=== PATIENT | female | born 1950 | race Caucasian/White ===

== ENCOUNTER 2021-04-02 13:30 | Inpatient (IN) | payer MEDICARE, BC, SELFPAY ==
[2021-04-02 14:14] VITALS: BP 132/85; PULSE 74; RESP 18; TEMP 36.4; O2SAT 91; BMI 35.2
[2021-04-02 15:10] VITALS: O2SAT 91
[2021-04-02 19:00] VITALS: BP 109/65; PULSE 94; RESP 18; TEMP 36.8; O2SAT 92
[2021-04-02 19:30] VITALS: BP 138/80; PULSE 80; RESP 18; TEMP 36.7; O2SAT 94
[2021-04-02] MEDS: Senna/Docusate Sodium 1 Tablet 2 TABLET PO (20:57)
[2021-04-02] MEDS: Atorvastatin Calcium 40 MG Tablet PO (20:58)
[2021-04-02] MEDS: Heparin Injection (Vial) 5,000 UNIT/ML VIAL 5000 UNIT SC (21:04)
[2021-04-03 05:54] LABS: Hematocrit 42.6 % (37-47); Hemoglobin 13.4 g/dL (12.0-15.0); Mean Corp Hgb Conc 31.5 g/dL (32-36); Mean Corpuscular Hgb 28.5 pg (27.0-32.0); Mean Corpuscular Volume 90.4 fL (81-99); Mean Platelet Vol. 12.8 fl (6.2-12.0); Platelet Count 156 K/mm3 (150-450); RBC Distribution Width CV 13.7 % (11.6-14.6); RBC Distribution Width SD 45.1 fl (35.1-43.9); Red Blood Count 4.71 M/mm3 (4.2-5.4); White Blood Count 8.3 K/mm3 (4.4-11.0)
[2021-04-03 06:50] VITALS: O2SAT 93
[2021-04-03 06:53] LABS: ALB/GLOB Ratio 0.7 RATIO (0.9-2.4); AST(SGOT) 19 U/L (15-37); Alanine Aminotransfer ALT/SGPT 31 U/L (13-56); Alkaline Phosphatase 106 U/L (45-117); Anion Gap 5 (5-15); BUN 14 mg/dL (7-18); BUN/Creat Ratio 15.7 RATIO (10-20); Calcium,Total 9.3 mg/dL (8.5-10.1); Chloride 106 mmol/L (98-107); Creatinine, Serum 0.89 mg/dL (0.55-1.02); EST Glomerular Filtration Rate 66 mL/min (>60); Est Glom Filt Rate - Afr Amer 80 mL/min (>60); Estimated Creatinine Clearance 58.01 ml/min; Globulin 4.2 g/dL (2.2-4.2); Glucose 114 mg/dL (74-106); Magnesium 2.5 mg/dL (1.6-2.6); Phosphorus 3.7 mg/dL (2.5-4.9); Potassium 4.4 mmol/L (3.5-5.1); Protein, Total 7.2 g/dL (6.4-8.2); Sodium Level 140 mmol/L (136-145)
[2021-04-03] MEDS: Calcium Carb/Vitamin D 1 TABLET Tablet PO (07:46)
[2021-04-03] MEDS: Ascorbic Acid 500 MG Tablet PO (07:46)
[2021-04-03] MEDS: Acetaminophen 325 MG Tablet 650 MG PO (07:46)
[2021-04-03] MEDS: Multivitamins,Ther W-Minerals Tablet 1 TABLET PO (07:46)
[2021-04-03] MEDS: Cyanocobalamin 500 MCG Tablet PO (07:46)
[2021-04-03] MEDS: Pantoprazole Sodium 40 MG Tablet PO (07:46)
[2021-04-03] MEDS: Clopidogrel Bisulfate 75 MG Tablet PO (07:46)
[2021-04-03] MEDS: Heparin Injection (Vial) 5,000 UNIT/ML VIAL 5000 UNIT SC ×2 (07:47→21:08)
[2021-04-03] MEDS: Aspirin 81 MG TAB.CHEW PO (07:47)
[2021-04-03] MEDS: Lisinopril 5 MG Tablet PO (07:47)
[2021-04-03 08:20] VITALS: BP 123/76; PULSE 74; RESP 16; TEMP 36.6; O2SAT 92
--- NOTE | 2021-04-03 10:41 | HP.PCM_ITS ---
HPI - General General Date of Admission: 04/02/21 Date of Service: 04/03/21 Chief Complaint: Debility due to Ischemic CVA. HPI Narrative JOSE VELAZQUEZ, is a 70 F who presented to the ED on 03/29/21 with c/o facial droop, difficulty swallowing and R side weakness/that began a few hours prior to arrival. She declined TPA. MRI of the brain showed subcentimeter focus of restricted diffusion in the posterior limb of the left internal capsule consistent with an acute left lacunar CVA. The MRI also showed signs of micro bleeds in the deep Cortex concerning for chronic uncontrolled microvascular hypertension. CTA of the head neck revealed mild calcified stenosis of the internal carotid arteries, right greater than left and mild irregular stenosis of the distal M1 segment of the right middle cerebral artery. Echocardiogram had a 63% ejection fraction with no PFO. There was mild left ventricular hypertrophy. Prior to the stroke she was taking 1 baby ASA a day for many years and did not see a PCP regularly. she was admitted to the inpt acute rehab unit at [facility] on 04/02/21 for > 3 hours of therapy daily to restore function/indepe ndence at or as near as possible to her level prior to the CVA. All records from [facility] were reviewed. HGBA1C is 6.1, [id number], HDL 74 at [facility]. She has not had a COVID vaccination. [facility] Medical History (Updated 04/03/21 @ 12:[address] Nicolette Self, ) Dyslipidemia Glucose intolerance (impaired glucose tolerance) History of colon polyps HTN (hypertension) LVH (left ventricular hypertrophy) MVP (mitral valve prolapse) Obesity (BMI 30-39.9) Home Medications ascorbic acid (vitamin C) [Vitamin C] 500 mg PO DAILY 04/02/21 [History Last Taken Unknown] aspirin [Baby Aspirin] 81 mg PO DAILY 04/02/21 [History Last Taken Unknown] atorvastatin 40 mg PO QHS 04/02/21 [History Last Taken Unknown] calcium carbonate-vitamin D2 [Calcium + Vitamin D] 1 tab PO DAILY 04/02/21 [History Last Taken Unknown] clopidogrel 75 mg PO DAILY 04/02/21 [History Last Taken Unknown] cyanocobalamin (vitamin B-12) [Vitamin B-12] 500 mcg PO DAILY 04/02/21 [History Last Taken Unknown] lisinopril 5 mg PO DAILY 04/02/21 [History Last Taken Unknown] [id number] [Multivitamin 50 Plus] 1 tab PO DAILY 04/02/21 [History Last Taken Unknown] pantoprazole [Protonix] 40 mg PO DAILY 04/02/21 [History Last Taken Unknown] zinc 15 mg PO DAILY 04/02/21 [History Last Taken Unknown] Allergy/AdvReac Type Severity Reaction Status Date / Time No Known Allergies Allergy Verified 04/02/21 14:38 Family History (Updated 04/03/21 @ 01:57 by Tiffany Hughes) Mother Hyperlipidemia Hypertension Father Diabetes Father Hypertension Father Cancer Mother Dementia Brother Muscular dystrophy Surgical History (Updated 04/03/21 @ 11:[address] Nicolette Self DO) H/O colonoscopy with polypectomy Status post left breast lumpectomy (~1991) Social History (Updated 04/03/21 @ 12:[address] 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 pets and animals: Yes (3 tropical birds) leisure activities: art do you think of yourself as: straight/heterosexual current gender identity: female Smoking Status: Never smoker alcohol intake: current details: rare ETOH substance use type: does not use ROS Review of Systems ROS Unobtainable: Denies due to encephalopathy, due to endotracheal tube, due to mental condition or due to mental status Constitutional Constitutional: Reports weakness; Denies anorexia, change in weight, chills, fatigue, fever(s) or night sweats Eyes Eyes: Denies blurry vision, change in vision, eye pain or loss of vision ENT HEENT: Reports nasal congestion and post nasal drip; Denies abnormal hearing, dysphagia, headache(s), hearing loss or sore throat Cardiovascular Cardiovascular: Denies chest pain, dyspnea on exertion, edema, lightheadedness, orthopnea, palpitations, paroxysmal nocturnal dyspnea or syncope Respiratory/Chest Respiratory/Chest: Reports cough; Denies dyspnea, shortness of breath at rest, shortness of breath with exertion or wheezing Gastrointestinal Gastrointestinal: Denies abdominal pain, constipation, diarrhea, dyspepsia, hematemesis, hematochezia, nausea or vomiting Genitourinary Genitourinary: Reports urinary incontinence; Denies dysuria, hematuria, nocturia, urinary frequency, urinary hesitancy or urinary urgency Musculoskeletal Musculoskeletal: Reports joint pain and muscle weakness; Denies back pain, joint swelling or neck pain Integumentary Integumentary: Denies jaundice, lesions, rash or wounds Neurologic Neurologic: Reports focal weakness and weakness; Denies confusion, disequilibrium, dizziness, headache(s), paresthesias, seizures or tremor(s) Psychiatric Psychiatric: Denies anxiety, depression, homicidal ideation or suicidal ideation Endocrine Endocrinology: Denies change in body appearance, polydipsia or polyuria Hematologic/Lymphatic Hematologic/Lymphatic: Denies easy bleeding, easy bruising or lymphadenopathy Allergic/Immunologic Allergic/Immunologic: Denies rhinitis, eczemia or asthma Vital Signs Vital Signs Vital Signs: 04/02/21 14:14 04/02/21 15:10 04/02/21 19:00 Temperature 97.5 F L 98.2 F Temperature Source Oral Oral Pulse Rate 74 94 Pulse Strength Respiratory Rate 18 18 Respiratory Effort Respiratory Depth Respiratory Pattern Blood Pressure 132/85 H 109/65 Blood Pressure Mean 100 79 Blood Pressure Source Monitor Monitor Blood Pressure Position Semi-Fowlers Semi-Fowlers Blood Pressure Location Right Arm Left Arm Pulse Ox 91 91 92 Oxygen Delivery Method Room Air Room Air Room Air 04/02/21 19:30 04/02/21 20:50 04/03/21 06:50 Temperature 98.1 F Temperature Source Temporal Pulse Rate 80 Pulse Strength Normal (2+) Respiratory Rate 18 Respiratory Effort Respiratory Depth Respiratory Pattern Blood Pressure 138/80 H Blood Pressure Mean 99 Blood Pressure Source Monitor Blood Pressure Position Semi-Fowlers Blood Pressure Location Left Arm Pulse Ox 94 93 Oxygen Delivery Method Room Air Room Air 04/03/21 08:20 04/03/21 10:00 Temperature 97.8 F Temperature Source Temporal Pulse Rate 74 Pulse Strength Respiratory Rate 16 Respiratory Effort Normal Non-Labored Respiratory Depth Normal Respiratory Pattern Normal Blood Pressure 123/76 H Blood Pressure Mean 91 Blood Pressure Source Monitor Blood Pressure Position Semi-Fowlers Blood Pressure Location Left Arm Pulse Ox 92 Oxygen Delivery Method Room Air Room Air Weight Weight: 230 lb 6.129 oz Body Mass Index (BMI) 35.2 Indicators for Scoring Admitted with or Primary Diagnosis of CVA/Stroke: Yes Hx of CVA/Stroke: Yes Modified [place] Score MRS Score at time of Evaluation: 4-Moderate/severe disability NIHSS NIHSS 1a. Level of Consciousness: Alert; keenly responsive 1b. LOC Questions: Answers BOTH questions correctly. 1c. LOC Commands: Performs both tasks correctly. 2. Best Gaze: Normal 3. Visual: No visual loss 4. Facial Palsy: Minor paralysis (flattened nasolabial fold, asymmetry on smiling) 5a. Left Arm: No drift; arm holds 90 (or 45) degrees for full 10 seconds 5b. Right Arm: Drift; arm drifts downward but doesn?t hit the bed 6a. Left Leg: No drift; leg holds 30-degree position for full 5 seconds 6b. Right Leg: No drift; leg holds 30-degree position for full 5 seconds 7. Limb Ataxia: Absent 8. Sensory: Normal; no sensory loss 10. Dysarthria: [id number] dysarthria; 11. Extinction and Inattention: No abnormality Total: 3 Physical Exam Const alert, oriented x3, no apparent distress and well nourished Constitutional Narrative: Sitting in a chair at the bedside. General Appearance: cooperative and well developed HEENT normocephalic, head/scalp atraumatic, moist oral mucous membranes and oropharynx normal HEENT Narrative: tonsils are large for age but, no exudate and no redness or pain. Eyes PERRL and EOMs intact bilaterally Neck supple, no JVD and no carotid bruits General: trachea midline Resp normal respiratory effort, normal air movement and clear to auscultation bilaterally Cardio regular rate, regular rhythm, S1 normal heart sound, S2 normal heart sound, no murmurs, no rub and no gallops Cardio Narrative: No ectopy GI normal to inspection, nondistended, normoactive bowel sounds GI Narrative: Obese Extremity no clubbing, cyanosis or edema and no calf tenderness Skin no wounds Rashes: no rashes Neuro Neuro Narrative: Right facial droop, drift with the right upper extremity. NIH is 3 Coordination / Balance: [id number] test normal and nhyo-[id number]-bwzk test normal Psych thought process normal, cooperative, affect normal, denies homicidal ideation and denies suicidal ideation Appearance: appropriate Thought Content: No hallucination(s) Results Lab / Micro Data Result Diagrams: 04/03/21 05:06 04/03/21 05:06 Labs: Laboratory Results - last 24 hr 04/03/21 04/03/21 05:06 05:06 WBC 8.3 RBC 4.71 Hgb 13.4 Hct 42.6 MCV 90.4 MCH 28.5 MCHC 31.5 L RDW Std Deviation 45.1 H RDW Coeff of Adan 13.7 Plt Count 156 MPV 12.8 H Sodium 140 Potassium 4.4 Chloride 106 Carbon Dioxide 29.0 Anion Gap 5 BUN 14 Creatinine 0.89 Estim Creat Clear Calc 58.01 Est GFR (MDRD) Af Amer 80 Est GFR (MDRD) Non-Af 66 BUN/Creatinine Ratio 15.7 Glucose 114 H Calcium 9.3 Phosphorus 3.7 Magnesium 2.5 Total Bilirubin 0.60 AST 19 ALT 31 Alkaline Phosphatase 106 Total Protein 7.2 Albumin 3.0 L Globulin 4.2 Albumin/Globulin Ratio 0.7 L Assessment & Plan Assessment/Plan (1) Physical debility: (2) Ischemic cerebrovascular accident (CVA): (3) HTN (hypertension): (4) Dyslipidemia: (5) Glucose intolerance (impaired glucose tolerance): (6) LVH (left ventricular hypertrophy): (7) Obesity (BMI 30-39.9): PLAN: PLAN PT for gait stability OT for ADL's ST for evaluation Analgesics as needed Bowel protocol Fall precautions Assess for Anxiety/Depression GI prophylaxis is not necessary - she has no hx of PUD and she denies N/V/epigastric pain DVT prophylaxis with heparin 5000 units subcu every 12 hours Follow up with PCP, neurology following DC from IP Rehab AM lab including CMP, CBC, Mag and Phos - unremarkable Her husbands name is Hung and he will be here for TEAM meeting on . We discussed getting the COVID vaccine while she is in rehab and she is going to discuss this with her . Charges/Coding Visit Charges Inpatient E&M: 36472 Init Hosp L3
--- NOTE | 2021-04-03 11:11 | PCM.RU.PYE ---
Admission Information Primary Diagnosis:: Physical debility due to ischemic CVA with dysphagia, dysarthria and R side weakness. Status Changes from Prescreening?: No changes Identified Actual Problem List:: Bladder Incontinence, Mobility Impaired, Self Care Deficit, Know.Dfct/Disease Process, Know.Dfct of Medicaitons, BP, Hypertension and Alteration-Leisure Activ. Potential Problem List:: DVT, Bleeding, Infection, UTI, Aspiration, Falls, Skin Integrity and Depression Risk of Complications DVT: LMWH and SUE Hose Bleeding: Monitor Lab Values, Nursing to Teach Precautions for anti-coagulation therapy., Wound, if applicable, to be assessed every shift. and Stroke patients assessed for lethargy or change in status. Infection: Clinical Staff to Monitor for S/S of infection: and S/S of infection include fever, redness, warmth, etc. Urinary Tract Infection: Monitor for frequency, burning, discomfort, or incontinence. and Nursing will obtain urine sample for urinalysis and C&S when ordered. Aspiration: Clinical staff will monitor for coughing, drooling, congestion., Speech will evaluate swallowing and dsyphasia. and Nursing will monitor patient swallowing during meals. Falls: Patient will be evaluated for Fall Precautions and Patient will be placed on Fall Precautions as indicated per protocol. Skin Breakdown: Nursing will assess skin daily using assessment tool. and Nursing will place on Skin Breakdown Precautions as indicated. Pain: Clinical staff will assess patient's pain level per protocol., Medications will be given, if needed, and the pain level reassessed. and Other methods: Massage, distraction, decrease stimulus, etc. used PRN. Plan of Care Patient requires physician specializing in physical medicine and rehab oversight to provide close medical supervision of rehab issues including: Pain Management, Sleep Problems, Bowel and Bladder, Medical and co-morbidity Management, DVT prophylaxis, Rehabilitation Leadership and Coordination of treatment team Patient needs Physical Therapy: For a minimum of 1 hour and At least 5 out of 7 days Patient needs Physical Therapy to improve:: Mobility, Strengthening, Transfers, Stretching, ROM, Endurance, Stairs, Gait and Balance Patient needs Occupational Therapy: For a minimum of 1 hour and At least 5 out of 7 days Patient needs Occupational Therapy to improve ADL's incl.: Eating, Grooming, Bathing, Dressing, Toileting, Toilet transfers, Community Reintegration, Higher functioning activities, Household tasks, Adaptive Equipment, Splinting and Other activities as determined Patient requires speech therapy: For a minimum of 1 hour and At least 5 out of 7 days Patient requires speech therapy for: Swallowing, Cognition, Language Skills and Compensatory Strategies Patient requires 24/ Rehabilitation Nursing for: Pain Issues, Identifying and preventing risk factors, Monitoring and reporting current medical conditions, Assisting with ambulation, transfer, and all ADL's, Teaching patients about disease process and medications, Family teaching, Providing safe environment, Bowel and Bladder Issues, Skin integrity and Medication Management Patient needs Equipment [employer]/ Case Management for: Discharge Planning, Arranging Home Equipment or Services and Family Interventions Patient needs Dietary and Nutrition Services for: Adequate Nutrition, Nutritional Supplements and Nutritional Education Goals Patient will remain: free from falls and or injury at time of discharge. Patient will perform bed mobility at: MOD I level of assist. Patient will complete transfers from bed to chair at: MOD I level of assist. Patient will ambulate: 100 feet and with LRD Patient will complete upper body dressing at: MOD I level of assist. Patient will complete lower body dressing at: MOD I level of assist. Patient will complete toileting at: MOD I level of assist. Patient will perform bathing at: MOD I level of assist. Patient will complete grooming at: MOD I level of assist. Patient will complete home management skills at: MOD I level of assist. Patient will achieve: - (1 curb step) Patient will have pain level of: of 3 or less Patient's skin will: remain intact Patient will receive: adequate nutrition.
[2021-04-03] MEDS: Ipratropium Bromide 0.06% NASAL SPRAY 2 SPRAY NASAL ×2 (15:08→21:09)
[2021-04-03 15:18] LABS: Bacteria 0 SEEN /hpf (None Seen); Mucous, Urine 0 SEEN /hpf (<or=2+); Red Blood Cells-Urine 0 SEEN /hpf (0-5); White Blood Cells 0 SEEN /hpf (0-5)
[2021-04-03 15:23] LABS: Glucose, Dipstick Normal (Normal); Ketone-Dipstick Negative (Negative); Leukocyte Esterase-Dipstick Negative /ul (Negative); Nitrite-Dipstick Negative (Negative); Occult Blood-Urine Negative /ul (Negative); Protein-Dipstick Negative (Negative); Urine Bilirubin Dipstick Negative (Negative); Urine Urobilinogen Normal (Normal)
[2021-04-03 16:07] LABS: Color, Urine Yellow (Yellow); Urine Clarity Sl Cldy (Clear)
[2021-04-03 16:20] LABS: Squamous Epithelial Cells - UA 0-5 SEEN /hpf (5-10)
[2021-04-03 19:37] VITALS: BP 143/80; PULSE 77; RESP 16; TEMP 36.7; O2SAT 95
[2021-04-03 20:57] VITALS: PULSE 77; RESP 18
[2021-04-03] MEDS: Atorvastatin Calcium 40 MG Tablet PO (21:10)
[2021-04-04] MEDS: Acetaminophen 325 MG Tablet 650 MG PO ×2 (06:22→18:54)
[2021-04-04 07:08] VITALS: BP 156/62; PULSE 63; RESP 18; TEMP 35.7; O2SAT 94
[2021-04-04 08:00] VITALS: O2SAT 94
[2021-04-04] MEDS: Aspirin 81 MG TAB.CHEW PO (08:02)
[2021-04-04] MEDS: Multivitamins,Ther W-Minerals Tablet 1 TABLET PO (08:02)
[2021-04-04] MEDS: Calcium Carb/Vitamin D 1 TABLET Tablet PO (08:02)
[2021-04-04] MEDS: Cyanocobalamin 500 MCG Tablet PO (08:03)
[2021-04-04] MEDS: Heparin Injection (Vial) 5,000 UNIT/ML VIAL 5000 UNIT SC ×2 (08:03→21:39)
[2021-04-04] MEDS: Clopidogrel Bisulfate 75 MG Tablet PO (08:03)
[2021-04-04] MEDS: Ipratropium Bromide 0.06% NASAL SPRAY 2 SPRAY NASAL ×2 (08:03→21:38)
[2021-04-04] MEDS: Ascorbic Acid 500 MG Tablet PO (08:03)
[2021-04-04] MEDS: Lisinopril 5 MG Tablet PO (08:04)
--- NOTE | 2021-04-04 11:38 | PN_ITS ---
Subjective Subjective Afebrile VSS Maintaining appropriate oxygen saturation on RA Oral intake is fair Discussed with nursing - She got very little sleep last night due to cough. The cough is dry. She tells me that it is worse than the cough she has chronically due to PND. The Atrovent nasal spray helps but, the effect is short lived. Reviewed the PT/OT/ST notes Medication list reviewed. Objective Data Objective Data Vital Signs: Vital Signs Temp Pulse Resp BP Pulse Ox 96.3 F L 63 18 156/62 H 94 04/04/21 07:08 04/04/21 07:08 04/04/21 07:08 04/04/21 07:08 04/04/21 07:08 Oxygen Delivery Method Room Air Weight: 230 lb 6.129 oz Body Mass Index (BMI) 35.2 Intake & Output: Intake and Output for Last 24 Hours 04/02/21 04/03/21 04/04/21 23:59 23:59 23:59 Intake Total 600 / 600 1020 / 1020 400 / 400 Output Total 300 / 300 200 / 200 Balance 300 / 300 820 / 820 400 / 400 Lab / Micro Data Result Diagrams: 04/03/21 05:06 04/03/21 05:06 Labs: Laboratory Results - last 24 hr 04/03/21 15:10 Urine Color Yellow Urine Clarity Sl Cldy Urine pH 6.0 Ur Specific [place] 1.010 Urine Protein Negative Urine Glucose (UA) Normal Urine Ketones Negative Urine Occult Blood Negative Urine Nitrite Negative Urine Bilirubin Negative Urine Urobilinogen Normal Ur Leukocyte Esterase Negative Urine RBC 0 SEEN Urine WBC 0 SEEN Ur Squamous Epith Cells 0-5 SEEN Urine Bacteria 0 SEEN Urine Mucus 0 SEEN Physical Exam Const alert and oriented x3 Constitutional Narrative: coughing very frequently even when she is sitting up General Appearance: cooperative Resp normal respiratory effort, normal air movement and clear to auscultation bilaterally Cardio regular rate and regular rhythm Extremity General Extremity: Negative for edema Assessment & Plan Assessment/Plan (1) Ischemic cerebrovascular accident (CVA): PLAN: Continue therapy (2) Physical debility: (3) HTN (hypertension): QUALIFIERS: Hypertension type: essential hypertension Qualified Code(s): I10 - Essential (primary) hypertension PLAN: Continue to monitor. Currently on lisinopril 5 mg daily and most blood pressures are at goal. (4) Cough: PLAN: I suspect that the lisinopril is contributing to her current cough as it is worse than it was at home and her lungs are clear to auscultation. I am going to discontinue lisinopril and start (5) Post-nasal drip: PLAN: Continue the Atrovent nasal spray for chronic PND.....I really think it is the Lisinopril that is causing the cough to be worse now. Charges/Coding Visit Charges Inpatient E&M: 85575 Subs Hosp L2
[2021-04-04 19:39] VITALS: BP 128/86; PULSE 78; RESP 16; TEMP 36.1; O2SAT 93
[2021-04-04] MEDS: Atorvastatin Calcium 40 MG Tablet PO (21:39)
[2021-04-04 22:00] VITALS: PULSE 76; RESP 16
[2021-04-05 07:15] VITALS: BP 145/72; PULSE 72; RESP 16; TEMP 36.3; O2SAT 95
[2021-04-05] MEDS: Cyanocobalamin 500 MCG Tablet PO (07:46)
[2021-04-05] MEDS: Multivitamins,Ther W-Minerals Tablet 1 TABLET PO (07:46)
[2021-04-05] MEDS: Aspirin 81 MG TAB.CHEW PO (07:46)
[2021-04-05] MEDS: Calcium Carb/Vitamin D 1 TABLET Tablet PO (07:46)
[2021-04-05] MEDS: Ipratropium Bromide 0.06% NASAL SPRAY 2 SPRAY NASAL ×2 (07:46→21:13)
[2021-04-05] MEDS: Ascorbic Acid 500 MG Tablet PO (07:46)
[2021-04-05] MEDS: dilTIAZem CD 120 MG Capsule PO (07:47)
[2021-04-05] MEDS: Clopidogrel Bisulfate 75 MG Tablet PO (07:47)
[2021-04-05] MEDS: Heparin Injection (Vial) 5,000 UNIT/ML VIAL 5000 UNIT SC ×2 (07:47→21:11)
[2021-04-05] MEDS: Acetaminophen 325 MG Tablet 650 MG PO (17:52)
[2021-04-05 19:21] VITALS: BP 135/86; PULSE 66; RESP 16; TEMP 36.3; O2SAT 94
[2021-04-05 21:00] VITALS: BMI 35.2
[2021-04-05 21:02] VITALS: PULSE 73; RESP 16
[2021-04-05] MEDS: Atorvastatin Calcium 40 MG Tablet PO (21:10)
[2021-04-06 07:36] VITALS: BP 152/78; PULSE 69; RESP 16; TEMP 36.6; O2SAT 94
[2021-04-06] MEDS: Ascorbic Acid 500 MG Tablet PO (08:08)
[2021-04-06] MEDS: Cyanocobalamin 500 MCG Tablet PO (08:08)
[2021-04-06] MEDS: Clopidogrel Bisulfate 75 MG Tablet PO (08:08)
[2021-04-06] MEDS: Aspirin 81 MG TAB.CHEW PO (08:09)
[2021-04-06] MEDS: Ipratropium Bromide 0.06% NASAL SPRAY 2 SPRAY NASAL ×2 (08:09→22:38)
[2021-04-06] MEDS: Calcium Carb/Vitamin D 1 TABLET Tablet PO (08:09)
[2021-04-06] MEDS: dilTIAZem CD 120 MG Capsule PO (08:09)
[2021-04-06] MEDS: Multivitamins,Ther W-Minerals Tablet 1 TABLET PO (08:09)
[2021-04-06] MEDS: Heparin Injection (Vial) 5,000 UNIT/ML VIAL 5000 UNIT SC ×2 (08:09→22:37)
--- NOTE | 2021-04-06 09:25 | CASEMGMT ---
Social Work Team meeting held. Patient present as well as patient spouse. Patient to continue with further care and treatment on the Rehab Unit. Patient approved 23 days with anticipated discharge date on or before 04/25/2021. Patient plans to discharge to home with spouse. Will continue to follow. Jackeline ZHANG, JOCELYNE
--- NOTE | 2021-04-06 10:49 | PCM.PROGNOTE ---
Subjective Subjective afebrile Systolic BP is often greater than goal. The diastolic is mostly at goal. He is made tainting appropriate oxygen saturation on room air. He had no bowel movements overnight and the diarrhea seems to be coming under control. He is scheduled for a MBS today and is very hopeful that he can be started on a diet. He denies chest pain, shortness of breath, cough, nausea/vomiting, abdominal pain. He also denies dysuria. Objective Data Objective Data Vital Signs: Vital Signs Temp Pulse Resp BP Pulse Ox 97.8 F 69 16 152/78 H 94 04/06/21 07:36 04/06/21 07:36 04/06/21 07:36 04/06/21 07:36 04/06/21 07:36 Oxygen Delivery Method Room Air Weight: 231 lb 4.238 oz Body Mass Index (BMI) 35.2 Intake & Output: Intake and Output for Last 24 Hours 04/04/21 04/05/21 04/06/21 23:59 23:59 23:59 Intake Total 1140 / 1140 1320 / 1320 360 / 360 Balance 1140 / 1140 1320 / 1320 360 / 360 Lab / Micro Data Result Diagrams: 04/03/21 05:06 04/03/21 05:06
--- NOTE | 2021-04-06 13:24 | PCM.PROGNOTE ---
Subjective Subjective Galina was seen on team rounds today. Her Hung was in the room for rounds. Afebrile VSS-the systolic blood pressure is frequently above 135 although the diastolic pressure has been good. Maintaining appropriate oxygen saturation on RA Oral intake is good Discussed with nursing - no problems that need addressed Reviewed the PT/OT/ST notes and discussed with the therapists before rounds. Medication list reviewed. The cough is less with the discontinuation of Lisinopril. She denies chest pain, shortness of breath, nausea/vomiting, abdominal pain, dysuria. Her complaint today is right knee pain and the knee yuliya at times. It hurts constantly and she is known to have osteoarthritis. Objective Data Objective Data Vital Signs: Vital Signs Temp Pulse Resp BP Pulse Ox 97.8 F 69 16 152/78 H 94 04/06/21 07:36 04/06/21 07:36 04/06/21 07:36 04/06/21 07:36 04/06/21 07:36 Oxygen Delivery Method Room Air Weight: 231 lb 4.238 oz Body Mass Index (BMI) 35.2 Intake & Output: Intake and Output for Last 24 Hours 04/04/21 04/05/21 04/06/21 23:59 23:59 23:59 Intake Total 1140 / 1140 1320 / 1320 660 / 660 Balance 1140 / 1140 1320 / 1320 660 / 660 Lab / Micro Data Result Diagrams: 04/03/21 05:06 04/03/21 05:06 Physical Exam Const alert, oriented x3 and no apparent distress Constitutional Narrative: Sitting in the recliner at the bedside. Persistent R facial droop. Mild dysarthria. General Appearance: cooperative Eyes PERRL and EOMs intact bilaterally Neck supple Resp normal respiratory effort, normal air movement and clear to auscultation bilaterally Cardio regular rate, regular rhythm, S1 normal heart sound, S2 normal heart sound and no gallops Cardio Narrative: MM is unchanged since admission. No diastolic MM. Heart Sounds: murmur systolic GI soft to palpation, non-tender and non-distended Palpation: Negative for guarding Extremity no clubbing, cyanosis or edema Skin General Skin Exam: no breakdown Rashes: no rashes Neuro Neuro Narrative: R side weakness. dysarthria and dysphagia.....will have a meal with ST at lunch. No trouble with word finding. ST will check her higher level cognitive function. Psych thought process normal and affect normal Appearance: appropriate Assessment & Plan Assessment/Plan (1) Ischemic cerebrovascular accident (CVA): PLAN: Discussed the treatment goals with LDL, HGBA1C and BP to decrease the risk of strokes going forward. (2) Physical debility: PLAN: Continue therapy (3) HTN (hypertension): QUALIFIERS: Hypertension type: essential hypertension Qualified Code(s): I10 - Essential (primary) hypertension PLAN: She was just started on Cardizem for HTN and the BP is only mildly elevated. Will continue to monitor for the next 24-48 hours and if the systolic is still above goal will increase the dose. (4) Cough: PLAN: Continue the Atrovent nasal spray for PND......it is helping but, discontinuing the Lisinopril has made a big difference (5) Right knee pain: QUALIFIERS: Chronicity: chronic Qualified Code(s): M25.561 - Pain in right knee; G89.29 - Other chronic pain PLAN: Inject the R knee today and RX arthritis compounded cream Charges/Coding Visit Charges Inpatient E&M: 68985 Subs Hosp L2
[2021-04-06 17:00] VITALS: BMI 35.2
[2021-04-06] MEDS: Triamcinolone Acetonide 40 MG/ML Vial INTRAARTIC (18:42)
[2021-04-06] MEDS: Bupivacaine Mpf 0.5% 30 ML VIAL INFILT (18:42)
[2021-04-06 19:50] VITALS: BP 135/57; PULSE 69; RESP 16; TEMP 36.8; O2SAT 98
[2021-04-06] MEDS: Senna/Docusate Sodium 1 Tablet 2 TABLET PO (22:37)
[2021-04-06] MEDS: Atorvastatin Calcium 40 MG Tablet PO (22:38)
[2021-04-06 22:56] VITALS: RESP 16
[2021-04-07 05:00] VITALS: BMI 35.2
[2021-04-07 07:35] VITALS: BP 147/80; PULSE 70; RESP 16; TEMP 36.9; O2SAT 91
[2021-04-07] MEDS: Aspirin 81 MG TAB.CHEW PO (08:56)
[2021-04-07] MEDS: Senna/Docusate Sodium 1 Tablet 2 TABLET PO (08:56)
[2021-04-07] MEDS: Ascorbic Acid 500 MG Tablet PO (08:56)
[2021-04-07] MEDS: Calcium Carb/Vitamin D 1 TABLET Tablet PO (08:56)
[2021-04-07] MEDS: Cyanocobalamin 500 MCG Tablet PO (08:56)
[2021-04-07] MEDS: Clopidogrel Bisulfate 75 MG Tablet PO (08:56)
[2021-04-07] MEDS: Multivitamins,Ther W-Minerals Tablet 1 TABLET PO (08:56)
[2021-04-07] MEDS: Ipratropium Bromide 0.06% NASAL SPRAY 2 SPRAY NASAL ×2 (08:56→22:53)
[2021-04-07] MEDS: dilTIAZem CD 120 MG Capsule PO (08:57)
[2021-04-07] MEDS: Heparin Injection (Vial) 5,000 UNIT/ML VIAL 5000 UNIT SC ×2 (08:57→22:53)
--- NOTE | 2021-04-07 09:55 | PCM.OP.PRO ---
Procedure Report Date of Procedure: 04/06/21 Therapeutic injection of steroid into the right knee for severe osteoarthritis with pain. The right knee was cleaned in the usual manner. We used a anterior approach. The knee was entered with a 22-gauge needle after topical anesthesia was applied. The knee was aspirated and there was no return. An injection was then performed using 40 mg mg of Kenalog with 2 cc of Marcaine. There were no complications. Normal postop instructions were given. I rechecked her 20 minutes after the injection and she denied pain in the R knee. She tolerated the procedure well. Procedures Musculoskeletal [id number]: [id number] Drain/inj joint/bursa w/o us
--- NOTE | 2021-04-07 10:00 | PCM.PROGNOTE ---
Subjective Subjective Afebrile The systolic blood pressure remains mildly elevated but the diastolic blood pressure is at goal. Heart rate is within normal limits. Oxygen saturation is on the low end of normal this morning at 91% on room air. Fair oral intake. Objective Data Objective Data Vital Signs: Vital Signs Temp Pulse Resp BP Pulse Ox 98.5 F 70 16 147/80 H 91 04/07/21 07:35 04/07/21 07:35 04/07/21 07:35 04/07/21 07:35 04/07/21 07:35 Oxygen Delivery Method Room Air Weight: 231 lb 4.238 oz Body Mass Index (BMI) 35.2 Intake & Output: Intake and Output for Last 24 Hours 04/05/21 04/06/21 04/07/21 23:59 23:59 23:59 Intake Total 1320 / 1320 1020 / 1020 240 / 240 Balance 1320 / 1320 1020 / 1020 240 / 240 Lab / Micro Data Result Diagrams: 04/03/21 05:06 04/03/21 05:06 Physical Exam Const alert, oriented x3, no apparent distress and well nourished Constitutional Narrative: sitting in the recliner at the bedside. Talkative and making good eye contact. General Appearance: cooperative, comfortable, well kempt and well developed Resp normal respiratory effort, normal air movement and clear to auscultation bilaterally Cardio regular rate, regular rhythm, S1 normal heart sound, S2 normal heart sound, no rub and no gallops Heart Sounds: murmur systolic GI normal to inspection, nondistended, normoactive bowel sounds, soft to palpation, non-tender and non-distended Palpation: Negative for guarding Extremity no clubbing, cyanosis or edema and no calf tenderness General Extremity: Negative for edema Skin no wounds General Skin Exam: no breakdown Rashes: no rashes Neuro oriented x3 Neuro Narrative: facial droop is less than at admission. Minimal dysarthria. Weaker on the right side. No sensory loss. Psych thought process normal, cooperative, denies homicidal ideation and denies suicidal ideation Psych Narrative: She is a little down at tearful at times but, then she rallies. Appearance: appropriate Assessment & Plan Assessment/Plan (1) Ischemic cerebrovascular accident (CVA): PLAN: Continue therapy (2) Physical debility: (3) HTN (hypertension): QUALIFIERS: Hypertension type: essential hypertension Qualified Code(s): I10 - Essential (primary) hypertension PLAN: increase the Cardizem dose. (4) Cough: PLAN: Resolved with discontinuation of the Lisinopril and institution of Atrovent nasal spray (5) Right knee pain: QUALIFIERS: Chronicity: chronic Qualified Code(s): M25.561 - Pain in right knee; G89.29 - Other chronic pain PLAN: Inject the R knee with Kenalog 40 mg and a few cc's of Marcaine today and recheck in the AM Charges/Coding Visit Charges Inpatient E&M: 67713 Subs Hosp L2
[2021-04-07 14:57] VITALS: BMI 35.2
[2021-04-07 19:30] VITALS: BP 146/69; PULSE 85; RESP 18; TEMP 36.8; O2SAT 93
[2021-04-07 20:20] VITALS: BMI 35.2
[2021-04-07] MEDS: Arthritis Pain Compound 60 CLICK TUBE TOPICAL (22:52)
[2021-04-07] MEDS: Atorvastatin Calcium 40 MG Tablet PO (22:53)
[2021-04-08 07:21] VITALS: BP 155/82; PULSE 79; RESP 17; TEMP 35.8; O2SAT 97
[2021-04-08] MEDS: Aspirin 81 MG TAB.CHEW PO (08:02)
[2021-04-08] MEDS: Ascorbic Acid 500 MG Tablet PO (08:02)
[2021-04-08] MEDS: Clopidogrel Bisulfate 75 MG Tablet PO (08:02)
[2021-04-08] MEDS: Multivitamins,Ther W-Minerals Tablet 1 TABLET PO (08:02)
[2021-04-08] MEDS: Calcium Carb/Vitamin D 1 TABLET Tablet PO (08:02)
[2021-04-08] MEDS: Cyanocobalamin 500 MCG Tablet PO (08:03)
[2021-04-08] MEDS: dilTIAZem CD 120 MG Capsule PO ×2 (08:03→12:24)
[2021-04-08] MEDS: Ipratropium Bromide 0.06% NASAL SPRAY 2 SPRAY NASAL ×2 (08:05→20:01)
[2021-04-08] MEDS: Arthritis Pain Compound 60 CLICK TUBE TOPICAL ×2 (08:08→20:01)
[2021-04-08] MEDS: Heparin Injection (Vial) 5,000 UNIT/ML VIAL 5000 UNIT SC ×2 (10:25→20:00)
--- NOTE | 2021-04-08 11:13 | PCM.PN.BLA ---
Progress Note Afebrile Blood pressure today is 155/82. Systolics are consistently elevated. Diastolic is within goal. She tells me that last night she woke up with R knee pain but, the pain seems to be better today. Physical Exam Extremity Extremity Narrative: The R knee is not erythematous nor is it warm to touch. There is a very small bruise at the injection site (1-2 mm). There is no pain with passive or active ROM when she is not weight bearing. Assessment & Plan Assessment/Plan (1) HTN (hypertension): QUALIFIERS: Hypertension type: essential hypertension Qualified Code(s): I10 - Essential (primary) hypertension PLAN: Increase the daily Cardizem to 180 mg in the AM and give an extra 120 mg now. (2) Right knee pain: QUALIFIERS: Chronicity: chronic Qualified Code(s): M25.561 - Pain in right knee; G89.29 - Other chronic pain PLAN: Continue with the arthritis pain cream. Suggested follow up with ortho post DC. Visit Charges Inpatient E&M: 69627 Subs Hosp L1
[2021-04-08 16:00] VITALS: BP 140/72
[2021-04-08 16:17] VITALS: BMI 35.2
[2021-04-08 19:05] VITALS: BP 138/73; PULSE 90; RESP 16; TEMP 36.3; O2SAT 97
[2021-04-08] MEDS: Atorvastatin Calcium 40 MG Tablet PO (20:00)
[2021-04-09] MEDS: Multivitamins,Ther W-Minerals Tablet 1 TABLET PO (07:46)
[2021-04-09] MEDS: Acetaminophen 325 MG Tablet 650 MG PO (07:46)
[2021-04-09] MEDS: Aspirin 81 MG TAB.CHEW PO (07:46)
[2021-04-09] MEDS: Calcium Carb/Vitamin D 1 TABLET Tablet PO (07:46)
[2021-04-09] MEDS: Ascorbic Acid 500 MG Tablet PO (07:46)
[2021-04-09] MEDS: dilTIAZem CD 180 MG Capsule PO (07:47)
[2021-04-09] MEDS: Cyanocobalamin 500 MCG Tablet PO (07:47)
[2021-04-09 08:00] VITALS: BP 161/84; PULSE 68; RESP 16; TEMP 36.6; O2SAT 99
[2021-04-09] MEDS: Heparin Injection (Vial) 5,000 UNIT/ML VIAL 5000 UNIT SC ×2 (09:09→23:20)
[2021-04-09] MEDS: Clopidogrel Bisulfate 75 MG Tablet PO (09:09)
[2021-04-09] MEDS: Ipratropium Bromide 0.06% NASAL SPRAY 2 SPRAY NASAL ×2 (09:10→23:20)
[2021-04-09] MEDS: Arthritis Pain Compound 60 CLICK TUBE TOPICAL ×2 (09:10→23:20)
[2021-04-09 14:38] VITALS: BMI 35.2
[2021-04-09 19:12] VITALS: BP 153/73; PULSE 74; RESP 18; TEMP 36.6; O2SAT 95
[2021-04-09] MEDS: Atorvastatin Calcium 40 MG Tablet PO (23:20)
[2021-04-10] MEDS: Clopidogrel Bisulfate 75 MG Tablet PO (08:16)
[2021-04-10] MEDS: Ipratropium Bromide 0.06% NASAL SPRAY 2 SPRAY NASAL ×2 (08:16→21:42)
[2021-04-10] MEDS: Aspirin 81 MG TAB.CHEW PO (08:16)
[2021-04-10] MEDS: Ascorbic Acid 500 MG Tablet PO (08:16)
[2021-04-10] MEDS: Cyanocobalamin 500 MCG Tablet PO (08:17)
[2021-04-10] MEDS: Multivitamins,Ther W-Minerals Tablet 1 TABLET PO (08:17)
[2021-04-10] MEDS: Calcium Carb/Vitamin D 1 TABLET Tablet PO (08:17)
[2021-04-10] MEDS: Heparin Injection (Vial) 5,000 UNIT/ML VIAL 5000 UNIT SC ×2 (08:17→21:43)
[2021-04-10] MEDS: Arthritis Pain Compound 60 CLICK TUBE TOPICAL ×2 (08:17→21:42)
[2021-04-10] MEDS: dilTIAZem CD 180 MG Capsule PO ×2 (08:17→21:43)
[2021-04-10 08:37] VITALS: BP 161/87; PULSE 73; RESP 12; TEMP 35.7; O2SAT 98
[2021-04-10 15:49] VITALS: BMI 35.2
--- NOTE | 2021-04-10 16:00 | PN_ITS ---
Progress Note Afebrile VSS Maintaining appropriate oxygen saturation on RA Oral intake is poor per the documentation. Less than 1000 cc daily for the past few days. Discussed with nursing - I got a note that the RN feels she is depressed. She asked several times over the weekend if they thought she was doing better. She tells me that yesterday when she went to get off the toilet My R leg did not want to work......I further clarified this and her R leg locked. Today she is doing much better. We discussed the sx of depression and the fact that depress ion often accompanies a stroke because you have lost function and often independence. We also discussed that this can affect motivation and performance in therapy. She prefers to hold off on an antidepressant for now but, will let me know if she changes her mind. Reviewed the PT/OT/ST notes -she was able to ambulate 330 feet today (up from 20 ft at admission) at a good speed with no loss of balance, good posture and using a hemiwalker. She did the TUG in 18.9 sec (down from 64.18 seconds at admission to the rehab unit). Medication list reviewed. The pain in the R knee is better....she rates her pain at a 3 today. Less buckling. We have no knee XRAYS on this pt but, the knee pain has been getting gradually worse and there is le enlargement on the joint consistent with OA. She denies CP, SOB, palpitations, N/V/abd pain, lightheadedness. Physical Exam Const alert, oriented x3, no apparent distress and well nourished Constitutional Narrative: sitting in the recliner at the bedside. Talkative and making good eye contact. General Appearance: cooperative, comfortable, well kempt and well developed HEENT oropharynx normal HEENT Narrative: dry MM Eyes PERRL and EOMs intact bilaterally Resp normal respiratory effort, normal air movement and clear to auscultation bilaterally Cardio regular rate, regular rhythm, S1 normal heart sound, S2 normal heart sound, no rub and no gallops Heart Sounds: murmur systolic GI normal to inspection, nondistended, normoactive bowel sounds, soft to palpation, non-tender and non-distended Palpation: Negative for guarding Extremity no clubbing, cyanosis or edema and no calf tenderness Skin no wounds General Skin Exam: no breakdown Rashes: no rashes Neuro oriented x3 Neuro Narrative: facial droop is less than at admission. Minimal dysarthria. Weaker on the right side but has gained strength since admission. No sensory loss. Coordination / Balance: [id number] test normal and [id number] test normal Psych thought process normal, cooperative, denies homicidal ideation and denies suicidal ideation Psych Narrative: She is a little down at tearful at times but, then she rallies. Appearance: appropriate Assessment & Plan Assessment/Plan (1) Ischemic cerebrovascular accident (CVA): PLAN: Continue therapy (2) Physical debility: (3) HTN (hypertension): QUALIFIERS: Hypertension type: essential hypertension Qualified Code(s): I10 - Essential (primary) hypertension PLAN: It is high in the AM but looking better the rest of the day. Will increase the Cardizem CD to BID (4) Cough: PLAN: Resolved with discontinuation of the Lisinopril and institution of Atrovent nasal spray (5) Right knee pain: QUALIFIERS: Chronicity: chronic Qualified Code(s): M25.561 - Pain in right knee; G89.29 - Other chronic pain PLAN: pain and buckling is better since the R knee was injected. I advised her to follow up with orthopedics following DC for w/u for possible joint replacement and/or Synvisc injection Visit Charges Inpatient E&M: 53872 Subs Hosp L2
[2021-04-10 19:09] VITALS: BP 108/55; PULSE 79; RESP 15; TEMP 36.2; O2SAT 95
[2021-04-10 21:40] VITALS: BMI 35.2
[2021-04-10] MEDS: Atorvastatin Calcium 40 MG Tablet PO (21:43)
[2021-04-10 22:00] VITALS: PULSE 74; RESP 16
[2021-04-11 07:06] VITALS: BP 148/74; PULSE 81; RESP 17; TEMP 36.3; O2SAT 94
[2021-04-11] MEDS: Cyanocobalamin 500 MCG Tablet PO (08:01)
[2021-04-11] MEDS: Clopidogrel Bisulfate 75 MG Tablet PO (08:01)
[2021-04-11] MEDS: Multivitamins,Ther W-Minerals Tablet 1 TABLET PO (08:01)
[2021-04-11] MEDS: Calcium Carb/Vitamin D 1 TABLET Tablet PO (08:01)
[2021-04-11] MEDS: Ascorbic Acid 500 MG Tablet PO (08:01)
[2021-04-11] MEDS: Aspirin 81 MG TAB.CHEW PO (08:01)
[2021-04-11] MEDS: Ipratropium Bromide 0.06% NASAL SPRAY 2 SPRAY NASAL ×2 (08:02→21:24)
[2021-04-11] MEDS: Heparin Injection (Vial) 5,000 UNIT/ML VIAL 5000 UNIT SC ×2 (08:02→21:24)
[2021-04-11] MEDS: dilTIAZem CD 180 MG Capsule PO ×2 (08:02→21:24)
[2021-04-11] MEDS: Arthritis Pain Compound 60 CLICK TUBE TOPICAL ×2 (08:09→22:02)
[2021-04-11 13:27] VITALS: BMI 35.2
[2021-04-11 15:54] LABS: Mucous, Urine 0 SEEN /hpf (<or=2+); Red Blood Cells-Urine 0 SEEN /hpf (0-5); Squamous Epithelial Cells - UA 0 SEEN /hpf (5-10)
[2021-04-11 16:07] LABS: Color, Urine Yellow (Yellow); Glucose, Dipstick Normal (Normal); Ketone-Dipstick Negative (Negative); Leukocyte Esterase-Dipstick 100 /ul (Negative); Nitrite-Dipstick Positive (Negative); Occult Blood-Urine Negative /ul (Negative); Protein-Dipstick Negative (Negative); Specific Gravity, Urine 1.025 (1.002-1.030); Urine Bilirubin Dipstick Negative (Negative); Urine Clarity Clear (Clear); Urine Urobilinogen Normal (Normal)
[2021-04-11 16:24] LABS: Bacteria 1+ /hpf (None Seen); White Blood Cells 0-5 SEEN /hpf (0-5)
[2021-04-11 19:22] VITALS: BP 160/84; PULSE 76; RESP 16; TEMP 37.2; O2SAT 98
[2021-04-11] MEDS: Atorvastatin Calcium 40 MG Tablet PO (21:24)
[2021-04-11] MEDS: Cefadroxil 500 MG CAPSULE 1000 MG PO (22:02)
[2021-04-12 00:14] VITALS: BMI 35.2
[2021-04-12] MEDS: Acetaminophen 325 MG Tablet 650 MG PO ×2 (05:48→20:46)
[2021-04-12 08:08] VITALS: BP 147/71; PULSE 77; RESP 18; TEMP 36.3; O2SAT 96
[2021-04-12] MEDS: Heparin Injection (Vial) 5,000 UNIT/ML VIAL 5000 UNIT SC ×2 (08:35→20:37)
[2021-04-12] MEDS: Senna/Docusate Sodium 1 Tablet 2 TABLET PO ×2 (08:35→20:37)
[2021-04-12] MEDS: Calcium Carb/Vitamin D 1 TABLET Tablet PO (08:35)
[2021-04-12] MEDS: Ipratropium Bromide 0.06% NASAL SPRAY 2 SPRAY NASAL ×2 (08:35→20:36)
[2021-04-12] MEDS: Clopidogrel Bisulfate 75 MG Tablet PO (08:36)
[2021-04-12] MEDS: Arthritis Pain Compound 60 CLICK TUBE TOPICAL ×2 (08:36→20:35)
[2021-04-12] MEDS: Multivitamins,Ther W-Minerals Tablet 1 TABLET PO (08:36)
[2021-04-12] MEDS: Cefadroxil 500 MG CAPSULE 1000 MG PO ×2 (08:36→20:37)
[2021-04-12] MEDS: Aspirin 81 MG TAB.CHEW PO (08:36)
[2021-04-12] MEDS: Ascorbic Acid 500 MG Tablet PO (08:36)
[2021-04-12] MEDS: Cyanocobalamin 500 MCG Tablet PO (08:36)
[2021-04-12] MEDS: dilTIAZem CD 180 MG Capsule PO (08:36)
--- NOTE | 2021-04-12 11:14 | PCM.PN.BLA ---
Progress Note Galina is complaining of burning pain on the medial side of the right knee last night......it was relieved with Tylenol. Once she gets walking it gets better. Physical Exam Extremity Extremity Narrative: There is no erythema or increased warmth to touch of the right knee. No pain with extension. She is very tender with palpation of the medial joint line. She has not been wearing he sleeve she uses on her R knee and therapy has not been kailash wrapping. I believe that she has some wobble in the R knee when ambulating due to the weakness of the RLE due to the CVA. The knee is no longer buckling since the joint was injected. Assessment & Plan Assessment/Plan (1) Right knee pain: QUALIFIERS: Chronicity: chronic Qualified Code(s): M25.561 - Pain in right knee; G89.29 - Other chronic pain PLAN: DW PT. They will use the sleeve anytime she is up and they will D/W her a different brace to order to give the knee more stability and prevent lateral motion with ambulation. XRAY the R knee today. Refer to Dr. Membreno at [facility]. she may benefit from a product like Synvisc. Visit Charges Inpatient E&M: 03785 Subs Hosp L1
--- NOTE | 2021-04-12 11:25 | RAD_ITS ---
STUDY: X-RAY - RIGHT KNEE REASON FOR EXAM: Female, 70 years old. pain TECHNIQUE: 3 view(s) of the knee. COMPARISON: None. FINDINGS: No acute fracture, dislocation or cortical destruction. Severe tricompartment osteoarthritis. Distal femoral bone infarction. Small joint effusion. Mild swelling. RAD/Knee 3 Views IMPRESSION: Right knee acutely intact Distal femoral bone infarction Severe tricompartmental osteoarthritis Small volume joint effusion with mild swelling Electronically Signed: Darius Lizarraga DO at 11:45 EDT Tel , Service support ,
[2021-04-12 15:47] VITALS: BMI 35.2
[2021-04-12 19:49] VITALS: BP 153/78; PULSE 79; RESP 16; TEMP 36.3; O2SAT 97
[2021-04-12] MEDS: dilTIAZem CD 240 MG Capsule PO (20:36)
[2021-04-12] MEDS: Atorvastatin Calcium 40 MG Tablet PO (20:37)
[2021-04-12 21:05] VITALS: BMI 35.2
[2021-04-13 06:54] LABS: Anion Gap 5 (5-15); BUN 15 mg/dL (7-18); BUN/Creat Ratio 18.2 RATIO (10-20); Calcium,Total 9.2 mg/dL (8.5-10.1); Chloride 106 mmol/L (98-107); Creatinine, Serum 0.82 mg/dL (0.55-1.02); EST Glomerular Filtration Rate 73 mL/min (>60); Est Glom Filt Rate - Afr Amer 88 mL/min (>60); Estimated Creatinine Clearance 62.97 ml/min; Glucose 138 mg/dL (74-106); Potassium 4.5 mmol/L (3.5-5.1); Sodium Level 138 mmol/L (136-145)
[2021-04-13 08:29] VITALS: BP 134/73; PULSE 71; RESP 16; TEMP 36.1; O2SAT 96
[2021-04-13] MEDS: Ipratropium Bromide 0.06% NASAL SPRAY 2 SPRAY NASAL (10:50)
[2021-04-13] MEDS: Cyanocobalamin 500 MCG Tablet PO (10:50)
[2021-04-13] MEDS: Arthritis Pain Compound 60 CLICK TUBE TOPICAL ×2 (10:50→20:44)
[2021-04-13] MEDS: Aspirin 81 MG TAB.CHEW PO (10:50)
[2021-04-13] MEDS: Heparin Injection (Vial) 5,000 UNIT/ML VIAL 5000 UNIT SC ×2 (10:50→20:41)
[2021-04-13] MEDS: Cefadroxil 500 MG CAPSULE 1000 MG PO ×2 (10:50→20:40)
[2021-04-13] MEDS: Multivitamins,Ther W-Minerals Tablet 1 TABLET PO (10:50)
[2021-04-13] MEDS: dilTIAZem CD 240 MG Capsule PO ×2 (10:50→20:40)
[2021-04-13] MEDS: Clopidogrel Bisulfate 75 MG Tablet PO (10:51)
[2021-04-13] MEDS: Senna/Docusate Sodium 1 Tablet 2 TABLET PO ×2 (10:51→20:42)
[2021-04-13] MEDS: Calcium Carb/Vitamin D 1 TABLET Tablet PO (10:51)
[2021-04-13] MEDS: Ascorbic Acid 500 MG Tablet PO (10:51)
--- NOTE | 2021-04-13 12:07 | CASEMGMT ---
Social Work Team meeting held with pt and Hung present. Pt is recieving PT/OT/ST and progressing well with therapies. Speech is seeing pt for swallowing and speech and pt is improving. Pt does live in a split level home with 6 steps up to bed and bath and 7 steps down. It was recommended that pt have dual hand rails installed on all stair areas. Therapy is also recommending a new brace for pt and pt was given this information and agreeable to obtain. Pt stating that her mood is much improved and continues to deny need for anti depressant. SW explained Medicare Coverage and that last covered day is 04/25/21. Pt expresses understanding of this and plans to remain in [facility] and will discharge on 04/25 home with her spouse. Will continue with treatment plan at this time and reteam next week. FITO Avery
--- NOTE | 2021-04-13 12:11 | CASEMGMT ---
Social Work Team meeting held this date with pt and mother present and pt on conference call. Pt is receiving PT/OT/ST and progressing very well with therapy. Pt is very motivated to improve and is participating well. Pt presenting with dysarthria and apraxia. Unable to speak, but does accurately use a white board or paper and pen to write his thoughts and communicate with family and staff. inquiring about short term disability, form to be given to physician to complete, and prison disability. SW encouraged pt to call Social Security department to discuss need for intermediate card tender disability. Pt and family live in a two story home and states she is looking into an apartment to move to that would be accessible for pt. Insurance updated today and approval for continued stay given with next review on 04/20/21. Pt and family notified that continued stay is not guaranteed and that alternate d/c plan should be considered for the time that insurance no longer covers stay in . Family is understanding of this. Pt will continue with treatment plan at this time. Will reteam next week. FITO Avery
[2021-04-13 13:18] VITALS: BMI 35.2
--- NOTE | 2021-04-13 16:39 | PCM.PN.BLA ---
Progress Note Galina was seen on team rounds today. Her Hung was present in the room for rounds. Day #3 cefadroxil for urinary tract infection Afebrile Blood pressure this morning was better at 134/73 and heart rate is within normal limits. She is maintaining appropriate oxygen saturation on room air. Good oral intake Medication list was reviewed. Cardizem CD was increased to 240 mg twice daily yesterday and the blood pressure is doing better. Urine culture grew 50,000-80,000 colonies of E. coli which is pansensitive. She has no complaints today. She tells me that the sadness/depression she had over the weekend due to her situation has resolved and she is feeling much more positive. She had a assisted fall to her knees today when doing steps....her knee buckled......her Hung is getting the brace recommended by PT. I also mentioned to him that she would benefit from having 2 hand rails at home to ascend and descend stairs at home. Physical Exam Const alert and no apparent distress Constitutional Narrative: sitting in the recliner at the bedside. Talkative and making good eye contact. General Appearance: cooperative Resp normal respiratory effort, normal air movement and clear to auscultation bilaterally Cardio regular rate, regular rhythm, S1 normal heart sound, S2 normal heart sound, no rub and no gallops Heart Sounds: murmur systolic GI soft to palpation, non-tender and non-distended Palpation: Negative for guarding Extremity no calf tenderness Extremity Narrative: No abrasions or wounds on the knees. She is having some increased soreness. General Extremity: Negative for edema Skin no wounds General Skin Exam: no breakdown Rashes: no rashes Neuro oriented x3 Neuro Narrative: facial droop is less than at admission. Minimal dysarthria. Weaker on the right side. No sensory loss. Psych thought process normal and cooperative Appearance: appropriate Assessment & Plan Assessment/Plan (1) Physical debility: PLAN: continue therapy (2) Ischemic cerebrovascular accident (CVA): (3) HTN (hypertension): QUALIFIERS: Hypertension type: essential hypertension Qualified Code(s): I10 - Essential (primary) hypertension PLAN: finally coming under control with the increase in the Cardizem CD to 240 mg BID. She is tolerating the medication well with no adverse side effects (4) Right knee pain: QUALIFIERS: Chronicity: chronic Qualified Code(s): M25.561 - Pain in right knee; G89.29 - Other chronic pain PLAN: XRAY yesterday shows severe tricompartmental OA of the joint. (5) Bone infarct of distal femur: QUALIFIERS: Laterality: right Qualified Code(s): M87.051 - Idiopathic aseptic necrosis of right femur PLAN: duration? Due to a fall in the past/trauma? (6) Effusion of right knee joint: PLAN: This may be due to the joint injection earlier in the week (7) GERD (gastroesophageal reflux disease): QUALIFIERS: Esophagitis presence: without esophagitis Qualified Code(s): K21.9 - Gastro-esophageal reflux disease without esophagitis PLAN: She denies heartburn but admits to frequent sour taste in her mouth after eating and then lying down at night. (8) Post-nasal drip: PLAN: It is better with the Atrovent nasal spray but she still has some PND. Rare cough now. (9) Hoarseness of voice: PLAN: I am not sure if this is due to GERD with posterior laryngeal inflammation or to PND? Will try adding a PPI and also changing to a steroid nasal spray. Visit Charges Inpatient E&M: 23034 Subs Hosp L2
[2021-04-13 19:30] VITALS: BP 156/78; PULSE 75; RESP 18; TEMP 36.6; O2SAT 96
[2021-04-13 20:35] VITALS: BMI 35.2
[2021-04-13] MEDS: Pantoprazole Sodium 20 MG Tablet PO (20:42)
[2021-04-13] MEDS: Acetaminophen 500 MG Tablet 1000 MG PO (20:42)
[2021-04-13] MEDS: Atorvastatin Calcium 40 MG Tablet PO (20:43)
[2021-04-13] MEDS: traMADol 50 MG Tablet PO (20:43)
[2021-04-13] MEDS: Fluticasone 0.05% 1 SPRAY NASAL.SRY NASAL (20:46)
[2021-04-14] MEDS: Acetaminophen 500 MG Tablet 1000 MG PO ×3 (07:00→20:20)
[2021-04-14] MEDS: Arthritis Pain Compound 60 CLICK TUBE TOPICAL ×3 (07:01→20:23)
[2021-04-14 08:04] VITALS: BP 148/82; PULSE 74; RESP 18; TEMP 36.4; O2SAT 96
[2021-04-14] MEDS: Cefadroxil 500 MG CAPSULE 1000 MG PO ×2 (08:21→20:21)
[2021-04-14] MEDS: Cyanocobalamin 500 MCG Tablet PO (08:21)
[2021-04-14] MEDS: Ascorbic Acid 500 MG Tablet PO (08:21)
[2021-04-14] MEDS: Fluticasone 0.05% 1 SPRAY NASAL.SRY NASAL ×2 (08:21→20:21)
[2021-04-14] MEDS: Clopidogrel Bisulfate 75 MG Tablet PO (08:21)
[2021-04-14] MEDS: Pantoprazole Sodium 20 MG Tablet PO ×2 (08:22→20:21)
[2021-04-14] MEDS: Aspirin 81 MG TAB.CHEW PO (08:22)
[2021-04-14] MEDS: Multivitamins,Ther W-Minerals Tablet 1 TABLET PO (08:22)
[2021-04-14] MEDS: dilTIAZem CD 240 MG Capsule PO ×2 (08:22→20:22)
[2021-04-14] MEDS: Calcium Carb/Vitamin D 1 TABLET Tablet PO (08:22)
[2021-04-14] MEDS: Heparin Injection (Vial) 5,000 UNIT/ML VIAL 5000 UNIT SC ×2 (08:50→20:21)
[2021-04-14 13:50] VITALS: BMI 35.2
[2021-04-14 18:57] VITALS: BP 133/85; PULSE 71; RESP 17; TEMP 36.4; O2SAT 96
[2021-04-14] MEDS: Atorvastatin Calcium 40 MG Tablet PO (20:21)
[2021-04-15] MEDS: traMADol 50 MG Tablet PO (06:50)
[2021-04-15] MEDS: Acetaminophen 500 MG Tablet 1000 MG PO ×3 (06:50→21:46)
[2021-04-15] MEDS: Arthritis Pain Compound 60 CLICK TUBE TOPICAL ×3 (06:51→21:43)
[2021-04-15 07:29] VITALS: BP 135/63; PULSE 63; RESP 16; TEMP 36.6; O2SAT 99
[2021-04-15] MEDS: Cefadroxil 500 MG CAPSULE 1000 MG PO ×2 (09:20→21:44)
[2021-04-15] MEDS: Aspirin 81 MG TAB.CHEW PO (09:20)
[2021-04-15] MEDS: Clopidogrel Bisulfate 75 MG Tablet PO (09:21)
[2021-04-15] MEDS: dilTIAZem CD 240 MG Capsule PO ×2 (09:21→21:44)
[2021-04-15] MEDS: Pantoprazole Sodium 20 MG Tablet PO ×2 (09:21→21:46)
[2021-04-15] MEDS: Ascorbic Acid 500 MG Tablet PO (09:21)
[2021-04-15] MEDS: Calcium Carb/Vitamin D 1 TABLET Tablet PO (09:21)
[2021-04-15] MEDS: Fluticasone 0.05% 1 SPRAY NASAL.SRY NASAL ×2 (09:22→21:45)
[2021-04-15] MEDS: Multivitamins,Ther W-Minerals Tablet 1 TABLET PO (09:23)
[2021-04-15] MEDS: Heparin Injection (Vial) 5,000 UNIT/ML VIAL 5000 UNIT SC ×2 (09:23→21:45)
[2021-04-15] MEDS: Cyanocobalamin 500 MCG Tablet PO (09:23)
[2021-04-15 16:09] VITALS: BMI 35.2
[2021-04-15 19:26] VITALS: BP 128/62; PULSE 75; RESP 14; TEMP 36.7; O2SAT 98
[2021-04-15 21:41] VITALS: BMI 35.2
[2021-04-15] MEDS: Atorvastatin Calcium 40 MG Tablet PO (21:45)
[2021-04-15 22:00] VITALS: PULSE 79; RESP 16; O2SAT 98
[2021-04-16] MEDS: Arthritis Pain Compound 60 CLICK TUBE TOPICAL ×3 (07:01→21:07)
[2021-04-16] MEDS: Acetaminophen 500 MG Tablet 1000 MG PO ×3 (07:04→21:08)
[2021-04-16] MEDS: Multivitamins,Ther W-Minerals Tablet 1 TABLET PO (08:45)
[2021-04-16] MEDS: Aspirin 81 MG TAB.CHEW PO (08:45)
[2021-04-16] MEDS: Calcium Carb/Vitamin D 1 TABLET Tablet PO (08:45)
[2021-04-16] MEDS: Cyanocobalamin 500 MCG Tablet PO (08:46)
[2021-04-16] MEDS: Ascorbic Acid 500 MG Tablet PO (08:46)
[2021-04-16] MEDS: Cefadroxil 500 MG CAPSULE 1000 MG PO ×2 (08:48→21:07)
[2021-04-16] MEDS: Clopidogrel Bisulfate 75 MG Tablet PO (08:49)
[2021-04-16] MEDS: Heparin Injection (Vial) 5,000 UNIT/ML VIAL 5000 UNIT SC ×2 (08:49→21:08)
[2021-04-16] MEDS: Pantoprazole Sodium 20 MG Tablet PO ×2 (08:49→21:08)
[2021-04-16] MEDS: Fluticasone 0.05% 1 SPRAY NASAL.SRY NASAL ×2 (08:51→21:08)
[2021-04-16] MEDS: dilTIAZem CD 240 MG Capsule PO ×2 (08:54→21:07)
[2021-04-16 09:01] VITALS: BP 130/70; PULSE 68; RESP 16; TEMP 36.6; O2SAT 94
[2021-04-16 13:25] VITALS: BMI 35.2
[2021-04-16 19:02] VITALS: BP 161/80; PULSE 70; RESP 18; TEMP 36.6; O2SAT 95
[2021-04-16] MEDS: Atorvastatin Calcium 40 MG Tablet PO (21:08)
[2021-04-16 21:37] VITALS: BMI 35.2
[2021-04-16 22:00] VITALS: PULSE 68; RESP 16; O2SAT 95
[2021-04-17] MEDS: Arthritis Pain Compound 60 CLICK TUBE TOPICAL ×3 (06:53→20:49)
[2021-04-17] MEDS: Acetaminophen 500 MG Tablet 1000 MG PO ×3 (06:53→20:34)
[2021-04-17 08:37] VITALS: BP 128/76; PULSE 65; RESP 16; TEMP 36.7; O2SAT 95
[2021-04-17] MEDS: Multivitamins,Ther W-Minerals Tablet 1 TABLET PO (08:47)
[2021-04-17] MEDS: Aspirin 81 MG TAB.CHEW PO (08:47)
[2021-04-17] MEDS: Calcium Carb/Vitamin D 1 TABLET Tablet PO (08:47)
[2021-04-17] MEDS: Cefadroxil 500 MG CAPSULE 1000 MG PO ×2 (08:48→20:36)
[2021-04-17] MEDS: Ascorbic Acid 500 MG Tablet PO (08:48)
[2021-04-17] MEDS: dilTIAZem CD 240 MG Capsule PO ×2 (08:48→20:36)
[2021-04-17] MEDS: Cyanocobalamin 500 MCG Tablet PO (08:48)
[2021-04-17] MEDS: traMADol 50 MG Tablet PO ×3 (08:49→20:35)
[2021-04-17] MEDS: Clopidogrel Bisulfate 75 MG Tablet PO (08:49)
[2021-04-17] MEDS: Pantoprazole Sodium 20 MG Tablet PO ×2 (08:49→20:36)
[2021-04-17] MEDS: Fluticasone 0.05% 1 SPRAY NASAL.SRY NASAL ×2 (08:49→20:37)
[2021-04-17] MEDS: Heparin Injection (Vial) 5,000 UNIT/ML VIAL 5000 UNIT SC ×2 (08:50→20:36)
[2021-04-17 09:59] VITALS: BMI 35.2
[2021-04-17 19:30] VITALS: BP 146/92; PULSE 68; RESP 16; TEMP 37; O2SAT 95
[2021-04-17] MEDS: Atorvastatin Calcium 40 MG Tablet PO (20:36)
[2021-04-17 23:09] VITALS: BP 133/69; PULSE 64; RESP 17; TEMP 36.6; O2SAT 97
--- NOTE | 2021-04-17 23:10 | NURSING ---
Pt called nurse d/t feeling flushed and concerned that she was OK. Pt stated that she had scrubbed her face and that could be the cause but spouse was concerned when he saw her on FACETIME. Vitals were taken. bp- 133/69, hr- 64, & temp was 97.8. Pt stated she felt ok but wanted to be sure.
[2021-04-18 00:13] VITALS: BMI 35.2
[2021-04-18] MEDS: Acetaminophen 500 MG Tablet 1000 MG PO ×3 (06:55→20:22)
[2021-04-18] MEDS: traMADol 50 MG Tablet PO ×3 (06:55→20:23)
[2021-04-18] MEDS: Arthritis Pain Compound 60 CLICK TUBE TOPICAL ×3 (06:57→20:20)
[2021-04-18] MEDS: Calcium Carb/Vitamin D 1 TABLET Tablet PO (08:20)
[2021-04-18] MEDS: Cefadroxil 500 MG CAPSULE 1000 MG PO (08:20)
[2021-04-18] MEDS: Ascorbic Acid 500 MG Tablet PO (08:20)
[2021-04-18] MEDS: Multivitamins,Ther W-Minerals Tablet 1 TABLET PO (08:20)
[2021-04-18] MEDS: Cyanocobalamin 500 MCG Tablet PO (08:20)
[2021-04-18] MEDS: Fluticasone 0.05% 1 SPRAY NASAL.SRY NASAL ×2 (08:20→20:21)
[2021-04-18] MEDS: dilTIAZem CD 240 MG Capsule PO ×2 (08:20→20:21)
[2021-04-18] MEDS: Pantoprazole Sodium 20 MG Tablet PO ×2 (08:21→20:22)
[2021-04-18] MEDS: Heparin Injection (Vial) 5,000 UNIT/ML VIAL 5000 UNIT SC ×2 (08:21→20:21)
[2021-04-18] MEDS: Clopidogrel Bisulfate 75 MG Tablet PO (08:21)
[2021-04-18 10:00] VITALS: BP 130/68; PULSE 77; RESP 16; TEMP 36.4; O2SAT 97
--- NOTE | 2021-04-18 11:28 | PCM.PN.BLA ---
Progress Note Afebrile VSS-blood pressure is well controlled. Maintaining appropriate oxygen saturation on RA Oral intake is usually good. Discussed with nursing - Was having BL knee pain worse than usual in both knees after the assisted fall forward while on the steps. Relieved with scheduled Tramadol started yesterday and PRN Tylenol Reviewed the PT/OT/ST notes Medication list reviewed. Physical Exam Const alert, oriented x3, no apparent distress and well nourished Constitutional Narrative: Sitting in the recliner at the bedside. Talkative and making good eye contact. General Appearance: cooperative and comfortable Resp normal respiratory effort, normal air movement and clear to auscultation bilaterally Cardio regular rate, regular rhythm, S1 normal heart sound, S2 normal heart sound, no rub and no gallops Cardio Narrative: soft systolic MM at the second RICS. No significant valvular heart disease on the ECHO done at the previous hospital. GI soft to palpation, non-tender and non-distended Palpation: Negative for guarding Extremity no calf tenderness Extremity Narrative: General Extremity: edema Skin no wounds General Skin Exam: no breakdown Rashes: no rashes Neuro oriented x3 Neuro Narrative: Facial droop is less than at admission. Minimal dysarthria. Weaker on the right side. No sensory loss. 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 she is thinking about having a R TKA before the holidays to improve her ability to ambulate Continue therapy Plan on home at [place]. Visit Charges Inpatient E&M: 92189 Subs Hosp L2
[2021-04-18 13:03] LABS: Hemoglobin A1c 5.9 % (3.8-5.6)
[2021-04-18 16:36] VITALS: BMI 35.2
[2021-04-18 19:08] VITALS: BP 144/87; PULSE 72; RESP 17; TEMP 36.6; O2SAT 96
[2021-04-18] MEDS: Atorvastatin Calcium 40 MG Tablet PO (20:22)
[2021-04-18] MEDS: Senna/Docusate Sodium 1 Tablet 2 TABLET PO (20:24)
[2021-04-18 20:35] VITALS: BMI 35.2
[2021-04-18 20:40] VITALS: BMI 35.2
[2021-04-19] MEDS: Arthritis Pain Compound 60 CLICK TUBE TOPICAL ×3 (05:19→20:27)
[2021-04-19] MEDS: Acetaminophen 500 MG Tablet 1000 MG PO ×3 (05:19→20:30)
[2021-04-19] MEDS: traMADol 50 MG Tablet PO ×3 (05:20→20:30)
[2021-04-19] MEDS: Calcium Carb/Vitamin D 1 TABLET Tablet PO (07:55)
[2021-04-19] MEDS: Cyanocobalamin 500 MCG Tablet PO (07:55)
[2021-04-19] MEDS: Multivitamins,Ther W-Minerals Tablet 1 TABLET PO (07:55)
[2021-04-19] MEDS: Ascorbic Acid 500 MG Tablet PO (07:56)
[2021-04-19] MEDS: Pantoprazole Sodium 20 MG Tablet PO ×2 (08:00→20:29)
[2021-04-19] MEDS: Clopidogrel Bisulfate 75 MG Tablet PO (08:00)
[2021-04-19] MEDS: Fluticasone 0.05% 1 SPRAY NASAL.SRY NASAL ×2 (08:00→20:28)
[2021-04-19] MEDS: dilTIAZem CD 240 MG Capsule PO ×2 (08:00→20:28)
[2021-04-19] MEDS: Heparin Injection (Vial) 5,000 UNIT/ML VIAL 5000 UNIT SC ×2 (08:01→20:29)
[2021-04-19 08:05] VITALS: BP 150/82; PULSE 77; RESP 18; TEMP 36.6; O2SAT 94
[2021-04-19 09:48] VITALS: BMI 35.2
[2021-04-19 19:09] VITALS: BP 174/77; PULSE 76; RESP 16; TEMP 36.6; O2SAT 96
[2021-04-19 19:38] VITALS: BP 138/70
[2021-04-19] MEDS: Doxazosin 1 MG Tablet PO (20:28)
[2021-04-19] MEDS: Atorvastatin Calcium 40 MG Tablet PO (20:29)
[2021-04-20] MEDS: Arthritis Pain Compound 60 CLICK TUBE TOPICAL ×3 (05:46→22:40)
[2021-04-20] MEDS: traMADol 50 MG Tablet PO ×3 (05:55→22:36)
[2021-04-20] MEDS: Acetaminophen 500 MG Tablet 1000 MG PO ×3 (05:55→22:37)
[2021-04-20 06:39] LABS: Anion Gap 7 (5-15); BUN 8 mg/dL (7-18); Calcium,Total 9.6 mg/dL (8.5-10.1); Chloride 103 mmol/L (98-107); Creatinine, Serum 0.72 mg/dL (0.55-1.02); EST Glomerular Filtration Rate 85 mL/min (>60); Est Glom Filt Rate - Afr Amer 102 mL/min (>60); Estimated Creatinine Clearance 51.63 ml/min; Glucose 158 mg/dL (74-106); Potassium 4.3 mmol/L (3.5-5.1); Sodium Level 136 mmol/L (136-145)
[2021-04-20 07:30] VITALS: BP 124/69; PULSE 76; RESP 16; TEMP 36.4; O2SAT 92
[2021-04-20] MEDS: Calcium Carb/Vitamin D 1 TABLET Tablet PO (08:57)
[2021-04-20] MEDS: Pantoprazole Sodium 20 MG Tablet PO ×2 (08:58→22:37)
[2021-04-20] MEDS: Ascorbic Acid 500 MG Tablet PO (08:58)
[2021-04-20] MEDS: Cyanocobalamin 500 MCG Tablet PO (08:58)
[2021-04-20] MEDS: dilTIAZem CD 240 MG Capsule PO ×2 (08:58→22:40)
[2021-04-20] MEDS: Clopidogrel Bisulfate 75 MG Tablet PO (08:58)
[2021-04-20] MEDS: Multivitamins,Ther W-Minerals Tablet 1 TABLET PO (08:58)
[2021-04-20] MEDS: Fluticasone 0.05% 1 SPRAY NASAL.SRY NASAL ×2 (08:59→22:38)
[2021-04-20] MEDS: Heparin Injection (Vial) 5,000 UNIT/ML VIAL 5000 UNIT SC ×2 (08:59→22:38)
--- NOTE | 2021-04-20 09:38 | CASEMGMT ---
Social Work Team meeting held. Patient present as well as patient spouse. Discharge date has been set for 04/25/2021. Patient to discharge to home with spouse. Patient reports to need a front wheeled walker. Patient is agreeable to DME being set up through [employer]. Physical and Occupational therapy are recommending for patient to have continued outpatient therapy services. Patient is agreeable to recommendation and request for outpatient therapy services to be set up through [facility] outpatient. Patient spouse to provide transportation to home for patient. Patient with no further questions or concerns. Patient spouse to complete family training today. Telephone call to [facility], walker to be delivered to patient room prior to discharge. Telephone call to [facility] outpatient therapy services. Order and face sheet faxed to [phone]. Therapy to contact patient to set up appointment. Patient updated that order has been faxed. Proposed discharge date: 04/25/2021 to home with spouse and outpatient therapy services. Jackeline ZHANG, JOCELYNE
--- NOTE | 2021-04-20 11:49 | PN_ITS ---
Progress Note Galina was seen on TEAM rounds today. Her Hung was present in the room for rounds. afebrile VSS, BP is well controlled Better oral intake of fluids wt is stable Nursing continues to report that Galina is depressed and talking about being a burden on Hung Doing well in therapy and she has ambulated up to [address] does not think she will need to continue with ST post DC. Galina would like to have PT/OT OP after discharge. All lab was personally reviewed. Lab is remarkable for an increased FBS at 158. The HGBA1C was 5.9. I suspect the FBS is higher than at admission because she is anxious and stressed. She is worried about going home and being a burden. Hung was here for family training today. Denies CP, SOB, calf pain. She had a little nausea this AM but, it has passed. She is sleeping OK Appetite is decreased. she was a bit tearful when I was talking with her today when I told her it is not a burden to care for someone you love.......it is a pratibha....she knows this because she cared for her mother for 5-6 weeks when she broke her hip. Physical Exam Const alert, oriented x3 and no apparent distress Constitutional Narrative: sitting in the recliner at the bedside. Talkative and making good eye contact. Resp normal respiratory effort, normal air movement and clear to auscultation bilaterally Cardio regular rate, regular rhythm, S1 normal heart sound, S2 normal heart sound, no rub and no gallops Heart Sounds: murmur systolic GI soft to palpation, non-tender and non-distended Palpation: Negative for guarding Extremity no calf tenderness General Extremity: Negative for edema Skin no wounds General Skin Exam: no breakdown Rashes: no rashes Neuro oriented x3 Neuro Narrative: facial droop is less than at admission. Minimal dysarthria. Weaker on the right side. No sensory loss. 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 she is now agreeable to starting a medication to control anxiety and depression. Zoloft 50 mg has been ordered and will start in the AM 2. continue therapy 3. OP PT/OT at discharge 4. Consult the name plate stamping machine operator to educate her on carb control. She is somewhat familiar with carb control since Hung is a diabetic. 5. Plan DC home next Saturday. Visit Charges Inpatient E&M: 22918 Subs Hosp L2
[2021-04-20 18:38] VITALS: BMI 35.2
[2021-04-20 19:46] VITALS: BP 134/73; PULSE 78; RESP 18; TEMP 36.4; O2SAT 95
[2021-04-20] MEDS: Atorvastatin Calcium 40 MG Tablet PO (22:39)
[2021-04-20] MEDS: Doxazosin 1 MG Tablet PO (22:40)
[2021-04-21] MEDS: Arthritis Pain Compound 60 CLICK TUBE TOPICAL ×3 (06:17→21:40)
[2021-04-21] MEDS: Acetaminophen 500 MG Tablet 1000 MG PO ×3 (06:20→21:39)
[2021-04-21] MEDS: traMADol 50 MG Tablet PO ×3 (06:20→21:39)
[2021-04-21] MEDS: Fluticasone 0.05% 1 SPRAY NASAL.SRY NASAL ×2 (07:43→21:39)
[2021-04-21] MEDS: Ascorbic Acid 500 MG Tablet PO (07:43)
[2021-04-21] MEDS: Multivitamins,Ther W-Minerals Tablet 1 TABLET PO (07:43)
[2021-04-21] MEDS: Pantoprazole Sodium 20 MG Tablet PO ×2 (07:43→21:39)
[2021-04-21] MEDS: dilTIAZem CD 240 MG Capsule PO ×2 (07:43→21:39)
[2021-04-21] MEDS: Clopidogrel Bisulfate 75 MG Tablet PO (07:44)
[2021-04-21] MEDS: Calcium Carb/Vitamin D 1 TABLET Tablet PO (07:44)
[2021-04-21] MEDS: Heparin Injection (Vial) 5,000 UNIT/ML VIAL 5000 UNIT SC ×2 (07:44→21:39)
[2021-04-21] MEDS: Cyanocobalamin 500 MCG Tablet PO (07:45)
[2021-04-21] MEDS: Sertraline 50 MG Tablet PO (07:46)
[2021-04-21 08:42] VITALS: BP 128/66; PULSE 73; RESP 16; TEMP 36.6; O2SAT 92
--- NOTE | 2021-04-21 12:48 | PN_ITS ---
Progress Note Afebrile Vital signs are stable and the blood pressure is well controlled Maintaining appropriate oxygen saturation on room air. I reviewed the I&O's. I do not think the intakes are accurate. They are consistently poor-fair yet the BUN/CREAT ration and the BUN have improved She was seen and counselled by the motor vehicle operator road supervisor and changed to a Carb control diet. Zoloft was started this AM. No complaints today. Denies chest pain, shortness of breath, nausea/vomiting/abdominal pain, calf pain. Physical Exam Const Constitutional Narrative: Alert, oriented x3, sitting in the recliner at the bedside, no apparent distress. She is pleasant, talkative and making good eye contact. Resp normal air movement and clear to auscultation bilaterally Cardio regular rate, regular rhythm and no gallops GI soft to palpation, non-tender and non-distended Extremity no calf tenderness and no pedal edema Assessment & Plan Assessment/Plan (1) Physical debility: (2) Ischemic cerebrovascular accident (CVA): (3) HTN (hypertension): QUALIFIERS: Hypertension type: essential hypertension Qualified Code(s): I10 - Essential (primary) hypertension (4) Depression as late effect of cerebrovascular accident (CVA): PLAN: 1. Continue therapy 2. Continue current drug regimen 3. Plan DC for 04/25/21 Visit Charges Inpatient E&M: 51328 Subs Hosp L2
[2021-04-21] MEDS: Ondansetron ODT 4 MG Tablet PO (15:01)
[2021-04-21 17:00] VITALS: BMI 35.2
[2021-04-21 19:17] VITALS: BP 140/68; PULSE 67; RESP 18; TEMP 36.8; O2SAT 98
[2021-04-21] MEDS: Doxazosin 1 MG Tablet PO (21:39)
[2021-04-21] MEDS: Atorvastatin Calcium 40 MG Tablet PO (21:39)
[2021-04-21 23:17] VITALS: BMI 35.2
[2021-04-22] MEDS: Arthritis Pain Compound 60 CLICK TUBE TOPICAL ×2 (06:12→21:26)
[2021-04-22] MEDS: Acetaminophen 500 MG Tablet 1000 MG PO ×3 (06:12→21:31)
[2021-04-22] MEDS: traMADol 50 MG Tablet PO ×3 (06:12→21:32)
[2021-04-22 07:45] VITALS: BP 108/65; PULSE 67; RESP 12; TEMP 36.5; O2SAT 93
[2021-04-22] MEDS: Cyanocobalamin 500 MCG Tablet PO (09:20)
[2021-04-22] MEDS: Pantoprazole Sodium 20 MG Tablet PO ×2 (09:21→21:31)
[2021-04-22] MEDS: Calcium Carb/Vitamin D 1 TABLET Tablet PO (09:21)
[2021-04-22] MEDS: Clopidogrel Bisulfate 75 MG Tablet PO (09:21)
[2021-04-22] MEDS: Ascorbic Acid 500 MG Tablet PO (09:21)
[2021-04-22] MEDS: Sertraline 50 MG Tablet PO (09:21)
[2021-04-22] MEDS: Multivitamins,Ther W-Minerals Tablet 1 TABLET PO (09:21)
[2021-04-22] MEDS: dilTIAZem CD 240 MG Capsule PO ×2 (09:21→21:31)
[2021-04-22] MEDS: Heparin Injection (Vial) 5,000 UNIT/ML VIAL 5000 UNIT SC ×2 (09:22→21:32)
[2021-04-22] MEDS: Fluticasone 0.05% 1 SPRAY NASAL.SRY NASAL ×2 (09:23→21:28)
[2021-04-22] MEDS: Mirabegron 25 MG TAB.ER.24H PO (09:24)
[2021-04-22 12:40] VITALS: BMI 35.2
[2021-04-22 19:32] VITALS: BP 121/75; PULSE 69; RESP 16; TEMP 36.6; O2SAT 96
[2021-04-22 21:14] VITALS: BP 134/67; PULSE 64
[2021-04-22] MEDS: Doxazosin 1 MG Tablet PO (21:32)
[2021-04-22] MEDS: Atorvastatin Calcium 40 MG Tablet PO (21:32)
[2021-04-23 02:31] VITALS: BMI 35.2
[2021-04-23] MEDS: traMADol 50 MG Tablet PO ×3 (06:11→20:46)
[2021-04-23] MEDS: Arthritis Pain Compound 60 CLICK TUBE TOPICAL ×3 (06:11→20:44)
[2021-04-23] MEDS: Acetaminophen 500 MG Tablet 1000 MG PO ×3 (06:11→20:46)
[2021-04-23 07:32] VITALS: BP 143/67; PULSE 61; RESP 16; TEMP 36.6; O2SAT 92
[2021-04-23] MEDS: Mirabegron 25 MG TAB.ER.24H PO (07:54)
[2021-04-23] MEDS: Ascorbic Acid 500 MG Tablet PO (07:54)
[2021-04-23] MEDS: Clopidogrel Bisulfate 75 MG Tablet PO (07:54)
[2021-04-23] MEDS: Multivitamins,Ther W-Minerals Tablet 1 TABLET PO (07:54)
[2021-04-23] MEDS: Pantoprazole Sodium 20 MG Tablet PO ×2 (07:54→20:45)
[2021-04-23] MEDS: Calcium Carb/Vitamin D 1 TABLET Tablet PO (07:54)
[2021-04-23] MEDS: Cyanocobalamin 500 MCG Tablet PO (07:54)
[2021-04-23] MEDS: dilTIAZem CD 240 MG Capsule PO ×2 (07:54→20:45)
[2021-04-23] MEDS: Sertraline 50 MG Tablet PO (07:54)
[2021-04-23] MEDS: Fluticasone 0.05% 1 SPRAY NASAL.SRY NASAL ×2 (07:56→20:47)
[2021-04-23] MEDS: Heparin Injection (Vial) 5,000 UNIT/ML VIAL 5000 UNIT SC ×2 (07:56→20:47)
[2021-04-23 12:46] VITALS: BMI 35.2
[2021-04-23 19:58] VITALS: BP 141/73; PULSE 66; RESP 18; TEMP 36.9; O2SAT 95
[2021-04-23 20:40] VITALS: BMI 35.2
[2021-04-23] MEDS: Atorvastatin Calcium 40 MG Tablet PO (20:45)
[2021-04-23] MEDS: Doxazosin 1 MG Tablet PO (20:48)
[2021-04-24] MEDS: traMADol 50 MG Tablet PO ×3 (05:32→20:42)
[2021-04-24] MEDS: Acetaminophen 500 MG Tablet 1000 MG PO ×3 (05:33→20:42)
[2021-04-24] MEDS: Arthritis Pain Compound 60 CLICK TUBE TOPICAL ×3 (05:33→20:39)
[2021-04-24 08:17] VITALS: BP 128/68; PULSE 69; RESP 18; TEMP 36.1; O2SAT 92
[2021-04-24] MEDS: Fluticasone 0.05% 1 SPRAY NASAL.SRY NASAL ×2 (08:53→20:41)
[2021-04-24] MEDS: Mirabegron 25 MG TAB.ER.24H PO (08:54)
[2021-04-24] MEDS: Pantoprazole Sodium 20 MG Tablet PO ×2 (08:54→20:42)
[2021-04-24] MEDS: Cyanocobalamin 500 MCG Tablet PO (08:54)
[2021-04-24] MEDS: Heparin Injection (Vial) 5,000 UNIT/ML VIAL 5000 UNIT SC ×2 (08:54→20:41)
[2021-04-24] MEDS: Multivitamins,Ther W-Minerals Tablet 1 TABLET PO (08:54)
[2021-04-24] MEDS: Calcium Carb/Vitamin D 1 TABLET Tablet PO (08:54)
[2021-04-24] MEDS: Ascorbic Acid 500 MG Tablet PO (08:54)
[2021-04-24] MEDS: Sertraline 50 MG Tablet PO (08:54)
[2021-04-24] MEDS: dilTIAZem CD 240 MG Capsule PO ×2 (08:54→20:40)
[2021-04-24] MEDS: Clopidogrel Bisulfate 75 MG Tablet PO (08:54)
[2021-04-24 10:44] VITALS: BMI 35.2
[2021-04-24 19:04] VITALS: BP 113/63; PULSE 69; RESP 18; TEMP 36.9; O2SAT 93
[2021-04-24] MEDS: Doxazosin 1 MG Tablet PO (20:41)
[2021-04-24] MEDS: Atorvastatin Calcium 40 MG Tablet PO (20:43)
[2021-04-25 01:20] VITALS: BMI 35.2
[2021-04-25] MEDS: Arthritis Pain Compound 60 CLICK TUBE TOPICAL (06:30)
[2021-04-25] MEDS: Acetaminophen 500 MG Tablet 1000 MG PO ×2 (06:35→13:37)
[2021-04-25] MEDS: traMADol 50 MG Tablet PO ×2 (06:35→13:37)
[2021-04-25 07:51] VITALS: BP 140/75; PULSE 65; RESP 18; TEMP 36.2; O2SAT 92
[2021-04-25] MEDS: Multivitamins,Ther W-Minerals Tablet 1 TABLET PO (08:33)
[2021-04-25] MEDS: Cyanocobalamin 500 MCG Tablet PO (08:34)
[2021-04-25] MEDS: Ascorbic Acid 500 MG Tablet PO (08:34)
[2021-04-25] MEDS: Fluticasone 0.05% 1 SPRAY NASAL.SRY NASAL (08:34)
[2021-04-25] MEDS: dilTIAZem CD 240 MG Capsule PO (08:34)
[2021-04-25] MEDS: Calcium Carb/Vitamin D 1 TABLET Tablet PO (08:34)
[2021-04-25] MEDS: Mirabegron 25 MG TAB.ER.24H PO (08:34)
[2021-04-25] MEDS: Clopidogrel Bisulfate 75 MG Tablet PO (08:34)
[2021-04-25] MEDS: Pantoprazole Sodium 20 MG Tablet PO (08:35)
[2021-04-25] MEDS: Sertraline 50 MG Tablet PO (08:35)
[2021-04-25] MEDS: Heparin Injection (Vial) 5,000 UNIT/ML VIAL 5000 UNIT SC (08:39)
[2021-04-25 10:39] VITALS: BP 140/75; PULSE 65; RESP 18; TEMP 36.2; O2SAT 92
--- NOTE | 2021-04-25 10:39 | PCM.DC ---
Discharge Instructions Diet Discharge Diet: Low fat / Low cholesterol, 4000 mg Sodium Diet and Carb Control Diet Activity Discharge Activity: May Not Drive and Use Walker May resume sexual activity in: No Restrictions Weight Bearing Status: Full weight bearing Dressing / Incision Call your doctor if you observe: Fever of 101 or Higher, Inability to urinate, Shortness of breath, Dizziness, Fainting spells, Chest pain, Increased palpitations (irregular heartbeat), Calf discomfort, Uncontrolled pain and - (Symptoms of stroke are new numbness, new weakness, facial droop, inability to get your words out, inability to swallow, sudden onset vertigo.) Follow Up Care Please Follow Up With: Yamila Johnson-PCP When: 5-7 days Test Results: Test results from this visit will be discussed in further detail at your follow-up appointment, if applicable. Pending Tests Upon Discharge: none Discharge Plan Admission Admit Date/Time: 04/02/21 13:30 Primary Reason for Your Visit: Debility due to stroke. Attending Provider: Nicolette Self Instructions Patient Instructions: Intimacy After Stroke, Symptoms of Stroke, Stroke Mood Swings Depression, Depression and the Brain's ..., Discharge Instructions for Stroke, Risk Factors for Stroke Discharge Orders/Prescriptions Prescriptions: New Arthritis Pain Compound 2 click topical TID Qty: 0 RF: 0 acetaminophen 500 mg Tablet 1,000 mg PO Q8H PRN PRN (Reason: pain) Qty: 0 RF: 0 diltiazem HCl 240 mg Capsule,Extended Release 24hr 240 mg PO BID Qty: 60 RF: 0 fluticasone propionate 50 mcg/actuation [place],Suspension 1 spray NASAL BID Qty: 1 RF: 0 tramadol 50 mg Tablet 100 mg PO TID PRN (Reason: pain) 7 Days Qty: 42 RF: 0 pantoprazole 20 mg Tablet,Delayed Release (Dr/Ec) 20 mg PO BID Qty: 60 RF: 0 sertraline 50 mg Tablet 50 mg PO DAILY Qty: 30 RF: 0 lisinopril 10 mg tablet 10 mg PO QHS Qty: 30 RF: 0 oxybutynin chloride [Ditropan XL] 5 mg tablet extended release 24hr 5 mg PO QHS Qty: 30 RF: 0 Continued aspirin 81 mg Tablet,Chewable 81 mg PO DAILY RF: 0 zinc 15 mg Tablet 15 mg PO DAILY RF: 0 ascorbic acid (vitamin C) [Vitamin C] 500 mg Tablet 500 mg PO DAILY RF: 0 cyanocobalamin (vitamin B-12) 500 mcg Tablet Extended Release 500 mcg PO DAILY RF: 0 calcium carbonate-vitamin D2 600 mg calcium- 200 unit Tablet 1 tab PO DAILY RF: 0 Multivitamin 50 Plus Tablet 1 tab PO DAILY RF: 0 Primal Mind Fuel 1 cap PO/SL DAILY RF: 0 atorvastatin 40 mg Tablet 40 mg PO QHS Qty: 30 RF: 0 clopidogrel 75 mg Tablet 75 mg PO DAILY Qty: 7 RF: 0 Discontinued lisinopril 5 mg Tablet 5 mg PO DAILY RF: 0 pantoprazole [Protonix] 40 mg Tablet,Delayed Release (Dr/Ec) 40 mg PO DAILY RF: 0 Disposition Disposition (needs filled in before D/C Order can be placed): Home, Self Care
--- NOTE | 2021-04-25 11:01 | PCM.DC.SUM ---
Providers Date of Admission: 04/02/21 Reason For Visit: STROKE Diagnosis Discharge Diagnosis (1) Physical debility: Status: Acute Code(s): R53.81 - Other malaise (2) Ischemic cerebrovascular accident (CVA): Status: Acute Code(s): I63.9 - Cerebral infarction, unspecified (3) Glucose intolerance (impaired glucose tolerance): Status: Acute Code(s): R73.02 - Impaired glucose tolerance (oral) (4) HTN (hypertension): Status: Chronic Code(s): I10 - Essential (primary) hypertension Qualifiers: Hypertension type: essential hypertension Qualified Code(s): I10 - Essential (primary) hypertension (5) Depression as late effect of cerebrovascular accident (CVA): Status: Acute Code(s): I69.398 - Other sequelae of cerebral infarction; 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 Medications at Discharge Home Medications Multivitamin 50 Plus 1 tab PO DAILY 04/02/21 ascorbic acid (vitamin C) [Vitamin C] 500 mg PO DAILY 04/02/21 aspirin 81 mg PO DAILY 04/02/21 calcium carbonate-vitamin D2 1 tab PO DAILY 04/02/21 cyanocobalamin (vitamin B-12) 500 mcg PO DAILY 04/02/21 zinc 15 mg PO DAILY 04/02/21 Primal Mind Fuel 1 cap PO/SL DAILY 04/06/21 Arthritis Pain Compound 2 click TOPICAL TID #0 04/25/21 acetaminophen 1,000 mg PO Q8H PRN PRN #0 tab 04/25/21 atorvastatin 40 mg PO QHS #30 tab 04/25/21 clopidogrel 75 mg PO DAILY #7 tab 04/25/21 diltiazem HCl 240 mg PO BID #60 cap 04/25/21 fluticasone propionate 1 spray NASAL BID #1 bottle 04/25/21 lisinopril 10 mg PO QHS #30 tab 04/25/21 oxybutynin chloride [Ditropan XL] 5 mg PO QHS #30 tab 04/25/21 pantoprazole 20 mg PO BID #60 tab 04/25/21 sertraline 50 mg PO DAILY #30 tab 04/25/21 tramadol 100 mg PO TID PRN 7 Days #42 tab 04/25/21 Weight / BMI Weight Weight: 230 lb 6.129 oz Body Mass Index (BMI) 35.2 ABG / Lab / Microbiology Data Result Diagrams: 04/03/21 05:06 04/20/21 05:52 Microbiology: Microbiology 04/11/21 15:35 Urine Catheter - Catheter Urine Culture - Final Escherichia coli D/C Instructions Discharge Diet: Low fat / Low cholesterol, 4000 mg Sodium Diet and Carb Control Diet May resume sexual activity in: No Restrictions Weight Bearing Status: Full weight bearing Call your doctor if you observe: Fever of 101 or Higher, Inability to urinate, Shortness of breath, Dizziness, Fainting spells, Chest pain, Increased palpitations (irregular heartbeat), Calf discomfort, Uncontrolled pain and - (Symptoms of stroke are new numbness, new weakness, facial droop, inability to get your words out, inability to swallow, sudden onset vertigo.) Pending Tests Upon Discharge: none Please Follow Up With: Yamila Johnson-PCP When: 5-7 days Meaningful Use Info Meaningful Use Diagnoses (Choose all that apply): Ischemic CVA CVA Therapy Assessed for PT,OT and/or ST?: Yes Ischemic Stroke Antithrombotic order at d/c?: Yes Dx of Atrial fib/flutter?: No Statins at discharge?: Yes Primary Dx Acute Ischemic CVA?: Yes IV tPA ordered during stay?: No Reason IV t-PA not ordered: Treatment not Indicated Discharge Plan Admission Admit Date/Time: 04/02/21 13:30 Primary Reason for Your Visit: Debility due to stroke. Attending Provider: Nicolette Self Instructions Patient Instructions: Intimacy After Stroke, Symptoms of Stroke, Stroke Mood Swings Depression, Depression and the Brain's ..., Discharge Instructions for Stroke, Risk Factors for Stroke Discharge Orders/Prescriptions Prescriptions: New Arthritis Pain Compound 2 click topical TID Qty: 0 RF: 0 acetaminophen 500 mg Tablet 1,000 mg PO Q8H PRN PRN (Reason: pain) Qty: 0 RF: 0 diltiazem HCl 240 mg Capsule,Extended Release 24hr 240 mg PO BID Qty: 60 RF: 0 fluticasone propionate 50 mcg/actuation [place],Suspension 1 spray NASAL BID Qty: 1 RF: 0 tramadol 50 mg Tablet 100 mg PO TID PRN (Reason: pain) 7 Days Qty: 42 RF: 0 pantoprazole 20 mg Tablet,Delayed Release (Dr/Ec) 20 mg PO BID Qty: 60 RF: 0 sertraline 50 mg Tablet 50 mg PO DAILY Qty: 30 RF: 0 lisinopril 10 mg tablet 10 mg PO QHS Qty: 30 RF: 0 oxybutynin chloride [Ditropan XL] 5 mg tablet extended release 24hr 5 mg PO QHS Qty: 30 RF: 0 Continued aspirin 81 mg Tablet,Chewable 81 mg PO DAILY RF: 0 zinc 15 mg Tablet 15 mg PO DAILY RF: 0 ascorbic acid (vitamin C) [Vitamin C] 500 mg Tablet 500 mg PO DAILY RF: 0 cyanocobalamin (vitamin B-12) 500 mcg Tablet Extended Release 500 mcg PO DAILY RF: 0 calcium carbonate-vitamin D2 600 mg calcium- 200 unit Tablet 1 tab PO DAILY RF: 0 Multivitamin 50 Plus Tablet 1 tab PO DAILY RF: 0 Primal Mind Fuel 1 cap PO/SL DAILY RF: 0 atorvastatin 40 mg Tablet 40 mg PO QHS Qty: 30 RF: 0 clopidogrel 75 mg Tablet 75 mg PO DAILY Qty: 7 RF: 0 Discontinued lisinopril 5 mg Tablet 5 mg PO DAILY RF: 0 pantoprazole [Protonix] 40 mg Tablet,Delayed Release (Dr/Ec) 40 mg PO DAILY RF: 0 Disposition Disposition (needs filled in before D/C Order can be placed): Home, Self Care
--- NOTE | 2021-04-25 11:07 | PCM.DC.SUM ---
Providers Date of Admission: 04/02/21 Reason For Visit: STROKE Diagnosis Discharge Diagnosis (1) Physical debility: Status: Acute Code(s): R53.81 - Other malaise (2) Ischemic cerebrovascular accident (CVA): Status: Acute Code(s): I63.9 - Cerebral infarction, unspecified (3) Glucose intolerance (impaired glucose tolerance): Status: Acute Code(s): R73.02 - Impaired glucose tolerance (oral) (4) HTN (hypertension): Status: Chronic Code(s): I10 - Essential (primary) hypertension Qualifiers: Hypertension type: essential hypertension Qualified Code(s): I10 - Essential (primary) hypertension (5) Depression as late effect of cerebrovascular accident (CVA): Status: Acute Code(s): I69.398 - Other sequelae of cerebral infarction; 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 (6) Excessive urination at night: Status: Acute Code(s): R35.1 - Nocturia (7) GERD (gastroesophageal reflux disease): Status: Acute Code(s): K21.9 - Gastro-esophageal reflux disease without esophagitis Qualifiers: Esophagitis presence: without esophagitis Qualified Code(s): K21.9 - Gastro-esophageal reflux disease without esophagitis (8) Effusion of right knee joint: Status: Acute Code(s): M25.461 - Effusion, right knee (9) Right knee pain: Status: Acute Code(s): M25.561 - Pain in right knee Qualifiers: Chronicity: chronic Qualified Code(s): M25.561 - Pain in right knee; G89.29 - Other chronic pain (10) Bone infarct of distal femur: Status: Acute Code(s): M87.059 - Idiopathic aseptic necrosis of unspecified femur Qualifiers: Laterality: right Qualified Code(s): M87.051 - Idiopathic aseptic necrosis of right femur (11) Post-nasal drip: Status: Acute Code(s): R09.82 - Postnasal drip (12) Dyslipidemia: Status: Acute Code(s): E78.5 - Hyperlipidemia, unspecified Plan: Discharge home with OP PT and OT. She will follow up with Dr. Hinton in 5-7 days and will also need to follow up with neurology. Medications at Discharge Home Medications Multivitamin 50 Plus 1 tab PO DAILY 04/02/21 ascorbic acid (vitamin C) [Vitamin C] 500 mg PO DAILY 04/02/21 aspirin 81 mg PO DAILY 04/02/21 calcium carbonate-vitamin D2 1 tab PO DAILY 04/02/21 cyanocobalamin (vitamin B-12) 500 mcg PO DAILY 04/02/21 zinc 15 mg PO DAILY 04/02/21 Primal Mind Fuel 1 cap PO/SL DAILY 04/06/21 Arthritis Pain Compound 2 click TOPICAL TID #0 04/25/21 acetaminophen 1,000 mg PO Q8H PRN PRN #0 tab 04/25/21 atorvastatin 40 mg PO QHS #30 tab 04/25/21 clopidogrel 75 mg PO DAILY #7 tab 04/25/21 diltiazem HCl 240 mg PO BID #60 cap 04/25/21 fluticasone propionate 1 spray NASAL BID #1 bottle 04/25/21 lisinopril 10 mg PO QHS #30 tab 04/25/21 oxybutynin chloride [Ditropan XL] 5 mg PO QHS #30 tab 04/25/21 pantoprazole 20 mg PO BID #60 tab 04/25/21 sertraline 50 mg PO DAILY #30 tab 04/25/21 tramadol 100 mg PO TID PRN 7 Days #42 tab 04/25/21 Hospital Course Operations None Procedures None Summary of Care Provided Minutes Spent on Discharge: 44 Hospital Course: the inpatient reha showed an unremarkable BMPb unitLab at admission to and a creatinine of 0.89 with a GFR of 66. JOSE VELAZQUEZ, is a 70 F who presented to the ED on 03/29/21 with c/o facial droop, difficulty swallowing and R side weakness that began a few hours prior to arrival. She declined TPA because the deficit was small initially. MRI of the brain showed subcentimeter focus of restricted diffusion in the posterior limb of the left internal capsule consistent with an acute left lacunar CVA. The MRI also showed signs of micro bleeds in the deep Cortex concerning for chronic uncontrolled microvascular hypertension. CTA of the head neck revealed mild calcified stenosis of the internal carotid arteries, right greater than left, and mild irregular stenosis of the distal M1 segment of the right middle cerebral artery. Echocardiogram had a 63% ejection fraction with no PFO. There was mild left ventricular hypertrophy. Prior to the stroke she was taking 1 baby ASA a day for many years and did not see a PCP regularly. Unfortunately the deficits increased and at the time of admission to the rehab unit she had dysarthria/facial droop and weakness in the right arm and leg. she is R hand dominant. Her NIHSS was 3 and her modified [place] score was a 5. She was admitted to the in acute rehab unit at [facility] on 04/02/21 for > 3 hours of therapy daily to restore function/independence at or as near as possible to her level prior to the CVA. Lab at admission to the rehab unit showed an unremarkable BMP with the exception of an elevated fasting glucose. The creatinine was 0.89 with a GFR of 66. Hemoglobin A1c was 5.9% which is consistent with glucose intolerance. CBC was unremarkable. While in rehab she started c/o severe R knee pain. An XRAY showed severe tricompartmental OA. I suspect the knee pain was worse than prior to admission due to the increased stress on the right leg related to the weakness in the left leg. We initially tried a compounded arthritic cream containing lidocaine, Voltaren and baclofen and this helped somewhat but she continued to complain of severe knee pain that kept her awake at night. On 04/07/2021 I injected the right knee with 40 mg of Kenalog and 3 cc of Marcaine. On recheck 30 minutes following the injection the pain was much improved. She still has some right knee pain but it is much more tolerable. As is common with strokes she became depressed and anxious. She began to think she would be a burden to her . She initially refused an antidepressant but, after talking with myself, the social worker health services and the therapist she agreed to starting sertraline 50 mg daily 04/21/21. If she continues to tolerate this medication with no adverse side effects I would increase the dose to a more therapeutic level of 100 mg daily. I recommended to Jose that she continue the antidepressant for 6 months and if at the time she is happy and doing well she can cut the dose in half for a month and if no exacerbation in depression or anxiety she can discontinue. Another problem was increased urination with urge incontinence. She was started on Myrbetriq and did better but, this medication is not on the formulary for her insurance company so she was placed on Ditropan XL 5 mg q HS prior to DC. Jose worked hard in therapy and made excellent improvement. Her modified [place] score improved from 5-3 prior to discharge. She ambulated up to 485 feet with a wheeled walker at standby assist and was able to do transfers from various surfaces at contact-guard assist only. She was independent with eating and grooming. She required minimal assistance with bathing and upper body dressing. She was moderate assistance with lower body dressing. Hung came in for family training prior to discharge to learn how to best assist min at home. The therapy team agreed that she was safe to discharge home. On the date of discharge the blood pressure was 140/75 with a pulse of 65. She was afebrile and her oxygen saturation on room air was 92 with no tachypnea, no complaints of shortness of breath and no conversational dyspnea. The majority of blood pressures are at goal or under. She was discharged on 04/25/2021 and will follow up with Dr. Yamila Hinton her primary care physician in 5 to 7 days. She should also follow-up with a neurologist. I urged her to have regular follow up with Dr. Hinton going forward to prevent any additional strokes or cardiac events. She will have OP PT and OT post discharge. Physical Exam Const alert, oriented x3, no apparent distress and well nourished Constitutional Narrative: Sitting in the recliner at the bedside. Talkative and making good eye contact. General Appearance: cooperative, comfortable, well kempt and well developed Eyes PERRL and EOMs intact bilaterally Neck supple, no JVD and no carotid bruits General: trachea midline Resp normal respiratory effort, normal air movement and clear to auscultation bilaterally Cardio regular rate, regular rhythm, S1 normal heart sound, S2 normal heart sound, no rub and no gallops Cardio Narrative: soft systolic MM at the second RICS. No significant valvular heart disease on the ECHO done at the previous hospital. Heart Sounds: murmur systolic GI normal to inspection, nondistended, normoactive bowel sounds, soft to palpation, non-tender and non-distended Palpation: Negative for guarding Extremity no clubbing, cyanosis or edema and no calf tenderness Extremity Narrative: General Extremity: edema Skin no wounds General Skin Exam: no breakdown Rashes: no rashes Neuro oriented x3 Neuro Narrative: Facial droop is less than at admission. Minimal dysarthria. Weaker on the right side. No sensory loss. Coordination / Balance: [id number] test normal and [id number] test normal Psych thought process normal, cooperative, denies homicidal ideation and denies suicidal ideation Psych Narrative: She is a little down at tearful at times but, then she rallies. She is looking forward to going home today. Appearance: appropriate Thought Content: No hallucination(s) Weight / BMI Weight Weight: 230 lb 6.129 oz Body Mass Index (BMI) 35.2 ABG / Lab / Microbiology Data Result Diagrams: 04/03/21 05:06 04/20/21 05:52 Microbiology: Microbiology 04/11/21 15:35 Urine Catheter - Catheter Urine Culture - Final Escherichia coli D/C Instructions Discharge Diet: Low fat / Low cholesterol, 4000 mg Sodium Diet and Carb Control Diet May resume sexual activity in: No Restrictions Weight Bearing Status: Full weight bearing Call your doctor if you observe: Fever of 101 or Higher, Inability to urinate, Shortness of breath, Dizziness, Fainting spells, Chest pain, Increased palpitations (irregular heartbeat), Calf discomfort, Uncontrolled pain and - (Symptoms of stroke are new numbness, new weakness, facial droop, inability to get your words out, inability to swallow, sudden onset vertigo.) Pending Tests Upon Discharge: none Please Follow Up With: Yamila Johnson-PCP When: 5-7 days Meaningful Use Info Meaningful Use Diagnoses (Choose all that apply): Ischemic CVA CVA Therapy Assessed for PT,OT and/or ST?: Yes Ischemic Stroke Antithrombotic order at d/c?: Yes Dx of Atrial fib/flutter?: No Anticoagulant at discharge?: No Reason anticoagulant not ordered: Treatment not Indicated Statins at discharge?: Yes Primary Dx Acute Ischemic CVA?: Yes IV tPA ordered during stay?: No Reason IV t-PA not ordered: Treatment not Indicated Discharge Plan Admission Admit Date/Time: 04/02/21 13:30 Primary Reason for Your Visit: Debility due to stroke. Attending Provider: Nicolette Self Instructions Patient Instructions: Intimacy After Stroke, Symptoms of Stroke, Stroke Mood Swings Depression, Depression and the Brain's ..., Discharge Instructions for Stroke, Risk Factors for Stroke Discharge Orders/Prescriptions Prescriptions: New Arthritis Pain Compound 2 click topical TID Qty: 0 RF: 0 acetaminophen 500 mg Tablet 1,000 mg PO Q8H PRN PRN (Reason: pain) Qty: 0 RF: 0 diltiazem HCl 240 mg Capsule,Extended Release 24hr 240 mg PO BID Qty: 60 RF: 0 fluticasone propionate 50 mcg/actuation [place],Suspension 1 spray NASAL BID Qty: 1 RF: 0 tramadol 50 mg Tablet 100 mg PO TID PRN (Reason: pain) 7 Days Qty: 42 RF: 0 pantoprazole 20 mg Tablet,Delayed Release (Dr/Ec) 20 mg PO BID Qty: 60 RF: 0 sertraline 50 mg Tablet 50 mg PO DAILY Qty: 30 RF: 0 lisinopril 10 mg tablet 10 mg PO QHS Qty: 30 RF: 0 oxybutynin chloride [Ditropan XL] 5 mg tablet extended release 24hr 5 mg PO QHS Qty: 30 RF: 0 Continued aspirin 81 mg Tablet,Chewable 81 mg PO DAILY RF: 0 zinc 15 mg Tablet 15 mg PO DAILY RF: 0 ascorbic acid (vitamin C) [Vitamin C] 500 mg Tablet 500 mg PO DAILY RF: 0 cyanocobalamin (vitamin B-12) 500 mcg Tablet Extended Release 500 mcg PO DAILY RF: 0 calcium carbonate-vitamin D2 600 mg calcium- 200 unit Tablet 1 tab PO DAILY RF: 0 Multivitamin 50 Plus Tablet 1 tab PO DAILY RF: 0 Primal Mind Fuel 1 cap PO/SL DAILY RF: 0 atorvastatin 40 mg Tablet 40 mg PO QHS Qty: 30 RF: 0 clopidogrel 75 mg Tablet 75 mg PO DAILY Qty: 7 RF: 0 Discontinued lisinopril 5 mg Tablet 5 mg PO DAILY RF: 0 pantoprazole [Protonix] 40 mg Tablet,Delayed Release (Dr/Ec) 40 mg PO DAILY RF: 0 Disposition Disposition (needs filled in before D/C Order can be placed): Home, Self Care Charges/Coding Visit Charges Inpatient E&M: 09030 Disch Hosp
[2021-04-25 11:18] VITALS: BMI 35.2
== END 2021-04-25 13:58 | disposition home or self-care (01) | DRG 57 ==
PROVIDERS: Admitting Provider Internal Medicine; Visit Provider Internal Medicine
DX: I69.351 Hemiplegia and hemiparesis following cerebral infarction affecting right dominant side (principal); N39.0 Urinary tract infection, site not specified; I69.391 Dysphagia following cerebral infarction; I69.392 Facial weakness following cerebral infarction; I69.322 Dysarthria following cerebral infarction; I69.398 Other sequelae of cerebral infarction; R13.10 Dysphagia, unspecified; I10 Essential (primary) hypertension; E78.5 Hyperlipidemia, unspecified; M17.11 Unilateral primary osteoarthritis, right knee; E66.9 Obesity, unspecified; F32.9 Major depressive disorder, single episode, unspecified; G89.29 Other chronic pain; K21.9 Gastro-esophageal reflux disease without esophagitis; Z79.02 Long term (current) use of antithrombotics/antiplatelets; Z79.899 Other long term (current) drug therapy; Z79.82 Long term (current) use of aspirin; Z68.35 Body mass index [BMI] 35.0-35.9, adult; F41.9 Anxiety disorder, unspecified; N39.41 Urge incontinence
CPT/HCPCS: 36415; 73562; 80048; 80053; 81001; 83036; 83735; 84100; 85027; 87077; 87086; 87088; 87186; 92507; 92523; 92526; 92610; 97110; 97112; 97116; 97140; 97162; 97166; 97530; 97533; 97535; 97802; 97803; 99251; G0463

== ENCOUNTER → 2021-07-10 13:58 | Outpatient (CLI) | payer MEDICARE, BC, SELFPAY ==
--- NOTE | 2021-07-10 14:03 | CT_ITS ---
STUDY: CT SCAN OF LOWER EXTREMITY RIGHT REASON FOR EXAM: Female, [address] templating for right TKA.[facility] protocol. RADIATION DOSAGE (If Supplied By Facility): CTDIvol = ( 18.76 ) mGy, DLP = ( 1306.20 ) mGycm. Individualized dose optimization techniques were used for this CT.? TECHNIQUE: Multiple axial tomographic images of the right lower extremity were obtained without intravenous contrast administration. Sagittal and coronal reconstruction was obtained as well. COMPARISON: None. FINDINGS: Imaging of the right hip joint was performed. There is a moderate degree of joint space narrowing involving the superior lateral aspect of the hip joint. There is a 4.9 mm sclerotic focus along the lateral aspect of the acetabulum most likely representing a bone island. Imaging of the knee joint was obtained. There is a marked degree of joint space narrowing and osteoarthritis involving the medial compartment of the knee joint. Marked degree of the osteoarthritis involving the patellofemoral joint with degenerative spur formation of the patella and distal femur. There is evidence of a partially calcified loose bodies in the posterior aspect of the knee joint. The largest measures 1.5 cm. There is also evidence of focal sclerosis of the distal femoral metaphysis suggestive of either calcification of the cartilaginous matrix versus old bone infarct. There is also evidence of mild degree of joint space narrowing involving the lateral compartment knee joint with evidence of bony spur formation. Imaging of the ankle joint was performed. No significant abnormality is seen. CT/Extremity Lower without Contra IMPRESSION: Marked degree of osteoarthritis involving the knee joint as described. Electronically Signed: Cem Dickinson MD at 15:31 EDT , Service support ,
== END ==
PROVIDERS: PCP Internal Medicine; Referring Provider Orthopaedic Surgery; Visit Provider Orthopaedic Surgery
DX: M17.11 Unilateral primary osteoarthritis, right knee (principal)
CPT/HCPCS: 73700

== ENCOUNTER 2021-08-01 06:55 | Observation (INO) | payer MEDICARE, BC, SELFPAY ==
--- NOTE | 2021-07-19 11:14 | EKG12_ITS ---
Test Reason : PRE OP Blood Pressure : / mmHG Vent. Rate : 098 BPM Atrial Rate : 250 BPM P-R Int : 000 ms QRS Dur : 074 ms QT Int : 336 ms P-R-T Axes : 000 042 067 degrees QTc Int : 428 ms Atrial fibrillation Low voltage QRS Abnormal ECG Confirmed by LIZBET FRANCO, CHUYITA ([id number]), editor department MELISSA BROWN ([id number]) on 07/20/2021 12:36:14 PM Referred By: Sixto Membreno Confirmed By:CHUYITA SOMERS MD
[2021-07-19 13:01] LABS: Basophil# 0.07 X10^3/uL; Basophil% 0.8 % (0-1); Eosinophil# 0.15 X10^3/uL; Eosinophils% 1.7 % (0-5); Hematocrit 41.9 % (37-47); Hemoglobin 13.6 g/dL (12.0-15.0); Lymphocyte % 32.7 % (19-41); Mean Corp Hgb Conc 32.5 g/dL (32-36); Mean Corpuscular Hgb 29.8 pg (27.0-32.0); Mean Corpuscular Volume 91.7 fL (81-99); Mean Platelet Vol. 13.3 fl (6.2-12.0); Monocyte% 7.9 % (0-10); NRBC Flagged by Analyzer 0 % (0-5); Neutrophil # 4.99 X10^3/uL (2.7-7.7); Neutrophil % 56.3 % (47-70); Platelet Count 205 K/mm3 (150-450); RBC Distribution Width SD 44.1 fl (35.1-43.9); Red Blood Count 4.57 M/mm3 (4.2-5.4); White Blood Count 8.9 K/mm3 (4.4-11.0)
[2021-07-19 13:07] LABS: International Normalized Ratio 1.5
[2021-07-19 13:08] LABS: Partial Thromboplast Time 34.3 Seconds (24.1-36.2)
[2021-07-19 13:26] LABS: Magnesium 1.9 mg/dL (1.6-2.6)
[2021-07-19 13:27] LABS: Hemoglobin A1c 6.6 % (3.8-5.6)
[2021-07-19 13:29] LABS: Anion Gap 10 (5-15); BUN 15 mg/dL (7-18); BUN/Creat Ratio 15.5 RATIO (10-20); Calcium,Total 9.6 mg/dL (8.5-10.1); Chloride 104 mmol/L (98-107); Creatinine, Serum 0.97 mg/dL (0.55-1.02); EST Glomerular Filtration Rate 61 mL/min (>60); Est Glom Filt Rate - Afr Amer 73 mL/min (>60); Glucose 145 mg/dL (74-106); Potassium 4.2 mmol/L (3.5-5.1); Sodium Level 138 mmol/L (136-145)
[2021-07-20 17:59] LABS: Fructosamine 258 umol/L (0-285)
[2021-08-01] VITALS (15 sets, daily range): BP systolic 89–116; BP diastolic 61–92; PULSE 91–127; RESP 16–18; TEMP 36.2–36.7; O2SAT 95–99; BMI 36.6
--- NOTE | 2021-08-01 07:22 | PCM.HP.BLA ---
History and Physical Date of Admission: 08/01/21 Date of Service: 06/29/21 MR#:[id number]: Beth VELAZQUEZ #:[id number]:1950 Provider:Dr. Sixto Membreno, Age/Sex: 71/F [place] [place] Intake Intake Visit Reasons: RIGHT KNEE Is patient in pain?: Yes Allergies No Known Allergies Allergy (Verified 06/29/21 11:32) Medications Multivitamin 50 Plus 1 tab PO DAILY 04/02/21 [History Confirmed 06/29/21] ascorbic acid (vitamin C) [Vitamin C] 500 mg PO DAILY 04/02/21 [History Confirmed 06/29/21] calcium carbonate-vitamin D2 1 tab PO DAILY 04/02/21 [History Confirmed 06/29/21] cyanocobalamin (vitamin B-12) 500 mcg PO DAILY 04/02/21 [History Confirmed 06/29/21] zinc 15 mg PO DAILY 04/02/21 [History Confirmed 06/29/21] acetaminophen 1,000 mg PO Q8H PRN PRN #0 tab 04/25/21 [Rx Confirmed 06/29/21] atorvastatin 40 mg PO QHS #30 tab 04/25/21 [Rx Confirmed 06/29/21] diltiazem HCl 240 mg PO BID #60 cap 04/25/21 [Rx Confirmed 06/29/21] lisinopril 10 mg PO QHS #30 tab 04/25/21 [Rx Confirmed 06/29/21] oxybutynin chloride [Ditropan XL] 5 mg PO QHS #30 tab 04/25/21 [Rx Confirmed 06/29/21] sertraline 50 mg PO DAILY #30 tab 04/25/21 [Rx Confirmed 06/29/21] apixaban 5 mg tablet 5 mg PO BID tab 06/21/21 [History Confirmed 06/21/21] ascorbate calcium (vitamin C) 500 mg tablet 500 mg PO DAILY 06/21/21 [History Confirmed 06/29/21] aspirin 81 mg capsule 81 mg PO DAILY 06/29/21 [History Confirmed 06/29/21] coenzyme Q10 30 mg capsule 30 mg PO DAILY 06/29/21 [History Confirmed 06/29/21] PFSH Medical History (Updated 06/21/21 @ 12:25 by Kasia Lopez) Abnormality of gait Acute stroke due to ischemia Bone infarct of distal femur Dyslipidemia Glucose intolerance (impaired glucose tolerance) History of colon polyps HTN (hypertension) Impaired functional mobility, balance, gait, and endurance LVH (left ventricular hypertrophy) MVP (mitral valve prolapse) Obesity (BMI 30-39.9) Osteoarthritis Weakness status post cerebrovascular accident Surgical History H/O colonoscopy with polypectomy Status post left breast lumpectomy (~1991) Family History Mother Hyperlipidemia Hypertension Father Diabetes Father Hypertension Father Cancer Mother Dementia Brother Muscular dystrophy Other Arthritis Social History (Updated 06/21/21 @ 12:27 by Kasia Lopez) adopted: No household members: spouse housing: house number of children: 0 current occupational status: previously employed and retired 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 Sixto Membreno, DO 06/29/21 5245. JOSE VELAZQUEZ is a 71 year old F here today for right knee continued pain. She has had many years of right knee pain. She hasnt been able to kneel on her knee for about 35 years. Patient has increased pain and weakness with any ambulation so she is brought to her appointment today in a wheelchair. Patient states that she has pain over her medial knee. She has popping and clicking. Patient notes that she has a knee brace which she wears when she leaves her home. She had an injection which was helpful for a few hours which was completed in April. She is taking tylenol for pain. She had a stroke 3 months ago with weakness on her right side. Patient has been doing formal physical therapy following her stroke. [place] [facility] [place] Ortho Exam General General: Yes no acute distress Neurologic: Yes alert Psychologic: Yes reasonable and appropriate Right Knee Skin/Wound: Yes CDI, No erythema, Yes ecchymosis (medial knee) and Yes swelling Homans Sign: No Knee ROM: Yes ROM-Extension -20 to 0 and Yes ROM-Flexion 0-140 (95) Examination: Yes Crepitus Stability: NML: Anterior Drawer, NML: Posterior Drawer, NML: Valgus 0, NML: Valgus 30, NML: Varus 0 and NML: Varus 30 Patella Translation: 1 Apprehension with Lateral Translation: No Patella Grind: Yes KNEE: good ankle range of motion and strength. 4/5 hip flexion, 5/5 knee extension and flexion. good pulses Left Knee Patella Translation: 1 Supplemental Info 04/12/2021 x-ray right knee: Advanced knee arthrosis Coding Level of Care Code Off vis,est,level 3 Diagnoses Primary localized osteoarthritis of right knee M17.11 Weakness status post cerebrovascular accident I69.398; R53.1 Impaired functional mobility, balance, gait, and endurance Z74.09 Assessment and Plan Assessment and Plan (1) Primary localized osteoarthritis of right knee: (2) Weakness status post cerebrovascular accident: Status: Acute (3) Impaired functional mobility, balance, gait, and endurance: Status: Acute Plan - Dr. Sixto Membreno, DO: Educated the patient about the anatomy of the knee and etiology of her pain. Spoke with the patient about the benefits of a total knee arthroplasty and the procedure. Explained the recovery process and time frame. Spoke with the patient about needing stop with her blood thinners prior to her surgery. Recommended the patient be inpatient following her surgery due to her medical comorbidities and age and stairs at home. She will be able to return to [facility] 12 hours post op. Spoke with the patient about the makoplasty robot for total knee arthroplasty and needing a CT scan prior to her surgery. Spoke with her about the risk of infection and blood clots. Explained she might have a mechanical feel post op. She may have iovera if insurance approves the procedure. She will need to take antibiotics prior to any dental appointment. Risks, benefits and alternatives of surgery reviewed including but not limited to bleeding, infection, nerve, artery and/or tissue damage, fracture, VTE, mechanical feel of the knee, continued pain, stiffness and expected post-operative course. I will send her to pre-hab We will need to get medical clearance from Dr Lee in [place], for cardiology, and Dr Rutherford in [place], her PCP. Follow up for 2 week post op or sooner if pain, swelling, numbness or associated symptoms, or concerns develop. All questions answered. Patient in agreement of plan. 06/29/21 1219<Electronically signed by Sixto Membreno DO>Date Sixto Campbellignaymini Signature:Date (if applicable) CC: ~I have re-examined the patient. There are no clinical changes since date of exam
[2021-08-01] MEDS: Lactated Ringers 1,000 ML 100 ML IV (07:50)
[2021-08-01] MEDS: Gabapentin 600 MG Tablet PO (07:51)
[2021-08-01] MEDS: Acetaminophen 500 MG Tablet 1000 MG PO ×2 (07:51→21:51)
[2021-08-01] MEDS: Celecoxib 200 MG Capsule 400 MG PO (07:51)
[2021-08-01] MEDS: Scopolamine 1mg/72hr Patch 1 PATCH TD (07:51)
[2021-08-01 08:41] LABS: Bedside Glucose 125 mg/dL (70-110)
[2021-08-01 09:10] LABS: INR Fingerstick 1.4; Prothrombin Time Fingerstick 16.6 SEC (11.9-14.4)
[2021-08-01 09:28] LABS: International Normalized Ratio 1.1; Prothrombin Time (Protime)PT. 13.5 SECONDS (11.7-14.9)
[2021-08-01] MEDS: Epinephrine (1 mg/ml) 1 MG/ML VIAL (10:49)
[2021-08-01] MEDS: Betamethasone/Betamethasone 30 MG/5 ML Vial (10:49)
[2021-08-01] MEDS: Bupivacaine Mpf 0.5% 30 ML VIAL (10:49)
[2021-08-01] MEDS: dexAMETHasone 10 MG/ML Vial IV (10:50)
[2021-08-01] MEDS: Lactated Ringers 1,000 ML 125 ML IV ×2 (11:45→15:44)
--- NOTE | 2021-08-01 12:59 | OP.PCM_ITS ---
Report of Operation Date of Procedure: 08/01/21 Description of Surgical Findings:: Preoperative diagnosis: Right knee DJD Postoperative diagnosis: Same Procedure: Right total knee arthroplasty CT guided Robotic Assisted Implant: Mely triathlon press fit, femoral component size5, tibial baseplate size 5, asymmetric patella size 38, polyethylene X3 size 9 CS Anesthesia: General with adductor canal block Tourniquet time: 12 minutes at 300 mmHg Complications: None Condition: Stable to PACU Estimated blood loss: 200 cc Indication for procedure: This is a 71-year-old female with long standing degenerative joint disease of the knee who has failed conservative treatment and wished to proceed with elective total knee arthroplasty. Risk benefits and alternatives were reviewed including; risk of bleeding, infection, nerve artery and tissue damage, continued pain, postoperative stiffness, venous thro mboembolism, need for postoperative rehabilitation, mechanical feel to the knee, and expected postoperative course. The operative CT and templating was performed with component sizing Procedure: The patient was met in the preoperative holding area. The operative extremity was identified by both patient and physician and was marked. Patient was met by anesthesia. An adductor canal block was placed by anesthesia postoperatively the patient was brought back to the operating room on a wheeled cart and transferred to the operating table in the supine position. Anesthesia was started. A well-padded tourniquet was placed on the operative extremity. The patient was prepped and draped in the usual sterile fashion. A timeout was called to ensure the proper patient procedure and extremity were being contemplated. An Esmarch was used to exsanguinate the extremity. The tourniquet was inflated. A 10 blade scalpel was used to make a midline incision down through the skin and subcutaneous tissue. Skin retractors placed. Bovie was used to perform meticulous hemostasis. full-thickness flaps were elevated medial and lateral along the joint capsule. A deep blade scalpel was used to perform a medial parapatellar arthrotomy. The knee was brought to full extension. A Bovie was used to release the soft tissues off the most proximal aspect of the medial tibial plateau, a three-quarter inch curved osteotome was also used for this process. The infrapatellar fat pad was excised. The superior fat pad was excised partially anteriorolateraly and portion the anterioromedial pad was elevated from the femur. At this point our intra- articular femoral array was placed of a 45 degree angle proximal and posterior to the medial epicondyle. Our tibial array was placed greater than 1 hands breath below the incision at a 20 degree angle stab incisions were used for this case were attached and checked with the robotic software. Tourniquet was let down. At this point registration agosto were taken throughout the knee as well as checkpoints placed in the femur and tibia once the knee was registered then tensioned the medial and lateral ligaments in extension and 90 degrees of flexion. We then used these numbers to adjust our components within parameters to balance the knee in both flexion and extension once this was done on our monitor we then proceeded with using the robotic arm to make our tibial plateau cut and anterior posterior and chamfer cuts and distal on the femur we then trialed and achieved the desired plan with a well-balanced knee. Lug holes were drilled in the femur the tibia preparation was completed with a fin punch and the patella was prepared by first using a caliper to ensure sufficient bone stock and a patellar reamer to remove the desired amount of bone locals were drilled for an asymmetric poly-. We then brought the knee through range of motion with excellent patellar tracking. We thoroughly irrigated the knee with a trial components were removed a posterior capsular injection with her standard cocktail was performed the aqua Mantis was also used to aid in hemostasis. Betadine rinse was allowed to sit and washed out components were press-fit into place. Aricept rinse was then used followed by several more rate liters of irrigation after it was allowed to sit. Joint capsule was closed with #1 Ethibond [id number] followed by Vicryl in the subcutaneous tissues staple in the skin arrays and checkpoints were removed prior to closure all counts were correct stab incisions were closed with a stable standard dressing in the form of Mepilex for the main incision Xeroform 4 x 4 and Tegaderm over pin site holes. Thigh-high SUE hose applied over top of dressing. Patient tolerated the procedure well and was directed to PACU in stable condition no intraoperative complications
--- NOTE | 2021-08-01 13:18 | RAD_ITS ---
STUDY: X-RAY - RIGHT KNEE REASON FOR EXAM: Postoperative evaluation of right total knee arthroplasty. TECHNIQUE: 2 view(s) of the knee. COMPARISON: Radiographs 04/12/2021. FINDINGS: There is a right total knee arthroplasty without evidence of complication. 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 There is postoperative gas in the soft tissues and overlying skin karen. There are posterior intra-articular bodies. RAD/Knee 1 or 2 Views IMPRESSION: Uncomplicated right total knee arthroplasty. Electronically Signed: Ellis Mcclain MD at 14:45 EDT Tel , Service support ,
--- NOTE | 2021-08-01 13:57 | KNEE_PTH ---
PATIENT: JOSE VELAZQUEZ LOC: [facility] U#:[id number] AGE/SX: 71/F ROOM: SD316 RE08/01/[address]: Dr. Jermaine Madrid DO : 1950 BED: 1 DIS: 08/03/2021 SPEC #: [id number] RECD: 08/01/21 13:57 STATUS: JEANINE REGeraldine #: [id number] NHAN: 08/01/21 13:[address]: Sixto Membreno DEPT: SURGICAL PATHOLOGY RECD BY: Singh Stone ENTERED: 08/02/21 08:08 SP TYPE: TOTAL KNEE OTHR DR: MD Dr. Darius Prieto DO Dr. Mark Tereletsky, DO Tissues: Knee, NOS Procedures: Decalcification bone/plaque Surgery Specimen Level IV HEADER OPERATION: ERAS, total knee replacement robotic arm assist PRE-OP DIAGNOSIS: Osteoarthritis right knee TISSUE SUBMITTED: Right knee bone and tissue MICROSCOPIC DIAGNOSIS Bone and tissue of right knee, total knee resection: Severe degenerative joint disease. AM:mara 08/07/2021 MICROSCOPIC DESCRIPTION Slides are reviewed. GROSS DESCRIPTION Received is one container designated bone and soft tissue right knee. The specimen consists of multiple fragments of garcia-yellow bone measuring in aggregate 10 x 8 x 3 cm. No soft tissue is identified. A number of bony fragments contain articular surfaces consistent with tibial plateau and femoral condyle and displaying prominent osteophyte formation, eburnation, and bone erosion. Parole Board Member sections are submitted in one cassette after decalcification. / SJ:mara 08/02/21 TC:5 CPT: 29678, 33032
[2021-08-01] MEDS: dilTIAZem CD 240 MG Capsule PO (14:20)
[2021-08-01] MEDS: Cefazolin 1 GM/50 ML BAG IV ×2 (14:34→21:51)
--- NOTE | 2021-08-01 15:30 | NURSING ---
PT STATES 15LB WEIGHT GAIN OVER LAST 3 MONTHS DUE 5TO
--- NOTE | 2021-08-01 15:31 | NURSING ---
PT STATES 15LB WEIGHT GAIN OVER LAST 3 MONTHS DUE TO MEDICATION
--- NOTE | 2021-08-01 15:36 | NURSING ---
PT DID NOT GET INFLUENZA OR COVID VACCINE
[2021-08-01] MEDS: Ketorolac 15 MG/ML Vial IV (16:09)
[2021-08-01] MEDS: 0.9% NaCl Peripheral Flush Adult/Peds IV (16:10)
--- NOTE | 2021-08-01 16:36 | PN.HOSP_ITS ---
Subjective Subjective Groggy postop after right knee replacement. Patient is complaining of some pain in her right thigh at present. Objective Data Objective Data Vital Signs: Vital Signs Temp Pulse Resp BP Pulse Ox 36.4 C L 95 18 95/69 99 08/01/21 15:19 08/01/21 15:19 08/01/21 15:19 08/01/21 15:19 08/01/21 15:19 Oxygen Flow Rate (L/min) 6 Oxygen Delivery Method Simple Mask Weight: 106.2 kg Body Mass Index (BMI) 36.6 Intake & Output: Intake and Output for Last 24 Hours 07/30/21 07/31/21 08/01/21 23:59 23:59 23:59 Intake Total 1491.5 / 1491.5 Balance 1491.5 / 1491.5 Lab / Micro Data Result Diagrams: 07/19/21 11:25 07/19/21 11:25 Labs: Laboratory Results - last 24 hr 08/01/21 07:56: Blood Type A POSITIVE, Antibody Screen NEGATIVE 08/01/21 08:04: POC Glucose 125 H 08/01/21 09:07: POC PT 16.6 H, INR 1.4 08/01/21 09:10: PT 13.5, INR 1.1 Micro: Microbiology 07/31/21 10:15 Interface Orders SARS-CoV-2 Antigen (Rapid) - Final 07/19/21 11:25 Swab (Method) Nasal Screen MRSA/MSSA - Final Radiography Diagnostic Testing: Radiology Impression Knee X-Ray 08/01/21 13:18 IMPRESSION: Uncomplicated right total knee arthroplasty. Electronically Signed: Ellis Mcclain MD at 14:45 EDT Tel , Service support , Physical Exam Const alert Constitutional Narrative: Groggy but follows commands. HEENT Head and Scalp: normocephalic Resp normal respiratory effort, no retractions, no use of accessory muscles and clear to auscultation bilaterally Cardio regular rate, regular rhythm, S1 normal heart sound and S2 normal heart sound GI soft to palpation, non-tender and non-distended Extremity Extremity Narrative: Right knee wrapped as well as with an ice pack overlying, did not remove. No calf tenderness Assessment & Plan Assessment/Plan (1) Osteoarthritis of right knee: QUALIFIERS: Osteoarthritis type: unspecified Qualified Code(s): M17.11 - Unilateral primary osteoarthritis, right knee PLAN: 1. Diabetes mellitus type 2 * Patient and note that patient was not a medicine until after her stroke. They are concerned that the medications may have caused this. I told him that it is likely that the medications did not cause her diabetes but she may have been borderline and then having had a stroke may have tipped her over the edge. * Continue with Metformin * add moderate dose sliding scale insulin. 2. History of stroke * Anticoagulated with apixaban 3. Atrial fibrillation, permanent * Currently rate controlled * On diltiazem * Anticoagulated with apixaban * Follow-up with Dr. Lee, her environmental services attendant, as outpatient 4. Hypertension * Blood pressures running on the low end of normal at present. Suspect related with the anesthesia. * Continue with her home medications but will place hold parameters 5. Status post right knee replacement * Management per orthopedic 6. VTE prophylaxis: Patient is currently anticoagulated Thank you for the consult. The hospital service will follow along during this patient's hospitalization. Please contact with questions. Charges/Coding Visit Charges Inpatient E&M: 41875 Subs Hosp L2
[2021-08-01 17:35] LABS: Bedside Glucose 175 mg/dL (70-110)
[2021-08-01] MEDS: Insulin Lispro 100 UNIT/ML INSULN.PEN SC ×2 (17:49→17:50)
[2021-08-01] MEDS: oxyCODONE 5 MG Tablet PO (18:47)
[2021-08-01] MEDS: Lisinopril 10 MG Tablet PO (21:51)
[2021-08-01] MEDS: Atorvastatin Calcium 40 MG Tablet PO (21:51)
[2021-08-01] MEDS: metFORMIN (XR) 500 MG Tablet PO (21:51)
[2021-08-01] MEDS: Tolterodine Tartrate 2 MG CAP.SA PO (21:51)
[2021-08-01] MEDS: Senna/Docusate Sodium 1 Tablet 2 TABLET PO (21:52)
[2021-08-01 22:00] LABS: Bedside Glucose 152 mg/dL (70-110)
[2021-08-02] VITALS (10 sets, daily range): BP systolic 77–118; BP diastolic 37–82; PULSE 87–116; RESP 16–18; TEMP 36.3–36.8; O2SAT 93–97
[2021-08-02] MEDS: Lactated Ringers 1,000 ML 15 ML IV (00:54)
[2021-08-02 05:11] LABS: Hematocrit 39.3 % (37-47); Hemoglobin 11.5 g/dL (12.0-15.0); Mean Corp Hgb Conc 29.3 g/dL (32-36); Mean Corpuscular Hgb 29.5 pg (27.0-32.0); Mean Corpuscular Volume 100.8 fL (81-99); Mean Platelet Vol. 12.6 fl (6.2-12.0); Platelet Count 190 K/mm3 (150-450); RBC Distribution Width CV 12.9 % (11.6-14.6); RBC Distribution Width SD 47.8 fl (35.1-43.9); White Blood Count 18.3 K/mm3 (4.4-11.0)
[2021-08-02 05:40] LABS: Anion Gap 7 (5-15); BUN 17 mg/dL (7-18); BUN/Creat Ratio 15.5 RATIO (10-20); Chloride 104 mmol/L (98-107); EST Glomerular Filtration Rate 52 mL/min (>60); Est Glom Filt Rate - Afr Amer 63 mL/min (>60); Estimated Creatinine Clearance 46.28 ml/min; Glucose 146 mg/dL (74-106); Potassium 5.3 mmol/L (3.5-5.1); Sodium Level 133 mmol/L (136-145)
[2021-08-02] MEDS: Cefazolin 1 GM/50 ML BAG IV (06:21)
[2021-08-02] MEDS: APIXABAN 5 MG TABLET PO ×3 (06:21→21:22)
[2021-08-02] MEDS: Acetaminophen 500 MG Tablet 1000 MG PO ×3 (06:21→21:23)
[2021-08-02] MEDS: Insulin Lispro 100 UNIT/ML INSULN.PEN SC ×2 (06:27→16:55)
[2021-08-02 06:30] LABS: Bedside Glucose 151 mg/dL (70-110)
[2021-08-02] MEDS: metFORMIN (XR) 500 MG Tablet PO ×2 (10:48→21:22)
[2021-08-02] MEDS: Senna/Docusate Sodium 1 Tablet 2 TABLET PO ×2 (10:48→21:23)
[2021-08-02] MEDS: Cyanocobalamin 500 MCG Tablet PO (10:48)
[2021-08-02] MEDS: Ascorbic Acid 500 MG Tablet PO (10:48)
[2021-08-02] MEDS: Sertraline 50 MG Tablet PO (10:48)
[2021-08-02 11:05] LABS: Bedside Glucose 141 mg/dL (70-110)
--- NOTE | 2021-08-02 12:10 | PCM.PN.ORT ---
Subjective Subjective Patient seen and examined. She has no pain. She has some confusion postoperatively is improving. Had significant difficulty with physical therapy following cues. Patient wishes to be discharged home soon as possible. She denies chest pain shortness of breath palpitations, Nausea vomiting Objective Data Objective Data Vital Signs: Vital Signs Temp Pulse Resp BP Pulse Ox 97.4 F L 116 H 18 84/64 L 97 08/02/21 08:02 08/02/21 10:50 08/02/21 08:02 08/02/21 10:50 08/02/21 11:30 Oxygen Flow Rate (L/min) 2 Oxygen Delivery Method Nasal Cannula Weight: 234 lb 2.095 oz Body Mass Index (BMI) 36.6 Intake & Output: Intake and Output for Last 24 Hours 07/31/21 08/01/21 08/02/21 23:59 23:59 23:59 Intake Total 3399.83 / 3399.83 50 / 50 Balance 3399.83 / 3399.83 50 / 50 Lab / Micro Data Result Diagrams: 08/02/21 04:48 08/02/21 04:48 Labs: Laboratory Results - last 24 hr 08/01/21 17:13: POC Glucose 175 H 08/01/21 21:48: POC Glucose 152 H 08/02/21 04:48: WBC 18.3 H, RBC 3.90 L, Hgb 11.5 L, Hct 39.3, MCV 100.8 H, MCH 29.5, MCHC 29.3 L, RDW Std Deviation 47.8 H, RDW Coeff of Adan 12.9, Plt Count 190, MPV 12.6 H 08/02/21 04:48: Sodium 133 L, Potassium 5.3 H, Chloride 104, Carbon Dioxide 22.0, Anion Gap 7, BUN 17, Creatinine 1.10 H, Estim Creat Clear Calc 46.28, Est GFR (MDRD) Af Amer 63, Est GFR (MDRD) Non-Af 52 L, BUN/Creatinine Ratio 15.5, Glucose 146 H, Calcium 9.0 08/02/21 06:25: POC Glucose 151 H 08/02/21 10:54: POC Glucose 141 H Micro: Microbiology 07/31/21 10:15 Interface Orders SARS-CoV-2 Antigen (Rapid) - Final 07/19/21 11:25 Swab (Method) Nasal Screen MRSA/MSSA - Final Radiography Diagnostic Testing: Radiology Impression Knee X-Ray 08/01/21 13:18 IMPRESSION: Uncomplicated right total knee arthroplasty. Electronically Signed: Ellis Mcclain MD at 14:45 EDT Tel , Service support , Physical Exam Const no apparent distress General Appearance: cooperative Extremity Extremity Narrative: Right lower extremity compartments soft neurovascular intact, Dressing clean dry and intact Assessment & Plan Assessment/Plan (1) S/P total knee arthroplasty: QUALIFIERS: Laterality: right Qualified Code(s): Z96.651 - Presence of right artificial knee joint (2) Tachycardia: (3) Creatinine elevation: (4) Postoperative delirium: PLAN: Patient has significant difficulty following cues with physical therapy concerns by physical therapy about discharge home. Will have her have additional session with physical therapy this afternoon and tomorrow morning. We will continue IV fluids and check her BMP in the a.m. And continue to monitor her mental status which seems to be improving. If concern by therapy for safe discharge home tomorrow we will consider discharge to rehab or nursing facility. Initial admission verbal order was put in incorrectly by nursing staff as a observation new order placed for proper inpatient admission.
[2021-08-02] MEDS: 0.9% Normal Saline 1,000 ML 125 ML IV ×2 (13:04→22:50)
--- NOTE | 2021-08-02 13:50 | CASEMGMT ---
Addendum entered by Daksha Decker 08/02/21 17:31: 1350: SIMON form explained re: Observation status for treatment of post op total right knee replacement. Explained hospitalization will be paid per her insurance policy for Outpatient billing and condition will continue to be evaluated for Inpt necessity. Also let pt/ know that [facility] sends paper in the billing packet with their phone number if questions arise. Discussed Pharmacy section of SIMON form and self administered medication guideline. Pt/ verbalize understanding and do not have further questions. Form signed by , copy made and placed in chart, and original given to pt/. Original Note: RN CM FLIGHT OPERATIONS MANAGER CM to room to meet with patient for initial transition planning/care coordination assessment. RN KAZ introduced self and role at [facility]. Pt voices understanding and consents to assessment at this time. Pt sitting up in chair in no distress at this time. , Hung, @ bedside. Care providers, pharmacy, and demographics verified/updated at this time. The following information obtained from both pt and . PCP: Dr Rutherford Specialists: Dr Membreno--ortho Preferred Pharmacy: [facility] Retail Insurance: [employer] Prescription Benefit: Yes Living Will/HPOA: Pt does not currently have LW/HCPOA Living Arrangements: Lives w/her in split-level home w/6 steps b/w each level. 2 steps to enter. Pt indep w/most ADL's @ baseline but does need some assistance since pt had CVA in March,. does assist w/showering (washing her back). does all home mgmt tasks, med mgmt, and appts. Transportation: DME: has the following DME: shower chair, RTS, cane, walker, glucometer, BP machine, pulse ox, polar care /pt deny need for further DME at this time. HHC/SNF: Hx [facility] RU. No hx of HHC. Pt/ decline need for HHC at this time. Pt/ wish for pt to return home w/OP therapy if able. Pt has an appt scheduled for OP therapy @ [facility]. 1st appt is this 08/04. Pt had some confusion this AM and was not following commands well or sequencing for therapy. SNF was recommended via verbal conversation w/BLENDER. Pt's states pt is oriented and thinks clearly @ her baseline. Per , pt has been gradually improving throughout the day and feels she is getting back to herself but states she still seems a little foggy. Dr Membreno aware of confusion this AM and therapy recommendations. He states will not discharge pt today. Therapy to evaluate pt again tomorrow to assess for safety to return home. PLAN: TBD. Pt/ both prefer for pt to return home w/OP therapy @ [facility], if able. PT/OT to see pt tomorrow. Hi BSN RN CM
--- NOTE | 2021-08-02 16:40 | NURSING ---
PT BP PER MONITOR 77/37, 78/[address] 78/[address]. [address] HOWARD MADE AWARE & NEW ORDERS RECEIVED.
[2021-08-02 17:05] LABS: Bedside Glucose 154 mg/dL (70-110)
[2021-08-02 17:30] LABS: Troponin-I HS 6 pg/mL (3.0-54.0)
--- NOTE | 2021-08-02 18:35 | PN.HOSP_ITS ---
Subjective Subjective Patient was seen and examined today, I briefly talked with orthopedic surgery about her care, her blood pressure has been low with systolic readings in the 80s. I have elected to administer fluids today, patient's heart rate is tachycardic, she is in chronic atrial fib. Patient's Cardizem was held this morning due to low blood pressure. Objective Data Objective Data Vital Signs: Vital Signs Temp Pulse Resp BP Pulse Ox 98.2 F 116 H 18 85/62 L 93 08/02/21 16:32 08/02/21 16:32 08/02/21 16:32 08/02/21 18:33 08/02/21 16:32 Oxygen Flow Rate (L/min) 2 Oxygen Delivery Method Room Air Weight: 106.2 kg Body Mass Index (BMI) 36.6 Intake & Output: Intake and Output for Last 24 Hours 07/31/21 08/01/21 08/02/21 23:59 23:59 23:59 Intake Total 3399.83 / 3399.83 50 / 50 Balance 3399.83 / 3399.83 50 / 50 Lab / Micro Data Result Diagrams: 08/02/21 04:48 08/02/21 04:48 Labs: Laboratory Results - last 24 hr 08/01/21 21:48: POC Glucose 152 H 08/02/21 04:48: WBC 18.3 H, RBC 3.90 L, Hgb 11.5 L, Hct 39.3, MCV 100.8 H, MCH 29.5, MCHC 29.3 L, RDW Std Deviation 47.8 H, RDW Coeff of Adan 12.9, Plt Count 190, MPV 12.6 H 08/02/21 04:48: Sodium 133 L, Potassium 5.3 H, Chloride 104, Carbon Dioxide 22.0, Anion Gap 7, BUN 17, Creatinine 1.10 H, Estim Creat Clear Calc 46.28, Est GFR (MDRD) Af Amer 63, Est GFR (MDRD) Non-Af 52 L, BUN/Creatinine Ratio 15.5, Glucose 146 H, Calcium 9.0 08/02/21 06:25: POC Glucose 151 H 08/02/21 10:54: POC Glucose 141 H 08/02/21 16:52: POC Glucose 154 H 08/02/21 16:59: Troponin I High Sens 6 Micro: Microbiology 07/31/21 10:15 Interface Orders SARS-CoV-2 Antigen (Rapid) - Final 07/19/21 11:25 Swab (Method) Nasal Screen MRSA/MSSA - Final Physical Exam Const alert, oriented x3, no apparent distress and healthy appearing General Appearance: cooperative, well kempt and well developed Orientation / Consciousness: awake, oriented to person, oriented to place and oriented to time HEENT normocephalic and moist oral mucous membranes Eyes PERRL, EOMs intact bilaterally and conjunctivae normal Neck nuchal rigidity, supple, no JVD, thyroid normal and no carotid bruits General: trachea midline Resp normal respiratory effort, no retractions, no use of accessory muscles and clear to auscultation bilaterally Auscultation: Negative for rales, rhonchi or wheezes Cardio S1 normal heart sound, S2 normal heart sound, no murmurs and no rub Cardio Narrative: Heart rate and rhythm was irregular GI normal to inspection, nondistended, normoactive bowel sounds, soft to palpation, non-tender and non-distended Skin no rashes or lesions noted General Skin Exam: no breakdown Neuro oriented x3, CN's II-XII intact bilaterally, no focal motor deficits and no sensory deficits noted Sensorium / Orientation: awake and alert Speech: speech normal Psych thought process normal and affect normal Assessment & Plan Assessment/Plan (1) Tachycardia: PLAN: 1. Permanent atrial fibrillation-with tachycardia, I have elected to observe the patient for now, she may need institution of a beta-sheridan to slow her rate down. Treatment is going to be limited due to the patient's hypotension today. #2 hypotension-etiology unclear, patient's creatinine is slightly elevated today, I have requested administration of fluids and I have administered a fluid bolus today. #3 cerebrovascular disease with recent ischemic CVA #4 acute blood loss anemia has an expected consequence of right knee replaceme nt-no need for blood transfusion at this time, recheck H&H tomorrow #5 status right total knee arthroplasty-postop day #1 Charges/Coding Visit Charges Inpatient E&M: 61588 Subs Hosp L2
--- NOTE | 2021-08-02 18:50 | NURSING ---
DR HOWARD CALLED IN FOR UPDATE ON PT BP - NOW 85/62. PT ASYMPTOMATIC. NEW ORDERS RECEIVED.
[2021-08-02] MEDS: Carvedilol 6.25 MG Tablet PO (19:27)
[2021-08-02] MEDS: dilTIAZem CD 240 MG Capsule PO (21:21)
[2021-08-02] MEDS: Tolterodine Tartrate 2 MG CAP.SA PO (21:22)
[2021-08-02] MEDS: Atorvastatin Calcium 40 MG Tablet PO (21:23)
[2021-08-02 21:40] LABS: Bedside Glucose 139 mg/dL (70-110)
[2021-08-03 02:34] VITALS: BP 102/62; PULSE 102; RESP 16; TEMP 36.8; O2SAT 95
[2021-08-03] MEDS: 0.9% Normal Saline 1,000 ML 125 ML IV (06:27)
[2021-08-03] MEDS: Acetaminophen 500 MG Tablet 1000 MG PO ×2 (06:28→13:56)
[2021-08-03 06:40] LABS: Hematocrit 30.4 % (37-47); Hemoglobin 9.6 g/dL (12.0-15.0); Mean Corp Hgb Conc 31.6 g/dL (32-36); Mean Corpuscular Hgb 29.2 pg (27.0-32.0); Mean Corpuscular Volume 92.4 fL (81-99); Mean Platelet Vol. 12.8 fl (6.2-12.0); POSITIVE MORPHOLOGY YES; Platelet Count 159 K/mm3 (150-450); RBC Distribution Width CV 13.1 % (11.6-14.6); RBC Distribution Width SD 44.1 fl (35.1-43.9); Red Blood Count 3.29 M/mm3 (4.2-5.4); White Blood Count 11.1 K/mm3 (4.4-11.0)
[2021-08-03 06:41] LABS: Bedside Glucose 133 mg/dL (70-110)
[2021-08-03 06:43] LABS: Scan Indicated on CBC? Y/N YES- FLAGS NOTED
[2021-08-03 07:00] LABS: Differential Comment SCANNED
[2021-08-03 07:05] LABS: Anion Gap 6 (5-15); BUN 20 mg/dL (7-18); BUN/Creat Ratio 23.1 RATIO (10-20); Calcium,Total 8.7 mg/dL (8.5-10.1); Chloride 109 mmol/L (98-107); Creatinine, Serum 0.86 mg/dL (0.55-1.02); EST Glomerular Filtration Rate 69 mL/min (>60); Est Glom Filt Rate - Afr Amer 83 mL/min (>60); Estimated Creatinine Clearance 59.19 ml/min; Glucose 128 mg/dL (74-106); Potassium 4.6 mmol/L (3.5-5.1); Sodium Level 139 mmol/L (136-145)
[2021-08-03 07:21] VITALS: BP 112/81; PULSE 110; RESP 18; TEMP 37.1; O2SAT 94
[2021-08-03] MEDS: APIXABAN 5 MG TABLET PO (10:40)
[2021-08-03] MEDS: metFORMIN (XR) 500 MG Tablet PO (10:40)
[2021-08-03] MEDS: Senna/Docusate Sodium 1 Tablet 2 TABLET PO (10:41)
[2021-08-03] MEDS: Sertraline 50 MG Tablet PO (10:41)
[2021-08-03] MEDS: Ascorbic Acid 500 MG Tablet PO (10:41)
[2021-08-03] MEDS: Cyanocobalamin 500 MCG Tablet PO (10:41)
[2021-08-03] MEDS: Carvedilol 6.25 MG Tablet PO (10:45)
[2021-08-03] MEDS: oxyCODONE 5 MG Tablet PO ×2 (10:56→13:57)
--- NOTE | 2021-08-03 11:55 | PN.ORTHO_ITS ---
Objective Data Objective Data Vital Signs: Vital Signs Temp Pulse Resp BP Pulse Ox 98.7 F 110 H 18 112/81 H 94 08/03/21 07:21 08/03/21 07:21 08/03/21 07:21 08/03/21 07:21 08/03/21 07:21 Oxygen Flow Rate (L/min) 2 Oxygen Delivery Method Nasal Cannula Weight: 234 lb 2.095 oz Body Mass Index (BMI) 36.6 Intake & Output: Intake and Output for Last 24 Hours 08/01/21 08/02/21 08/03/21 23:59 23:59 23:59 Intake Total 3399.83 / 3399.83 3541.50 / 3541.50 1352.08 / 1352.08 Output Total 800 / 800 Balance 3399.83 / 3399.83 3541.50 / 3541.50 552.08 / 552.08 Lab / Micro Data Result Diagrams: 08/03/21 06:15 08/03/21 06:15 Labs: Laboratory Results - last 24 hr 08/02/21 16:52: POC Glucose 154 H 08/02/21 16:59: Troponin I High Sens 6 08/02/21 21:19: POC Glucose 139 H 08/03/21 06:15: WBC 11.1 H, RBC 3.29 L, Hgb 9.6 L, Hct 30.4 L, MCV 92.4 D, MCH 29.2, MCHC 31.6 L D, RDW Std Deviation 44.1 H, RDW Coeff of Adan 13.1, Plt Count 159, MPV 12.8 H, Differential Comment SCANNED 08/03/21 06:15: Sodium 139, Potassium 4.6, Chloride 109 H, Carbon Dioxide 24.0, Anion Gap 6, BUN 20 H, Creatinine 0.86, Estim Creat Clear Calc 59.19, Est GFR (MDRD) Af Amer 83, Est GFR (MDRD) Non-Af 69, BUN/Creatinine Ratio 23.1 H, Glucose 128 H, Calcium 8.7 08/03/21 06:27: POC Glucose 133 H Micro: Microbiology 07/31/21 10:15 Interface Orders SARS-CoV-2 Antigen (Rapid) - Final 07/19/21 11:25 Swab (Method) Nasal Screen MRSA/MSSA - Final Physical Exam Const alert, oriented x3 and no apparent distress General Appearance: cooperative and comfortable Orientation / Consciousness: awake Exam Limitations: no limitations Nutritional Appearance: overweight Extremity Right Lower Extremity: knee joint inspection (occlussive dressing still in place with a few small spots of saturation on the larger dressing (no saturation of smaller dressing). There is no surrounding erythema or localized swelling. ), palpation (mild generalized tenderness of the anterior knee), ROM (decreased flexion and extension due to pain and swelling) and special tests, lower leg palpation (soft compartments throughout. No calf tenderness), neurovascular exam (normal sensation to light touch throughout) and special tests Lower Leg Special Test - Right: Veronique's sign: Negative, ankle joint ROM (normal ROM) and foot and digits Positive for ROM (normal ROM) Left Lower Extremity: lower leg special tests Lower Leg Special Test - Left: Veronique's sign: Negative Assessment & Plan Assessment/Plan (1) S/P total knee arthroplasty: QUALIFIERS: Laterality: right Qualified Code(s): Z96.651 - Presence of right artificial knee joint PLAN: Patient seen today 2-day post-op right knee arthoplasty. Patient s tates that she still has quite a bit of pains at the same time shows no signs of distress or discomfort during exam. Her occlussive dressing is still in place along with compression stockings. There is minimal saturation of the dressing. She has some mild generalized swelling with some discomfort to be expected at this time. She has soft compartments, no calf tenderness, and a negative homans. Labs today show continued improvement in her kidney function and today she has no signs of delirium as she is able to carry on a conversation easily without any disorientation, flight of thoughts, confusion, or other difficulties. At this time with improvement in her mental status and improvement in her kidneys patient would be able to go home. The problem at this time is that her is her primary healthcare translator and may not be home to care for her. She can not go home without him being there to assist her. so we are waiting word on whether she can go home or if she needs to be transferred to TCU. Will check back this afternoon.
[2021-08-03 12:05] LABS: Bedside Glucose 126 mg/dL (70-110)
--- NOTE | 2021-08-03 12:47 | PCM.DC ---
Discharge Instructions Diet Discharge Diet: No restrictions Activity Discharge Activity: Return to Normal Activity Weight Bearing Status: Weight bearing as tolerated (with walker) Dressing / Incision Call your doctor if you observe: Fever of 101 or Higher, Shortness of breath and Chest pain Follow Up Care Test Results: Test results from this visit will be discussed in further detail at your follow-up appointment, if applicable. Discharge Plan Admission Admit Date/Time: 08/01/21 06:55 Primary Reason for Your Visit: right knee replacement Attending Provider: Jermaine Madrid Primary Care Provider: Yamila Rutherford Consulting Providers: Darius Jay Instructions Additional Instructions / Restrictions: No shower until this Saturday, remove dressing prior to shower and replace with clean dressing after showering Discharge Orders/Prescriptions Prescriptions: New carvedilol 6.25 mg Tablet 6.25 mg PO BID Qty: 60 RF: 0 oxycodone 5 mg Tablet 5 - 10 mg PO Q4H PRN PRN (Reason: Pain Score 4-10) 5 Days Qty: 40 RF: 0 Continued apixaban 5 mg tablet 5 mg PO BID RF: 0 ascorbate calcium (vitamin C) 500 mg tablet 500 mg PO DAILY RF: 0 aspirin 81 mg capsule 81 mg PO DAILY RF: 0 coenzyme Q10 [CoQ-10] 30 mg capsule 30 mg PO DAILY RF: 0 zinc 15 mg Tablet 15 mg PO DAILY RF: 0 cyanocobalamin (vitamin B-12) 500 mcg Tablet Extended Release 500 mcg PO DAILY RF: 0 calcium carbonate-vitamin D2 600 mg calcium- 200 unit Tablet 1 tab PO DAILY RF: 0 Multivitamin 50 Plus Tablet 1 tab PO DAILY RF: 0 acetaminophen 500 mg Tablet 1,000 mg PO Q8H PRN PRN (Reason: pain) Qty: 0 RF: 0 atorvastatin 40 mg Tablet 40 mg PO QHS Qty: 30 RF: 0 metformin 500 mg Tablet Extended Release 24 Hr 500 mg PO BID RF: 0 lisinopril 10 mg tablet 10 mg PO QHS RF: 0 oxybutynin chloride [Ditropan XL] 5 mg tablet extended release 24hr 5 mg PO QHS RF: 0 sertraline 50 mg tablet 50 mg PO DAILY RF: 0 Discontinued diltiazem HCl 240 mg capsule,extended release 24hr 240 mg PO BID RF: 0 Referrals / Follow Up: Yamila Rutherford MD [Primary Care Provider] - Within 2 Weeks Sixto Membreno DO [STAFF PHYSICIAN] - See Referral Note (in two weeks) Disposition Disposition (needs filled in before D/C Order can be placed): Home, Self Care
--- NOTE | 2021-08-03 13:26 | PCM.TXEXTCAR ---
Diet 08/01/21 17:15 ADA [Diet: Cardiac: Calorie-Controlled] Food consistency:: Regular Liquid Consistency:: Regular/Thin Is pt able to select menu?: Yes How many daily calories?: 1800 calorie Wound(s) Rt Knee: Wound Type: Surgical Incision R MCGREGOR: Wound Type: Surgical Incision Therapies Weight Bearing: Weight bearing as tolerated Problem/Diagnosis (1) S/P total knee arthroplasty: Status: Acute Allergies/Procedures Done in Hospital Allergies No Known Allergies Allergy (Verified 07/18/21 14:01) Dietary and Speech Recommendations Dietitian Recommendations/Changes: continue 1800 calorie controlled, cardiac diet Discharge Plan Admission Admit Date/Time: 08/01/21 06:55 Attending Provider: Jermaine Madrid Primary Care Provider: Yamila Rutherford Consulting Providers: Darius Jay Discharge Orders/Prescriptions Prescriptions: No Action Eliquis 5 mg tablet 5 mg PO BID RF: 0 ascorbate calcium (vitamin C) 500 mg tablet 500 mg PO DAILY RF: 0 aspirin 81 mg capsule 81 mg PO DAILY RF: 0 coenzyme Q10 [CoQ-10] 30 mg capsule 30 mg PO DAILY RF: 0 zinc 15 mg Tablet 15 mg PO DAILY RF: 0 cyanocobalamin (vitamin B-12) 500 mcg Tablet Extended Release 500 mcg PO DAILY RF: 0 calcium carbonate-vitamin D2 600 mg calcium- 200 unit Tablet 1 tab PO DAILY RF: 0 Multivitamin 50 Plus Tablet 1 tab PO DAILY RF: 0 acetaminophen 500 mg Tablet 1,000 mg PO Q8H PRN PRN (Reason: pain) Qty: 0 RF: 0 atorvastatin 40 mg Tablet 40 mg PO QHS Qty: 30 RF: 0 metformin 500 mg Tablet Extended Release 24 Hr 500 mg PO BID RF: 0 diltiazem HCl 240 mg capsule,extended release 24hr 240 mg PO BID RF: 0 lisinopril 10 mg tablet 10 mg PO QHS RF: 0 oxybutynin chloride [Ditropan XL] 5 mg tablet extended release 24hr 5 mg PO QHS RF: 0 sertraline 50 mg tablet 50 mg PO DAILY RF: 0 Referrals / Follow Up: Yamila Rutherford MD [Primary Care Provider] -
[2021-08-03 13:42] VITALS: BP 121/68; PULSE 102; RESP 16; TEMP 36.6; O2SAT 96
--- NOTE | 2021-08-03 15:56 | DS.PCM_ITS ---
Providers Date of Admission: 08/01/21 Primary Care Physician: Dr. Yamila Rutherford MD Consultations 08/01/21 12:56 Consult: Hospitalist Routine Consulting Provider: Darius Jay Reason for Consult: diabetic management post op strict glycemic control sliding scale EMERGENT Consult: No MD Notified: Yes Date Notified: 08/01/21 Time Notified: 16:03 Method of Notification: Text Reason For Visit: RT TOTAL KNEE W NATALIE Diagnosis Discharge Diagnosis (1) S/P total knee arthroplasty: Status: Acute Code(s): Z96.659 - Presence of unspecified artificial knee joint Qualifiers: Laterality: right Qualified Code(s): Z96.651 - Presence of right artificial knee joint Medications at Discharge Home Medications Multivitamin 50 Plus 1 tab PO DAILY 04/02/21 calcium carbonate-vitamin D2 1 tab PO DAILY 04/02/21 cyanocobalamin (vitamin B-12) 500 mcg PO DAILY 04/02/21 zinc 15 mg PO DAILY 04/02/21 acetaminophen 1,000 mg PO Q8H PRN PRN #0 tab 04/25/21 atorvastatin 40 mg PO QHS #30 tab 04/25/21 apixaban 5 mg tablet 5 mg PO BID tab 06/21/21 ascorbate calcium (vitamin C) 500 mg tablet 500 mg PO DAILY 06/21/21 aspirin 81 mg capsule 81 mg PO DAILY 06/29/21 coenzyme Q10 30 mg capsule 30 mg PO DAILY 06/29/21 lisinopril 10 mg PO QHS 07/18/21 metformin 500 mg PO BID 07/18/21 oxybutynin chloride [Ditropan XL] 5 mg PO QHS 07/18/21 sertraline 50 mg PO DAILY 07/18/21 carvedilol 6.25 mg PO BID #60 tab 08/03/21 oxycodone 5 - 10 mg PO Q4H PRN PRN 5 Days #40 tab 08/03/21 Hospital Course Operations total knee replacement (right) Summary of Care Provided Hospital Course: Mrs. Garcia is a 71-year-old female who has a long history of right knee osteoarthritis and who also failed conservative treatment. After conservative treatment failed patient wished to proceed with total knee arthroplasty of the right knee. Patient underwent the right total knee arthroplasty on August 01 which was completed without intraoperative complications. Patient did receive pre and postoperative antibiotics which were discontinued within 24 hours after the procedure. General anesthesia was used along with an adductor canal block preoperatively. Pain was controlled with IV antibiotics and transition to p.o. pain medications postoperatively. Patient was started on both mechanical and chemical DVT prophylaxis postoperatively in the form of SCDs, SUE hose, and Eliquis. Thigh-high SUE hose were placed over the Mepilex dressing postoperatively. Patient will be discharged to home with oxycodone and will continue her Tylenol as well as her Eliquis which she was on previously. Patient had minimal intraoperative blood loss. There was no need for postoperative blood transfusions. Postoperatively patient did show a slight increase in her kidney functions as well as had some postanesthesia confusion. She did participate in physical therapy during her 2 days in the hospital here. Kidney functions and mental status were much improved on day 2 postoperatively as noted in her labs as well as on physical exam. At this time with pain well-controlled on oral medications no signs of other postoperative/intra- hospital complications patient would like to and is able to be discharged at this time at home. Physical Exam Narrative Physical exam prior to discharge shows evident intact occlusive Mepilex dressing with a few small round areas of dried blood on the larger incision. No saturation of the smaller occlusive dressing. Patient has some mild generalized swelling of the knee to be expected at this point postop. There is no signs of surrounding erythema of either the dressings. She has some tenderness on palpation around the knee/incision sites. She has soft compartments throughout the lower extremity, no calf tenderness, and a negative Homans. She does have normal sensation to light touch in the lower extremity. She does have intact motor function of the ankle/foot/toes. Weight / BMI Weight Weight: 234 lb 2.095 oz Body Mass Index (BMI) 36.6 ABG / Lab / Microbiology Data Result Diagrams: 08/03/21 06:15 08/03/21 06:15 Laboratory: Laboratory Results - last 24 hr 08/02/21 16:52: POC Glucose 154 H 08/02/21 16:59: Troponin I High Sens 6 08/02/21 21:19: POC Glucose 139 H 08/03/21 06:15: WBC 11.1 H, RBC 3.29 L, Hgb 9.6 L, Hct 30.4 L, MCV 92.4 D, MCH 29.2, MCHC 31.6 L D, RDW Std Deviation 44.1 H, RDW Coeff of Adan 13.1, Plt Count 159, MPV 12.8 H, Differential Comment SCANNED 08/03/21 06:15: Sodium 139, Potassium 4.6, Chloride 109 H, Carbon Dioxide 24.0, Anion Gap 6, BUN 20 H, Creatinine 0.86, Estim Creat Clear Calc 59.19, Est GFR (MDRD) Af Amer 83, Est GFR (MDRD) Non-Af 69, BUN/Creatinine Ratio 23.1 H, Glucose 128 H, Calcium 8.7 08/03/21 06:27: POC Glucose 133 H 08/03/21 10:50: POC Glucose 126 H Microbiology: Microbiology 07/31/21 10:15 Interface Orders SARS-CoV-2 Antigen (Rapid) - Final 07/19/21 11:25 Swab (Method) Nasal Screen MRSA/MSSA - Final D/C Instructions Discharge Diet: No restrictions Discharge Activity: May Not Drive, May Shower (72 hours postop) and Use Walker Weight Bearing Status: Weight bearing as tolerated (with walker) Keep extremity elevated above heart level: Operative Extremity Call your doctor if your incision/area has: Increased Pain/ Swelling and Increased Redness Call your doctor if you observe: Fever of 101 or Higher, Shortness of breath and Chest pain Remove Dressing in: 3 days Cleanse incision/area with: Soap & Water Additional Dressing/Incision Instructions: Patient is to ice and elevate consistently at least for the first week while not ambulating. May continue icing and elevating if continued swelling/discomfort. Ambulation is encouraged daily. Weightbearing as tolerated with assistive device for stability. Encourage full knee extension and flexion 1 time every time she gets up and multiple times during the day. Patient can remove occlusive dressing 72 hours postoperatively and begin showering daily with warm water and antibacterial soap. She is not to submerge this for at least 3 weeks. Can change dressing daily and apply ABD/gauze held in place with the overlying thigh-high SUE hose. Keep animals away from incision site. Additional Instructions: Continue anticoagulation medication (patient was already taking Eliquis preoperatively.) Do not take NSAIDs while on blood thinners. Do not take additional narcotic pain medications than what was prescribed on your surgery day. We did discuss addiction properties of narcotics and patient is not to drink alcohol while taking narcotics and she is also not to be driving while taking narcotics. Patient is to continue physical therapy as scheduled and if she is not scheduled or unsure of appointment please call the office as soon as possible. Please Follow Up With: Evan Mendosa PA When: 2 weeks post-op Meaningful Use Info Meaningful Use Diagnoses (Choose all that apply): None applicable Discharge Plan Admission Admit Date/Time: 08/01/21 06:55 Primary Reason for Your Visit: right knee replacement Attending Provider: Jermaine Madrid Primary Care Provider: Yamila Rutherford Consulting Providers: Darius Jay Instructions Additional Instructions / Restrictions: No shower until this Saturday, remove dressing prior to shower and replace with clean dressing after showering Discharge Orders/Prescriptions Prescriptions: New carvedilol 6.25 mg Tablet 6.25 mg PO BID Qty: 60 RF: 0 oxycodone 5 mg Tablet 5 - 10 mg PO Q4H PRN PRN (Reason: Pain Score 4-10) 5 Days Qty: 40 RF: 0 Continued apixaban 5 mg tablet 5 mg PO BID RF: 0 ascorbate calcium (vitamin C) 500 mg tablet 500 mg PO DAILY RF: 0 aspirin 81 mg capsule 81 mg PO DAILY RF: 0 coenzyme Q10 [CoQ-10] 30 mg capsule 30 mg PO DAILY RF: 0 zinc 15 mg Tablet 15 mg PO DAILY RF: 0 cyanocobalamin (vitamin B-12) 500 mcg Tablet Extended Release 500 mcg PO DAILY RF: 0 calcium carbonate-vitamin D2 600 mg calcium- 200 unit Tablet 1 tab PO DAILY RF: 0 Multivitamin 50 Plus Tablet 1 tab PO DAILY RF: 0 acetaminophen 500 mg Tablet 1,000 mg PO Q8H PRN PRN (Reason: pain) Qty: 0 RF: 0 atorvastatin 40 mg Tablet 40 mg PO QHS Qty: 30 RF: 0 metformin 500 mg Tablet Extended Release 24 Hr 500 mg PO BID RF: 0 lisinopril 10 mg tablet 10 mg PO QHS RF: 0 oxybutynin chloride [Ditropan XL] 5 mg tablet extended release 24hr 5 mg PO QHS RF: 0 sertraline 50 mg tablet 50 mg PO DAILY RF: 0 Discontinued diltiazem HCl 240 mg capsule,extended release 24hr 240 mg PO BID RF: 0 Referrals / Follow Up: Yamila Rutherford MD [Primary Care Provider] - Within 2 Weeks Sixto Membreno DO [STAFF PHYSICIAN] - See Referral Note (in two weeks) Disposition Disposition (needs filled in before D/C Order can be placed): Home, Self Care
--- NOTE | 2021-08-03 17:11 | CASEMGMT ---
Social Work Note Pt discharged home today with outpatient therapy. Shelli Key OPEN SOURCE DEVELOPER, LIFE SKILLS COORDINATOR
--- NOTE | 2021-08-03 17:21 | PN.HOSP_ITS ---
Subjective Subjective Patient was seen and examined today, her heart rate is better controlled than yesterday, her blood pressure is improved today. I have elected to continue the patient on carvedilol as an outpatient and have her follow-up with her PCP regarding her blood pressure. Objective Data Objective Data Vital Signs: Vital Signs Temp Pulse Resp BP Pulse Ox 97.8 F 102 H 16 121/68 H 96 08/03/21 13:42 08/03/21 13:42 08/03/21 13:42 08/03/21 13:42 08/03/21 13:42 Oxygen Flow Rate (L/min) 2 Oxygen Delivery Method Room Air Weight: 106.2 kg Body Mass Index (BMI) 36.6 Intake & Output: Intake and Output for Last 24 Hours 08/01/21 08/02/21 08/03/21 23:59 23:59 23:59 Intake Total 3399.83 / 3399.83 3541.50 / 3541.50 2287.50 / 2287.50 Output Total 800 / 800 Balance 3399.83 / 3399.83 3541.50 / 3541.50 1487.50 / 1487.50 Lab / Micro Data Result Diagrams: 08/03/21 06:15 08/03/21 06:15 Labs: Laboratory Results - last 24 hr 08/02/21 16:59: Troponin I High Sens 6 08/02/21 21:19: POC Glucose 139 H 08/03/21 06:15: WBC 11.1 H, RBC 3.29 L, Hgb 9.6 L, Hct 30.4 L, MCV 92.4 D, MCH 29.2, MCHC 31.6 L D, RDW Std Deviation 44.1 H, RDW Coeff of Adan 13.1, Plt Count 159, MPV 12.8 H, Differential Comment SCANNED 08/03/21 06:15: Sodium 139, Potassium 4.6, Chloride 109 H, Carbon Dioxide 24.0, Anion Gap 6, BUN 20 H, Creatinine 0.86, Estim Creat Clear Calc 59.19, Est GFR (MDRD) Af Amer 83, Est GFR (MDRD) Non-Af 69, BUN/Creatinine Ratio 23.1 H, Glucose 128 H, Calcium 8.7 08/03/21 06:27: POC Glucose 133 H 10/14/21 10:50: POC Glucose 126 H Micro: Microbiology 07/31/21 10:15 Interface Orders SARS-CoV-2 Antigen (Rapid) - Final 07/19/21 11:25 Swab (Method) Nasal Screen MRSA/MSSA - Final Physical Exam Narrative alert, oriented x3, no apparent distress and healthy appearing General Appearance: cooperative, well kempt and well developed Orientation / Consciousness: awake, oriented to person, oriented to place and oriented to time HEENT normocephalic and moist oral mucous membranes Eyes PERRL, EOMs intact bilaterally and conjunctivae normal Neck nuchal rigidity, supple, no JVD, thyroid normal and no carotid bruits General: trachea midline Resp normal respiratory effort, no retractions, no use of accessory muscles and clear to auscultation bilaterally Auscultation: Negative for rales, rhonchi or wheezes Cardio S1 normal heart sound, S2 normal heart sound, no murmurs and no rub Cardio Narrative: Heart rate and rhythm was irregular GI normal to inspection, nondistended, normoactive bowel sounds, soft to palpation, non-tender and non-distended Skin no rashes or lesions noted General Skin Exam: no breakdown Neuro oriented x3, CN's II-XII intact bilaterally, no focal motor deficits and no sensory deficits noted Sensorium / Orientation: awake and alert Speech: speech normal Psych thought process normal and affect normal Assessment & Plan Assessment/Plan (1) Tachycardia: PLAN: 1. Permanent atrial fibrillation-again I will continue the patient on carvedilol as an outpatient, she will need follow-up with her medical genetics director as well as her PCP. #2 hypotension-resolved at this time #3 cerebrovascular disease with recent ischemic CVA #4 acute blood loss anemia has an expected consequence of right knee replacement-no need for blood transfusion at this time, #5 status right total knee arthroplasty-postop day #[address] Membreno today by phone, I have filled out the patient's discharge instructions and she will be discharged today Charges/Coding Visit Charges Inpatient E&M: 03019 Subs Hosp L2
== END 2021-08-03 16:30 | disposition home or self-care (01) ==
LOC: ACINP 15:28 → MS3 15:30
PROVIDERS: Anesthesiology; Admitting Provider Orthopaedic Surgery; PCP Internal Medicine; Referring Provider Orthopaedic Surgery; Visit Provider Internal Medicine
PROC: 0SRC0JZ Replacement of Right Knee Joint with Synthetic Substitute, Open Approach (ICD-10-PCS; CPT 27447; principal; 2021-08-01 09:30)
DX: M17.11 Unilateral primary osteoarthritis, right knee (principal); I10 Essential (primary) hypertension; E66.9 Obesity, unspecified; I48.21 Permanent atrial fibrillation; E11.9 Type 2 diabetes mellitus without complications; I69.351 Hemiplegia and hemiparesis following cerebral infarction affecting right dominant side; Z68.36 Body mass index [BMI] 36.0-36.9, adult; Z79.899 Other long term (current) drug therapy; Z79.82 Long term (current) use of aspirin; Z79.01 Long term (current) use of anticoagulants; Z79.84 Long term (current) use of oral hypoglycemic drugs; I95.9 Hypotension, unspecified
CPT/HCPCS: 01402; 27447; 64447; S2900; 36415; 36416; 73560; 80048; 82962; 82985; 83036; 83735; 84484; 85025; 85027; 85610; 85730; 86850; 86900; 86901; 87081; 87426; 88305; 88311; 93005; 96361; 96365; 96366; 96375; 97110; 97116; 97162; 97166; 97530; 97535; 97802; 99218; 99251; C1776; C9803; J7030; J7040; J7120; A4216; G0378; G0463; J0702; J2405

== ENCOUNTER → 2023-12-20 | Outpatient (CLI) | payer MEDICARE, BC, SELFPAY ==
--- NOTE | 2023-12-20 14:09 | CT_ITS ---
STUDY: CT LEFTLOWER EXTREMITY WITHOUT CONTRAST REASON FOR EXAM: Female, 73 years old. templating for left TKA RADIATION DOSAGE (If Supplied By Facility): CTDIvol = ( 19.34 ) mGy, DLP = ( 1412.58 ) mGycm TECHNIQUE: Thin section transaxial imaging of the ankle was obtained, with sagittal and coronal reconstructed images. Individualized dose optimization techniques were used for this CT. COMPARISON: Left knee x-ray dated November 27, 2023 Hip findings: Normal femoral head, neck, intertrochanteric region and visualized proximal femur. Normal acetabulum. There is mild articular joint space narrowing. No fracture or loose bodies visualized. Normal visualized superior and inferior pubic rami and ischial tuberosities. Normal visualized soft tissue structures of the pelvis. Rectosigmoid diverticulosis partially visualized. Atherosclerotic calcifications are present. Knee findings: Moderate lateral and severe medial compartment joint space narrowing with cortical osteophyte formation. Mild lateral subluxation of the tibial plateau relation to the femoral condyles also noted. A small loose body is present anterior aspect knee joint. The patellofemoral articulation is also severely narrowed with secondary degenerative changes. A tiny joint effusion is present. Normal proximal tibiofibular articulation. No visualized fractures. The quadriceps tendon is grossly normal. The patellar tendon is grossly normal. Normal Hoffa''s fat pad. The soft tissues are unremarkable. Ankle findings: Normal visualized distal tibia and fibula. Normal tibiotalar articulation and talar dome. Normal talus, calcaneus, navicular and cuboid tarsal bones. Normal subtalar, talonavicular and calcaneocuboid articulations. The soft tissue structures are grossly normal. CT/Extremity Lower without Contra IMPRESSION: 1. Moderate to severe DJD of the left knee joint. Electronically Signed: Gary Sharpe MD at 15:46 EST ,
--- OUTSIDE RECORDS SUMMARY | 2023-12-20 16:52 | XMS RPT_ITS | CCD ---
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 Molding Equipment Operator Name Role Phone Morena MARES.Ethel CAMPOS Primary Care Provider ETHEL BERG Primary Care Unavailable PROVIDER, UNKNOWN Referring Unavailable MORENA ETHEL C Primary Care Unavailable PROVIDER, UNKNOWN Referring Unavailable MORENA ETHEL C Primary Care Unavailable DANIELLE MOOREK A Attending Unavailable MORENA ETHEL C Primary Care Unavailable TRIFABI, ETHEL C Referring Unavailable TRILL, ETHEL C Referring Unavailable TRILL, ETHEL C Primary Care Unavailable TRIFABI, ETHEL C Referring Unavailable TRILL, ETHEL C Primary Care Unavailable MORENA, ETHEL C Attending Unavailable MORENA, ETHEL C Primary Care Unavailable OSCAR, YAIR A Referring Unavailable TRIFABI, ETHEL C Primary Care Unavailable OSCAR, YAIR A Attending Unavailable MORENA, ETHEL C Primary Care Unavailable MORENA, ETHEL C Attending Unavailable MORENA ETHEL C Primary Care Unavailable Medications Current Medications Medication Drug Class(es) Dates Sig (Normalized) Sig (Original) 24 hr metFORMIN hydrochloride 500 mg extended release oral tablet (20 sources) Biguanide Start: 10-30-2022 End: 12-17-2023 metFORMIN ER (GLUCOPHAGE XR) 500 mg 24 hr tablet Indications: Diet-controlled type 2 diabetes mellitus (HCC) , Class 3 obesity (HCC) take 1 tablet by mouth daily with dinner 30 tablet 0 09/18/2023 12/17/2023 Active Completed/Discontinued Medications Medication Drug Class(es) Dates Sig (Normalized) Sig (Original) acetaminophen 325 mg oral capsule (20 sources) take 2 capsules by mouth every six hours as needed acetaminophen 325 mg cap Take 650 mg by mouth every 6 hours as needed for pain. 0 Active Problems Active Problems Problem Classification Problem Date Documented Date Episodic/Chronic Acute cerebrovascular disease (20 sources) Ischemic stroke; Translations: [Cerebral infarction, unspecified] Onset: 03-29-2021 03-30-2021 Chronic Administrative/social admission (2 sources) Other reduced mobility; Translations: [Other specified conditions influencing health status] Episodic Cardiac dysrhythmias (20 sources) Atrial fibrillation with rapid ventricular response; Translations: [Unspecified atrial fibrillation] Onset: 05-11-2021 09-10-2021 Chronic Delirium, dementia, and amnestic and other cognitive disorders (20 sources) Postoperative delirium; Translations: [Delirium due to known physiological condition] Onset: 01-29-2022 01-29-2022 Chronic Diabetes mellitus without complication (20 sources) Type 2 diabetes mellitus without complication; Translations: [Type 2 diabetes mellitus without complications] Onset: 01-29-2022 01-29-2022 Chronic Esophageal disorders (20 sources) Gastroesophageal reflux disease; Translations: [Gastro-esophageal reflux disease without esophagitis] Onset: 01-29-2022 01-29-2022 Chronic Essential hypertension (20 sources) Hypertensive disorder; Translations: [Essential (primary) hypertension] Onset: 09-10-2021 09-10-2021 Chronic Mood disorders (20 sources) Recurrent major depressive episodes, mild ; Translations: [Major depressive disorder, recurrent, mild] Onset: 09-25-2022 Chronic Osteoarthritis (20 sources) Osteoarthritis of right knee joint; Translations: [Unilateral primary osteoarthritis, right knee] Onset: 07-14-2021 Chronic Other and ill-defined heart disease (20 sources) Left ventricular hypertrophy; Translations: [Cardiomegaly] Onset: 01-29-2022 01-29-2022 Chronic Other and ill-defined heart disease (2 sources) Other ill-defined heart diseases; Translations: [Other ill-defined heart diseases] Onset: 11-14-2023 Chronic Other bone disease and musculoskeletal deformities (20 sources) Bone necrosis; 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] Onset: 01-29-2022 01-29-2022 Chronic Other connective tissue disease (20 sources) History of total knee arthroplasty; Translations: [Presence of right artificial knee joint] Onset: 09-29-2021 Chronic Other nervous system disorders (20 sources) Difficulty walking; Translations: [Difficulty in walking, not elsewhere classified] Onset: 07-14-2021 Chronic Other nutritional; endocrine; and metabolic disorders (20 sources) Obese class I; Translations: [Obesity, unspecified] Onset: 08-17-2019 08-17-2019 Chronic Other nutritional; endocrine; and metabolic disorders (20 sources) Obese class II; Translations: [Obesity, unspecified] Onset: 01-23-2021 09-10-2021 Chronic Other nutritional; endocrine; and metabolic disorders (10 sources) Obese class III; Translations: [Morbid (severe) obesity due to excess calories] Chronic Other nutritional; endocrine; and metabolic disorders (20 sources) Body mass index 40+ - severely obese; Translations: [Morbid (severe) obesity due to excess calories] Onset: 12-25-2022 Chronic Other nutritional; endocrine; and metabolic disorders (1 source) Obesity, unspecified; Translations: [Obesity, Class II, BMI 35-39.9] Onset: 09-06-2023 Chronic Other nutritional; endocrine; and metabolic disorders (1 source) Morbid (severe) obesity due to excess calories; Translations: [Obesity, Class III, BMI 40-49.9 (morbid obesity) (HCC)] Onset: 12-25-2022 Chronic Other skin disorders (1 source) Lesion of face; Translations: [Disorder of the skin and subcutaneous tissue, unspecified] Episodic Unclassified (2 sources) Other persistent atrial fibrillation; Translations: [Persistent atrial fibrillation (HCC)] Onset: 11-14-2023 Unclassified (1 source) fall last night Onset: 06-16-2023 Viral infection (1 source) Verruca vulgaris; Translations: [Viral wart, unspecified] Episodic Past or Other Problems Problem Classification Problem Date Documented Date Episodic/Chronic Allergic reactions (20 sources) Environmental allergy; Translations: [Other allergy status, other than to drugs and biological substances] Onset: 01-29-2022 01-29-2022 Episodic Other connective tissue disease (20 sources) Weakness of right leg; Translations: [Other symptoms and signs involving the musculoskeletal system] Onset: 09-29-2021 Episodic Other connective tissue disease (20 sources) Other symptoms and signs involving the musculoskeletal system; Translations: [Other musculoskeletal symptoms referable to limbs] Onset: 09-29-2021 09-29-2021 Episodic Other nervous system disorders (20 sources) Abnormal gait; Translations: [Unspecified abnormalities of gait and mobility] Onset: 05-03-2021 Episodic Other nervous system disorders (20 sources) Dysarthria; Translations: [Dysarthria and anarthria] Onset: 05-08-2021 05-08-2021 Episodic Other nervous system disorders (1 source) Dysarthria and anarthria; Translations: [Dysarthria] Onset: 03-07-2023 Episodic Other non-traumatic joint disorders (20 sources) Pain in right knee; Translations: [Pain in joint, lower leg] Onset: 01-29-2022 01-29-2022 Episodic Other screening for suspected conditions (not mental disorders or infectious disease) (7 sources) Patient encounter status; Translations: [Encounter for screening mammogram for malignant neoplasm of breast] Onset: 02-12-2023 Episodic Other upper respiratory infections (20 sources) Posterior rhinorrhea; Translations: [Postnasal drip] Onset: 01-29-2022 01-29-2022 Episodic Results Test Name Value Interpretation Reference Range Facil ity Vital Signs Date Time Vital Sign Value Performing Clinician Nate perry 09-06-2023 12:59-0500 Body height 167.6 cm Ethel Berg APRN.CNP Work Phone: [facility] 09-06-2023 12:59-0500 Body temperature 98.4 [degF] Ethel Berg APRN.CNP Work Phone: [facility] 09-06-2023 12:59-0500 Body weight 108.86 kg Ethel Berg APRN.CNP Work Phone: [facility] 09-06-2023 12:59-0500 Diastolic blood pressure 68 mm[Hg] Ethel Berg APRN.CNP Work Phone: [facility] 09-06-2023 12:59-0500 Heart rate 69 /min Ethel Berg APRN.CNP Work Phone: [facility] 09-06-2023 12:59-0500 SaO2% (BldA) [Mass fraction] 98 % Ethel Breg APRN.CNP Work Phone: [facility] 09-06-2023 12:59-0500 Systolic blood pressure 126 mm[Hg] Ethel Trill DIGITAL MARKETING ASSISTANT.FOOD ASSEMBLER COMMISS[employer] K[employer]EN Work Phone: [facility] 12-25-2022 13:00-0500 Body height 167.6 cm Ethel Trill DIGITAL MARKETING ASSISTANT.FOOD ASSEMBLER COMMISSARY KITCHEN Work Phone: [facility] 12-25-2022 13:00-0500 Body temperature 97.5 [degF] Ethel Trill DIGITAL MARKETING ASSISTANT.FOOD ASSEMBLER COMM[employer] K[employer]EN Work Phone: [facility] 12-25-2022 13:00-0500 Body weight 113.85 kg Ethel Trill DIGITAL MARKETING ASSISTANT.FOOD ASSEMBLER COMM[employer]EN Work Phone: [facility] 12-25-2022 13:00-0500 Diastolic blood pressure 72 mm[Hg] Ethel Trill DIGITAL MARKETING ASSISTANT.FOOD ASSEMBLER [employer] Work Phone: [facility] 12-25-2022 13:00-0500 Heart rate 82 /min Ethel Trill DIGITAL MARKETING ASSISTANT.FOOD ASSEMBLER [employer] Work Phone: [facility] 12-25-2022 13:00-0500 SaO2% (BldA) [Mass fraction] 97 % Ethel Trill DIGITAL MARKETING ASSISTANT.FOOD ASSEMBLER [employer]EN Work Phone: [facility] 12-25-2022 13:00-0500 Systolic blood pressure 118 mm[Hg] Ethel Trill DIGITAL MARKETING ASSISTANT.FOOD ASSEMBLER [employer] Work Phone: [facility] 11-08-2022 13:37-0500 Body height 167.[address] [facility] 11-08-2022 13:37-0500 Body weight 114.[address] [facility] 10-30-2022 13:52-0500 Body height 167.6 cm Francie Pham MD Work Phone: [facility] 10-30-2022 13:52-0500 Body weight 115.21 kg Francie Pham MD Work Phone: [facility] 10-30-2022 13:52-0500 Diastolic blood pressure 75 mm[Hg] Francie Pham MD Work Phone: [facility] 10-30-2022 13:52-0500 Heart rate 107 /min Francie Pham MD Work Phone: [facility] 10-30-2022 13:52-0500 Respiratory rate 16 /min Francie Pham MD Work Phone: [facility] 10-30-2022 13:52-0500 SaO2% (BldA) [Mass fraction] 97 % Francie Pham MD Work Phone: [facility] 10-30-2022 13:52-0500 Systolic blood pressure 133 mm[Hg] Francie Pham MD Work Phone: [facility] 09-25-2022 12:54-0500 Body height 172.7 cm Ethel Berg DIGITAL MARKETING ASSISTANT.FOOD ASSEMBLER COMM[employer]EN Work Phone: [facility] 09-25-2022 12:54-0500 Body temperature 98.1 [degF] Ethel Berg DIGITAL MARKETING ASSISTANT.FOOD ASSEMBLER [employer]EN Work Phone: [facility] 09-25-2022 12:54-0500 Body weight 113.85 kg Ethel Trifabi DIGITAL MARKETING ASSISTANT.FOOD ASSEMBLER [employer]EN Work Phone: [facility] 09-25-2022 12:54-0500 Diastolic blood pressure 78 mm[Hg] Ethel Berg DIGITAL MARKETING ASSISTANT.FOOD ASSEMBLER [employer]EN Work Phone: [facility] 09-25-2022 12:54-0500 Heart rate 65 /min Ethel Berg DIGITAL MARKETING ASSISTANT.FOOD ASSEMBLER [employer] Work Phone: [facility] 09-25-2022 12:54-0500 SaO2% (BldA) [Mass fraction] 99 % Ethel Trifabi DIGITAL MARKETING ASSISTANT.FOOD ASSEMBLER [employer]EN Work Phone: [facility] 09-25-2022 12:54-0500 Systolic blood pressure 116 mm[Hg] Ethel Trifabi DIGITAL MARKETING ASSISTANT.FOOD ASSEMBLER [employer]EN Work Phone: [facility] 08-30-2022 11:25-0500 Diastolic blood pressure 86 mm[Hg] Yair Moore MD Work Phone: [facility] 08-30-2022 11:25-0500 Systolic blood pressure 125 mm[Hg] Yair Moore MD Work Phone: [facility] 08-30-2022 11:06-0500 Body height 172.7 cm Yair Moore MD Work Phone: [facility] 08-30-2022 11:06-0500 Body weight 114.31 kg Yair Moore MD Work Phone: [facility] 08-30-2022 11:06-0500 Heart rate 101 /min Yair Moore MD Work Phone: [facility] 08-30-2022 11:06-0500 Respiratory rate 18 /min Yair Moore MD Work Phone: [facility] 08-30-2022 11:06-0500 SaO2% (BldA) [Mass fraction] 94 % Yair Moore MD Work Phone: [facility] 08-28-2022 13:01-0500 Body height 170.2 cm Ethel Berg DIGITAL MARKETING ASSISTANT.FOOD ASSEMBLER [employer]EN Work Phone: [facility] 08-28-2022 13:01-0500 Body temperature 98.1 [degF] Ethel Trifabi DIGITAL MARKETING ASSISTANT.FOOD ASSEMBLER [employer]EN Work Phone: [facility] 08-28-2022 13:01-0500 Body weight 114.31 kg Ethel Trifabi DIGITAL MARKETING ASSISTANT.FOOD ASSEMBLER [employer]EN Work Phone: [facility] 08-28-2022 13:01-0500 Diastolic blood pressure 76 mm[Hg] Ethel Trifabi DIGITAL MARKETING ASSISTANT.FOOD ASSEMBLER [employer]EN Work Phone: [facility] 08-28-2022 13:01-0500 Heart rate 93 /min Ethel Trifabi DIGITAL MARKETING ASSISTANT.FOOD ASSEMBLER [employer]EN Work Phone: [facility] 08-28-2022 13:01-0500 SaO2% (BldA) [Mass fraction] 100 % Ethel Trill DIGITAL MARKETING ASSISTANT.FOOD ASSEMBLER [employer]EN Work Phone: [facility] 08-28-2022 13:01-0500 Systolic blood pressure 121 mm[Hg] Ethel Berg APRN.FOOD ASSEMBLER [employer]EN Work Phone: [facility] 05-31-2022 12:00-0400 Diastolic blood pressure 64 mm[Hg] Nancy Brownpta PT Work Phone: [facility] 05-31-2022 12:00-0400 Systolic blood pressure 113 mm[Hg] Nancy Brownpta PT Work Phone: [facility] 04-06-2022 12:06-0400 Body temperature 96.6 [degF] Jay Sanchez Jr., MD Work Phone: [facility] 04-06-2022 12:06-0400 Body weight 109.32 kg Jay Sanchez Jr., MD Work Phone: [facility] 04-06-2022 12:06-0400 Diastolic blood pressure 68 mm[Hg] Jay Sanchez Jr., MD Work Phone: [facility] 04-06-2022 12:06-0400 Heart rate 79 /min Jay Sanchez Jr., MD Work Phone: [facility] 04-06-2022 12:06-0400 Respiratory rate 18 /min Jay Sanchez Jr., MD Work Phone: [facility] 04-06-2022 12:06-0400 SaO2% (BldA) [Mass fraction] 97 % Jay Sanchez Jr., MD Work Phone: [facility] 04-06-2022 12:06-0400 Systolic blood pressure 124 mm[Hg] Jay Sanchez Jr., MD Work Phone: [facility] Encounters Encounter Date Encounter Type Care Provider Facility Start: 11-20-2023 ambulatory ETHEL BERG [facility] [place] Start: 11-19-2023 End: 11-20-2023 ambulatory ETHEL BERG Facility:[facility] Start: 11-14-2023 End: 11-14-2023 ambulatory ETHEL BERG Facility:[facility] Start: 09-23-2023 Refill Ethel Lay l DIGITAL MARKETING ASSISTANT.FOOD ASSEMBLER [employer]EN Work Phone: [facility] Procedures Date Procedure Procedure Detail Performing Clinician Start: 09-06-2023 Hemoglobin A1c/Hemoglobin.total in Blood Ethel Berg DIGITAL MARKETING ASSISTANT.FOOD ASSEMBLER [employer]EN Work Phone: Start: 02-12-2023 Mammography Mammograph y Coordinator Start: 10-30-2022 Hemoglobin A1c/Hemoglobin.total in Blood Francie Pham MD Work Phone: Start: 09-11-2022 Echo tthrc r-t 2d w/wom-mode compl spec&colr d Yair Moore MD Work Phone: Start: 02-06-2022 End: 02-06-2022 Screening mammography bi [facility] Yamila Rutherford MD Work Phone: Start: 01-29-2022 Adult depression screening assessment Flaco Louis WATER ENGINEER Work Phone: Start: 02-01-2021 Mammography Antonietta Ugarte PT Start: 01-23-2021 Adult depression screening assessment Antonietta Ugarte PT Start: 11-03-2020 Colonoscopy Antonietta Ugarte PT Plan of Treatment Date Care Activity Detail Author Start: 09-06-2024 Annual PCP Team Director [employer] Disease Visit Annual PCP Team Chronic Disease Visit [facility] Start: 09-06-2024 BP Controlled (<130/80) BP Controlle d (<130/80) [facility] Start: 09-06-2024 Covid-19 Vaccine (#1) Covid-19 Vacci ne (#1) [facility] Immunizations Immunization Date Immunization Notes Care Provider Fa cililakshmi 07-29-2022 zoster vaccine recombinant Ethel Berg APRN.FOOD ASSEMBLER [employer] Work Phone: [facility] 10-13-2019 influenza, high dose seasonal, preservative-free Antonietta Paoletta PT [facility] 10-13-2019 influenza virus vacc ine, unspecified formulation Francie Pham MD Work Phone: [facility] Payers Date Payer Category Payer Unknown [employer]OS [id number] 2016-Present [phone] [address] [place] [address] Indemnity [id number] 2016 Unknown [employer]OS [id number] 2016-Present [phone] [address] [place] [address] Indemnity [id number] 2016 Unknown [id number] 2016 Medicare MEDICARE MEDICAR E A AND B [id number] 2016-Present [phone] [place] [address] Medicare [id number] 2016 Medicare MEDICARE MEDICAR E A AND B [id number] 2016-Present [phone] [place] [address] Medicare [id number] 2016 Medicare [id number] Social History Date Type Detail Facility Start: 08-17-2019 End: 10-30-2022 Tobacco smoking status NHIS Never smoked tobacco [facility] Start: 08-17-2019 End: 10-30-2022 Tobacco use and exposure Smokeless tobacco non-user [facility] Start: 11-30-2021 End: 09-06-2023 Alcohol intake Lifetime non-drinker (finding) [facility] Start: 09-15-2019 History SDOH Alcohol Frequency 1 [facility] Start: 1950 Sex Assigned At Not on file [facility] Start: 01-07-2022 End: 09-11-2022 Exposure to SARS-CoV-2 (event) Not sure [facility] Start: 1950 Sex Assigned At Female [facility] Start: 01-29-2022 End: 03-07-2023 History of Social function [facility] Start: 01-29-2022 End: 03-07-2023 Tobacco use panel [facility] National Score (1-10 0), lower number is lower risk 50 [facility] Start: 02-05-2023 Gender identity Identifies as female gender (finding) [facility] Start: 02-05-2023 Sexual orientation Heterosexual (fin ding) [facility] How often to you hav e a drink containing alcohol? Never [facility] Clinical Notes 05-03-2021 to 11-20-2023 Telephone Encounter - Nicolette Cardenas MA - 09/23/2023 11:42 AM ESTTelephone Encounter - Kira Briceno Ma - 09/18/2023 10:43 AM Ethel Macedo APRN.CNP - 09/06/2023 1:06 PM EST Note Date & Type Note Facility 11-20-2023 Note HNO ID: [id number] Author: GRETA HOPSON RN Service: ? Author Type: Registered Nurse Type: Progress Notes Filed: 11/20/2023 21:03 Note Text: POPULATION HEALTH NAVIGATION OUTREACH Action/FYI Patient Identified by Name and : YES, Outreach Outcome/Action Chart reviewed, patient has up coming appointment, pre visit planning for Medicare Wellness Exam and DM Eye added to appointment note. ACO Attributed Member - Needs 2023 Medicare Wellness Appointment Scheduled Last completed on 01-23-21 Reason for Outreach Care Gap or Scheduling/Wellness visits Payer: Payor: MEDICARE / Plan: MEDICARE A AND B / Product Type: Medicare / Care Gap Reviewed:: Annual Wellness visit Diabetic Eye Exam Navigation Signature: Greta Hopson RN November 20, 2023 9:01 PM [facility] 11-20-2023 Note HNO ID: [id number] Author: SKYLAR BANERJEE RT(R) Service: Nuclear Medicine Author Type: Technologist Type: Progress Notes Filed: 11/20/2023 14:09 Note Text: RADIOLOGY SERVICE PROGRESS NOTE SERVICE DATE: 11/20/2023 SERVICE TIME: 1:56 PM PATIENT IDENTITY VERIFICATION COMPLETED USING TWO (2) STANDARD IDENTIFIERS: Name and Date of confirmed by patient verbally and Name and Date of confirmed by identification band FALL SCREENING: Has the patient had 2 falls in the last year or 1 fall with injury or currently using an Ambulatory Assistive Device (Walker, Cane, Wheelchair, Crutches, etc.)? No PATIENT GENDER DATA: .female : No ALLERGIES: Reviewed and unchanged MEDICATIONS REVIEWED: Not applicable PATIENT RELEVANT IMPLANT DATA REVIEWED: Not Applicable PATIENT PRESENTS WITH AN IMPLANTABLE OR ATTACHED PROJECT MANAGER INTERIOR DESIGN: No CREATININE: Creatinine Date Value Ref Range Status 12/27/2022 0.90 0.58 - 0.96 mg/dL Final 07/25/2022 0.94 0.58 - 0.96 mg/dL Final 09/11/2021 0.65 0.58 - 0.96 mg/dL Final Estimated Glomerular Filtration Rate Date Value Ref Range Status 12/27/2022 68 >=60 mL/min/1.73m? Final Comment: Estimated Glomerular Filtration Rate (eGFR) is calculated using the 2020 CKD-EPI creatinine equation. This equation utilizes serum creatinine, sex, and age as parameters. The creatinine assay has traceable calibration to isotope dilution-mass spectrometry. Refer to KDIGO guidelines for clinical interpretation. In patients with unstable renal function, e.g. those with acute kidney injury, the eGFR may not accurately reflect actual GFR. eGFR- Date Value Ref Range Status 09/11/2021 >60 Final Comment: Note: On 12/16/2021, the eGFR calculation will be updated to the NKF-ASN Task Force recommended 2020 CKD-EPI creatinine equation which does not include a race variable. For more information or to access a 2020 CKD-EPI calculator, visit the National Kidney Foundation website at kidney.org/professionals/kdoqi/g fr_calculator. P.O.C.T. RESULTS: N/A November 20, [address] PERFORMED: No IV SITE: Ambulatory: A peripheral IV was started in the Left antecubital site with a Angio cath: 24 gauge. POST EXAM PIV STATUS: Discontinued PROCEDURE TYPE: NM Stress: 16.0 mCi [id number] was administered IV for Rest Imaging at 13:[address] [facility]. 53.3 mCi [id number] was administered IV for Stress Imaging at 14:08 by [facility]. PATIENT DISCHARGED TO: Ambulatory patient, left AR department area. A Diagnostic radioactive procedure has taken place, with no further precautions necessary other than routine body substance precautions. More information regarding radiation safety can be found using this link: [email or web address] SIGNATURE: RT Clementine(R) PATIENT NAME: Jose Velazquez DATE: November 20, 2023 TIME: 1:56 PM PAGER/CONTACT #: [facility] 11-20-2023 Note Patient Outreach (AG FAMPLE) JOSE VELAZQUEZ ([id number]) 1950 F Date Time Provider Department 11/20/23 GRETA HOPSON During your visit today, we recorded the following information about you: Greta Hopson RN 11/20/2023 9:03 PM Signed POPULATION HEALTH NAVIGATION OUTREACH Action/FYI Patient Identified by Name and : YES, Outreach Outcome/Action Chart reviewed, patient has up coming appointment, pre visit planning for Medicare Wellness Exam and DM Eye added to appointment note. ACO Attributed Member - Needs 2023 Medicare Wellness Appointment Scheduled Last completed on 01-23-21 Reason for Outreach Care Gap or Scheduling/Wellness visits Payer: Payor: MEDICARE / Plan: MEDICARE A AND B / Product Type: Medicare / Care Gap Reviewed:: Annual Wellness visit Diabetic Eye Exam Navigation Signature: Greta Hopson RN November 20, 2023 9:01 PM Allergies As of Date: 11/20/2023 (No Known Allergies) Date Reviewed: 11/14/2023 Reviewed by: Nicolette Cardenas MA - Fully Assessed Reason for Visit: Population Health Navigation Outreach [3910] Cmt: ACO Attributed Member - Needs 2023 Medicare Wellness Appointment Scheduled Prescriptions as of 11/20/2023 - dilTIAZem CD (CARDIZEM CD, CARTIA XT) 240 mg 24 hr capsule Take 1 capsule by mouth once daily. - lisinopril (ZESTRIL) 10 mg tablet take 1 tablet by mouth once daily. - metFORMIN ER (GLUCOPHAGE XR) 500 mg 24 hr tablet TAKE 1 TABLET BY MOUTH ONCE DAILY WITH dinner - atorvastatin (LIPITOR) 40 mg tablet TAKE 1 TABLET BY MOUTH / feeding tube DAILY AT BEDTIME - latanoprost (XALATAN) 0.005 % ophthalmic solution Use 1 Drop in both eyes daily at bedtime. - XARELTO 20 mg tablet TAKE 1 TABLET BY MOUTH DAILY WITH dinner - buPROPion SR (ZYBAN SR; WELLBUTRIN SR) 150 mg 12 hr tablet Take 1 tablet by mouth twice daily. - aspirin, enteric coated (ASPIRIN EC) 81 mg EC tablet Take 1 tablet by mouth once daily. - acetaminophen 325 mg cap Take 650 mg by mouth every 6 hours as needed for pain. - zinc sulfate (ZINC-15 ORAL) Take 1 tablet by mouth once daily. - cyanocobalamin (VITAMIN B-12) 500 mcg tablet Take 1 tablet by mouth once daily. - ascorbic acid, vitamin C, (VITAMIN C) 500 mg tablet Take 500 mg by mouth once daily. - calcium carbonate-vitamin D3 600 mg(1,500mg) -800 unit tab Take 1 tablet by mouth once daily. - Pgwpipfxsalph-Nychtrkv-Tktiuz (CENTRUM SILVER) tab Take 1 tablet by mouth once daily. Takes alive now Facility-Administered Medications as of 11/20/2023 - perflutren lipid microspheres 1.3 mL in NaCl (PF) 0.9% 10 mL injection (DEFINITY) - sodium chloride 0.9 % (flush) 10 mL (BD POSIFLUSH) Problem List As Of Date 11/20/2023 Noted Resolved Abnormality of gait [R26.9] 05/03/2021 12/25/2022 Acute stroke due to ischemia (HCC) [I63.9] 05/03/2021 07/07/2021 Weakness status post cerebrovascular accident [*05/03/2021 07/07/2021 Impaired functional mobility, balance, gait, an*05/03/2021 07/07/2021 Dysarthria [R47.1] 05/08/2021 Atrial fibrillation with RVR (HCC) [I48.91] 05/11/2021 Primary osteoarthritis of right knee [M17.11] 07/14/2021 Difficulty walking [R26.2] 07/14/2021 Hypertension [I10] 09/10/2021 S/P total knee arthroplasty, right [Z96.651] 09/29/2021 Weakness of right leg [R29.898] 09/29/2021 Left ventricular hypertrophy [I51.7] 01/29/2022 Osteoarthritis [M19.90] 01/29/2022 Postoperative delirium [F05] 01/29/2022 12/25/2022 Right knee pain [M25.561] 01/29/2022 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] 01/29/2022 09/08/2023 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] 01/29/2022 09/08/2023 Ischemic cerebrovascular accident (CVA) (HCC) [*01/29/2022 Type 2 diabetes mellitus without complication, *01/29/2022 PND (post-nasal drip) [R09.82] 01/29/2022 Environmental allergies [Z91.09] 01/29/2022 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 Author Type: Physician Type: Progress Notes Filed: 11/14/2023 11:26 Note Text: PRIMARY CARE PHYSICIAN: [place] [address] REFERRING PHYSICIAN: SELF CHIEF COMPLAINT: Patient presents with: Cardiology Follow Up - Generic: Follow up on A-FIB . Wants to know if it would be safe for her to get left knee surgery done? HPI: Mrs Velazquez has a history of hypertension. She suffered an ischemic stroke in 04/10. She developed left sided weakness, with dysarthria. She was admitted to [facility] with these symptoms, and underwent an MRI of her brain, which revealed an acute lacunar infarction involving the left internal capsule. She was evaluated by Intra-Op, and was discharged on aspirin, Lipitor, lisinopril. She subsequently saw Dr. Rutherford, and was found to have an irregular heartbeat on physical examination. She underwent a 48-hour Holter monitor in 05/10, the results revealed that she was in atrial fibrillation with heart rates between 79 to 184 bpm. Her average heart rate was 109 bpm. She did have some ventricular ectopics as well. Her symptoms correlated with atrial fibrillation. She was subsequently started on Cardizem CD, along with Eliquis. Today, she denied feeling any chest discomfort, palpitations. She has some occasional shortness of breath, along with some occasional dizziness when she stands up abruptly from a sitting position. 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 On her echocardiogram from March 2021, she was not found to have any mitral valve prolapse. Her LV ejection fraction was normal at 63%. Her right ventricle was normal in size, systolic function. There was no evidence of intracardiac shunting. She had no valvular vegetations/fibroelastomas. A repeat echo in 09/10 revealed normal biventricular I had initially started her on Eliquis for oral anticoagulation. Her insurance required her Eliquis to be switched to Xarelto. She underwent right knee replacement in 08/[address] Membreno. This was uneventful. I reviewed her echocardiogram from 09/10 with her in detail, and explained that her left ventricle was normal in size based on that echocardiogram. On her prior echocardiogram from 04/10, her left ventricle was also normal in size, although mild left ventricular hypertrophy was commented upon on this echocardiogram. There was no mention of left ventricular hypertrophy on her echocardiogram from 09/10. On her echo from 09/11, she had a normal LVEF of 56%. Normal LV size, but she did have some left ventricular hypertrophy. Her nuclear stress test was negative for inducible ischemia on 2020. She returns for a follow up visit today. Since she last saw me, she saw Dr Herr, and he suggested that her left knee arthritis had progressed to the point that she would need knee replacement surgery. In the past, she mentioned that she was not able to do quite a few things she enjoyed, since she had a stroke (singing, walking briskly). Today she denies any palpitations, and she has not had any chest pains, shortness of breath, lightheadedness, dizziness, or loss of consciousness. Her LDL was at goal based on her lipid panel from 08/11 i.e. 70 mg%. Her LDL was at goal based on her/ lipid panel from 01/10 i.e. 53 mg%. Her heart rates were mildly elevated in my office. PAST MEDICAL HISTORY Diagnosis Date Acute stroke due to ischemia (HCC) 05/03/2021 Atrial fibrillation (HCC) Atrial fibrillation with RVR (HCC) Essential hypertension Irregular heart beats Mitral valve prolapse Postoperative delirium 01/29/2022 Weakness status post cerebrovascular accident 05/03/2021 PAST SURGICAL HISTORY Procedure Laterality Date BREAST LUMPECTOMY HX Left 1991 spiculated COLONOSCOPY GEN ANES JOINT REPLACEMENT HX right knee replacement TOTAL KNEE REPLACEMENT Right 2020 SOCIAL HISTORY Social History Tobacco Use Smoking status: Never Smokeless tobacco: Never Vaping Use Vaping Use: Never used Substance Use Topics Alcohol use: Never Drug use: Never FAMILY HISTORY Problem Relation Age of Onset Hypertension Mother Hyperlipidemia Mother Dementia Mother Diabetes Father Hypertension Father Cancer Father possible/suspected Heart Attack Father 79 Muscular dystrophy Brother ALLERGIES: ALLERGIES No Known Allergies MEDICATIONS: lisinopril (ZESTRIL) 10 mg tablettake 1 tablet by mouth once daily.Disp: 30 tabletRfl: 5 metFORMIN ER (GLUCOPHAGE XR) 500 mg 24 hr tabletTAKE 1 TABLET BY MOUTH ONCE DAILY WITH dinnerDisp: 30 tabletRfl: 0 atorvastatin (LIPITOR) 40 mg tabletTAKE 1 TABLET BY MOUTH / feeding tube DAILY AT BEDTIMEDisp: 30 tabletRfl: 11 latanoprost (XALATAN) 0.005 % ophthalmic solutionUse 1 Feliciano (more content not included)... [facility] 09-23-2023 Miscellaneous Notes pharm requesting refills: Last office visit 09/06/2023. Last refill 09/26/2022 nov 03/06/2024 Requested Prescriptions Pending Prescriptions Disp Refills atorvastatin (LIPITOR) 40 mg tablet [Pharmacy Med Name: atorvastatin 40 mg tablet] 30 tablet 11 Sig: TAKE 1 TABLET BY MOUTH / feeding tube DAILY AT BEDTIME Please review and advise. Nicolette Cardenas MA documented in this encounter [facility] 09-18-2023 Miscellaneous Notes Requester: Pharmacy Patients last Endocrinology visit occurred 10/30/22. Follow-up evaluation has been established Upcoming Endocrinology Appointments - Next 365 Days No appointments to display . Requested Prescriptions Pending Prescriptions Disp Refills metFORMIN ER (GLUCOPHAGE XR) 500 mg 24 hr tablet [Pharmacy Med Name: metformin ER 500 mg tablet,extended release 24 hr] 30 tablet 0 Sig: take 1 tablet by mouth daily with dinner If patient is due for an appointment please route to provider for refill consideration and also to the endo scheduling pool. PSS NOTE: Patient needs scheduled appointment Yes documented in this encounter [facility] 09-06-2023 Note HNO ID: [id number] Author: Ethel Berg APRN.[employer] Service: ? Author Type: Nurse Practitioner Type: Progress Notes Filed: 09/08/2023 11:29 PM Note Text: This note was created using Photop [employer]riter. Subjective Jose Velazquez is a 73 year old female here today for diabetes follow-up visit. I reviewed past medical, surgical, social, and family histories today and updated chart. Allergies, chronic medications, and supplements were also reviewed. Patient has type 2 diabetes. She continues care with her orthopedic for knee pain, she is considering getting her left knee done. Denies dizziness, chest pain, shortness of breath, changes in vision, foot pain. Denies numbness and tingling in extremities. Home Blood Sugars: occasionally checks, has been in normal range Medication Compliance: She is taking metformin 500 mg once a day. She is tolerating this well. She prefers to not be on medication Low Blood Sugars: none Diet: Not following particular diet, just not eating much Exercise: none, not able to walk a lot She is able to walk around a store Eye Exam: up to date Podiatry: no issues Tobacco use - none Alcohol use - none PAST MEDICAL HISTORY Diagnosis Date Acute stroke due to ischemia (HCC) 05/03/2021 Atrial fibrillation (HCC) Atrial fibrillation with RVR (HCC) Essential hypertension Irregular heart beats Mitral valve prolapse Postoperative delirium 01/29/2022 Weakness status post cerebrovascular accident 05/03/2021 PAST SURGICAL HISTORY Procedure Laterality Date BREAST LUMPECTOMY HX Left 1991 spiculated COLONOSCOPY GEN ANES JOINT REPLACEMENT HX right knee replacement TOTAL KNEE REPLACEMENT Right 2020 ALLERGIES Patient has no known allergies. MEDICATIONS metFORMIN ER (GLUCOPHAGE XR) 500 mg 24 hr tablettake 1 tablet by mouth daily with dinnerDisp: 30 tabletRfl: 0 lisinopril (ZESTRIL) 10 mg tabletTake 1 tablet by mouth once daily.Disp: 30 tabletRfl: 5 XARELTO 20 mg tabletTAKE 1 TABLET BY MOUTH DAILY WITH dinnerDisp: 30 tabletRfl: 11 dilTIAZem CD (CARDIZEM CD, CARTIA XT) 240 mg 24 hr capsuleTake 1 capsule by mouth once daily.Disp: 90 capsuleRfl: 3 buPROPion SR (ZYBAN SR; WELLBUTRIN SR) 150 mg 12 hr tabletTake 1 tablet by mouth twice daily.Disp: 60 tabletRfl: 2 atorvastatin (LIPITOR) 40 mg tabletTAKE 1 TABLET BY MOUTH / feeding tube DAILY AT BEDTIMEDisp: 30 tabletRfl: 11 aspirin, enteric coated (ASPIRIN EC) 81 mg EC tabletTake 1 tablet by mouth once daily.Disp: Rfl: acetaminophen 325 mg capTake 650 mg by mouth every 6 hours as needed for pain.Disp: Rfl: zinc sulfate (ZINC-15 ORAL)Take 1 tablet by mouth once daily.Disp: Rfl: cyanocobalamin (VITAMIN B-12) 500 mcg tabletTake 1 tablet by mouth once daily.Disp: Rfl: ascorbic acid, vitamin C, (VITAMIN C) 500 mg tabletTake 500 mg by mouth once daily.Disp: Rfl: calcium carbonate-vitamin D3 600 mg(1,500mg) -800 unit tabTake 1 tablet by mouth once daily.Disp: Rfl: Jmymscldbknld-Sysdkqdo-Ofjjnv (CENTRUM SILVER) tabTake 1 tablet by mouth once daily. Takes alive now Disp: Rfl: latanoprost (XALATAN) 0.005 % ophthalmic solutionUse 1 Drop in both eyes daily at bedtime.Disp: Rfl: FAMILY HISTORY Problem Relation Age of Onset Hypertension Mother Hyperlipidemia Mother Dementia Mother Diabetes Father Hypertension Father Cancer Father possible/suspected Heart Attack Father 79 Muscular dystrophy Brother Social History Tobacco Use Smoking status: Never Smokeless tobacco: Never Vaping Use Vaping Use: Never used Substance Use Topics Alcohol use: Never Drug use: Never Review of Systems Constitutional: Positive for fatigue. Negative for appetite change, chills, fever and unexpected weight change. HENT: Negative for congestion, ear pain, rhinorrhea and sore throat. Eyes: Negative for pain, discharge, itching and visual disturbance. Respiratory: Negative for cough, shortness of breath and wheezing. Cardiovascular: Negative for chest pain, palpitations and leg swelling. Gastrointestinal: Negative for abdominal pain, constipation, diarrhea, nausea and vomiting. Genitourinary: Negative for difficulty urinating. Musculoskeletal: Positive for arthralgias. Skin: Negative for rash. Neurological: Negative for dizziness, tremors, weakness and headaches. Psychiatric/Behavioral: Negative for dysphoric mood and sleep disturbance. The patient is not nervous/anxious. Objective BP 126/68 Pulse 69 Temp 36.9 ?C (98.4 ?F) Ht 167.6 cm (5' 6 ) Wt 108.9 kg (240 lb) SpO2 98% BMI 38.74 kg/m? Physical Exam Constitutional: Appearance: Normal appearance. She is well-developed. She is not diaphoretic. HENT: Head: Normocephalic and atraumatic. Right Ear: Hearing, tympanic membrane, ear canal and external ear normal. Left Ear: Hearing, tympanic membrane, ear canal and external ear normal. Nose: Nose normal. Mouth/Throat: Lips: [place]. Mouth: Mucous membranes are rohit (more content not included)... [facility] 09-06-2023 History of Presen t illness Narrative This note was created using NoteWriter. Subjective Jose Velazquez is a 73 year old female here today for diabetes follow-up visit. I reviewed past medical, surgical, social, and family histories today and updated chart. Allergies, chronic medications, and supplements were also reviewed. Patient has type 2 diabetes. She continues care with her orthopedic for knee pain, she is considering getting her left knee done. Denies dizziness, chest pain, shortness of breath, changes in vision, foot pain. Denies numbness and tingling in extremities. Home Blood Sugars: occasionally checks, has been in normal range Medication Compliance: She is taking metformin 500 mg once a day. She is tolerating this well. She prefers to not be on medication Low Blood Sugars: none Diet: Not following particular diet, just not eating much Exercise: none, not able to walk a lot She is able to walk around a store Eye Exam: up to date Podiatry: no issues Tobacco use - none Alcohol use - none PAST MEDICAL HISTORY Diagnosis Date Acute stroke due to ischemia (HCC) 05/03/2021 Atrial fibrillation (HCC) Atrial fibrillation with RVR (HCC) Essential hypertension Irregular heart beats Mitral valve prolapse Postoperative delirium 01/29/2022 Weakness status post cerebrovascular accident 05/03/2021 PAST SURGICAL HISTORY Procedure Laterality Date BREAST LUMPECTOMY HX Left 1991 spiculated COLONOSCOPY GEN ANES JOINT REPLACEMENT HX right knee replacement TOTAL KNEE REPLACEMENT Right 2020 ALLERGIES Patient has no known allergies. MEDICATIONS metFORMIN ER (GLUCOPHAGE XR) 500 mg 24 hr tablet^take 1 tablet by mouth daily with dinner^Disp: 30 tablet^Rfl: 0 lisinopril (ZESTRIL) 10 mg tablet^Take 1 tablet by mouth once daily.^Disp: 30 tablet^Rfl: 5 XARELTO 20 mg tablet^TAKE 1 TABLET BY MOUTH DAILY WITH dinner^Disp: 30 tablet^Rfl: 11 dilTIAZem CD (CARDIZEM CD, CARTIA XT) 240 mg 24 hr capsule^Take 1 capsule by mouth once daily.^Disp: 90 capsule^Rfl: 3 buPROPion SR (ZYBAN SR; WELLBUTRIN SR) 150 mg 12 hr tablet^Take 1 tablet by mouth twice daily.^Disp: 60 tablet^Rfl: 2 atorvastatin (LIPITOR) 40 mg tablet^TAKE 1 TABLET BY MOUTH / feeding tube DAILY AT BEDTIME^Disp: 30 tablet^Rfl: 11 aspirin, enteric coated (ASPIRIN EC) 81 mg EC tablet^Take 1 tablet by mouth once daily.^Disp: ^Rfl: acetaminophen 325 mg cap^Take 650 mg by mouth every 6 hours as needed for pain.^Disp: ^Rfl: zinc sulfate (ZINC-15 ORAL)^Take 1 tablet by mouth once daily.^Disp: ^Rfl: cyanocobalamin (VITAMIN B-12) 500 mcg tablet^Take 1 tablet by mouth once daily.^Disp: ^Rfl: ascorbic acid, vitamin C, (VITAMIN C) 500 mg tablet^Take 500 mg by mouth once daily.^Disp: ^Rfl: calcium carbonate-vitamin D3 600 mg(1,500mg) -800 unit tab^Take 1 tablet by mouth once daily.^Disp: ^Rfl: Tfsupoobyvyjt-Teuxudwe-Yexngk (CENTRUM SILVER) tab^Take 1 tablet by mouth once daily. Takes alive now ^Disp: ^Rfl: latanoprost (XALATAN) 0.005 % ophthalmic solution^Use 1 Drop in both eyes daily at bedtime.^Disp: ^Rfl: FAMILY HISTORY Problem Relation Age of Onset Hypertension Mother Hyperlipidemia Mother Dementia Mother Diabetes Father Hypertension Father Cancer Father possible/suspected Heart Attack Father 79 Muscular dystrophy Brother Social History Tobacco Use Smoking status: Never Smokeless tobacco: Never Vaping Use Vaping Use: Never used Substance Use Topics Alcohol use: Never Drug use: Never Review of Systems Constitutional: Positive for fatigue. Negative for appetite change, chills, fever and unexpected weight change. HENT: Negative for congestion, ear pain, rhinorrhea and sore throat. Eyes: Negative for pain, discharge, itching and visual disturbance. Respiratory: Negative for cough, shortness of breath and wheezing. Cardiovascular: Negative for chest pain, palpitations and leg swelling. Gastrointestinal: Negative for abdominal pain, constipation, diarrhea, nausea and vomiting. Genitourinary: Negative for difficulty urinating. Musculoskeletal: Positive for arthralgias. Skin: Negative for rash. Neurological: Negative for dizziness, tremors, weakness and headaches. Psychiatric/Behavioral: Negative for dysphoric mood and sleep disturbance. The patient is not nervous/anxious. Objective BP 126/68 Pulse 69 Temp 36.9 C (98.4 F) Ht 167.6 cm (5' 6 ) Wt 108.9 kg (240 lb) SpO2 98% BMI 38.74 kg/m Physical Exam Constitutional: Appearance: Normal appearance. She is well-developed. She is not diaphoretic. HENT: Head: Normocephalic and atraumatic. Right Ear: Hearing, tympanic membrane, ear canal and external ear normal. Left Ear: Hearing, tympanic membrane, ear canal and external ear normal. Nose: Nose normal. Mouth/Throat: Lips: [place]. Mouth: Mucous membranes are moist. Pharynx: Oropharynx is clear. Eyes: General: Lids are normal. Extraocular Movements: Extraocular movements intact. Conjunctiva/sclera: Conjunctivae normal. Pupils: Pupils are equal, round, and reactive to light. Neck: Thyroid: No thyroid mass or thyromegaly. Vascular: Normal carotid pulses. No carotid bruit. Cardiovascular: Rate and Rhythm: Normal rate. Rhythm irregular. Pulses: Radial pulses are 2+ on the right side and 2+ on the left side. Dorsalis pedis pulses are 2+ on the right side and 2+ on the left side. Posterior tibial pulses are 2+ on the right side and 2+ on the left side. Heart sounds: Normal heart sounds. No murmur heard. Pulmonary: Effort: Pulmonary effort is normal. Breath sounds: Normal breath sounds. No wheezing, rhonchi or rales. Abdominal: General: Bowel sounds are normal. Palpations: Abdomen is soft. Tenderness: There is no abdominal tenderness. Lymphadenopathy: Cervical: No cervical adenopathy. Upper Body: Right upper body: No supraclavicular adenopathy. Left upper body: No supraclavicular adenopathy. Skin: General: Skin is warm and dry. Findings: No lesion or rash. Neurological: General: No focal deficit present. Mental Status: She is alert and oriented to person, place, and time. Cranial Nerves: No cranial nerve deficit. Sensory: Sensation is intact. Motor: Motor function is intact. Coordination: Coordination is intact. Gait: Gait normal. Psychiatric: Attention and Perception: Attention and perception normal. Mood and Affect: Mood and affect normal. Speech: Speech normal. Behavior: Behavior normal. Behavior is cooperative. Cognition and Memory: Cognition and memory normal. Judgment: Judgment normal. Component Latest Ref Rng & Units 12/27/2022 Protein, Total 6.3 - 8.0 g/dL 7.5 Albumin 3.9 - 4.9 g/dL 4.0 Calcium 8.5 - 10.2 mg/dL 9.7 Bilirubin, Total 0.2 - 1.3 mg/dL 0.4 Alkaline Phosphatase 34 - 123 U/L 130 (H) AST 13 - 35 U/L 18 ALT 7 - 38 U/L 21 Glucose 74 - 99 mg/dL 136 (H) BUN 7 - 21 mg/dL 17 Creatinine 0.58 - 0.96 mg/dL 0.90 Sodium 136 - 144 mmol/L 136 Potassium 3.7 - 5.1 mmol/L 4.6 Chloride 97 - 105 mmol/L 101 CO2 22 - 30 mmol/L 26 Anion Gap 9 - 18 mmol/L 9 eGFR >=60 mL/min/1.73m 68 Cholesterol, Total <200 mg/dL 145 Triglyceride <150 mg/dL 109 HDL Cholesterol >39 mg/dL 70 Non HDL Cholesterol <130 mg/dL 75 Fasting Time hrs 12 VLDL Cholesterol <30 mg/dL 22 TC:HDL Ratio <5.10 2.07 LDL Cholesterol <100 mg/dL 53 LDL:HDL Ratio <2.54 0.76 Vitals 12/25/2022 03/07/2023 06/16/2023 09/06/2023 SITTING SYSTOLIC 118 130 123 126 SITTING DIASTOLIC 72 65 87 68 PULSE 82 73 97 69 TEMPERATURE 97.5 96.9 98.4 RESPIRATIONS 16 16 WEIGHT in POUNDS 251 lb 242 lb 240 lb 240 lb WEIGHT in KILOGRAMS 113.853 kg 109.77 kg 108.863 kg 108.863 kg HEIGHT in INCHES 66 in. 66 in. 66 in. 66 in. HEIGHT in CM 167.6 cm 167.6 cm 167.6 cm 167.6 cm BP Position BP Site BP Cuff Size SITTING BP 118/72 130/65 123/87 126/68 PULSE OX 97 95 98 98 BODY MASS INDEX 40.51 39.06 38.74 38.74 Component Latest Ref Rng & Units 07/25/2022 10/30/2022 12/27/2022 09/06/2023 Hemoglobin A1C 4.3 - 5.6 % 6.5 (H) 6.3 (H) Estimated Average Glucose mg/dL 140 134 Hemoglobin A1C (POCT) 4.2 - 5.6 % 6.4 6.6 (A) ASSESSMENT/PLAN: 1. Type 2 diabetes mellitus without complication, without long-term current use of insulin (HCC) - ICD9: 250.00, ICD10: E11.9 (primary diagnosis) - Controlled - Continue current medications - Counseled on healthy diet and regular exercise - Follow up in 6 months, sooner should any other issues arise. 2. Obesity, Class II, BMI 35-39.9 - ICD9: 278.00, ICD10: E66.9 Ethel Berg APRN.ANDRES documented in this encounter [facility] 08-19-2023 Miscellaneous Notes Requester: Pharmacy Patients last Endocrinology visit occurred 10/30/2022. Follow-up evaluation has been established Upcoming Endocrinology Appointments - Next 365 Days No appointments to display . Requested Prescriptions Pending Prescriptions Disp Refills metFORMIN ER (GLUCOPHAGE XR) 500 mg 24 hr tablet [Pharmacy Med Name: metformin ER 500 mg tablet,extended release 24 hr] 30 tablet 0 Sig: take 1 tablet by mouth daily with dinner If patient is due for an appointment please route to provider for refill consideration and also to the endo scheduling pool. PSS NOTE: Patient needs scheduled appointment Yes documented in this encounter [facility] 07-22-2023 Miscellaneous Notes Requester: Pharmacy Patients last Endocrinology visit occurred 10/30/2022. Follow-up evaluation has been established Upcoming Endocrinology Appointments - Next 365 Days No appointments to display . Requested Prescriptions Pending Prescriptions Disp Refills metFORMIN ER (GLUCOPHAGE XR) 500 mg 24 hr tablet [Pharmacy Med Name: metformin ER 500 mg tablet,extended release 24 hr] 30 tablet 0 Sig: take 1 tablet by mouth daily with dinner If patient is due for an appointment please route to provider for refill consideration and also to the endo scheduling pool. PSS NOTE: Patient needs scheduled appointment Yes documented in this encounter [facility] 06-18-2023 Note HNO ID: [id number] Author: Iwona Montoya MA Service: ? Author Type: Scrap Collector Type: Progress Notes Filed: 06/18/2023 1:59 PM Note Text: ED Follow Up: Patient discharged from [facility] ED on 06/16/23. 1. How are you feeling since your ED visit? better Have your symptoms improved or resolved? No 2. Were you prescribed any medications while in the ED or advised to stop any medication? No - If yes, were you able to fill your prescriptions? Not applicable -if stopped medication, what was the medication? NA 3. Were you advised to schedule a follow up appointment with your provider? Yes - If no, Do you feel like you need an appointment scheduled? No - If yes, Do you need this scheduled now or has this already been scheduled? No 4. Were you able to contact the office or adoption social worker provider prior to your ED visit? No 5. Is there anything else I can do for you today? No [facility] 06-18-2023 Note Patient Outreach (AG INTMLW) JOSE VELAZQUEZ ([id number]) 1950 F Date Time Provider Department 06/18/23 IWONA MONTOYA AGINTMLW During your visit today, we recorded the following information about you: Iwona Montoya MA 06/18/2023 1:59 PM Signed ED Follow Up: Patient discharged from [facility] ED on 06/16/23. 1. How are you feeling since your ED visit? better Have your symptoms improved or resolved? No 2. Were you prescribed any medications while in the ED or advised to stop any medication? No - If yes, were you able to fill your prescriptions? Not applicable -if stopped medication, what was the medication? NA 3. Were you advised to schedule a follow up appointment with your provider? Yes - If no, Do you feel like you need an appointment scheduled? No - If yes, Do you need this scheduled now or has this already been scheduled? No 4. Were you able to contact the office or adoption social worker provider prior to your ED visit? No 5. Is there anything else I can do for you today? No Allergies As of Date: 06/18/2023 (No Known Allergies) Date Reviewed: 06/16/2023 Reviewed by: Elvie Hartley, DHARA - Fully Assessed Prescriptions as of 06/18/2023 - lisinopril (ZESTRIL) 10 mg tablet Take 1 tablet by mouth once daily. - metFORMIN ER (GLUCOPHAGE XR) 500 mg 24 hr tablet TAKE 1 TABLET BY MOUTH DAILY WITH dinner - XARELTO 20 mg tablet TAKE 1 TABLET BY MOUTH DAILY WITH dinner - dilTIAZem CD (CARDIZEM CD, CARTIA XT) 240 mg 24 hr capsule Take 1 capsule by mouth once daily. - buPROPion SR (ZYBAN SR; WELLBUTRIN SR) 150 mg 12 hr tablet Take 1 tablet by mouth twice daily. - atorvastatin (LIPITOR) 40 mg tablet TAKE 1 TABLET BY MOUTH / feeding tube DAILY AT BEDTIME - aspirin, enteric coated (ASPIRIN EC) 81 mg EC tablet Take 1 tablet by mouth once daily. - acetaminophen 325 mg cap Take 650 mg by mouth every 6 hours as needed for pain. - zinc sulfate (ZINC-15 ORAL) Take 1 tablet by mouth once daily. - cyanocobalamin (VITAMIN B-12) 500 mcg tablet Take 1 tablet by mouth once daily. - ascorbic acid, vitamin C, (VITAMIN C) 500 mg tablet Take 500 mg by mouth once daily. - calcium carbonate-vitamin D3 600 mg(1,500mg) -800 unit tab Take 1 tablet by mouth once daily. - Jqeidammszbfr-Sxtkzgci-Aozwkc (CENTRUM SILVER) tab Take 1 tablet by mouth once daily. Takes alive now Facility-Administered Medications as of 06/18/2023 - perflutren lipid microspheres 1.3 mL in NaCl (PF) 0.9% 10 mL injection (DEFINITY) - sodium chloride 0.9 % (flush) 10 mL (BD POSIFLUSH) Problem List As Of Date 06/18/2023 Noted Resolved Abnormality of gait [R26.9] 05/03/2021 12/25/2022 Acute stroke due to ischemia (HCC) [I63.9] 05/03/2021 07/07/2021 Weakness status post cerebrovascular accident [*05/03/2021 07/07/2021 Impaired functional mobility, balance, gait, an*05/03/2021 07/07/2021 Dysarthria [R47.1] 05/08/2021 Atrial fibrillation with RVR (HCC) [I48.91] 05/11/2021 Primary osteoarthritis of right knee [M17.11] 07/14/2021 Difficulty walking [R26.2] 07/14/2021 Hypertension [I10] 09/10/2021 S/P total knee arthroplasty, right [Z96.651] 09/29/2021 Weakness of right leg [R29.898] 09/29/2021 Left ventricular hypertrophy [I51.7] 01/29/2022 Osteoarthritis [M19.90] 01/29/2022 Postoperative delirium [F05] 01/29/2022 12/25/2022 Right knee pain [M25.561] 01/29/2022 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 1. How are you feeling since your ED visit? better Have your symptoms improved or resolved? No 2. Were you prescribed any medications while in the ED or advised to stop any medication? No - If yes, were you able to fill your prescriptions? Not applicable -if stopped medication, what was the medication? NA 3. Were you advised to schedule a follow up appointment with your provider? Yes - If no, Do you feel like you need an appointment scheduled? No - If yes, Do you need this scheduled now or has this already been scheduled? No 4. Were you able to contact the office or adoption social worker provider prior to your ED visit? No 5. Is there anything else I can do for you today? No documented in this encounter [facility] 05-21-2023 Miscellaneous Notes Sent mychart message to schedule follow up appointment Requester: Pharmacy Last Visit in Endocrinology: Provider name: Francie Pham MD , Date 10/30/2022 Next Scheduled Appt in Endo: Visit date not found Last Refill: 01/24/2023 Number of Refills given: 2 PSS NOTE: Patient needs scheduled appointment pt was suppose to be seen in November, please assist in scheduling patient f/u. Requested Prescriptions Pending Prescriptions Disp Refills metFORMIN ER (GLUCOPHAGE XR) 500 mg 24 hr tablet [Pharmacy Med Name: metformin ER 500 mg tablet,extended release 24 hr] 30 tablet 0 Sig: TAKE 1 TABLET BY MOUTH DAILY WITH dinner Please review and advise. Kaela Young MA documented in this encounter [facility] 04-25-2023 Miscellaneous Notes Spoke with patient. She will no longer continue care in our office. I advised her Rx was refused and to contact her PCP for refills. Patient agrees. Dora Rose Pss Sent [employer] message to schedule follow up Requester: Pharmacy Last Visit in Endocrinology: Provider name: Francie Pham MD , Date 10/30/2022 Next Scheduled Appt in Endo: Visit date not found Last Refill: 01/24/23 Number of Refills given: 2 PSS NOTE: Patient needs scheduled appointment BRENT. Requested Prescriptions Pending Prescriptions Disp Refills metFORMIN ER (GLUCOPHAGE XR) 500 mg 24 hr tablet [Pharmacy Med Name: metformin ER 500 mg tablet,extended release 24 hr] 30 tablet 0 Sig: TAKE 1 TABLET BY MOUTH DAILY WITH dinner Please review and advise. Dorie Infante MA documented in this encounter [facility] 04-17-2023 Miscellaneous Notes Readings look good. Same Rx Pt calls to report pulse readings as recommended at recent OV: 04/01= 78 bpm 13= 80 6/14= 83 6/15= 83 6/16= 85 6/17= 79 6/19= 77 6/20= 82 6/21= 82 6/22= 73 6/= 74 6/= 71 6= 85 Pt is compliant with diltiazem. Debbi Hernandez RN documented in this encounter [facility] 03-07-2023 Note HNO ID: [id number] Author: Yair Moore MD Service: ? Author Type: Physician Type: Progress Notes Filed: 03/07/2023 1:15 PM Note Text: PRIMARY CARE PHYSICIAN: Yamila Rutherford [address] [place] [address] REFERRING PHYSICIAN: SELF CHIEF COMPLAINT: Patient presents with: F/U 6 months: No issues HPI: Mrs Velazquez has a history of hypertension. She suffered an ischemic stroke in 04/10. She developed left sided weakness, with dysarthria. She was admitted to [facility] with these symptoms, and underwent an MRI of her brain, which revealed an acute lacunar infarction involving the left internal capsule. She was evaluated by Dr. Reaves-Op, and was discharged on aspirin, Lipitor, lisinopril. She subsequently saw Dr. Rutherford, and was found to have an irregular heartbeat on physical examination. She underwent a 48-hour Holter monitor in 05/10, the results revealed that she was in atrial fibrillation with heart rates between 79 to 184 bpm. Her average heart rate was 109 bpm. She did have some ventricular ectopics as well. Her symptoms correlated with atrial fibrillation. She was subsequently started on Cardizem CD, along with Eliquis. Today, she denied feeling any chest discomfort, palpitations. She has some occasional shortness of breath, along with some occasional dizziness when she stands up abruptly from a sitting position. 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 On her echocardiogram from March 2021, she was not found to have any mitral valve prolapse. Her LV ejection fraction was normal at 63%. Her right ventricle was normal in size, systolic function. There was no evidence of intracardiac shunting. She had no valvular vegetations/fibroelastomas. A repeat echo in 09/10 revealed normal biventricular I had initially started her on Eliquis for oral anticoagulation. Her insurance required her Eliquis to be switched to Xarelto. She underwent right knee replacement in 08/[address] Membreno. This was uneventful. I reviewed her echocardiogram from 09/10 with her in detail, and explained that her left ventricle was normal in size based on that echocardiogram. On her prior echocardiogram from 04/10, her left ventricle was also normal in size, although mild left ventricular hypertrophy was commented upon on this echocardiogram. There was no mention of left ventricular hypertrophy on her echocardiogram from 09/10. On her latest echo from 09/11, she had a normal LVEF of 56%. Normal LV size, but she does have some left ventricular hypertrophy. She returns for a follow up visit today. Since she last saw me, she has had some issues with depression. She mentioned that she is not able to do quite a few things she enjoyed, since she had a stroke (singing, walking briskly). She denies any palpitations, and she has not had any chest pains, shortness of breath, lightheadedness, dizziness, or loss of consciousness. Her LDL was at goal based on her lipid panel from 08/11 i.e. 70 mg%. Her LDL was at goal based on her/ lipid panel from 01/10 i.e. 53 mg% . Her heart rates were quite elevated in my office when examining her i.e. in the 120s. Interestingly, when my nurse checked her in, her pulse was only in the 70s. She confirmed that she had taken her Cardizem about an hour before she came in. PAST MEDICAL HISTORY Diagnosis Date Acute stroke due to ischemia (HCC) 05/03/2021 Atrial fibrillation (HCC) Atrial fibrillation with RVR (HCC) Essential hypertension Irregular heart beats Mitral valve prolapse Postoperative delirium 01/29/2022 Weakness status post cerebrovascular accident 05/03/2021 PAST SURGICAL HISTORY Procedure Laterality Date BREAST LUMPECTOMY HX Left 1991 spiculated COLONOSCOPY GEN ANES JOINT REPLACEMENT HX right knee replacement TOTAL KNEE REPLACEMENT Right 2020 SOCIAL HISTORY Social History Tobacco Use Smoking status: Never Smokeless tobacco: Never Vaping Use Vaping Use: Never used Substance Use Topics Alcohol use: Never Drug use: Never FAMILY HISTORY Problem Relation Age of Onset Hypertension Mother Hyperlipidemia Mother Dementia Mother Diabetes Father Hypertension Father Cancer Father possible/suspected Heart Attack Father 79 Muscular dystrophy Brother ALLERGIES: ALLERGIES No Known Allergies MEDICATIONS: metFORMIN ER (GLUCOPHAGE XR) 500 mg 24 hr tabletTAKE 1 TABLET BY MOUTH DAILY WITH dinnerDisp: 30 tabletRfl: 2 XARELTO 20 mg tabletTAKE 1 TABLET BY MOUTH DAILY WITH dinnerDisp: 30 tabletRfl: 11 dilTIAZem CD (CARDIZEM CD, CARTIA XT) 240 mg 24 hr capsuleTake 1 capsule by mouth once daily.Disp: 90 capsuleRfl: 3 buPROPion SR (ZYBAN SR; WELLBUTRIN SR) 150 mg 12 hr tabletTake 1 tablet by mouth twice daily.Disp: 60 tabletRfl: 2 atorvastatin (LIPITOR) 40 mg (more content not included)... [facility] 02-13-2023 Miscellaneous Notes [address] [address] February 13, 2023 PID: [id number] Jose Velazquez [address] [place] [address] Dear Ms. Velazquez, We are pleased to inform you that the results of your recent breast imaging exam on 02/12/2023 are normal. Early detection of cancer is very important. We also understand recommendations regarding breast cancer screening are controversial. Please discuss with your primary care provider which strategy is best for you and whether a mammogram is right for you. Your imaging studies and report will be kept on file at [facility] as part of your permanent medical record and are available for your continuing care. Thank you for allowing us to help in meeting your health care needs. Sincerely, Dr. Cassidy Interpreting Radiologist [facility] (Normal over 40) documented in this encounter [facility] 02-12-2023 Note HNO ID: [id number] Author: RT Nevaeh(R) Service: Radiology Author Type: Technologist Type: Progress Notes Filed: 02/12/2023 11:33 AM Note Text: Radiology Service Progress Note PATIENT NAME: Jose Velazquez DATE OF SERVICE: February 12, 2023 TIME: 11:33 AM PATIENT IDENTITY VERIFICATION COMPLETED USING TWO (2) IDENTIFIERS: Name and Date of confirmed by patient verbally. FALL SCREENING: Has the patient had 2 falls in the last year or 1 fall with injury or currently using an Ambulatory Assistive Device (Walker, Cane, Wheelchair, Crutches, etc.)? No PATIENT GENDER DATA: Female. status: : No status: N/A PATIENT RELEVANT IMPLANT DATA REVIEWED: Not Applicable RADIOLOGY DEPARTMENT: Mammography PERIPHERAL IV DATA: Not applicable SIGNED BY: RT Nevaeh(R) February 12, 2023 11:33 AM [facility] 02-12-2023 Miscellaneous Notes Patient is here to complete mammogram but needs an order placed. Please advise. Tea Persaud MA documented in this encounter [facility] 02-12-2023 History of Presen t illness Narrative Radiology Service Progress Note PATIENT NAME: Jose Velazquez DATE OF SERVICE: February 12, 2023 TIME: 11:33 AM PATIENT IDENTITY VERIFICATION COMPLETED USING TWO (2) IDENTIFIERS: Name and Date of confirmed by patient verbally. FALL SCREENING: Has the patient had 2 falls in the last year or 1 fall with injury or currently using an Ambulatory Assistive Device (Walker, Cane, Wheelchair, Crutches, etc.)? No PATIENT GENDER DATA: Female. status: : No status: N/A PATIENT RELEVANT IMPLANT DATA REVIEWED: Not Applicable RADIOLOGY DEPARTMENT: Mammography PERIPHERAL IV DATA: Not applicable SIGNED BY: RT Nevaeh(R) February 12, 2023 11:33 AM documented in this encounter [facility] 01-24-2023 Miscellaneous Notes Requester: Pharmacy Last Visit in Endocrinology: Provider name: Francie Pham MD , Date 10/30/2022 Next Scheduled Appt in Endo: Visit date not found Last Refill: 10/30/2022 Number of Refills given: 2 Requested Prescriptions Pending Prescriptions Disp Refills metFORMIN ER (GLUCOPHAGE XR) 500 mg 24 hr tablet [Pharmacy Med Name: metformin ER 500 mg tablet,extended release 24 hr] 30 tablet 2 Sig: TAKE 1 TABLET BY MOUTH DAILY WITH dinner Please review and advise. Libertad Lopez MA documented in this encounter [facility] 01-24-2023 Miscellaneous Notes Patient's request for medication is as follows: Requested Prescriptions Pending Prescriptions Disp Refills dilTIAZem CD (CARDIZEM CD, CARTIA XT) 240 mg 24 hr capsule [Pharmacy Med Name: diltiazem CD 240 mg capsule,extended release 24 hr] 90 capsule 3 Sig: Take 1 capsule by mouth once daily. Last seen 08/30/2022. Follow up scheduled for 03/07/2023. Prescription(s) as above. Please process accordingly. Dora Heredia LPN documented in this encounter [facility] 01-24-2023 Miscellaneous Notes Pharmacy requesting refills as follows: Last Office Visit 12/25/22. Last Refill 10/25/22. Requested Prescriptions Pending Prescriptions Disp Refills XARELTO 20 mg tablet [Pharmacy Med Name: Xarelto 20 mg tablet] 30 tablet 2 Sig: TAKE 1 TABLET BY MOUTH DAILY WITH dinner Please review and advise. Jessica Villar MA documented in this encounter [facility] 12-28-2022 Miscellaneous Notes Patient informed of results and to continue current medications. Tea Persaud MA ----- Message from Ethel Berg APRN.[employer] sent at 12/28/2022 12:10 PM EST ----- A1C is 6.3 which is at goal (<7.0). Kidney and liver function WNL. Cholesterol is also at goal. Continue current medications. Ethel Berg APRN.[employer] documented in this encounter [facility] 12-25-2022 Note HNO ID: [id number] Author: Ethel Berg APRN.ANDRES Service: ? Author Type: Nurse Practitioner Type: Progress Notes Filed: 12/25/2022 2:40 PM Note Text: This note was created using [employer]. Subjective Jose Velazquez is a 72 year old female here today for diabetes follow-up visit. I reviewed past medical, surgical, social, and family histories today and updated chart. Allergies, chronic medications, and supplements were also reviewed. She had a visit with the obesity/nerve specialist She is taking her metformin once a day She is drinking protein drink and fruit for breakfast and lunch She followed a partial liquid diet recommended by the strategic communications specialist. She tried it for 2 weeks and it was too hard to follow so she stopped it Not eating much Just can't lose weight Denies dizziness, chest pain, shortness of breath, changes in vision, fatigue, foot pain. Denies numbness and tingling in extremities. Denies polydipsia, polyphagia, polyuria. Home Blood Sugars: 100-110s Low Blood Sugars: None The lowest was 85 once day Diet: protein drinks Exercise: 1/4 mile walk every day Has been walking better Eye Exam: Has appt coming up this month Podiatry: no problems Tobacco use - none Alcohol use - none Gets really stuffy and then coughs a lot and blows it out Takes claritin Has tried nasal sprays in the past Depression - on wellbutrin once a day right now and feels symptoms are under control PAST MEDICAL HISTORY Diagnosis Date Acute stroke due to ischemia (HCC) 05/03/2021 Atrial fibrillation (HCC) Atrial fibrillation with RVR (HCC) Essential hypertension Irregular heart beats Mitral valve prolapse Obesity, Class II, BMI 35-39.9 Stroke (HCC) Weakness status post cerebrovascular accident 05/03/2021 PAST SURGICAL HISTORY Procedure Laterality Date BREAST LUMPECTOMY HX Left 1991 spiculated COLONOSCOPY GEN ANES JOINT REPLACEMENT HX right knee replacement TOTAL KNEE REPLACEMENT Right 2020 ALLERGIES Patient has no known allergies. MEDICATIONS metFORMIN ER (GLUCOPHAGE XR) 500 mg 24 hr tabletTake 1 tablet by mouth daily with dinner.Disp: 30 tabletRfl: 2 buPROPion SR (ZYBAN SR; WELLBUTRIN SR) 150 mg 12 hr tabletTake 1 tablet by mouth twice daily.Disp: 60 tabletRfl: 2 XARELTO 20 mg tabletTAKE 1 TABLET BY MOUTH DAILY WITH dinnerDisp: 30 tabletRfl: 2 atorvastatin (LIPITOR) 40 mg tabletTAKE 1 TABLET BY MOUTH / feeding tube DAILY AT BEDTIMEDisp: 30 tabletRfl: 11 lisinopril (ZESTRIL, PRINIVIL) 10 mg tabletTake 1 tablet by mouth once daily.Disp: 30 tabletRfl: 5 dilTIAZem CD (CARDIZEM CD, CARTIA XT) 240 mg 24 hr capsuleTake 1 capsule by mouth once daily.Disp: 90 capsuleRfl: 3 aspirin, enteric coated (ASPIRIN EC) 81 mg EC tabletTake 1 tablet by mouth once daily.Disp: Rfl: acetaminophen 325 mg capTake 650 mg by mouth every 6 hours as needed for pain.Disp: Rfl: zinc sulfate (ZINC-15 ORAL)Take 1 tablet by mouth once daily.Disp: Rfl: cyanocobalamin (VITAMIN B-12) 500 mcg tabletTake 1 tablet by mouth once daily.Disp: Rfl: ascorbic acid, vitamin C, (VITAMIN C) 500 mg tabletTake 500 mg by mouth once daily.Disp: Rfl: calcium carbonate-vitamin D3 600 mg(1,500mg) -800 unit tabTake 1 tablet by mouth once daily.Disp: Rfl: Vhnznknhqgsxv-Mylklvwv-Fxdyvm (CENTRUM SILVER) tabTake 1 tablet by mouth once daily. Takes alive now Disp: Rfl: FAMILY HISTORY Problem Relation Age of Onset Hypertension Mother Hyperlipidemia Mother Dementia Mother Diabetes Father Hypertension Father Cancer Father possible/suspected Heart Attack Father 79 Muscular dystrophy Brother Social History Tobacco Use Smoking status: Never Smokeless tobacco: Never Vaping Use Vaping Use: Never used Substance Use Topics Alcohol use: Never Drug use: Never Review of Systems Constitutional: Negative for appetite change, chills, fatigue, fever and unexpected weight change. HENT: Positive for congestion, rhinorrhea and sneezing. Negative for ear pain and sore throat. Eyes: Negative for pain, discharge, itching and visual disturbance. Respiratory: Positive for cough. Negative for shortness of breath and wheezing. Cardiovascular: Negative for chest pain, palpitations and leg swelling. Gastrointestinal: Negative for abdominal pain, constipation, diarrhea, nausea and vomiting. Genitourinary: Negative for difficulty urinating. Musculoskeletal: Negative for arthralgias. Skin: Negative for rash. Neurological: Negative for dizziness, tremors, weakness and headaches. Psychiatric/Behavioral: Negative for dysphoric mood and sleep disturbance. The patient is not nervous/anxious. Objective BP 118/72 Pulse 82 Temp 36.4 ?C (97.5 ?F) Ht 167.6 cm (5' 6 ) Wt 113.9 kg (251 lb) SpO2 97% BMI 40.51 kg/m? Physical Exam Constitutional: Appearance: Normal appearance. She is well-developed. She is not diaphoretic. HENT: Head: Normocephalic and atraumatic. (more content not included)... [facility] 12-25-2022 History of Presen t illness Narrative This note was created using [employer]. Subjective Jose Velazquez is a 72 year old female here today for diabetes follow-up visit. I reviewed past medical, surgical, social, and family histories today and updated chart. Allergies, chronic medications, and supplements were also reviewed. She had a visit with the obesity/nerve specialist She is taking her metformin once a day She is drinking protein drink and fruit for breakfast and lunch She followed a partial liquid diet recommended by the strategic communications specialist. She tried it for 2 weeks and it was too hard to follow so she stopped it Not eating much Just can't lose weight Denies dizziness, chest pain, shortness of breath, changes in vision, fatigue, foot pain. Denies numbness and tingling in extremities. Denies polydipsia, polyphagia, polyuria. Home Blood Sugars: 100-110s Low Blood Sugars: None The lowest was 85 once day Diet: protein drinks Exercise: 1/4 mile walk every day Has been walking better Eye Exam: Has appt coming up this month Podiatry: no problems Tobacco use - none Alcohol use - none Gets really stuffy and then coughs a lot and blows it out Takes claritin Has tried nasal sprays in the past Depression - on wellbutrin once a day right now and feels symptoms are under control PAST MEDICAL HISTORY Diagnosis Date Acute stroke due to ischemia (HCC) 05/03/2021 Atrial fibrillation (HCC) Atrial fibrillation with RVR (HCC) Essential hypertension Irregular heart beats Mitral valve prolapse Obesity, Class II, BMI 35-39.9 Stroke (HCC) Weakness status post cerebrovascular accident 05/03/2021 PAST SURGICAL HISTORY Procedure Laterality Date BREAST LUMPECTOMY HX Left 1991 spiculated COLONOSCOPY GEN ANES JOINT REPLACEMENT HX right knee replacement TOTAL KNEE REPLACEMENT Right 2020 ALLERGIES Patient has no known allergies. MEDICATIONS metFORMIN ER (GLUCOPHAGE XR) 500 mg 24 hr tablet^Take 1 tablet by mouth daily with dinner.^Disp: 30 tablet^Rfl: 2 buPROPion SR (ZYBAN SR; WELLBUTRIN SR) 150 mg 12 hr tablet^Take 1 tablet by mouth twice daily.^Disp: 60 tablet^Rfl: 2 XARELTO 20 mg tablet^TAKE 1 TABLET BY MOUTH DAILY WITH dinner^Disp: 30 tablet^Rfl: 2 atorvastatin (LIPITOR) 40 mg tablet^TAKE 1 TABLET BY MOUTH / feeding tube DAILY AT BEDTIME^Disp: 30 tablet^Rfl: 11 lisinopril (ZESTRIL, PRINIVIL) 10 mg tablet^Take 1 tablet by mouth once daily.^Disp: 30 tablet^Rfl: 5 dilTIAZem CD (CARDIZEM CD, CARTIA XT) 240 mg 24 hr capsule^Take 1 capsule by mouth once daily.^Disp: 90 capsule^Rfl: 3 aspirin, enteric coated (ASPIRIN EC) 81 mg EC tablet^Take 1 tablet by mouth once daily.^Disp: ^Rfl: acetaminophen 325 mg cap^Take 650 mg by mouth every 6 hours as needed for pain.^Disp: ^Rfl: zinc sulfate (ZINC-15 ORAL)^Take 1 tablet by mouth once daily.^Disp: ^Rfl: cyanocobalamin (VITAMIN B-12) 500 mcg tablet^Take 1 tablet by mouth once daily.^Disp: ^Rfl: ascorbic acid, vitamin C, (VITAMIN C) 500 mg tablet^Take 500 mg by mouth once daily.^Disp: ^Rfl: calcium carbonate-vitamin D3 600 mg(1,500mg) -800 unit tab^Take 1 tablet by mouth once daily.^Disp: ^Rfl: Dmertbozhlhyq-Axghpfui-Cqvzib (CENTRUM SILVER) tab^Take 1 tablet by mouth once daily. Takes alive now ^Disp: ^Rfl: FAMILY HISTORY Problem Relation Age of Onset Hypertension Mother Hyperlipidemia Mother Dementia Mother Diabetes Father Hypertension Father Cancer Father possible/suspected Heart Attack Father 79 Muscular dystrophy Brother Social History Tobacco Use Smoking status: Never Smokeless tobacco: Never Vaping Use Vaping Use: Never used Substance Use Topics Alcohol use: Never Drug use: Never Review of Systems Constitutional: Negative for appetite change, chills, fatigue, fever and unexpected weight change. HENT: Positive for congestion, rhinorrhea and sneezing. Negative for ear pain and sore throat. Eyes: Negative for pain, discharge, itching and visual disturbance. Respiratory: Positive for cough. Negative for shortness of breath and wheezing. Cardiovascular: Negative for chest pain, palpitations and leg swelling. Gastrointestinal: Negative for abdominal pain, constipation, diarrhea, nausea and vomiting. Genitourinary: Negative for difficulty urinating. Musculoskeletal: Negative for arthralgias. Skin: Negative for rash. Neurological: Negative for dizziness, tremors, weakness and headaches. Psychiatric/Behavioral: Negative for dysphoric mood and sleep disturbance. The patient is not nervous/anxious. Objective BP 118/72 Pulse 82 Temp 36.4 C (97.5 F) Ht 167.6 cm (5' 6 ) Wt 113.9 kg (251 lb) SpO2 97% BMI 40.51 kg/m Physical Exam Constitutional: Appearance: Normal appearance. She is well-developed. She is not diaphoretic. HENT: Head: Normocephalic and atraumatic. Right Ear: Hearing, tympanic membrane, ear canal and external ear normal. Left Ear: Hearing, tympanic membrane, ear canal and external ear normal. Nose: Nose normal. Mouth/Throat: Lips: [place]. Mouth: Mucous membranes are moist. Pharynx: Oropharynx is clear. Posterior oropharyngeal erythema present. Eyes: General: Lids are normal. Extraocular Movements: Extraocular movements intact. Conjunctiva/sclera: Conjunctivae normal. Pupils: Pupils are equal, round, and reactive to light. Neck: Thyroid: No thyroid mass or thyromegaly. Vascular: Normal carotid pulses. No carotid bruit. Cardiovascular: Rate and Rhythm: Normal rate. Rhythm irregular. Pulses: Radial pulses are 2+ on the right side and 2+ on the left side. Dorsalis pedis pulses are 2+ on the right side and 2+ on the left side. Posterior tibial pulses are 2+ on the right side and 2+ on the left side. Heart sounds: Normal heart sounds. No murmur heard. Pulmonary: Effort: Pulmonary effort is normal. Breath sounds: Normal breath sounds. No wheezing, rhonchi or rales. Abdominal: General: Bowel sounds are normal. Palpations: Abdomen is soft. Tenderness: There is no abdominal tenderness. Musculoskeletal: General: Normal range of motion. Cervical back: Normal range of motion. Lymphadenopathy: Cervical: No cervical adenopathy. Upper Body: Right upper body: No supraclavicular adenopathy. Left upper body: No supraclavicular adenopathy. Skin: General: Skin is warm and dry. Findings: No lesion or rash. Neurological: General: No focal deficit present. Mental Status: She is alert and oriented to person, place, and time. Cranial Nerves: No cranial nerve deficit. Sensory: Sensation is intact. Motor: Motor function is intact. Coordination: Coordination is intact. Gait: Gait normal. Psychiatric: Attention and Perception: Attention and perception normal. Mood and Affect: Mood and affect normal. Speech: Speech normal. Behavior: Behavior normal. Behavior is cooperative. Cognition and Memory: Cognition and memory normal. Judgment: Judgment normal. Feet:Shoes and socks removed, Are you having foot pain no, normal distal pulses, sensitive to 10 gm monofilament, vibratory perception normal, and Bilateral hallux valgus Component Latest Ref Rng & Units 07/25/2022 10/30/2022 Glucose 74 - 99 mg/dL 148 (H) BUN 7 - 21 mg/dL 17 Creatinine 0.58 - 0.96 mg/dL 0.94 Sodium 136 - 144 mmol/L 139 Potassium 3.7 - 5.1 mmol/L 4.6 Chloride 97 - 105 mmol/L 103 CO2 22 - 30 mmol/L 24 Anion Gap 9 - 18 mmol/L 12 Calcium 8.5 - 10.2 mg/dL 10.1 eGFR >=60 mL/min/1.73m 65 WBC 3.70 - 11.00 k/uL 9.50 RBC 3.90 - 5.20 m/uL 4.45 Hemoglobin 11.5 - 15.5 g/dL 13.4 Hematocrit 36.0 - 46.0 % 41.4 MCV 80.0 - 100.0 fL 93.0 MCH 26.0 - 34.0 pg 30.1 MCHC 30.5 - 36.0 g/dL 32.4 RDW-CV 11.5 - 15.0 % 14.9 Platelet Count 150 - 400 k/uL 189 MPV 9.0 - 12.7 fL 13.1 (H) Cholesterol, Total <200 mg/dL 169 Triglyceride <150 mg/dL 85 HDL Cholesterol >39 mg/dL 82 Non HDL Cholesterol <130 mg/dL 87 Fasting Time hrs 16 VLDL Cholesterol <30 mg/dL 17 TC:HDL Ratio <5.10 2.06 LDL Cholesterol <100 mg/dL 70 LDL:HDL Ratio <2.54 0.85 Hemoglobin A1C 4.3 - 5.6 % 6.5 (H) Estimated Average Glucose mg/dL 140 Hemoglobin A1C (POCT) 4.2 - 5.6 % 6.4 ASSESSMENT/PLAN: 1. Diet-controlled type 2 diabetes mellitus (HCC) - ICD9: 250.00, ICD10: E11.9 (primary diagnosis) - Controlled - Blood glucose monitoring on a once daily schedule - Follow up in 6 months, sooner should any other issues arise. - COMP METABOLIC PANEL - LIPID PANEL BASIC - HGB A1C 2. Hypertension, unspecified type - ICD9: 401.9, ICD10: I10 - good control - Continue current medication(s) - Recommended regular aerobic exercise. - Recommend home blood pressure monitoring, to bring results in on next visit - Goal of BP <130/80 3. Mild episode of recurrent major depressive disorder (HCC) - ICD9: 296.31, ICD10: F33.0 Stable on Wellbutrin 150 mg once a day 4. Obesity, Class III, BMI 40-49.9 (morbid obesity) (HCC) - ICD9: 278.01, ICD10: E66.01 Patient does not wish to continue care with Dr. Russell Pham, she defers another referral to obesity medicine Recommending she continue her metformin 500 mg daily 5. Atrial fibrillation with RVR (HCC) - ICD9: 427.31, ICD10: I48.91 Stable on current medications Continue care with cardiology Dr Moore She is due for a colonoscopy, has a history of colon polyps. She usually sees Dr. Larios she is considering seeing someone else because she does not like the colon prep. I offered her a referral today to Dr. Pak, she would like to hold off for now Ethel Berg APRN.[employer] documented in this encounter [facility] 11-08-[address] - 11/08/2022 2:04 PM EST 1. Follow partial liquid protein diet; have a nutrition drink 250-300 calories and 10-15 grams protein for breakfast and lunch and a fresh fruit with breakfast and lunch. 2. Have healthy balance dinner of 4 oz lean protein, 2 whole grain starches such as brown rice, whole grain pasta, beans/lesgumes; vegetables as desired and one fresh fruit; add one 100 scott snack, look for protein and fiber. 2. Keep protein lean, 93% lean ground beef, chicken, turkey, fish. Bake broil roast and grill 4. Try a whey protein shake mixed with skim milk or 1% milk 5. Non starchy vegetables unlimited 6. Calorie free beverages only such as Crystal Light , flavored water, [id number] , Minute Maid light lemonade, Propel ) 5. Increase exercise to at least 30 min cardio 5 days per week or as tolerated; add in weight resistance exercise, preferably 2-3 days per week (start with 10-15 min and increase as tolerated) documented in this encounter [facility] 11-08-2022 History of Presen t illness Narrative Nutrition Therapy Initial Assessment Nutrition Diagnosis: Overweight/obesity, related to, excess energy intake and physical inactivity, as evidenced by BMI above normative standard for age and gender. RECOMMENDED MALNUTRITION DIAGNOSIS: NO MALNUTRITION IDENTIFIED NUTRITION CARE PLAN Nutrition Intervention 11/08/2022: modify type and amount of food or beverage 1. Follow partial liquid protein diet; have a nutrition drink 250-300 calories and 10-15 grams protein for breakfast and lunch and a fresh fruit with breakfast and lunch. 2. Have healthy balance dinner of 4 oz lean protein, 2 whole grain starches such as brown rice, whole grain pasta, beans/lesgumes; vegetables as desired and one fresh fruit; add one 100 scott snack, look for protein and fiber. 2. Keep protein lean, 93% lean ground beef, chicken, turkey, fish. Bake broil roast and grill 4. Try a whey protein shake mixed with skim milk or 1% milk 5. Non starchy vegetables unlimited 6. Calorie free beverages only such as Crystal Light , flavored water, [id number] , Minute Maid light lemonade, Propel ) 5. Increase exercise to at least 30 min cardio 5 days per week or as tolerated; add in weight resistance exercise, preferably 2-3 days per week (start with 10-15 min and increase as tolerated) Nutrition Monitoring & Evaluation: half to one pound weight loss per week Need for Follow up: 1 month Patient presents for initial MNT as relates to class 3 obesity, other medical issues DM diet controlled, HTN, GERD . Had success in the past lost signficant weight with diet and exercise, following very low calorie diett of approx 500 calories. Highest weight 285 about 30 years ago, lowest adult weight 155 with goal of 190 lbs. Has gained recently after ischemic stroke and s/p knee replacement. Is very frustrated with weight gain and limited capacity for activity . 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 Current intake low in calories and protein, including exercise of low exertion. 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 Resting Metabolic Rate: 1676 Malnutrition Screening Significant unintentional weight loss? No Eating less than 75% of usual intake for more than 2 weeks? No Potential Signs of Inflammation: no identifiable sources Education Materials Provided: [id number] Calorie Partial Liquid Protein Diet READINESS TO LEARN Cognitive ability: Alert and oriented Motivation to learn: Interested Family support: Unable to assess - Family not present Instruction provided to: Patient Patient learns best by: Individual Instruction Factors affecting learning: None Physical limitations affecting learning: None Referred/Supervised by: Russell Pham/Yamileth BRANDT Billing Type: Initial Assess/15 min 3 units SIGNATURE: Gabrielle Manuel RD PATIENT NAME: Jose Velazquez DATE: November 08, 2022 TIME: 1:35 PM documented in this encounter [facility] 10-30-2022 Instructions Francie Pham MD - 10/30/2022 2:32 PM EST Avoid drinking the calories 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 WEIGHT MANAGEMENT CONSULT SERVICE DATE: October 30, 2022 SUBJECTIVE: Jose Velazquez is a 72 year old female who presents for medical evaluation of Non-Surgical Metabolic Weight Management . I am seeing this patient in consultation as per referral by Dr. Ethel Berg, VISHNU.[employer] . Documentation supporting sharing your findings and recommendations via the shared medical record or via the mail. 72 year old female with PMH of obesity, Type 2 DM, ischemic stroke, dysarthria, Afib, GERD is here for evaluation of obesity and associated medical problems. Weight History: Issues at onset of weight gain: Has had weight issues since childhood. Family are professional bakers. History of comfort eating. Was very active rolling skating and was able to lose weight. Had stroke 2020 and since then has had decreased physical activity. Has diet controlled diabetes mellitus. She tried metformin in the past and asked her provider to stop the medication. Current weight: 254 pounds Patient's Goal: 180 pounds Compelling reason health, knees Weight Loss Attempts: Caloric restriction, roller skating Steroid/medications which may contribute to obesity: none DIET: Breakfast: slice of toast and coffee with cream and sugar Lunch: can skip, can have soup or another piece of toast, potato chips or pretzels Dinner: spaghetti, chicken, fish, last night was leftovers french food Patient usually drinks water, pop , coffee . Alcohol: none PHYSICAL ACTIVITY: Limited due to history of stroke and knee pain. SLEEP HABITS: goes to bed ~11 PM and wakes up ~7 AM Patient Entered Data PROMIS 10 05/02/2021 10/30/2021 In general, would you say your health is: Very good Fair In general, would you say your quality of life is: Fair Fair In general, how would you rate your physical health? Good Fair In general, how would you rate your mental health, including your mood and your ability to think? Very good Fair In general, how would you rate your satisfaction with your social activities and relationships? Fair Fair To what extent are you able to carry out your everyday physical activities such as walking, climbing stairs, carrying groceries, or moving a chair? A little A little In general, please rate how well you carry out your usual social activities and roles. (This includes activities at home, at work and in your community, and responsibilities as a parent, child, spouse, employee, friend, etc.) Poor Fair How would you rate your pain on average? 3 5 How would you rate your fatigue on average? Mild Moderate How often have you been bothered by emotional problems such as feeling anxious, depressed or irritable? Rarely Often PROMIS Adult Short Form-Global Health Score (Physical) 42.3 (Good) 34.9 (Poor) PROMIS Adult Short Form-Global Health Score (Mental) 43.5 (Good) 33.8 (Fair) ALLERGIES: ALLERGIES No Known Allergies CURRENT MEDICATIONS: buPROPion SR (ZYBAN SR; WELLBUTRIN SR) 150 mg 12 hr tablet^Take 1 tablet by mouth twice daily.^Disp: 60 tablet^Rfl: 2 XARELTO 20 mg tablet^TAKE 1 TABLET BY MOUTH DAILY WITH dinner^Disp: 30 tablet^Rfl: 2 atorvastatin (LIPITOR) 40 mg tablet^TAKE 1 TABLET BY MOUTH / feeding tube DAILY AT BEDTIME^Disp: 30 tablet^Rfl: 11 lisinopril (ZESTRIL, PRINIVIL) 10 mg tablet^Take 1 tablet by mouth once daily.^Disp: 30 tablet^Rfl: 5 dilTIAZem CD (CARDIZEM CD, CARTIA XT) 240 mg 24 hr capsule^Take 1 capsule by mouth once daily.^Disp: 90 capsule^Rfl: 3 aspirin, enteric coated (ASPIRIN EC) 81 mg EC tablet^Take 1 tablet by mouth once daily.^Disp: ^Rfl: zinc sulfate (ZINC-15 ORAL)^Take 1 tablet by mouth once daily.^Disp: ^Rfl: cyanocobalamin (VITAMIN B-12) 500 mcg tablet^Take 1 tablet by mouth once daily.^Disp: ^Rfl: ascorbic acid, vitamin C, (VITAMIN C) 500 mg tablet^Take 500 mg by mouth once daily.^Disp: ^Rfl: calcium carbonate-vitamin D3 600 mg(1,500mg) -800 unit tab^Take 1 tablet by mouth once daily.^Disp: ^Rfl: Lffqcovecfpoa-Loygglzg-Zrtqrv (CENTRUM SILVER) tab^Take 1 tablet by mouth once daily. Takes alive now ^Disp: ^Rfl: acetaminophen 325 mg cap^Take 650 mg by mouth every 6 hours as needed for pain.^Disp: ^Rfl: PAST MEDICAL HISTORY: PAST MEDICAL HISTORY Diagnosis Date Acute stroke due to ischemia (HCC) 05/03/2021 Atrial fibrillation (HCC) Atrial fibrillation with RVR (HCC) Essential hypertension Irregular heart beats Mitral valve prolapse Obesity, Class II, BMI 35-39.9 Stroke (HCC) Weakness status post cerebrovascular accident 05/03/2021 PAST SURGICAL HISTORY: PAST SURGICAL HISTORY Procedure Laterality Date BREAST LUMPECTOMY HX Left 1991 spiculated COLONOSCOPY GEN ANES JOINT REPLACEMENT HX right knee replacement TOTAL KNEE REPLACEMENT Right 2020 FAMILY HISTORY: FAMILY HISTORY Problem Relation Age of Onset Hypertension Mother Hyperlipidemia Mother Dementia Mother Diabetes Father Hypertension Father Cancer Father possible/suspected Heart Attack Father 79 Muscular dystrophy Brother SOCIAL HISTORY: Social History Tobacco Use Smoking status: Never Smokeless tobacco: Never Vaping Use Vaping Use: Never used Substance Use Topics Alcohol use: Never Drug use: Never REVIEW OF SYSTEMS: GENERAL: No weight loss, malaise or fevers HEENT: Negative for frequent or significant headaches, No changes in hearing or vision, no nose bleeds or other nasal problems NECK: Negative for lumps, goiter, pain and significant neck swelling RESPIRATORY: Negative for cough, hemoptysis, wheezing, COPD, dyspnea or shortness of breath CARDIOVASCULAR: afib GI: No nausea, vomiting, or diarrhea : No history of dysuria, frequency or incontinence MUSCULOSKELETAL: knee pain SKIN: Negative for lesions, rash, and itching HEMATOLOGY/LYMPHOLOGY: Negative for prolonged bleeding, bruising easily or swollen nodes ENDOCRINE: Negative for cold or heat intolerance, polyuria, polydipsia and goiter NEURO: s/p stroke PHYSICAL EXAM: BP 133/75 Pulse 107 Resp 16 Ht 167.6 cm (5' 6 ) Wt 115.2 kg (254 lb) SpO2 97% BMI 41.00 kg/m GENERAL: Well nourished, well hydrated, in no distress, and oriented x 3 EYES: no thyroid eye signs and normal conjunctiva NECK: no visible nodules or goiter, no bruit, no tenderness, and no adenopathies THYROID: smooth, non-tender, 15 gram, firm, and No palpable nodules Heart irregular Lungs clear to auscultation EXTREMITIES: No clubbing, no edema, no cyanosis, and normal nails NEURO: no tremor LABS: Component Latest Ref Rng & Units 09/11/2021 10/30/2021 01/29/2022 07/25/2022 10/30/2022 Protein, Total 6.3 - 8.0 g/dL 6.6 Albumin 3.9 - 4.9 g/dL 3.3 (L) Calcium 8.5 - 10.2 mg/dL 9.4 10.1 Bilirubin, Total 0.2 - 1.3 mg/dL 0.5 Alkaline Phosphatase 34 - 123 U/L 98 AST 13 - 35 U/L 12 (L) Glucose 74 - 99 mg/dL 116 (H) 148 (H) BUN 7 - 21 mg/dL 8 17 Creatinine 0.58 - 0.96 mg/dL 0.65 0.94 Sodium 136 - 144 mmol/L 140 139 Potassium 3.7 - 5.1 mmol/L 3.9 4.6 Chloride 97 - 105 mmol/L 106 (H) 103 CO2 22 - 30 mmol/L 24 24 Anion Gap 9 - 18 mmol/L 10 12 ALT 7 - 38 U/L 12 eGFR- >60 eGFR-All Other Races . >60 eGFR >=60 mL/min/1.73m 65 Cholesterol, Total <200 mg/dL 169 Triglyceride <150 mg/dL 85 HDL Cholesterol >39 mg/dL 82 Non HDL Cholesterol <130 mg/dL 87 Fasting Time hrs 16 VLDL Cholesterol <30 mg/dL 17 TC:HDL Ratio <5.10 2.06 LDL Cholesterol <100 mg/dL 70 LDL:HDL Ratio <2.54 0.85 Creatinine, Ur Random (UCRR) 42.2 - 237.9 mg/dL 210.6 Albumin, Urine Random mg/L 18.2 Albumin/Creat Ratio <30 mg/g 9 Hemoglobin A1C 4.3 - 5.6 % 6.6 (A) 6.5 (H) Estimated Average Glucose mg/dL 140 Magnesium 1.7 - 2.3 mg/dL 1.8 Hemoglobin A1C (POCT) 4.2 - 5.6 % 6.7 (A) 6.6 (A) 6.4 TSH 0.270 - 4.200 uU/mL 1.300 Glucose, Point of Care 74 - 99 mg/dL 133 (A) IMPRESSION AND PLAN: ASSESSMENT/PLAN: 1. 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 Diet-controlled type 2 diabetes mellitus (HCC) - ICD9: 250.00, ICD10: E11.9 Controlled. - Start Metformin 500 mg with dinner - CONSULT TO NUTRITION THERAPY - CONSULT WEIGHT MANAGEMENT FITNESS PROGRAM - METFORMIN ER 500 MG TABLET,EXTENDED RELEASE 24 HR Francie Pham MD documented in this encounter [facility] 10-23-2022 Miscellaneous Notes Was d/c on 08/28/2022 documented in this encounter [facility] 09-25-2022 Miscellaneous Notes Pharm requesting refills: Last office visit today . Last refill atorvastatin last filled 05/02/2022 carvedilol has been discontinued. Denied rx Requested Prescriptions Pending Prescriptions Disp Refills carvedilol (COREG) 6.25 mg tablet [Pharmacy Med Name: carvedilol 6.25 mg tablet] 60 tablet 2 Sig: TAKE 1 TABLET BY MOUTH TWICE DAILY WITH MEALS atorvastatin (LIPITOR) 40 mg tablet [Pharmacy Med Name: atorvastatin 40 mg tablet] 30 tablet 2 Sig: TAKE 1 TABLET BY MOUTH / feeding tube DAILY AT BEDTIME Please review and advise. Nicolette Cardenas MA documented in this encounter [facility] 09-25-2022 History of Presen t illness Narrative This note was created using [employer]. Subjective Jose Velazquez is a 72 year old female here today for hypertension follow-up visit. I reviewed past medical, surgical, social, and family histories today and updated chart. Allergies, chronic medications, and supplements were also reviewed. Feeling well today overall. Denies chest pains, palpitations, headache, dizziness, leg swelling, and vision changes. Diet - Follows a diabetic diet for the most part, doesn't eat very much Unable to exercise due to loss of balance Tobacco use - Never Alcohol use - none Home blood pressure readings - 108/75, 120/83, 119/88, 103/72, 104/73, 95/71, 120/72, 112/90, 97/73 Depression - started wellbutrin. She is taking one pill per day, not two Its a hard time of year PAST MEDICAL HISTORY Diagnosis Date Acute stroke due to ischemia (HCC) 05/03/2021 Atrial fibrillation (HCC) Atrial fibrillation with RVR (HCC) Essential hypertension Irregular heart beats Mitral valve prolapse Obesity, Class II, BMI 35-39.9 Stroke (HCC) Weakness status post cerebrovascular accident 05/03/2021 PAST SURGICAL HISTORY Procedure Laterality Date BREAST LUMPECTOMY HX Left 1991 spiculated COLONOSCOPY GEN ANES JOINT REPLACEMENT HX right knee replacement TOTAL KNEE REPLACEMENT Right 2020 ALLERGIES Patient has no known allergies. MEDICATIONS buPROPion SR (WELLBUTRIN SR) 150 mg 12 hr tablet^Take 1 tablet by mouth twice daily.^Disp: 60 tablet^Rfl: 2 XARELTO 20 mg tablet^TAKE 1 TABLET BY MOUTH DAILY WITH dinner^Disp: 30 tablet^Rfl: 2 atorvastatin (LIPITOR) 40 mg tablet^1 tablet by ORAL/FEEDING TUBE route daily at bedtime.^Disp: 30 tablet^Rfl: 2 dilTIAZem CD (CARDIZEM CD, CARTIA XT) 240 mg 24 hr capsule^Take 1 capsule by mouth once daily.^Disp: 90 capsule^Rfl: 3 aspirin, enteric coated (ASPIRIN EC) 81 mg EC tablet^Take 1 tablet by mouth once daily.^Disp: ^Rfl: acetaminophen 325 mg cap^Take 650 mg by mouth every 6 hours as needed for pain.^Disp: ^Rfl: zinc sulfate (ZINC-15 ORAL)^Take 1 tablet by mouth once daily.^Disp: ^Rfl: cyanocobalamin (VITAMIN B-12) 500 mcg tablet^Take 1 tablet by mouth once daily.^Disp: ^Rfl: ascorbic acid, vitamin C, (VITAMIN C) 500 mg tablet^Take 500 mg by mouth once daily.^Disp: ^Rfl: calcium carbonate-vitamin D3 600 mg(1,500mg) -800 unit tab^Take 1 tablet by mouth once daily.^Disp: ^Rfl: Vfnyhiojucfiy-Iaenqahw-Cywmzc (CENTRUM SILVER) tab^Take 1 tablet by mouth once daily. Takes alive now ^Disp: ^Rfl: carvedilol (COREG) 6.25 mg tablet^^Disp: ^Rfl: (Patient not taking: Reported on 09/25/2022) lisinopril (ZESTRIL, PRINIVIL) 10 mg tablet^TAKE 1 TABLET BY MOUTH ONCE DAILY^Disp: 30 tablet^Rfl: 2 FAMILY HISTORY Problem Relation Age of Onset Hypertension Mother Hyperlipidemia Mother Dementia Mother Diabetes Father Hypertension Father Cancer Father possible/suspected Heart Attack Father 79 Muscular dystrophy Brother Social History Tobacco Use Smoking status: Never Smokeless tobacco: Never Vaping Use Vaping Use: Never used Substance Use Topics Alcohol use: Never Drug use: Never Review of Systems Constitutional: Negative for appetite change, chills, fatigue, fever and unexpected weight change. HENT: Negative for congestion, ear pain, rhinorrhea and sore throat. Eyes: Negative for pain, discharge, itching and visual disturbance. Respiratory: Negative for cough, shortness of breath and wheezing. Cardiovascular: Negative for chest pain, palpitations and leg swelling. Gastrointestinal: Negative for abdominal pain, constipation, diarrhea, nausea and vomiting. Genitourinary: Negative for difficulty urinating. Skin: Negative for rash. Neurological: Negative for dizziness, tremors, weakness and headaches. Psychiatric/Behavioral: Positive for dysphoric mood. Negative for sleep disturbance. The patient is not nervous/anxious. Objective BP 116/78 Pulse 65 Temp 36.7 C (98.1 F) Ht 172.7 cm (5' 8 ) Wt 113.9 kg (251 lb) SpO2 99% BMI 38.16 kg/m Physical Exam Constitutional: Appearance: Normal appearance. She is well-developed. She is not diaphoretic. HENT: Head: Normocephalic and atraumatic. Right Ear: Hearing, tympanic membrane, ear canal and external ear normal. Left Ear: Hearing, tympanic membrane, ear canal and external ear normal. Nose: Nose normal. Mouth/Throat: Lips: [place]. Mouth: Mucous membranes are moist. Pharynx: Oropharynx is clear. Eyes: General: Lids are normal. Conjunctiva/sclera: Conjunctivae normal. Pupils: Pupils are equal, round, and reactive to light. Cardiovascular: Rate and Rhythm: Normal rate. Rhythm irregular. Pulses: Carotid pulses are 2+ on the right side and 2+ on the left side. Radial pulses are 2+ on the right side and 2+ on the left side. Heart sounds: Normal heart sounds. No murmur heard. Pulmonary: Effort: Pulmonary effort is normal. Breath sounds: Normal breath sounds. No wheezing, rhonchi or rales. Abdominal: General: Bowel sounds are normal. Palpations: Abdomen is soft. Tenderness: There is no abdominal tenderness. Musculoskeletal: General: Normal range of motion. Cervical back: Normal range of motion and neck supple. Right lower leg: No edema. Left lower leg: No edema. Lymphadenopathy: Cervical: No cervical adenopathy. Skin: General: Skin is warm and dry. Findings: No rash. Neurological: General: No focal deficit present. Mental Status: She is alert and oriented to person, place, and time. Cranial Nerves: No cranial nerve deficit. Sensory: Sensation is intact. Motor: Motor function is intact. Coordination: Coordination is intact. Gait: Gait is intact. Psychiatric: Attention and Perception: Attention and perception normal. Mood and Affect: Mood is depressed. Affect is tearful. Speech: Speech normal. Behavior: Behavior normal. Behavior is cooperative. Thought Content: Thought content normal. Judgment: Judgment normal. ASSESSMENT/PLAN: 1. Diet-controlled type 2 diabetes mellitus (HCC) - ICD9: 250.00, ICD10: E11.9 (primary diagnosis) Patient does not want to take diabetic medications - CONSULT TO ENDOCRINOLOGY 2. Obesity, Class II, BMI 35-39.9 - ICD9: 278.00, ICD10: E66.9 Referral placed to endocrinology/weight waste management specialist - CONSULT TO ENDOCRINOLOGY 3. Hypertension, unspecified type - ICD9: 401.9, ICD10: I10 Stable on current medications - diltiazem 240 mg daily, lisinopril 10 mg daily Continue care with cardiology Dr. Moore 4. Mild episode of recurrent major depressive disorder (HCC) - ICD9: 296.31, ICD10: F33.0 Continue wellbutrin 150 mg BID FU 3 months Ethel Berg APRN.[employer] documented in this encounter [facility] 09-12-2022 Miscellaneous Notes Ms Velazquez returned our call and was given results and Dr Moore's recommendation. I went over proper blood pressure technique and she will monitor her B/P at home and call in 7 to 10 days with results. Nica Dillard LPN Voicemail msg left for pt to return call to [facility] to review test results and recommendation. Office phone number provided. Liliya Brantley LPN ----- Message from Yair Moore MD sent at 09/11/2022 11:03 PM EST ----- Normal LVEF 56%. Normal LV size, but she does have some LVH. Continue antihypertensive therapy. Goal BP<130/80 mm Hg documented in this encounter [facility] 08-30-2022 Instructions Yair Moore MD - 08/30/2022 11:33 AM EST Atrial Fibrillation What is atrial fibrillation? Atrial fibrillation (also called A-fib) is a fast or irregular heartbeat that starts in the upper chambers of the heart. The abnormal heartbeat affects the ability of the heart to pump blood to the rest of the body. What is the cause? An electrical signal in your heart starts each heartbeat, causing the heart muscle to squeeze (contract). Normally, this signal starts in the upper right chamber of the heart (the right atrium) at a place called the sinus node. The signal then follows normal pathways to the upper left atrium and to the lower chambers of the heart (the ventricles). When you have atrial fibrillation, electrical signals don t start in the normal place in the right atrium and don t travel normally. This can cause the upper chambers of the heart (atria) to beat very fast and not in a normal pattern. Common causes of heart rhythm problems are conditions that damage the heart, like coronary artery disease, heart attack, or heart failure. Problems with the heart valves are another common cause. The heart has 4 valves that open and close with each heartbeat to help blood flow in the right direction through the heart. Other causes of atrial fibrillation include: Health problems, such as a stroke, lung disease, diabetes, overactive thyroid gland, or high blood pressure Abuse of alcohol or drugs, such as cocaine Sometimes no cause can be found. What are the symptoms? Some people don t have any symptoms. When atrial fibrillation does cause symptoms, the most common ones are: Feeling like your heart is beating too fast or too hard or skipping beats or fluttering Feeling tired or weak all the time Symptoms that are more serious include: Chest pain Trouble breathing Lightheadedness or dizziness Confusion How is it diagnosed? Your healthcare provider will ask about your symptoms and medical history and examine you. Tests may include: An ECG (also called an EKG), which measures and records your heartbeat. You may have an ECG while you are resting or while you exercise on a treadmill. You may also be asked to wear a small portable ECG monitor for a few days or sometimes a couple weeks. Blood tests An echocardiogram, which uses sound waves (ultrasound) to show the structures of the heart, like the valves How is it treated? The goal of treatment is to help the heart keep a normal rhythm. Your treatment depends on the cause of the atrial fibrillation, how often you have symptoms, and the severity of your symptoms. If you have no symptoms, or your symptoms are fairly mild, you may not need treatment. For some people atrial fibrillation lasts just a short time and the heart goes back to a normal rhythm on its own. If you keep having spells of atrial fibrillation, treatment may help keep you from having so many spells. If a health problem like a leaky heart valve is causing the atrial fibrillation, treating the health problem may also treat the fast or irregular heartbeat. Other possible treatments are: Medicine: Your provider may prescribe medicine to slow or restore a normal heart rate and rhythm. You may also need medicine to prevent blood clots because when the heart beats irregularly, some of the blood can stay in the upper chambers too long. This makes it easier for blood clots to form, increasing your risk of having a stroke or heart attack. Electrical cardioversion: First, you will be given medicine called anesthesia to keep you from feeling pain during the procedure. Then your chest will be given an electrical shock. The electrical shock should make your heart start beating normally again. You may need medicine to keep your heart rhythm normal after this procedure. Ablation: Ablation is a procedure that uses a small tube called a catheter to deliver energy to the inside of the heart. The energy (usually radio waves) scars small areas of heart tissue. The scars block abnormal electrical pathways and help you have a normal heart rhythm. With some types of ablation treatment, you will also need a pacemaker. A pacemaker is an electronic device put under the skin of your chest to help control the heartbeat. How can I take care of myself? Take your medicines as prescribed. Keep your appointments for follow-up blood tests. Make sure your healthcare provider knows about changes in your diet or medical condition. Your provider also needs to know about all prescription and nonprescription medicines, herbs, or supplements that you are taking. Some medicines may interact with your heart medicine or increase your risk for atrial fibrillation. If you want to drink alcohol, ask your provider how much is safe for you to drink. Follow your healthcare provider's instructions. Ask your provider: ?How and when you will hear your test results ?How long it will take to recover ?What activities you should avoid and when you can return to your normal activities ?How to take care of yourself at home ?What symptoms or problems you should watch for and what to do if you have them Make sure you know when you should come back for a checkup. How can I help prevent atrial fibrillation? The best prevention is to have a heart-healthy lifestyle. Keep a healthy weight. Eat a healthy diet that is low in sodium and saturated and trans fat. Stay fit with the right kind of exercise for you. Decrease stress. Don t smoke. Limit your use of alcohol. If you have heart disease or high blood pressure, follow your healthcare provider's instructions for treatment. Developed by [employer]. Published by [employer]. Copyright 2014 [employer] and/or one of its subsidiaries. All rights reserved. documented in this encounter [facility] 08-30-2022 History of Presen t illness Narrative PRIMARY CARE PHYSICIAN: Yamila Rutherford [address] [place] [id number] REFERRING PHYSICIAN: SELF CHIEF COMPLAINT: Patient presents with: Follow Up: 9 month f/u. No issues HPI: Mrs Velazquez has a history of hypertension. She suffered an ischemic stroke in 04/10. She developed left sided weakness, with dysarthria. [facility] with these symptoms, and underwent an MRI of her brain, which revealed an acute lacunar infarction involving the left internal capsule. She was evaluated by Intra[facility], and was discharged on aspirin, Lipitor, lisinopril. She subsequently saw Dr. Rutherford, and was found to have an irregular heartbeat on physical examination. She underwent a 48-hour Holter monitor in 05/10, the results revealed that she was in atrial fibrillation with heart rates between 79 to 184 bpm. Her average heart rate was 109 bpm. She did have some ventricular ectopics as well. Her symptoms correlated with atrial fibrillation. She was subsequently started on Cardizem CD, along with Eliquis. Today, she denied feeling any chest discomfort, palpitations. She has some occasional shortness of breath, along with some occasional dizziness when she stands up abruptly from a sitting position. 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 On her echocardiogram from March 2021, she was not found to have any mitral valve prolapse. Her LV ejection fraction was normal at 63%. Her right ventricle was normal in size, systolic function. There was no evidence of intracardiac shunting. She had no valvular vegetations/fibroelastomas. A repeat echo in 09/10 revealed normal biventricular I had initially started her on Eliquis for oral anticoagulation. Her insurance required her Eliquis to be switched to Xarelto. She underwent right knee replacement in 08/[address] Membreno. This was uneventful. She returns for a follow up visit today. Since she last saw me, she has had some issues with depression. She mentioned that she is not able to do quite a few things she enjoyed, since she had a stroke (singing, walking briskly). She denies any palpitations, and she has not had any chest pains, shortness of breath, lightheadedness, dizziness, or loss of consciousness. Her LDL was at goal based on her lipid panel from 08/11 i.e. 70 mg%. She did have some questions about left ventricular dilatation. I reviewed her echocardiogram from 09/10 with her in detail, and explained that her left ventricle was normal in size based on that echocardiogram. On her prior echocardiogram from 04/10, her left ventricle was also normal in size, although mild left ventricular hypertrophy was commented upon on this echocardiogram. There was no mention of left ventricular hypertrophy on her echocardiogram from 09/10. I explained that medications for atrial fibrillation, including carvedilol in the past, lisinopril may have helped regress her left ventricular hypertrophy. PAST MEDICAL HISTORY Diagnosis Date Acute stroke due to ischemia (HCC) 05/03/2021 Atrial fibrillation (HCC) Atrial fibrillation with RVR (HCC) Essential hypertension Irregular heart beats Mitral valve prolapse Obesity, Class II, BMI 35-39.9 Stroke (HCC) Weakness status post cerebrovascular accident 05/03/2021 PAST SURGICAL HISTORY Procedure Laterality Date BREAST LUMPECTOMY HX Left 1991 spiculated COLONOSCOPY GEN ANES JOINT REPLACEMENT HX right knee replacement TOTAL KNEE REPLACEMENT Right 2020 SOCIAL HISTORY Social History Tobacco Use Smoking status: Never Smokeless tobacco: Never Vaping Use Vaping Use: Never used Substance Use Topics Alcohol use: Never Drug use: Never FAMILY HISTORY Problem Relation Age of Onset Hypertension Mother Hyperlipidemia Mother Dementia Mother Diabetes Father Hypertension Father Cancer Father possible/suspected Heart Attack Father 79 Muscular dystrophy Brother ALLERGIES: ALLERGIES No Known Allergies MEDICATIONS: buPROPion SR (WELLBUTRIN SR) 150 mg 12 hr tablet Take 1 tablet by mouth twice daily. XARELTO 20 mg tablet TAKE 1 TABLET BY MOUTH DAILY WITH dinner lisinopril (ZESTRIL, PRINIVIL) 10 mg tablet TAKE 1 TABLET BY MOUTH ONCE DAILY atorvastatin (LIPITOR) 40 mg tablet 1 tablet by ORAL/FEEDING TUBE route daily at bedtime. dilTIAZem CD (CARDIZEM CD, CARTIA XT) 240 mg 24 hr capsule Take 1 capsule by mouth once daily. aspirin, enteric coated (ASPIRIN EC) 81 mg EC tablet Take 1 tablet by mouth once daily. acetaminophen 325 mg cap Take 650 mg by mouth every 6 hours as needed for pain. zinc sulfate (ZINC-15 ORAL) Take 1 tablet by mouth once daily. cyanocobalamin (VITAMIN B-12) 500 mcg tablet Take 1 tablet by mouth once daily. ascorbic acid, vitamin C, (VITAMIN C) 500 mg tablet Take 500 mg by mouth once daily. calcium carbonate-vitamin D3 600 mg(1,500mg) -800 unit tab Take 1 tablet by mouth once daily. Uklesgkppgjcg-Wdsflenp-Ozyrqo (CENTRUM SILVER) tab Take 1 tablet by mouth once daily. Takes alive now REVIEW OF SYSTEMS: GENERAL: Negative for:Weight loss and Weight gain HEENT: Negative for:Nosebleeds RESPIRATORY: Negative for:Shortness of breath GASTROINTESTINAL: Negative for:Blood in stool MUSCULOSKELETAL: Negtive for: Muscle or joint pain, stiffness, Joint swelling SKIN: No rash HEMATOLOGICAL/LYMPHATIC: Negative for: Easy bruising and Easy bleeding CARDIOVASCULAR: As stated in HPI. 10 system review negative except as stated in HPI I have confirmed and edited as necessary, the Past, Family, Social History and Review Of Systems, obtained by my office staff. PHYSICAL EXAMINATION: BP 125/86 Pulse 101 Resp 18 Ht 5' 8 (1.73m) Wt 252 lb (114.3kg) SpO2 94[room air]% BMI 38.33 kg/(m^2). General: Well appearing, in no acute distress, speaking in complete sentences., Well appearing. Psych: Normal Affect Eyes: No subconjunctival hemorrhage Skin: No rash, bruising Oropharynx: Mucous membranes normal Neck: no jugular venous distention, no carotid bruits. Lymph: No cervical lymphadenopathy Lungs: Clear to auscultation bilaterally, no wheezing or rhonchi. Heart: S1, S2 normal, no murmur Extremities: No peripheral edema Neuro: Grossly nonfocal ASSESSMENT/PLAN: 1. Persistent atrial fibrillation (HCC) - ICD9: 427.31, ICD10: I48.19 (primary diagnosis) as described above, she is completely asymptomatic with atrial fibrillation. Continue Cardizem CD for rate control, and Xarelto for oral anticoagulation. CHADS2-Vasc Score Breakdown 5 Total Score 1 Female 1 Age 65-74 years old 1 History of hypertension 2 History of stroke, TIA, or thromboemolism 2. Ischemic stroke (HCC) - ICD9: 434.91, ICD10: I63.9 Likely cardioembolic. Continue Eliquis for oral anticoagulation. Also continue Lipitor. Regular lipid panel checks with Dr. Rutherford. 3. Dysarthria - ICD9: 784.51, ICD10: R47.1 secondary to acute CVA. 4. Abnormality of gait - ICD9: 781.2, ICD10: R26.9 secondary to her stroke. 5. Obesity, Class II, BMI 35-39.9 - ICD9: 278.00, ICD10: E66.9 Stable - Behavioral intervention 6. Hypertension - ICD 10: I 10 Her blood pressure readings at home are in the range of 120's/70's. Her blood pressures in my office was slightly high when she first came in, but they improved after she sat down and relaxed. She is currently on lisinopril and Cardizem. She had questions about left ventricular dilatation, and answered her questions in detail. I will repeat an echocardiogram to monitor her left ventricular hypertrophy, dilatation. Yair Moore MD The above note was partially created using a dictation recognition software. A reasonable attempt has been made to correct any errors. I have confirmed and edited as necessary, the Past, Family, Social History and Review Of Systems, obtained by my office staff. Elements of history of present illness, assessment , and plan were copied from my last office note dated 11/30/2021 , but have been updated where appropriate; and all reflect current medical decision making from TODAY,08/30/2022 . Physical exam listed was also completed in entirety today, and is unchanged from my last office note dated above, except where noted. documented in this encounter [facility] 08-28-2022 Instructions Ethel Berg APRN.ANDRES - 08/28/2022 1:30 PM EST HEMOGLOBIN A1c/BLOOD GLUCOSE CORRELATION Hemoglobin A1c / Average Blood Glucose (Mg/dl) 12.0% / 314 11.0% / 280 10.0% / 247 9.5% / 230 9.0% / 214 8.5% / 197 8.0% / 180 7.5% / 164 7.0 5 / 147 6.5% / 130 6.0% / 114 5.5% / 97 (Hgb A1c x 33.3) - 86 = Average blood glucose (mg/dl) documented in this encounter [facility] 08-28-2022 History of Presen t illness Narrative This note was created using NoteWriter. Subjective Jose Velzaquez is a 72 year old female here today for diabetes/HTN follow-up visit. I reviewed past medical, surgical, social, and family histories today and updated chart. Allergies, chronic medications, and supplements were also reviewed. Feeling good enough Balance isn't perfect but she is able to shower without difficulty Does feel a little tired States if she has afib she can't feel it Denies dizziness, chest pain, shortness of breath, changes in vision, foot pain. Denies numbness and tingling in extremities. States if she sits on a hard chair, gets a little sleepy right leg. Patient sees slots manager, Dr. Moore for HTN, pAFIB, mitral valve prolapse She had an ischemic stroke in March 2021 - followed up with Dr. Sanchez, neurologist in October. She was advised to continue asa and eliquis. Later switched to xarelto per insurance coverage Home Blood Sugars: 80s-100s in the mornings Medication Compliance: She does not currently take medication She has been on metformin in the past, she does not want to be on medicaiton Low Blood Sugars: none Diet: Lousy - portions are decreased She has an appetite Exercise: Not as active, unable to skate anymore She is concerned about falling, being very careful, she is scared about breaking a hip She is done with PT Has warts to her arms Lesion to right side of face - rough to the touch Has been there about a year No redness, bleeding Might have gotten smaller since it started Feeling depressed, stopped her zoloft a while ago Lots of sadness in her life Lots of family , parents passed when she was young No family members are living, this seems to be affecting her more Feeling withdrawn, wants to run away Scared to drive PAST MEDICAL HISTORY Diagnosis Date Acute stroke due to ischemia (HCC) 05/03/2021 Atrial fibrillation (HCC) Atrial fibrillation with RVR (HCC) Essential hypertension Irregular heart beats Mitral valve prolapse Obesity, Class II, BMI 35-39.9 Stroke (HCC) Weakness status post cerebrovascular accident 05/03/2021 PAST SURGICAL HISTORY Procedure Laterality Date BREAST LUMPECTOMY HX Left 1991 spiculated COLONOSCOPY GEN ANES JOINT REPLACEMENT HX right knee replacement TOTAL KNEE REPLACEMENT Right 2020 ALLERGIES Patient has no known allergies. MEDICATIONS XARELTO 20 mg tablet TAKE 1 TABLET BY MOUTH DAILY WITH dinner lisinopril (ZESTRIL, PRINIVIL) 10 mg tablet TAKE 1 TABLET BY MOUTH ONCE DAILY carvedilol (COREG) 6.25 mg tablet TAKE 1 TABLET BY MOUTH TWICE DAILY WITH meals atorvastatin (LIPITOR) 40 mg tablet 1 tablet by ORAL/FEEDING TUBE route daily at bedtime. dilTIAZem CD (CARDIZEM CD, CARTIA XT) 240 mg 24 hr capsule Take 1 capsule by mouth once daily. aspirin, enteric coated (ASPIRIN EC) 81 mg EC tablet Take 1 tablet by mouth once daily. acetaminophen 325 mg cap Take 650 mg by mouth every 6 hours as needed for pain. zinc sulfate (ZINC-15 ORAL) Take 1 tablet by mouth once daily. cyanocobalamin (VITAMIN B-12) 500 mcg tablet Take 1 tablet by mouth once daily. ascorbic acid, vitamin C, (VITAMIN C) 500 mg tablet Take 500 mg by mouth once daily. calcium carbonate-vitamin D3 600 mg(1,500mg) -800 unit tab Take 1 tablet by mouth once daily. Hfvtwnurnpurk-Ykrzfaln-Yvbppn (CENTRUM SILVER) tab Take 1 tablet by mouth once daily. Takes alive now FAMILY HISTORY Problem Relation Age of Onset Hypertension Mother Hyperlipidemia Mother Dementia Mother Diabetes Father Hypertension Father Cancer Father possible/suspected Heart Attack Father 79 Muscular dystrophy Brother Social History Tobacco Use Smoking status: Never Smokeless tobacco: Never Vaping Use Vaping Use: Never used Substance Use Topics Alcohol use: Never Drug use: Never Review of Systems Constitutional: Positive for activity change and unexpected weight change. Negative for appetite change, chills, fatigue and fever. HENT: Negative for congestion, ear pain, rhinorrhea and sore throat. Eyes: Negative for pain, discharge, itching and visual disturbance. Respiratory: Negative for cough, shortness of breath and wheezing. Cardiovascular: Negative for chest pain, palpitations and leg swelling. Gastrointestinal: Negative for abdominal pain, constipation, diarrhea, nausea and vomiting. Genitourinary: Negative for difficulty urinating. Musculoskeletal: Negative for arthralgias. Skin: Negative for rash. Neurological: Negative for dizziness, tremors, weakness and headaches. Psychiatric/Behavioral: Positive for dysphoric mood. Negative for sleep disturbance. The patient is not nervous/anxious. Objective BP 121/76 Pulse 93 Temp 36.7 C (98.1 F) Ht 170.2 cm (5' 7 ) Wt 114.3 kg (252 lb) SpO2 100% BMI 39.47 kg/m Physical Exam Constitutional: Appearance: Normal appearance. She is well-developed. She is not diaphoretic. HENT: Head: Normocephalic and atraumatic. Right Ear: Hearing, tympanic membrane, ear canal and external ear normal. Left Ear: Hearing, tympanic membrane, ear canal and external ear normal. Nose: Nose normal. Mouth/Throat: Lips: [place]. Mouth: Mucous membranes are moist. Pharynx: Oropharynx is clear. Eyes: General: Lids are normal. Extraocular Movements: Extraocular movements intact. Conjunctiva/sclera: Conjunctivae normal. Pupils: Pupils are equal, round, and reactive to light. Neck: Thyroid: No thyroid mass or thyromegaly. Vascular: Normal carotid pulses. No carotid bruit. Cardiovascular: Rate and Rhythm: Normal rate and regular rhythm. Pulses: Radial pulses are 2+ on the right side and 2+ on the left side. Dorsalis pedis pulses are 2+ on the right side and 2+ on the left side. Posterior tibial pulses are 2+ on the right side and 2+ on the left side. Heart sounds: Normal heart sounds. No murmur heard. Pulmonary: Effort: Pulmonary effort is normal. Breath sounds: Normal breath sounds. No wheezing, rhonchi or rales. Abdominal: General: Bowel sounds are normal. Palpations: Abdomen is soft. Tenderness: There is no abdominal tenderness. Musculoskeletal: Cervical back: Normal range of motion. Lymphadenopathy: Cervical: No cervical adenopathy. Upper Body: Right upper body: No supraclavicular adenopathy. Left upper body: No supraclavicular adenopathy. Skin: General: Skin is warm and dry. Findings: Lesion (Right cheek, waxy yellow, flat, flaky, dry, about 2 cm in diameter) present. No rash. Comments: Small circular raised lesion to right forearm, rough surface Neurological: General: No focal deficit present. Mental Status: She is alert and oriented to person, place, and time. Cranial Nerves: No cranial nerve deficit. Sensory: Sensation is intact. Motor: Motor function is intact. Coordination: Coordination is intact. Gait: Gait normal. Psychiatric: Attention and Perception: Attention and perception normal. Mood and Affect: Affect normal. Mood is depressed. Speech: Speech normal. Behavior: Behavior normal. Behavior is cooperative. Cognition and Memory: Cognition and memory normal. Judgment: Judgment normal. Component Latest Ref Rng & Units 07/25/2022 Glucose 74 - 99 mg/dL 148 (H) BUN 7 - 21 mg/dL 17 Creatinine 0.58 - 0.96 mg/dL 0.94 Sodium 136 - 144 mmol/L 139 Potassium 3.7 - 5.1 mmol/L 4.6 Chloride 97 - 105 mmol/L 103 CO2 22 - 30 mmol/L 24 Anion Gap 9 - 18 mmol/L 12 Calcium 8.5 - 10.2 mg/dL 10.1 eGFR >=60 mL/min/1.73m 65 WBC 3.70 - 11.00 k/uL 9.50 RBC 3.90 - 5.20 m/uL 4.45 Hemoglobin 11.5 - 15.5 g/dL 13.4 Hematocrit 36.0 - 46.0 % 41.4 MCV 80.0 - 100.0 fL 93.0 MCH 26.0 - 34.0 pg 30.1 MCHC 30.5 - 36.0 g/dL 32.4 RDW-CV 11.5 - 15.0 % 14.9 Platelet Count 150 - 400 k/uL 189 MPV 9.0 - 12.7 fL 13.1 (H) Cholesterol, Total <200 mg/dL 169 Triglyceride <150 mg/dL 85 HDL Cholesterol >39 mg/dL 82 Non HDL Cholesterol <130 mg/dL 87 Fasting Time hrs 16 VLDL Cholesterol <30 mg/dL 17 TC:HDL Ratio <5.10 2.06 LDL Cholesterol <100 mg/dL 70 LDL:HDL Ratio <2.54 0.85 Component Latest Ref Rng & Units 07/06/2021 10/30/2021 01/29/2022 07/25/2022 Hemoglobin A1C 4.3 - 5.6 % 7.1 (H) 6.6 (A) 6.5 (H) Estimated Average Glucose mg/dL 157 140 Hemoglobin A1C (POCT) 4.2 - 5.6 % 6.7 (A) ASSESSMENT/PLAN: 1. Diet-controlled type 2 diabetes mellitus (HCC) - ICD9: 250.00, ICD10: E11.9 (primary diagnosis) Controlled with diet - BP goal of <130/80 - LDL goal of <100 2. Hypertension, unspecified type - ICD9: 401.9, ICD10: I10 - good control Stop Coreg and monitor home BPs Continue Lisinopril 10 mg daily and diltiazem 140 mg daily - Recommended regular aerobic exercise. - Recommend home blood pressure monitoring, to bring results in on next visit - Follow up in 1 month for BP recheck. - Goal of BP <130/80 3. Left ventricular hypertrophy - ICD9: 429.3, ICD10: I51.7 Continue lisinopril 10 mg daily 4. Ischemic stroke (HCC) - ICD9: 434.91, ICD10: I63.9 Continue xarelto, lipitor, asa 5. Atrial fibrillation with RVR (HCC) - ICD9: 427.31, ICD10: I48.91 Continue care with cardiology Continue xarelto, diltiazem 6. Mild episode of recurrent major depressive disorder (HCC) - ICD9: 296.31, ICD10: F33.0 Start Wellbutrin 150 mg BID. Discussed medication action, dosing, side effects, risks, and benefits. Patient verbalizes understanding. - BUPROPION HCL SR 150 MG TABLET,12 HR SUSTAINED-RELEASE 7. Verruca vulgaris - ICD9: 078.10, ICD10: B07.9 Defers referral for removal 8. Lesion of face - ICD9: 709.9, ICD10: L98.9 Likely benign, we discussed referral to dermatology for check, patient defers for now would like to continue to monitor the lesion Ethel Berg APRN.ANDRES documented in this encounter [facility] 07-27-2022 Miscellaneous Notes Pharmacy requesting refills as follows: Last Office Visit 01/29/22. Last Refill 05/02/22 for lisinopril and xarelto. Requested Prescriptions Pending Prescriptions Disp Refills XARELTO 20 mg tablet [Pharmacy Med Name: Xarelto 20 mg tablet] 30 tablet 2 Sig: TAKE 1 TABLET BY MOUTH DAILY WITH dinner lisinopril (ZESTRIL, PRINIVIL) 10 mg tablet [Pharmacy Med Name: lisinopril 10 mg tablet] 30 tablet 2 Sig: TAKE 1 TABLET BY MOUTH ONCE DAILY Please review and advise. Jessica Villar MA documented in this encounter [facility] 07-27-2022 Miscellaneous Notes Patient notified. Nicolette Cardenas MA ----- Message from Ethel Berg APRN.[employer] sent at 07/26/2022 1:04 PM EDT ----- A1C is at goal 6.5, other labs WNL. Ethel Berg APRN.[employer] documented in this encounter [facility] 07-02-2022 Miscellaneous Notes pharmacy electronically requesting refills as follows: Last seen 01/29/22 . Last refill 05/02/22 . Requested Prescriptions Pending Prescriptions Disp Refills carvedilol (COREG) 6.25 mg tablet [Pharmacy Med Name: carvedilol 6.25 mg tablet] 60 tablet 2 Sig: TAKE 1 TABLET BY MOUTH TWICE DAILY WITH meals Please review and advise. Tea Persaud MA documented in this encounter [facility] 06-28-2022 Miscellaneous Notes Patient could schedule a sooner appointment for her off balance but she states its better and will monitor and keep us updated if it gets any worse. Jessica Villar MA documented in this encounter [facility] 06-27-2022 History of Presen t illness Narrative Episode Visit Count: 20 Therapist That Will Oversee The Plan Of Care: Nancy Cancino Start of Care Date: 05/31/22 Onset Date: 03/29/21 Plan of Care Certification Date: 05/31/22 Next Certification Due Date: 08/29/22 Patient Identified by Name and Date of : Yes REHABILITATION AND SPORTS THERAPY PHYSICAL THERAPY TREATMENT NOTE ASSESSMENT: Jose Velazquez tolerated the session with expected muscle soreness. She demonstrated difficulty with reciprocal stair mobility with 1 rail support , also progressing right hip abductor strength and improvements in left hip abductor strength . The patient will continue to benefit from ongoing skilled physical therapy discharge upon PT review of chart. PLAN FOR NEXT VISIT: discharge upon PT review of chart SUBJECTIVE: Patient Reason for Visit: patient reports diligently performing HEP , able to verbalize and demonstrete HEP for exercise , balance and functional transfers Pain: Pain Pain Level: 0 Post Treatment Pain Post Treatment Pain Level: No Change OBJECTIVE MEASURES WITH LEVEL OF FUNCTION: LE Strength R Hip ABduction: 4-/5 L Hip Flexion (L2): 4+/5 TREATMENT: Therapeutic Exercise: 1: nu step seat 9-8 level 4 ue/le 6 min 2: standing hip abduction with slight extension 2 hand rail suppor with right stance , 1 hand rail support with left stance 3: sit to stand 22 inch, 20 inch height 5 x each without ue support , 17 inch height with ue spport 5 x 4: reviewed EP for purpose and technique , and demonstrated exercises Skilled Intervention: Patient was educated in proper exercise technique and purpose for exercises. Skilled judgment was provided in selection of appropriate interventions. Patient education as noted. Neuromuscular Re-Education: 1: tandem stance modified wider OSCAR, 2: standing narrow OSCAR with eyes closed no ue support 10 seconds x 3 3: reviewed safety with progressing standing static and dynamic balance Skilled Intervention: see above Gait Trainin: reciprocal stair mobility with 2 hand rails 10 steps ,intermittent reciprocal stair mobility with lfet hand rail 10 steps x 1 Skilled Intervention: verbal cues for sequence Billing Therapeutic Exercise Treatment Minutes: 20 Neuromuscular Re-Education Treatment Minutes: 10 Gait Training Treatment Minutes: 10 Total Treatment Time Minutes (timed/untimed): 40 Flaco Myers PTA documented in this encounter [facility] 06-26-2022 Miscellaneous Notes Patient states understanding and she will call later to schedule an appointment. Jessica Villar MA I do not think its her blood pressure medication. Please have patient come in for an office visit. Thank you. Ethel Berg APRN.CNP Patient called stating that she has been feeling off ballance and her talked the pharmacist he states that being on 3 BP medications could possibly do that. I called patient she denies any lightheadedness, SOB, numbness, and chest pain. She says that she goes to PT for the unbalance but she wonders if she can be taken off at least on of her medications. She states that her BP is on the higher end of green in the morning before she takes her medications (she couldn't give a range of numbers) but she states that if she can be taken off one of them she will monitor daily writing down the numbers and she would be willing to come in for a nurse visit. Please advise. Jessica Villar MA documented in this encounter [facility] 06-20-2022 History of Presen t illness Narrative Episode Visit Count: 4 Therapist That Will Oversee The Plan Of Care: Nancy Cancino Start of Care Date: 05/31/22 Onset Date: 03/29/21 Plan of Care Certification Date: 05/31/22 Next Certification Due Date: 08/29/22 Patient Identified by Name and Date of : Yes REHABILITATION AND SPORTS THERAPY PHYSICAL THERAPY TREATMENT NOTE ASSESSMENT: Jose Velazquez tolerated the session with expected muscle soreness and no issues. She demonstrated improvements in dynamic balance and gait. The patient will continue to benefit from ongoing skilled physical therapy to progress toward set goals. PLAN FOR NEXT VISIT: DC next visit *Add any balance exercises for HEP* Consider lateral stepping or other standing strengthening SUBJECTIVE: Patient did exercises before coming in today. Pain: Pain Pain Level: 0 Post Treatment Pain Post Treatment Pain Level: 0 OBJECTIVE MEASURES WITH LEVEL OF FUNCTION: No formal measurements taken during this session, however, please see flow sheet and assessment for updates and observations. TREATMENT: Therapeutic Exercise: 1: Nu Step 6 min level 5 /ue/le 2: Shuttle press with wobble board BLE x 10 *incline head board lifted Skilled Intervention: Patient was educated in proper exercise technique and purpose for exercises. Reviewed and educated patient on additions/changes for home exercise program as above (*). Skilled judgment was provided in selection of appropriate interventions. Correct performance of therapeutic exercises was facilitated with verbal cuing. Patient education as noted. Neuromuscular Re-Education: 1: Standing on blue foam pad: x 30 sec without UE support >> weight shifting BLE x 30 sec >> marching BLE x 30 sec Skilled Intervention: Skilled judgment used to assess appropriate program for balance and coordination activity. Patient education as noted. Gait Trainin: Micheal drills with 6 in x 2 passes with CGA for safety forward x 2, lateral x 2 2: Stroops ladder: forward x 2 passes with CGA for safety 3: Stroops ladder drills: diagonal stepping and lateral stepping x 2 passes each Skilled Intervention: Patient was provided contact guard assistance during pre-gait/gait training to prevent falls and insure safety. Billing Therapeutic Exercise Treatment Minutes: 10 Neuromuscular Re-Education Treatment Minutes: 5 Gait Training Treatment Minutes: 30 Total Treatment Time Minutes (timed/untimed): 45 Domitila Up PT documented in this encounter [facility] 06-13-2022 History of Presen t illness Narrative Episode Visit Count: 19 Therapist That Will Oversee The Plan Of Care: Nancy Cancino Start of Care Date: 05/31/22 Onset Date: 03/29/21 Plan of Care Certification Date: 05/31/22 Next Certification Due Date: 08/29/22 Patient Identified by Name and Date of : Yes REHABILITATION AND SPORTS THERAPY PHYSICAL THERAPY TREATMENT NOTE ASSESSMENT: Jose Velazquez tolerated the session with decreased endurance, fatigue, and expected muscle soreness. She demonstrated improvements in balance and gait. The patient will continue to benefit from ongoing skilled physical therapy to progress toward set goals. PLAN FOR NEXT VISIT: continue to address standing dynamic balance, core glut and ankle strength and stability SUBJECTIVE: Patient states she is doing okay. Pain: Pain Pain Level: 0 Post Treatment Pain Post Treatment Pain Level: No Change OBJECTIVE MEASURES WITH LEVEL OF FUNCTION: Gait Weight Bearing Status: FWB Gait: Modified Independent Gait Distance (feet): 50+ Gait Device: None (Needs outside support from for ambulation) Gait Deviations: General Deviations General Deviations/Observations: Sobeida decreased;Flexed trunk posture;Trunk Control Decreased;Step length decreased;Loss of Balance TREATMENT: Therapeutic Exercise: 1: Pt education on safety with ambulation, education on using cane 2: Standing diagonal chops with weighted ball (blue) x [address] 3: Standing rotations with weighted ball (blue) 10 x R and L 4: Sit <> stand with weighted blue ball x 5 Skilled Intervention: Patient was educated in proper exercise technique and purpose for exercises. Reviewed and educated patient on additions/changes for home exercise program as above (*). Skilled judgment was provided in selection of appropriate interventions. Correct performance of therapeutic exercises was facilitated with verbal cuing. Patient education as noted. Neuromuscular Re-Education: 1: Taps with spikey ball x 3, x 5 each leg for improved SLS 2: Step taps BLE x 10 each without UE support Skilled Intervention: Skilled judgment used to assess appropriate program for balance and coordination activity. Patient education as noted. Gait Trainin: Micheal drills with 6 in x 2 passes Skilled Intervention: Patient was provided contact guard assistance during pre-gait/gait training to prevent falls and insure safety. Billing Therapeutic Exercise Treatment Minutes: 25 Neuromuscular Re-Education Treatment Minutes: 10 Gait Training Treatment Minutes: 10 Total Treatment Time Minutes (timed/untimed): 45 Domitila Up PT documented in this encounter [facility] 05-31-2022 History of Presen t illness Narrative Episode Visit Count: 1 Therapist That Will Oversee The Plan Of Care: Nancy Cancino Start of Care Date: 05/31/22 Onset Date: 03/29/21 Plan of Care Certification Date: 05/31/22 Next Certification Due Date: 08/29/22 Patient Identified by Name and Date of : Yes REHABILITATION AND SPORTS THERAPY PHYSICAL THERAPY EVALUATION PLAN OF CARE: Assessment: Jose Velazquez presents with chief complaint of difficulty with balance and gait that interferes with rising from a chair;standing;walking;walking in the house;walking in the community;stair negotiation;physical activities;recreational activities;cleaning;cooking . She presents with impairments in ADL's, balance, coordination, gait, independence in exercise, overall function, range of motion, and strength . Prognosis for therapy is Good due to: current objective clinical presentation . She will benefit from skilled therapy services to meet the goals established for this plan of care as noted below. Goals for Episode of Care: created on 05/31/22 through 07/18/22 Patient will increase strength of BLE to 5/5 to allow patient to improve gait mechanics/gait pattern. Patient will be able to tolerate walking for 20 minutes with minimal symptoms . Improve five time sit to stand to <12 seconds to decrease risk of falls. Improve score on Timed Up and Go to <12 sec to decrease risk of falls . Improve 10 meter walk speed to >1.2 m/s to normalize gait speed. Patient will improve FGA score by 4 points to meet MCID to decrease risk of falls. Patient will improve single leg stance time to 10 seconds on Bilateral Legs to improve balance. Patient Goals: wants to know why R knee hurts still; would like to work on why not stable Planned Interventions, Frequency, and Duration: Current Frequency: 1x/week Duration: 6 weeks Total Number of Visits Planned: 5 Planned Treatment Interventions: Therapeutic exercise (66229);Neuromuscular re-education (17182);Manual therapy (46287);Therapeutic activities (78090);Self-usp management (27622);Gait Training (68114);Patient/Family/Caregiver Education PLAN FOR NEXT VISIT: balance; gait; LE strength; core strength Patient demonstrates good understanding of plan of care and treatment. The above goals and plan of care were discussed and agreed upon by patient/family. SUBJECTIVE: Jose Velazquez is a 71 year old female seen today for Difficulty with balance and gait, weakness, and B knee pain Went back to Dr. Membreno - candidate for L TKA. Never feels steady on feet - unsure if it is stroke or previous R TKA. Never feel solid totally on feet. Has been able to keep up with old PT HEP. Walks 650' barn and back. Does stairs two feet, one step. Does not use AD. Patient Goals: wants to know why R knee hurts still; would like to work on why not stable Functional Limitations: rising from a chair;standing;walking;walking in the house;walking in the community;stair negotiation;physical activities;recreational activities;cleaning;cooking Prior Level of Function: Independent without limitations Relevant History Past Relevant Medical Conditions: Cerebral Vascular Accident;Arthritis;Falls;Hyperte nsion Past Relevant Surgical Conditions: Total Knee Replacement-Right Employment: Retired Recreation / Current Exercise: PT HEP, seated bike Hobbies / Interests: yard work, hand working, britt, Home Environment Patient Lives With: Spouse 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 Home Type: Split Level Entry To Home: Stairs;Without Rail Number Of Stairs To Bed/Bath: 6+7 Equipment Owned: Shower Chair Intake Information: Prescription present Previous Treatment: Physical Therapy Falls Interview: No positive findings with falls interview Pain: Pain Pain Level: 0 (3-4/10 with standing) Pain Location: Knee - Right PROMIS Scales Higher is Better 05/02/2021 06/20/2021 10/30/2021 Phys Func - Score 33 (moderate dysfunction) 24 (severe dysfunction) 24 (severe dysfunction) Phys Func - Percentile 4 % 0 % 0 % Social Roles - Score 25 (severe dysfunction) 36 (moderate dysfunction) 40 (mild dysfunction) Social Role - Percentile 1 % 8 % 16 % GH Physical - Score 42.3 (Good) - 34.9 (Poor) GH Physical - Percentile 22 % - 7 % GH Mental - Score 43.5 (Good) - 33.8 (Fair) GH Mental - Percentile 26 % - 5 % Self-Eff Symptom - Score 32 (Low) 35 (Low) 35 (Low) Self-Eff Symptom - Percentile 4 % 7 % 7 % T-scores: mean of general population = 50. 5 points is clinically meaningfully difference Percentiles provide an indication of how the patient's score ranks in relation to the general population. Higher percentile rankings indicate better function/quality of life. 50th percentile is the average of the general population and indicates half of respondents had a worse score. Lower is Better 05/02/2021 06/20/2021 10/30/2021 Fatigue - Score 64 (moderate) 62 (moderate) 62 (moderate) Fatigue - Percentile 8 % 12 % 12 % T-scores: mean of general population = 50. 5 points is clinically meaningfully difference Percentiles provide an indication of how the patient's score ranks in relation to the general population. Higher percentile rankings indicate better function/quality of life. 50th percentile is the average of the general population and indicates half of respondents had a worse score. OBJECTIVE MEASURES WITH LEVEL OF FUNCTION: Posture / Alignment Posture: Forward head;Rounded shoulders LE AROM R Knee Extension: 0 Degrees R Knee Flexion: 120 Degrees L Knee Extension: -5 Degrees L Knee Flexion: 120 Degrees LE Strength R Hip Flexion (L2): 4-/5 R Hip ABduction: 4-/5 R Knee Extension (L3): 5/5 R Knee Flexion: 5/5 R Ankle Dorsiflexion (L4): 5/5 L Hip Flexion (L2): 4/5 L Hip ABduction: 4-/5 L Knee Extension (L3): 5/5 L Knee Flexion: 5/5 L Ankle Dorsiflexion (L4): 5/5 Gait Gait: Independent Gait Distance (feet): 100 Gait Device: None Gait Deviations: General Deviations General Deviations/Observations: Antalgic gait;Sobeida decreased;Lateral sway increased;Wide base of support Stairs: Modified Independent Stairs: 12 steps; B HR; reciprocal Functional Performance Test Results 10 Meter Walk Test Trial 1 (seconds): 5.97 10 Meter Walk Test Trial 2 (seconds): 5.35 10 Meter Walk Test Average (m/sec): 1.06 5 Times Sit to Stand Test : 17.11 sec (BUE support) Timed Up and Go (sec): 13.72 sec 4 Stage Balance Test Narrow base of support (sec): 30 sec Semi-tandem base of support (sec): 30 sec Tandem base of support (sec): 15 sec Single leg stance - right (sec): 4 sec Single leg stance - left (sec): 2 sec Functional Gait Assessment Gait level surface : 2 - Mild impairment- walks 20' uses assist device, slower speed, mild gait deviation Change in gait speed: 2 - Mild impairment- is able to change speed but demonstrates mild gait deviations or no gait deviations but unable to achieve a significant change in velocity, or uses an assistive device Gait and horizontal head turns: 3 - Normal- performs R/L head turns smoothly with no change in gait Gait and vertical head turns: 3 - Normal- performs up/down head turns smoothly with no change in gait Gait and pivot: 2 - Mild impairment- pivot turns safely in >3 sec, stops, no loss of balance Step over obstacle: 2 - Mild impairment- is able to step over box, but must slow down and adjust steps to clear box Gait with narrow base of support : 1 - Moderate impairment- ambulates 4-7 steps Gait with eyes closed : 2 - Mild impairment- walks 20' uses assist device, slower speed, mild gait deviation, deviates 6-10 outside of 12 walkway Ambulates backward : 3 - Normal- walks 20' no assist device, good speed, no imbalance, normal gait pattern, deviates no more than 6 outside 12 walkway Steps: 2 - Mild impairment- alternating feet, must use rail Functional Gait Assessment Total : 22 Education: Education Learning Preferences: Explanation;Demonstration;Perfor marisol Barriers: None Learning/educational needs: Health promotion;Safety;Home exercise program;Changes in Plan of Care;Gait Training Education Provided: Yes, see treatment interventions for education provided Education Provided To: Patient Education Mode/Type: Demonstration;Explanation/Discus aleshia;Literature/Printed Materials Response to Education/Teach Back: States/Identifies;Return Demonstration TREATMENT: PT Treatment Interventions: Neuromuscular Re-Education Evaluation Evaluation Neuromuscular Re-Education: 1: discussed with pt eval findings, POC, HEP, and goals - pt agreeable 2: reviewed previous HEP 3: *tandem stance 4: *NBOS with EC 5: *R/L WS no UE support 6: *fwd/back WS no UE support Skilled Intervention: Skilled judgment used to assess appropriate program for balance and coordination activity. Insured patient safety with use of gait belt Correct performance of home program was facilitated with verbal cueing. Patient education as noted. Billing * Evaluation Low Complexity: 1 Unit Neuromuscular Re-Education Treatment Minutes: 25 Total Treatment Time Minutes (timed/untimed): 45 Nancy Cancino PT documented in this encounter [facility] 05-02-2022 Miscellaneous Notes Last OV 10/30/21 Apt 07/31/22 Labs 09/11/22 Not sure if you want to see pt prior to the Jul apt Patient phones requesting refills as follows: Pending Prescriptions Disp Refills CARVEDILOL 6.25 MG TABLET 60 tablet 2 Sig: Take 1 tablet by mouth twice daily with meals. JYOTI: No ATORVASTATIN 40 MG TABLET 30 tablet 2 Si tablet by ORAL/FEEDING TUBE route daily at bedtime. JYOTI: No LISINOPRIL 10 MG TABLET 30 tablet 2 Sig: Take 1 tablet by mouth once daily. JYOTI: No RIVAROXABAN 20 MG TABLET 30 tablet 2 Sig: Take 1 tablet by mouth daily with dinner. JYOTI: No Please review and advise. Iwona Montoya MA documented in this encounter [facility] 04-06-2022 History of Presen t illness Narrative ESTABLISHED PATIENT VISIT CHIEF COMPLAINT: Follow Up HISTORY OF PRESENT ILLNESS: Jose Velazquez is a 71 year old female, with a PMH significant for and per last office visit note of 11/15/21: 1. Lacunar infarction (HCC) - ICD9: 434.91, ICD10: I63.81 Patient with L posterior capsule infarct as described above in 2020 resulting in R side weakness and speech changes. This is pt's second neurology follow up since time of stroke. Overall, she has made a significant recovery with only objective findings on exam being some degree of impaired fine motor and coordination function in the R hand. NIHSS = 1. Discussed with pt stroke risk factors, treatment, causes, prognosis. Discussed need for immediate evaluation in ER if focal neuro deficits were to occur again. We discussed acute treatment options including IV TPA and interventional therapies. I encouraged exercise and therapy at home. At this time no need of change to medications with pt already on anticoagulation for afib and ASA 81mg daily given this stroke appearing to be of small vessel nature. Continue statin therapy but pt will need PCP follow up in future for [facility] lipid panels and need for adjustment in statin dosing. BP goal <140/90. Glucose goal <140. Pt's questions were answered and concerns addressed. Note she was accompanied by her . Pt will follow up in 6 months at which time if doing well, can then follow up with PCP. Patient s/p RTKA in 07/2021 states little bit pain in the knee, but overall much better. No longer in therapy for stroke. Feels the R hand function has improved although handwriting is lousy. Eliquis changed to Xarelto due to insurance. No cardiac symptoms since last visit and following with Dr. Moore (notes reviewed). Eye exam this last week unremarkable per pt. BP consistently below <140/90 at home and reports glucose running <110 at home. NIHSS: 1(a). Mental Status - LOC 0 = Alert and Attentive 1(b). LOC Questions 0 = Correct age and month 1(c). LOC-Commands 0 = Both 2. Gaze 0 = Normal 3. Visual Gutierrez 0 = Full 4. Facial Weakness 0 = Normal 5(a). Left Arm 0 = No drift 5(b). Right Arm 0 = No drift 6(a). Left Leg 0 = No drift 6(b). Right Leg 0 = No drift 7. Ataxia 1 = One Limb 8. Sensory 0 = Normal 9. Aphasia 0 = None 10. Dysarthria 0 = Absent 11. Neglect 0 = None NIHSS Total (0-42): 1 Denies ANGELA symptoms. REVIEW OF SYSTEMS GENERAL:No weight loss, malaise or fevers. HEENT:Negative for frequent or significant headaches, No changes in hearing or vision, no nose bleeds or other nasal problems NECK:Negative for lumps, goiter, pain and significant neck swelling RESPIRATORY: Negative for cough, wheezing or shortness of breath. CARDIOVASCULAR: Negative for chest pain, leg swelling or palpitations. GASTROINTESTINAL: Negative for abdominal discomfort, blood in stools or black stools or change in bowel habits GENITOURINARY: No history of dysuria, frequency or incontinence MUSCULOSKELETAL: Chronic low back pain. NEUROLOGIC:See HPI. SKIN:Negative for lesions, rash, and itching. HEMATOLOGIC/LYMPHATIC/IMMUNOLOGI C:Negative for prolonged bleeding, bruising easily or swollen nodes. ENDOCRINE: Negative for cold or heat intolerance, polyuria, polydipsia and goiter. The remainder of the ROS was reviewed and is negative. LAB/IMAGING: Those performed since patient's last visit have been reviewed. WBC (k/uL) Date Value 09/11/2021 6.88 RBC (m/uL) Date Value 09/11/2021 3.82 (L) Hemoglobin (g/dL) Date Value 09/11/2021 10.7 (L) Hematocrit (%) Date Value 09/11/2021 34.7 (L) MCV (fL) Date Value 09/11/2021 90.8 MCH (pG) Date Value 09/11/2021 28.0 MCHC (g/dL) Date Value 09/11/2021 30.8 RDW-CV (%) Date Value 09/11/2021 13.7 Platelet Count (k/uL) Date Value 09/11/2021 164 MPV (fL) Date Value 09/11/2021 12.3 Glucose (mg/dL) Date Value 09/11/2021 116 (H) BUN (mg/dL) Date Value 09/11/2021 8 Creatinine (mg/dL) Date Value 09/11/2021 0.65 Sodium (mmol/L) Date Value 09/11/2021 140 Potassium (mmol/L) Date Value 09/11/2021 3.9 Chloride (mmol/L) Date Value 09/11/2021 106 (H) CO2 (mmol/L) Date Value 09/11/2021 24 Protein, Total (g/dL) Date Value 09/11/2021 6.6 Albumin (g/dL) Date Value 09/11/2021 3.3 (L) Calcium (mg/dL) Date Value 09/11/2021 9.4 Alkaline Phosphatase (U/L) Date Value 09/11/2021 98 Bilirubin, Total (mg/dL) Date Value 09/11/2021 0.5 AST (U/L) Date Value 09/11/2021 12 (L) ALT (U/L) Date Value 09/11/2021 12 MEDICATIONS: carvedilol (COREG) 6.25 mg tablet TAKE 1 TABLET BY MOUTH TWICE DAILY WITH MEALS atorvastatin (LIPITOR) 40 mg tablet 1 tablet by ORAL/FEEDING TUBE route daily at bedtime. lisinopril (ZESTRIL, PRINIVIL) 10 mg tablet Take 1 tablet by mouth once daily. rivaroxaban (XARELTO) 20 mg tablet Take 1 tablet by mouth daily with dinner. dilTIAZem CD (CARDIZEM CD, CARTIA XT) 240 mg 24 hr capsule Take 1 capsule by mouth once daily. aspirin, enteric coated (ASPIRIN EC) 81 mg EC tablet Take 1 tablet by mouth once daily. acetaminophen 325 mg cap Take 650 mg by mouth every 6 hours as needed for pain. zinc sulfate (ZINC-15 ORAL) Take 1 tablet by mouth once daily. cyanocobalamin (VITAMIN B-12) 500 mcg tab tab(s) Take 1 tablet by mouth once daily. ascorbic acid, vitamin C, (VITAMIN C) 500 mg tablet Take 500 mg by mouth once daily. calcium carbonate-vitamin D3 600 mg(1,500mg) -800 unit tab Take 1 tablet by mouth once daily. Zbljeruokxpto-Vqrwzsel-Gmxqus (MULTIVITAMIN 50 PLUS) tab Take 1 tablet by mouth once daily. Takes alive now HISTORIES PAST MEDICAL HISTORY Diagnosis Date Acute stroke due to ischemia ([facility]) 05/03/2021 Atrial fibrillation (HCC) Atrial fibrillation with RVR ([facility]) Essential hypertension Irregular heart beats Mitral valve prolapse Obesity, Class II, BMI 35-39.9 Stroke ([facility]) Weakness status post cerebrovascular accident 05/03/2021 FAMILY HISTORY Problem Relation Age of Onset Hypertension Mother Hyperlipidemia Mother Dementia Mother Diabetes Father Hypertension Father Cancer Father possible/suspected Heart Attack Father 79 Muscular dystrophy Brother SOCIAL HISTORY Social History Tobacco Use Smoking status: Never Smoker Smokeless tobacco: Never Used Vaping Use Vaping Use: Never used Substance Use Topics Alcohol use: Never Drug use: Never PHYSICAL EXAMINATION Blood pressure 124/68, pulse 79, temperature (!) 35.9 C (96.6 F), resp. rate 18, weight 109.3 kg (241 lb), SpO2 97 %. GENERAL EXAM: General appearance: NAD, pleasant. HEENT: NC/AT, nasal congestion absent, no oral lesions, membranes moist. NECK: No masses, supple. Lungs: CTA bilaterally. No wheezes present. CV: RRR nl S1, S2. No carotid bruits. Extr: No cyanosis, clubbing or edema. Skin: Cool to touch. NEUROLOGICAL EXAM: General: Awake, alert, oriented x3 (person,place,time), speech fluent, no dysarthria; comprehension, naming, repetition intact. Fund of knowledge grossly normal. CN: PERRL, fundi with no evidence of papilledema, EOMI and without nystagmus, VFF to confrontation, facial sensation and strength are normal and symmetric, hearing is intact to finger rub bilaterally, palate and tongue movements are intact and symmetric. SCM and trapezius strength normal. Motor: Normal tone, bulk and strength (5/5) bilaterally (throughout extremities x4). Coordination: FNF, HTS intact. No tremors. DHRUV mildly impaired in R hand. Sensation: Light touch intact throughout. No evidence of neglect. Gait: Stable with normal stride and arm swing. Assessment and Plan: ASSESSMENT/PLAN: 1. Lacunar infarction ([facility]) - ICD9: 434.91, ICD10: I63.81 (primary diagnosis) 2. Atrial fibrillation with RVR ([facility]) - ICD9: 427.31, ICD10: I48.91 Patient doing well. NIHSS remains stable at 1. Only deficits on exam remain impaired fine motor in R hand. No new recommendations. Stroke risk factors appears controlled. Agree with anticoagulation given afib. Cardiology following. Agree with ASA 81mg daily. BP goal <140/90. Glucose goal <140. Continue daily statin. Will need follow up with PCP to monitor lipids, glucose, BP. Encouraged continued exercise and discussed tasks with pt that might improve fine motor skills. Also discussed prognosis with expectation for continued but less improvement in deficits given patient now >1 year out from stroke. Patient offered 1 year follow up but would prefer to follow up prn. Patient advised on need to present to hospital for stroke like symptoms. Reviewed stroke risk factors with pt. Patient will contact us if any other questions or concerns. Jay Sanchez MD I spent a total of 35 minutes on the date of the service which included preparing to see the patient, [id number] patient care, completing clinical documentation, obtaining and/or reviewing separately obtained history, performing a medically appropriate examination, counseling and educating the patient/family/caregiver, ordering medications, tests, or procedures, independently interpreting results (not separately reported) and communicating results to the patient/family/caregiver. documented in this encounter [facility] 03-26-2022 Miscellaneous Notes Pharmacy requesting refills as follows: Last Office Visit 01/29/22 nov 07/31/22. Last Refill 02/27/22. Pending Prescriptions Disp Refills CARVEDILOL 6.25 MG TABLET 60 tablet 0 Sig: TAKE 1 TABLET BY MOUTH TWICE DAILY WITH MEALS JYOTI: Yes Please review and advise. Jessica Villar MA documented in this encounter [facility] 03-14-2022 History of Presen t illness Narrative Episode Visit Count: 18 Therapist That Will Oversee The Plan Of Care: Landry Ugarte Start of Care Date: 09/29/21 Onset Date: 08/01/21 Plan of Care Certification Date: 01/17/22 Next Certification Due Date: 03/18/22 (plan for DC) Patient Identified by Name and Date of : Yes REHABILITATION AND SPORTS THERAPY PHYSICAL THERAPY TREATMENT NOTE ASSESSMENT: Jose Velazquez tolerated the session with no issues. She demonstrated improvements in gait TUG , 5 x sit to stand. The patient will continue to benefit from ongoing skilled physical therapy discharge patient independent with HEP. PLAN FOR NEXT VISIT: discharge patient independent with HEP based on evaluating therapist review of chart SUBJECTIVE: Patient Reason for Visit: patient reports working in yard for 7 hours feels like a big tooth ache patient also reports doing reciprocal stairs 6 steps Pain: Pain Pain Level: 3 Pain Location: Knee - Right Description: Aching Frequency: Intermittent Post Treatment Pain Post Treatment Pain Level: No Change OBJECTIVE MEASURES WITH LEVEL OF FUNCTION: Functional Performance Test Results 10 Meter Walk Test Trial 1 (seconds): 4.87 10 Meter Walk Test Average (m/sec): 1.23 5 Times Sit to Stand Test : 11.83 sec (18 inch height) Timed Up and Go (sec): 11.11 sec TREATMENT: Therapeutic Exercise: 1: nu step seat 10 level 2 ue/le 7 .1min 0.25 miles 2: single led mini squats right /left 5 x 2 3: reviewed HEP and progression of strength and endurance activities patient demonstrated and verbalized HEP Skilled Intervention: Patient was educated in proper exercise technique and purpose for exercises. Skilled judgment was provided in selection of appropriate interventions. Patient education as noted. Gait Trainin: TUG 2: reciprocol staair mobility ascending , partial reciprocal stair mobility descending stairs 10 steps 2 x 3: 10MWT 1 x Skilled Intervention: Verbal cues for sequence with descending stairs Billing Therapeutic Exercise Treatment Minutes: 25 Gait Training Treatment Minutes: 15 Total Treatment Time Minutes (timed/untimed): 40 Flaco Myers PTA documented in this encounter [facility] 03-07-2022 History of Presen t illness Narrative Episode Visit Count: 17 Therapist That Will Oversee The Plan Of Care: Landry Ugarte Start of Care Date: 09/29/21 Onset Date: 08/01/21 Plan of Care Certification Date: 01/17/22 Next Certification Due Date: 03/18/22 (plan for DC) Patient Identified by Name and Date of : Yes REHABILITATION AND SPORTS THERAPY PHYSICAL THERAPY TREATMENT NOTE ASSESSMENT: Jose Velazquez tolerated the session with expected muscle soreness. She demonstrated improvements in ROM and strength R knee and posture improvement with gait. The patient will continue to benefit from ongoing skilled physical therapy to progress toward set goals. PLAN FOR NEXT VISIT: check special tests per goals,progress standing balance , right le strength, SUBJECTIVE: Patient Reason for Visit: pt reports she is tired and has muscle soreness Bilat LE's from doing alot of work in her yard. 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 Pain: Pain Pain Level: 3 Pain Location: Knee - Left;Knee - Right Description: Sore Frequency: Intermittent Post Treatment Pain Post Treatment Pain Level: No Change OBJECTIVE MEASURES WITH LEVEL OF FUNCTION: LE AROM R Knee Extension: 0 Degrees R Knee Flexion: 120 Degrees TREATMENT: Therapeutic Exercise: 1: Nustep step seat 9- L 4 x 1 min, L5 x 4 min 2: sit to stand with clam shell , purple tb 10 x 2 19 inch height with /without ue support 3: *LAQ , 5 # x 10 x 2 sets R, and L 4: *long sit PF, and DF x 10 x 2sets, Munoz TB , needed PT A for position/ control, 5: *long sitting ankle inversion /eversion purple tb right 10 x 2 sets each 6: issued WHEP * 7: SLR x 10 L/R 2# 10: standing stretches x each : hip flexores, quads , hams , calfs Skilled Intervention: Patient was educated in proper exercise technique and purpose for exercises. Reviewed and educated patient on additions/changes for home exercise program as above (*). Skilled judgment was provided in selection of appropriate interventions. Patient education as noted. Therapeutic Activity: 1: narrow stances, semi- and near tandem stances, 2: SLS : R x 8 sec , L 10 sec 3: retro walking 4: gait tx : vc/ tc x inc hip ext and lateral hip stability , and vc x HS posture. Skilled Intervention: Educated on proper/safe technique for activities performed today. Activity progression based on professional judgment. Provided written instruction for home program to facilitate proper performance and compliance. Billing Therapeutic Exercise Treatment Minutes: 40 Therapeutic Activity Treatment Minutes: 15 Total Treatment Time Minutes (timed/untimed): 55 Antonietta Ugarte PT documented in this encounter [facility] 03-01-2022 Miscellaneous Notes Script was sent 02/27/22 Jessica Villar MA documented in this encounter [facility] 02-28-2022 History of Presen t illness Narrative Episode Visit Count: 16 Therapist That Will Oversee The Plan Of Care: Landry Ugarte Start of Care Date: 09/29/21 Onset Date: 08/01/21 Plan of Care Certification Date: 01/17/22 Next Certification Due Date: 03/18/22 (plan for DC) Patient Identified by Name and Date of : Yes REHABILITATION AND SPORTS THERAPY PHYSICAL THERAPY TREATMENT NOTE ASSESSMENT: Jose Velazquez tolerated the session with fatigue and no issues. She demonstrated difficulty with pain in bilateral knees limiting weight bearing activities and exercise. The patient will continue to benefit from ongoing skilled physical therapy to progress toward set goals. PLAN FOR NEXT VISIT: progress standing balance , right le strength, check ROM right knee flexion /extension SUBJECTIVE: Patient Reason for Visit: patient reports working in [employer] alot both knees hurt Pain: Pain Pain Level: 3 Pain Location: Knee - Right;Knee - Left Description: Sore Frequency: Intermittent Post Treatment Pain Post Treatment Pain Level: No Change OBJECTIVE MEASURES WITH LEVEL OF FUNCTION: TREATMENT: Therapeutic Exercise: 1: nu step seat 9 level 5 6 min 2: sit to stand with clam shell , purple tb 10 x 2 19 inch height with /without ue support 3: seated LAQ 2 # 10 x 2 r/l 4: long sitting ankle dorsi flexion/ plantar flexion munoz tb 10 x 2 r/l 5: long sitting ankle inversion /eversion purple tb right 10 x each Skilled Intervention: Patient was educated in proper exercise technique and purpose for exercises. Skilled judgment was provided in selection of appropriate interventions. Neuromuscular Re-Education: 1: standing forward retro leans close sba /cga 10 x 2 each 2: educated patient on righting mechanism of ankleswith balance in sagittal plane Skilled Intervention: See above Billing Therapeutic Exercise Treatment Minutes: 30 Gait Training Treatment Minutes: 10 Total Treatment Time Minutes (timed/untimed): 40 Flaco Myers PTA documented in this encounter [facility] 02-28-2022 Miscellaneous Notes Pharmacy requesting refills as follows: Last Office Visit 10/30/21 nov 07/31/22. Last Refill 10/30/21. Pending Prescriptions Disp Refills ATORVASTATIN 40 MG TABLET 30 tablet 2 Si tablet by ORAL/FEEDING TUBE route daily at bedtime. JYOTI: No Please review and advise. Jessica Villar MA documented in this encounter [facility] 02-26-2022 Miscellaneous Notes Pharmacy requesting refills as follows: Last Office Visit 01/29/22. Last Refill 10/30/21 and 11/30/21. Pending Prescriptions Disp Refills LISINOPRIL 10 MG TABLET 30 tablet 2 Sig: Take 1 tablet by mouth once daily. JYOTI: No RIVAROXABAN 20 MG TABLET 30 tablet 2 Sig: Take 1 tablet by mouth daily with dinner. JYOTI: No Please review and advise. Jessica Villar MA documented in this encounter [facility] 02-26-2022 Miscellaneous Notes Pharmacy requesting refills: Last office visit 01/29/2022. Last refill 01/01/2022 nov 07/31/2022 Pending Prescriptions Disp Refills CARVEDILOL 6.25 MG TABLET 60 tablet 0 Sig: TAKE 1 TABLET TWICE DAILY WITH MEALS JYOTI: Yes Please review and advise. Nicolette Cardenas MA documented in this encounter [facility] 02-26-2022 Miscellaneous Notes Patient's request for medication is as follows: Pending Prescriptions Disp Refills DILTIAZEM SR 240 MG 24 HR CAP 90 capsule 3 Sig: Take 1 capsule by mouth once daily. JYOTI: No Last seen 11/30/2021. Follow up scheduled for 08/30/2022. Prescription(s) as above. Please process accordingly. Dora Heredia LPN documented in this encounter [facility] 02-21-2022 History of Presen t illness Narrative Episode Visit Count: 15 Therapist That Will Oversee The Plan Of Care: Landry Ugarte Start of Care Date: 09/29/21 Onset Date: 08/01/21 Plan of Care Certification Date: 01/17/22 Next Certification Due Date: 03/18/22 (plan for DC) Patient Identified by Name and Date of : Yes REHABILITATION AND SPORTS THERAPY PHYSICAL THERAPY TREATMENT NOTE ASSESSMENT: Jose Velazquez tolerated the session with no issues. She demonstrated improvements in posture and dynamic gait actvity. The patient will continue to benefit from ongoing skilled physical therapy to progress toward set goals. PLAN FOR NEXT VISIT: progress hip and knee extension strenght with gait balance and exercise SUBJECTIVE: Patient Reason for Visit: patient reports can only do reciprocal stair mobility with 2 hand rails Pain: Pain Pain Level: 3 Pain Location: Knee - Right Description: Aching Frequency: Intermittent OBJECTIVE MEASURES WITH LEVEL OF FUNCTION: TREATMENT: Therapeutic Exercise: 1: nu step seat 10 level 5 ue/le 8 min .27 2: standing back to wall bilateral shoulder flexion with abdominal brace 3: standing mini shuttle hip and knee extension 3 bands 10n x r/l 4: standing hip extension green tb 10 x 2 r/l 5: seated and sidelying clamshells munoz tb 15 x 2 seated , 5 x sidelying left Skilled Intervention: Patient was educated in proper exercise technique and purpose for exercises. Skilled judgment was provided in selection of appropriate interventions. Gait Trainin: retro walking 24 ' 2: resistive forward walking munoz tb 25 ' x 3 Skilled Intervention: Verbal and tactile cues Billing Therapeutic Exercise Treatment Minutes: 35 Gait Training Treatment Minutes: 10 Total Treatment Time Minutes (timed/untimed): 45 Flaco Myers PTA documented in this encounter [facility] 02-14-2022 History of Presen t illness Narrative Episode Visit Count: 14 Therapist That Will Oversee The Plan Of Care: Landry Ugarte Start of Care Date: 09/29/21 Onset Date: 08/01/21 Plan of Care Certification Date: 01/17/22 Next Certification Due Date: 03/18/22 (plan for DC) Patient Identified by Name and Date of : Yes REHABILITATION AND SPORTS THERAPY PHYSICAL THERAPY PROGRESS REPORT PLAN OF CARE UPDATE: Assessment: Jose Velazquez demonstrates moderate improvement in rising from a chair, standing, walking in the house, walking in the community, bending and physical activities. She hasprogressed toward goals. Patient continues to present with impairments in flexibility, gait, joint mobility, range of motion and strength that interfere with functional mobility . Current prognosis is good . She will benefit from continued skilled therapy services to meet the updated goals for this plan of care as noted below. Goal status Update /progress update 02/14/22 POC for re cert 01/17/22-03/18/22 [place] in home exercise program. -M Ongoing Patient will increase active ROM of R knee to 1-120 to allow pt to to improve postural alignment, to improve performance of ADLs, to improve gait mechanics / gait pattern and to decrease falls risks. - PM Patient will demonstrate increase in R LE strength to 5/5 during manual muscle testing in order to improve function for home management tasks, prior functional tasks and work tasks. - PM- making progress Patient will increase flexibility of bilateral hams and gastrocs to WNL to improve mechanics and decrease pain. - M Patient will Improve Timed Up and Go to <14 sec seconds to demonstrate decreased risk of falling. - M Patient will improve 10MWT to 1.4m/s with no assistive device to demonstrate improvement in functional community ambulation.- M: 1.48 m/s Patient will improve 5 time sit to stand to demonstrate improvement in functional lower extremity strength. 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 - PM Reciprocal stair negotiation. - PM - non reciprocal, limit by pain and weakness Patient Goals: to get full ROM , strength back in my knee, especially my endurance, with my leg M = Met PM = Partially Met NM = Not Met NT = Not Tested/Performed Planned Interventions, Frequency, and Duration: 1x/week, Total Number of Visits Planned: 4 (4-5) Patient to be seen for SUBJECTIVE: Patient Reason for Visit: pt reports she continues to have knee and distal quad pain. pt reports now able to walk in some stores with her spouse, due to increasing walking endurance.. Pain: Pain Pain Level: 2 Pain Location: Knee - Right Description: Aching;Tightness Frequency: Intermittent Post Treatment Pain Post Treatment Pain Level: No Change PROMIS Scales Higher is Better 05/02/2021 06/20/2021 10/30/2021 Phys Func - Score 33 (moderate dysfunction) 24 (severe dysfunction) 24 (severe dysfunction) Phys Func - Percentile 4 % 0 % 0 % Social Roles - Score 25 (severe dysfunction) 36 (moderate dysfunction) 40 (mild dysfunction) Social Role - Percentile 1 % 8 % 16 % GH Physical - Score 42.3 (Good) - 34.9 (Poor) GH Physical - Percentile 22 % - 7 % GH Mental - Score 43.5 (Good) - 33.8 (Fair) GH Mental - Percentile 26 % - 5 % Self-Eff Symptom - Score 32 (Low) 35 (Low) 35 (Low) Self-Eff Symptom - Percentile 4 % 7 % 7 % T-scores: mean of general population = 50. 5 points is clinically meaningfully difference Percentiles provide an indication of how the patient's score ranks in relation to the general population. Higher percentile rankings indicate better function/quality of life. 50th percentile is the average of the general population and indicates half of respondents had a worse score. Lower is Better 05/02/2021 06/20/2021 10/30/2021 Fatigue - Score 64 (moderate) 62 (moderate) 62 (moderate) Fatigue - Percentile 8 % 12 % 12 % T-scores: mean of general population = 50. 5 points is clinically meaningfully difference Percentiles provide an indication of how the patient's score ranks in relation to the general population. Higher percentile rankings indicate better function/quality of life. 50th percentile is the average of the general population and indicates half of respondents had a worse score. OBJECTIVE MEASURES WITH LEVEL OF FUNCTION: Knee Observations R Knee Presents with: Swelling;Incision (mild atrophy remains quads) R Knee Palpation Tenderness: Quadriceps LE AROM R Knee Extension: -1 Degrees R Knee Flexion: 119 Degrees LE Flexibility R Gastrocnemius Flexibility: Min dec L Gastrocnemius Flexibility: min dec LE Joint Mobility R Patellar Mobility: Hypomobile LE Strength R Hip ABduction: 4-/5 R Hip ADduction: 4-/5 R Knee Extension (L3): 4+/5 (end rg knee ext 4-/5) R Knee Flexion: 4+/5 R Ankle Dorsiflexion (L4): 4+/5 L Hip Flexion (L2): 4/5 L Hip ABduction: 4/5 L Knee Extension (L3): 5/5 L Knee Flexion: 4+/5 L Ankle Dorsiflexion (L4): 5/5 Functional Performance Test Results 10 Meter Walk Test Trial 1 (seconds): 4.03 10 Meter Walk Test Trial 2 (seconds): 4.1 10 Meter Walk Test Average (m/sec): 1.48 5 Times Sit to Stand Test : 11.2 sec (no hands, 22 ) TREATMENT: Therapeutic Exercise: 1: Nu step seat 9 x 8 min L5 .25 miles 2: progress report / re-assessment performed and discussed 3: vc HEP - palloffs 4: EOB hip flexor stretch 2 min r/l 5: sit to stands 22 8: LAQ 2# x 10, 3#x 12, 5# x 15 9: SLR x 15, tc to end rg quads 10: standing stretches x each : hip flexores, quads , hams , calfs Skilled Intervention: Patient was educated in proper exercise technique and purpose for exercises. Reviewed and educated patient on additions/changes for home exercise program as above (*). Skilled judgment was provided in selection of appropriate interventions. Correct performance of therapeutic exercises was facilitated with verbal, visual and tactile cuing. Gait Trainin: Gauit tx to improve step through patter, knee eccentric control knee flex /ext stability, and to dec lateral hip/ glut sway , 2: vc , posture cue for inc core activation in gait Skilled Intervention: Facilitated proper gait cycle with the use of verbal, visual and tactile cues for correction of gait deviations identified in the objective section above. Reviewed and educated patient on additions/changes for home program as noted above with an (*). Provided written instruction for home program to facilitate proper performance and compliance. Billing Therapeutic Exercise Treatment Minutes: 45 Gait Training Treatment Minutes: 15 Total Treatment Time Minutes (timed/untimed): 60 Antonietta Ugarte PT documented in this encounter [facility] 02-07-2022 History of Presen t illness Narrative Episode Visit Count: 13 Therapist That Will Oversee The Plan Of Care: Landry Ugarte Start of Care Date: 09/29/21 Onset Date: 08/01/21 Plan of Care Certification Date: 01/17/22 Next Certification Due Date: 03/18/22 Patient Identified by Name and Date of : Yes REHABILITATION AND SPORTS THERAPY PHYSICAL THERAPY TREATMENT NOTE ASSESSMENT: Jose Velazquez tolerated the session with no issues. She demonstrated improvements in single leg stance right lower extremity ,slight difficulty with lateral sway in stance greater in right stance. The patient will continue to benefit from ongoing skilled physical therapy to progress toward set goals and for reassessment by supervising therapist. PLAN FOR NEXT VISIT: recheck , address bilateral glut med strength, sls , stm of distal right quad as needed SUBJECTIVE: Patient Reason for Visit: patient reports slight pain and tightness distal right quad Pain: Pain Pain Level: 2 Pain Location: Knee - Right Description: Tightness Frequency: Intermittent Post Treatment Pain Post Treatment Pain Level: No Change OBJECTIVE MEASURES WITH LEVEL OF FUNCTION: TREATMENT: Therapeutic Exercise: 1: nu step seat 10 ue/le level 4 4.5 min, 4.5 min 2: standing side step left => right with blue tb at chest 10 x 2 , right => left 10 x with blue tb at chest patient lest stable in right stance , decresed band resistance to green tb with side step rigth => left 3: standing palloffs blue tb 10 x 2 r/l 4: EOB hip flexor stretch 2 min r/l 5: sit to stand 22.5 inch height with verbal cues for hip extension and neutral posture 6: resistive forward walk munoz tb 25 ' x 4 7: sls without ue support left le 3 seconds x 3 , right le 3 seconds , 4 seconds 2 x Skilled Intervention: Patient was educated in proper exercise technique and purpose for exercises. Skilled judgment was provided in selection of appropriate interventions. Billing Therapeutic Exercise Treatment Minutes: 45 Total Treatment Time Minutes (timed/untimed): 45 Flaco Myers PTA documented in this encounter [facility] 02-06-2022 Miscellaneous Notes [address] [address] February 06, 2022 PID: [id number] Jose Velazquez [address] [place] [address] Dear Ms. Velazquez, We are pleased to inform you that the results of your recent breast imaging exam on 02/06/2022 are normal. Early detection of cancer is very important. We also understand recommendations regarding breast cancer screening are controversial. Please discuss with your primary care provider which strategy is best for you and whether a mammogram is right for you. Your imaging studies and report will be kept on file at [facility] as part of your permanent medical record and are available for your continuing care. Thank you for allowing us to help in meeting your health care needs. Sincerely, Dr. Kowalski Interpreting Radiologist [facility] (Normal over 40) documented in this encounter [facility] 02-06-2022 History of Presen t illness Narrative Radiology Service Progress Note PATIENT NAME: Jose Velazquez DATE OF SERVICE: February 06, 2022 TIME: 2:41 PM PATIENT IDENTITY VERIFICATION COMPLETED USING TWO (2) IDENTIFIERS: Name and Date of confirmed by patient verbally. FALL SCREENING: Has the patient had 2 falls in the last year or 1 fall with injury or currently using an Ambulatory Assistive Device (Walker, Cane, Wheelchair, Crutches, etc.)? No PATIENT GENDER DATA: Female. status: : No status: N/A PATIENT RELEVANT IMPLANT DATA REVIEWED: Not Applicable RADIOLOGY DEPARTMENT: Mammography PERIPHERAL IV DATA: Not applicable SIGNED BY: RT Nevaeh(R) February 06, 2022 2:41 PM documented in this encounter [facility] 01-31-2022 History of Presen t illness Narrative Episode Visit Count: 12 Therapist That Will Oversee The Plan Of Care: Landry Ugarte Start of Care Date: 09/29/21 Onset Date: 08/01/21 Plan of Care Certification Date: 01/17/22 Next Certification Due Date: 03/18/22 Patient Identified by Name and Date of : Yes REHABILITATION AND SPORTS THERAPY PHYSICAL THERAPY TREATMENT NOTE ASSESSMENT: Jose Velazquez tolerated the session with fatigue and expected muscle soreness. She demonstrated improvements in stair mobility, slight decrease in right glut med strength noted with MMT and right stance with gait . The patient will continue to benefit from ongoing skilled physical therapy to progress toward set goals. PLAN FOR NEXT VISIT: progress stair mobility to increase patient' s confidence with stair mobility , stregnten bilateral glut medius , and address standing static and dynamic balance SUBJECTIVE: Patient Reason for Visit: gustavo reports more independent with shower mobility , uses a shower chair, but feels like she can stand better in shower, patient reports fear of stair mobility due to instability in right knee Pain: Pain Pain Level: 3 Pain Location: Knee - Right (with sitting to standing) Post Treatment Pain Post Treatment Pain Level: 2 Post Treatment Pain Location: Knee - Right Post Treatment Pain Description: Aching OBJECTIVE MEASURES WITH LEVEL OF FUNCTION: LE Strength R Hip ADduction: 3+/5 L Hip ABduction: 4/5 TREATMENT: Therapeutic Exercise: 1: nu step seat 9 level 4 5 min, 5 min level 5 ue/le 0.25 miles 2: sidelyng slr 5 x r/l 3: hooklying slr with quad set 10 x r/l 4: long sitting right ankle dorsiflexion/plantar flexion munoz tb 10 x 2 each , 5: *long sitting right ankle eversion blue tb 10 x 2 6: 4 inch step up right step down left, 10 x , initial step down toe touch left to foot flat to heel strike 1 hand rail support left Skilled Intervention: Patient was educated in proper exercise technique and purpose for exercises. Reviewed and educated patient on additions/changes for home exercise program as above (*). Skilled judgment was provided in selection of appropriate interventions. Provided written instruction for home exercise program to facilitate proper performance and compliance. Gait Trainin: 4 inch step throught left with 1 ue support on hand rail 10 x 2 2: reciprocal stair mobility with2 rails 10 steps x 2 3: ducated patient on eccentric control of right quad Skilled Intervention: See above Billing Therapeutic Exercise Treatment Minutes: 40 Gait Training Treatment Minutes: 15 Total Treatment Time Minutes (timed/untimed): 55 Flaco Myers PTA documented in this encounter [facility] documented as of this encounter (statuses as of 12/25/2022) [facility]22 History of Past illness Narrative* Problem Noted Date Resolved Date Postoperative delirium 01/29/2022 3 Dysarthria 05/08/2021 12/25/2022 Abnormality of gait 05/03/2021 12/25/2022 Acute stroke due to ischemia 05/03/2021 Weakness status post cerebrovascular accident 07/07/2021 Impaired functional mobility, balance, gait, and endurance 05/03/2021 07/07/2021 documented as of this encounter (statuses as of 12/28/2022) [facility] History of Past illness Narrative* Problem Noted Date Resolved Date Postoperative delirium 01/29/2022 3 Dysarthria 05/08/2021 12/25/2022 Abnormality of gait 05/03/2021 12/25/2022 Acute stroke due to ischemia 05/03/2021 Weakness status post cerebrovascular accident 07/07/2021 Impaired functional mobility, balance, gait, and endurance 05/03/2021 07/07/2021 documented as of this encounter (statuses as of 01/24/2023) [facility] History of Past illness Narrative* Problem Noted Date Resolved Date Postoperative delirium 01/29/2022 3 Dysarthria 05/08/2021 12/25/2022 Abnormality of gait 05/03/2021 12/25/2022 Acute stroke due to ischemia 05/03/2021 Weakness status post cerebrovascular accident 07/07/2021 Impaired functional mobility, balance, gait, and endurance 05/03/2021 07/07/2021 documented as of this encounter (statuses as of 01/24/2023) [facility] History of Past illness Narrative* Problem Noted Date Resolved Date Postoperative delirium 01/29/2022 3 Dysarthria 05/08/2021 12/25/2022 Abnormality of gait 05/03/2021 12/25/2022 Acute stroke due to ischemia 05/03/2021 Weakness status post cerebrovascular accident 07/07/2021 Impaired functional mobility, balance, gait, and endurance 05/03/2021 07/07/2021 documented as of this encounter (statuses as of 02/12/2023) [place] [address]11-2022 History of Past illness Narrative* Problem Noted Date Resolved Date Postoperative delirium 01/29/2022 3 Dysarthria 05/08/2021 12/25/2022 Abnormality of gait 05/03/2021 12/25/2022 Acute stroke due to ischemia 05/03/2021 Weakness status post cerebrovascular accident 07/07/2021 Impaired functional mobility, balance, gait, and endurance 05/03/2021 07/07/2021 documented as of this encounter (statuses as of 02/13/2023) [address]22 History of Past illness Narrative* Problem Noted Date Resolved Date Postoperative delirium 01/29/2022 3 Dysarthria 05/08/2021 12/25/2022 Abnormality of gait 05/03/2021 12/25/2022 Acute stroke due to ischemia 05/03/2021 Weakness status post cerebrovascular accident 07/07/2021 Impaired functional mobility, balance, gait, and endurance 05/03/2021 07/07/2021 documented as of this encounter (statuses as of 02/15/2023) [address]22 History of Past illness Narrative* Problem Noted Date Resolved Date Postoperative delirium 01/29/2022 Abnormality of gait 05/03/2021 12/25/2022 Acute stroke due to ischemia 05/03/2021 Weakness status post cerebrovascular accident 07/07/2021 Impaired functional mobility, balance, gait, and endurance 05/03/2021 07/07/2021 documented as of this encounter (statuses as of 04/18/2023) [facility] History of Past illness Narrative* Problem Noted Date Resolved Date Postoperative delirium 01/29/2022 Abnormality of gait 05/03/2021 12/25/2022 Acute stroke due to ischemia 05/03/2021 Weakness status post cerebrovascular accident 07/07/2021 Impaired functional mobility, balance, gait, and endurance 05/03/2021 07/07/2021 documented as of this encounter (statuses as of 04/25/2023) [facility] History of Past illness Narrative* Problem Noted Date Diagnosed Date Resolved Date Postoperative delirium 01/29/202212/25 Abnormality of gait 05/03/2021 12/26/19 23 Acute stroke due to ischemia 05/03/2021 07/07/2021 Weakness status post cerebrovascular accident 05/03/2007/07/2021 Impaired functional mobility , balance, gait, and endurance 05/03/2021 07/07/2021 documented as of this encounter (statuses as of 05/21/2023) [facility] History of Past illness Narrative* Problem Noted Date Diagnosed Date Resolved Date Postoperative delirium 01/29/202212/25 Abnormality of gait 05/03/2021 12/26/19 Acute stroke due to ischemia 05/03/2021 07/07/2021 Weakness status post cerebrovascular accident 05/03/2007/07/2021 Impaired functional mobility , balance, gait, and endurance 05/03/2021 07/07/2021 documented as of this encounter (statuses as of 05/22/2023) [facility] History of Past illness Narrative* Problem Noted Date Diagnosed Date Resolved Date Postoperative delirium 01/29/202212/25 Abnormality of gait 05/03/2021 12/26/19 23 Acute stroke due to ischemia 05/03/2021 07/07/2021 Weakness status post cerebrovascular accident 05/03/20 21 07/07/2021 Impaired functional mobility , balance, gait, and endurance 05/03/2021 07/07/2021 documented as of this encounter (statuses as of 06/18/2023) [facility] History of Past illness Narrative* Problem Noted Date Diagnosed Date Resolved Date Postoperative delirium 01/29/202212/25 Abnormality of gait 05/03/2021 12/26/19 23 Acute stroke due to ischemia 05/03/2021 07/07/2021 Weakness status post cerebrovascular accident 05/03/2007/07/2021 Impaired functional mobility , balance, gait, and endurance 05/03/2021 07/07/2021 documented as of this encounter (statuses as of 06/25/2023) [facility] History of Past illness Narrative* Problem Noted Date Diagnosed Date Resolved Date Postoperative delirium 01/29/202212/25 Abnormality of gait 05/03/2021 12/26/19 23 Acute stroke due to ischemia 05/03/2021 07/07/2021 Weakness status post cerebrovascular accident 05/03/2007/07/2021 Impaired functional mobility , balance, gait, and endurance 05/03/2021 07/07/2021 documented as of this encounter (statuses as of 07/23/2023) [facility] History of Past illness Narrative* Problem Noted Date Diagnosed Date Resolved Date Postoperative delirium 01/29/202212/25 Abnormality of gait 05/03/2021 12/26/19 23 Acute stroke due to ischemia 05/03/2021 07/07/2021 Weakness status post cerebrovascular accident 05/03/2007/07/2021 Impaired functional mobility , balance, gait, and endurance 05/03/2021 07/07/2021 documented as of this encounter (statuses as of 08/19/2023) [facility] History of Past illness Narrative* Problem Noted Date Diagnosed Date Resolved Date Postoperative delirium 01/29/202212/25 Bone infarct of distal femur 01/29/2022 09/08/2023 Bone necrosis 01/29/2022 09/08/2023 Abnormality of gait 05/03/2021 12/26/19 23 Acute stroke due to ischemia 05/03/2021 07/07/2021 Weakness status post cerebrovascular accident 05/03/2007/07/2021 Impaired functional mobility , balance, gait, and endurance 05/03/2021 07/07/2021 documented as of this encounter (statuses as of 09/09/2023) [facility] History of Past illness Narrative* Problem Noted Date Diagnosed Date Resolved Date Postoperative delirium 01/29/202212/25 Bone infarct of distal femur 01/29/2022 09/08/2023 Bone necrosis 01/29/2022 09/08/2023 Abnormality of gait 05/03/2021 12/26/19 23 Acute stroke due to ischemia 05/03/2021 07/07/2021 Weakness status post cerebrovascular accident 05/03/2007/07/2021 Impaired functional mobility , balance, gait, and endurance 05/03/2021 07/07/2021 documented as of this encounter (statuses as of 09/18/2023) [facility] History of Past illness Narrative* Problem Noted Date Diagnosed Date Resolved Date Postoperative delirium 01/29/202212/25 Bone infarct of distal femur 01/29/2022 09/08/2023 Bone necrosis 01/29/2022 09/08/2023 Abnormality of gait 05/03/2021 12/26/19 23 Acute stroke due to ischemia 05/03/2021 07/07/2021 Weakness status post cerebrovascular accident 05/03/2007/07/2021 Impaired functional mobility , balance, gait, and endurance 05/03/2021 07/07/2021 documented as of this encounter (statuses as of 09/24/2023) [facility] History of Present illness Narrative* Antonietta Ugarte, PT - 01/24/2022 7:20 PM EDT Episode Visit Count: 11 Therapist That Will Oversee The Plan Of Care: Landry Ugarte Start of Care Date: 09/29/21 Onset Date: 08/01/21 Plan of Care Certification Date: 01/17/22 Next Certification Due Date: 03/18/22 Patient Identified by Name and Date of : Yes REHABILITATION AND SPORTS THERAPY PHYSICAL THERAPY TREATMENT NOTE ASSESSMENT: Jose Velazquez tolerated the session with expected muscle soreness and improved gait and therapeutic exercise tolerance. She demonstrated improvements in gait and knee/ hip stability with vc's. The patient will continue to benefit from ongoing skilled physical therapy to progress toward set goals. PLAN FOR NEXT VISIT: SUBJECTIVE: Patient Reason for Visit: pt reports paIN of R quadricep . Pain: Pain Pain Level: 3 (-01/28) Pain Location: Knee - Right Description: Aching Frequency: Intermittent Post Treatment Pain Post Treatment Pain Level: 2 Post Treatment Pain Location: Knee - Right Post Treatment Pain Description: Aching OBJECTIVE MEASURES WITH LEVEL OF FUNCTION: Gait Weight Bearing Status: FWB Gait: Modified Independent Gait Distance (feet): 100' x 2 Gait Deviations: Right Lower Extremity Gait Deviations Right Lower Extremity: Foot clearance decreased;Knee stability during stance phase decreased;Lacks full knee extension during terminal swing;Lacks hip extension beyond mid-stance;Pushoff during terminal stance decreased;Step length decreased (noted improved Hip stability and dec Lateral sway B with vc's to improve gait, and inc hip and quad m. control.) TREATMENT: Therapeutic Exercise: 1: NUstep seat 10-9, L 4 x 4 min , L5 x 3 min 2: Heelslides, seated with end range stretches of ext and flex x 12 3: Heelslides supine with PT A to inc end range stretches and tc for smooth quad control/use 4: SLR , no TB with tc to incv end range quads x 10x 2 5: SLR 2# x 10 LLE 6: Hamstrings seated Munoz TB x 20 7: sit to stand x 5 8: slant bd x 2 min 9: manual Hams stretches Skilled Intervention: Patient was educated in proper exercise technique and purpose for exercises. Reviewed and educated patient on additions/changes for home exercise program as above (*). Skilled judgment was provided in selection of appropriate interventions. Correct performance of therapeutic exercises was facilitated with verbal, visual and tactile cuing. Manual Therapy: 1: stm & trigger pt tx ,distal right quad 10 min Skilled Intervention: Manual skills to improve joint mobility, ROM, and decrease pain. Utilized anatomy knowledge of the therapist, and assessment of patient's response to intervention. Gait Trainin: Gait tx working on hip and knee stability with visual, and vc's to inc glut use, HS, and core activation - noted imprved laess lat sway B Skilled Intervention: Facilitated proper gait cycle with the use of verbal, visual and tactile cuesfor correction of gait deviations identified in the objective section above. Provided written instruction for home program to facilitate proper performance and compliance. Billing Therapeutic Exercise Treatment Minutes: 37 Manual TherapyTreatment Minutes: 10 Gait Training Treatment Minutes: 8 Total Treatment Time Minutes (timed and untimed codes) : 55 Antonietta Ugarte PT [facility] of Present illness Narrative* Antonietta Ugarte PT - 01/17/2022 6:30 PM EDT Episode Visit Count: 10 Therapist That Will Oversee The Plan Of Care: Landry Ugarte Start of Care Date: 09/29/21 Onset Date: 08/01/21 Plan of Care Certification Date: 01/17/22 Next Certification Due Date: 03/18/22 Patient Identified by Name and Date of : Yes REHABILITATION AND SPORTS THERAPY PHYSICAL THERAPY PROGRESS REPORT Recert PLAN OF CARE UPDATE: Assessment: Jose Velazquez demonstrates moderate improvement in R knee ROM & strength with improved ability for sit to stand unsupported at 21 ht , rising from a chair, standing, walking, walking in the house, walking in the community, stair negotiation, physical activities, sleeping, dressing and grooming. She hasprogressed toward goals. Patient continues to present with impairments in balance, flexibility, gait, overall function, patient reported outcome measures, range of motion, strengthand tissue tenderness that interfere with functional mobility . Current prognosis is Good due to: current objective clinical presentation;good support system/ coping skills . She will benefit from con tinued skilled therapy services to meet the updated goals for this plan of care as noted below. Goal status Update and POC for re cert 01/17/22-03/18/22 [place] in home exercise program. -M Ongoing Patient will increase active ROM of R knee to 1-120 to allow pt to to improve postural alignment, to improve performance of ADLs, to improve gait mechanics / gait pattern and to decrease falls risks. - PM Patient will demonstrate increase in R LE strength to 5/5 during manual muscle testing in order to improve function for home management tasks, prior functional tasks and work tasks. - PM Patient will increase flexibility of bilateral hams and gastrocs to WNL to improve mechanics and decrease pain. - M Patient will Improve Timed Up and Go to <14 sec seconds to demonstrate decreased risk of falling. - M Patient will improve 10MWT to 1.4m/s with no assistive device to demonstrate improvement in functional community ambulation.NM Patient will improve 5 time sit to stand to demonstrate improvement in functional lower extremity strength. 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 - PM Reciprocal stair negotiation. - PM - non reciprocal Patient Goals: to get full ROM , strength back in my knee, especially my endurance, with my leg M = Met PM = Partially Met NM = Not Met NT = Not Tested/Performed Planned Interventions, Frequency, and Duration: 1x/week (1-2x pwe wk, pt prefers 1x week.), (6-8 weeks) Total Number of Visits Planned: 8 Patient to be seen for Therapeutic exercise (22663);Gait Training (22990);Manual therapy (04531);Therapeutic activities (89965);Self-usp management (04012) PLAN FOR NEXT VISIT: progress Hip and knee strength, gait tx, SUBJECTIVE: Patient Reason for Visit: pt reports pain R knee prox to patella.& L knee arthriticpain .. Pain: Pain Pain Level: 4 Pain Location: Knee - Right Description: Aching Frequency: Intermittent Post Treatment Pain Post Treatment Pain Level: No Change PROMIS Scales Higher is Better 05/02/2021 06/20/2021 10/30/2021 Phys Func - Score 33 (moderate dysfunction) 24 (severe dysfunction) 24 (severe dysfunction) Phys Func - Percentile 4 % 0 % 0 % Social Roles - Score 25 (severe dysfunction) 36 (moderate dysfunction) 40 (mild dysfunction) Social Role - Percentile 1 % 8 % 16 % GH Physical - Score 42.3 (Good) - 34.9 (Poor) GH Physical - Percentile 22 % - 7 % GH Mental - Score 43.5 (Good) - 33.8 (Fair) GH Mental - Percentile 26 % - 5 % Self-Eff Symptom - Score 32 (Low) 35 (Low) 35 (Low) Self-Eff Symptom - Percentile 4 % 7 % 7 % T-scores: mean of general population = 50. 5 points is clinically meaningfully difference Percentiles provide an indication of how the patient's score ranks in relation to the general population. Higher percentile rankings indicate better function/quality of life. 50th percentile is the average of the general population and indicates half of respondents had a worse score. Lower is Better 05/02/2021 06/20/2021 10/30/2021 Fatigue - Score 64 (moderate) 62 (moderate) 62 (moderate) Fatigue - Percentile 8 % 12 % 12 % T-scores: mean of general population = 50. 5 points is clinically meaningfully difference Percentiles provide an indication of how the patient's score ranks in relation to the general population. Higher percentile rankings indicate better function/quality of life. 50th percentile is the average of the general population and indicates half of respondents had a worse score. OBJECTIVE MEASURES WITH LEVEL OF FUNCTION: Knee Observations R Knee Presents with: Swelling;Incision;Atrophy R Swelling: min-mod diffuse R Atrophy : quads R Incision: healed R Knee Palpation Tenderness: Quadriceps LE AROM R Knee Extension: -1 Degrees R Knee Flexion: 122 Degrees LE Flexibility R Gastrocnemius Flexibility: Min dec L Gastrocnemius Flexibility: min dec LE Joint Mobility L Patellar Mobility: Hypomobile LE Strength R Hip Extension: 4/5 R Hip Flexion (L2): 4/5 R Hip ABduction: 4/5 R Hip ADduction: 4/5 R Knee Extension (L3): 4+/5 (exc end rg ext 4- -4/5) R Knee Flexion: 4/5 R Ankle Plantar Flexion: 4/5 L Hip Extension: 4/5 L Hip Flexion (L2): 4/5 L Hip ABduction: 4/5 L Hip ADduction: 5/5 L Knee Flexion: 4+/5 L Ankle Dorsiflexion (L4): 5/5 L Ankle Plantar Flexion: 4+/5 Gait Weight Bearing Status: FWB Gait: Modified Independent Gait Distance (feet): 75' x 3 Gait Deviations: Right Lower Extremity Gait Deviations Right Lower Extremity: Heel strike during initial stance decreased;Foot clearance decreased;Knee stability during stance phase decreased;Lacks full knee extension during terminal swing;Lacks hip extension beyond mid-stance;Push off during terminal stance decreased;Step length decreas ed General Deviations/Observations: Antalgic gait;Wide base of support (Bilat hip sway) Gait Observation: currently able to ambulate without asssitive device Stairs: Stand By Assistance Stairs Device: Rail Number of Stairs: 12 Stairs: non-reciprocal Balance Single Leg Stance: R 3 sec Functional Performance Test Results 10 Meter Walk Test Trial 1 (seconds): 7.3 10 Meter Walk Test Trial 2 (seconds): 6.4 10 Meter Walk Test Average (m/sec): 0.88 5 Times Sit to Stand Test : 14.01 sec (21.0 x 5 no UE support) TREATMENT: Therapeutic Exercise: 1: Nustep seat10 L4, 2: steps ups on 6 steps FW, and eccentric control 3: standing slr left green tb 10 x 2 4: hooklying bridging 10 x 2 7: sit to stand 5 x 3 sets 19 with UE's and 21 x 5 x 2 NO UEs 8: slant board x 2 min 9: Hams stretches 10: AROM - and Resisted ROM knee flex, ext ,x manual resist/ GTB 12: Recheck Assessmsnt - Recert this date Skilled Intervention: Patient was educated in proper exercise technique and purpose for exercises. Reviewed and educated patient on additions/changes for home exercise program as above (*). Skilled judgment was provided in selection of appropriate interventions. Educated patient on rationale for performing exercises in regards to decreasing fatigue , improvingfitness, including balance, increase ease of ADL and ROM and function . Patient education as noted. Gait Trainin: gait with increased stride length 26 ' 19 steps , 17 steps , 16 steps Skilled Intervention: Facilitated proper gait cycle with the use of verbal, visual and tactile cuesfor correction of gait deviations identified in the objective section above. Provided written/verbal instruction for home program to facilitate proper performance and compliance. Billing Therapeutic Exercise Treatment Minutes: 45 Gait Training Treatment Minutes: 10 Total Treatment Time Minutes (timed and untimed codes) : 55 Antonietta Ugarte PT [facility] Past illness Narrative* Problem Noted Date Resolved Date Acute stroke due to ischemia 05/03/2021 Weakness status post cerebrovascular accident 07/07/2021 Impaired functional mobility, balance, gait, and endurance 05/03/2021 07/07/2021 documented as of this encounter (statuses as of 01/17/2022) [address]14-2021 History of Past illness Narrative* Problem Noted Date Resolved Date Acute stroke due to ischemia 05/03/2021 Weakness status post cerebrovascular accident 07/07/2021 Impaired functional mobility, balance, gait, and endurance 05/03/2021 07/07/2021 documented as of this encounter (statuses as of 01/28/2022) [address]14-2021 History of Past illness Narrative* Problem Noted Date Resolved Date Acute stroke due to ischemia 05/03/2021 Weakness status post cerebrovascular accident 07/07/2021 Impaired functional mobility, balance, gait, and endurance 05/03/2021 07/07/2021 documented as of this encounter (statuses as of 01/31/2022) [address]14-2021 History of Past illness Narrative* Problem Noted Date Resolved Date Acute stroke due to ischemia 05/03/2021 Weakness status post cerebrovascular accident 07/07/2021 Impaired functional mobility, balance, gait, and endurance 05/03/2021 07/07/2021 documented as of this encounter (statuses as of 02/07/2022) [address]14-2021 History of Past illness Narrative* Problem Noted Date Resolved Date Acute stroke due to ischemia 05/03/2021 Weakness status post cerebrovascular accident 07/07/2021 Impaired functional mobility, balance, gait, and endurance 05/03/2021 07/07/2021 documented as of this encounter (statuses as of 02/07/2022) [address]14-2021 History of Past illness Narrative* Problem Noted Date Resolved Date Acute stroke due to ischemia 05/03/2021 Weakness status post cerebrovascular accident 07/07/2021 Impaired functional mobility, balance, gait, and endurance 05/03/2021 07/07/2021 documented as of this encounter (statuses as of 02/08/2022) [address]14-2021 History of Past illness Narrative* Problem Noted Date Resolved Date Acute stroke due to ischemia 05/03/2021 Weakness status post cerebrovascular accident 07/07/2021 Impaired functional mobility, balance, gait, and endurance 05/03/2021 07/07/2021 documented as of this encounter (statuses as of 02/15/2022) [address]14-2021 History of Past illness Narrative* Problem Noted Date Resolved Date Acute stroke due to ischemia 05/03/2021 Weakness status post cerebrovascular accident 07/07/2021 Impaired functional mobility, balance, gait, and endurance 05/03/2021 07/07/2021 documented as of this encounter (statuses as of 02/21/2022) [address]14-2021 History of Past illness Narrative* Problem Noted Date Resolved Date Acute stroke due to ischemia 05/03/2021 Weakness status post cerebrovascular accident 07/07/2021 Impaired functional mobility, balance, gait, and endurance 05/03/2021 07/07/2021 documented as of this encounter (statuses as of 02/27/2022) [address]14-2021 History of Past illness Narrative* Problem Noted Date Resolved Date Acute stroke due to ischemia 05/03/2021 Weakness status post cerebrovascular accident 07/07/2021 Impaired functional mobility, balance, gait, and endurance 05/03/2021 07/07/2021 documented as of this encounter (statuses as of 02/28/2022) [address]14-2021 History of Past illness Narrative* Problem Noted Date Resolved Date Acute stroke due to ischemia 05/03/2021 Weakness status post cerebrovascular accident 07/07/2021 Impaired functional mobility, balance, gait, and endurance 05/03/2021 07/07/2021 documented as of this encounter (statuses as of 02/28/2022) [address]14-2021 History of Past illness Narrative* Problem Noted Date Resolved Date Acute stroke due to ischemia 05/03/2021 Weakness status post cerebrovascular accident 07/07/2021 Impaired functional mobility, balance, gait, and endurance 05/03/2021 07/07/2021 documented as of this encounter (statuses as of 02/28/2022) [facility] of Past illness Narrative* Problem Noted Date Resolved Date Acute stroke due to ischemia 05/03/2021 Weakness status post cerebrovascular accident 07/07/2021 Impaired functional mobility, balance, gait, and endurance 05/03/2021 07/07/2021 documented as of this encounter (statuses as of 02/28/2022) [facility] of Past illness Narrative* Problem Noted Date Resolved Date Acute stroke due to ischemia 05/03/2021 Weakness status post cerebrovascular accident 07/07/2021 Impaired functional mobility, balance, gait, and endurance 05/03/2021 07/07/2021 documented as of this encounter (statuses as of 03/01/2022) [facility] of Past illness Narrative* Problem Noted Date Resolved Date Acute stroke due to ischemia 05/03/2021 Weakness status post cerebrovascular accident 07/07/2021 Impaired functional mobility, balance, gait, and endurance 05/03/2021 07/07/2021 documented as of this encounter (statuses as of 03/07/2022) [facility] of Past illness Narrative* Problem Noted Date Resolved Date Acute stroke due to ischemia 05/03/2021 Weakness status post cerebrovascular accident 07/07/2021 Impaired functional mobility, balance, gait, and endurance 05/03/2021 07/07/2021 documented as of this encounter (statuses as of 03/14/2022) [facility] of Past illness Narrative* Problem Noted Date Resolved Date Acute stroke due to ischemia 05/03/2021 Weakness status post cerebrovascular accident 07/07/2021 Impaired functional mobility, balance, gait, and endurance 05/03/2021 07/07/2021 documented as of this encounter (statuses as of 03/26/2022) [address]14-2021 History of Past illness Narrative* Problem Noted Date Resolved Date Acute stroke due to ischemia 05/03/2021 Weakness status post cerebrovascular accident 07/07/2021 Impaired functional mobility, balance, gait, and endurance 05/03/2021 07/07/2021 documented as of this encounter (statuses as of 04/06/2022) [facility] Past illness Narrative* Problem Noted Date Resolved Date Acute stroke due to ischemia 05/03/2021 Weakness status post cerebrovascular accident 07/07/2021 Impaired functional mobility, balance, gait, and endurance 05/03/2021 07/07/2021 documented as of this encounter (statuses as of 05/02/2022) [facility] of Past illness Narrative* Problem Noted Date Resolved Date Acute stroke due to ischemia 05/03/2021 Weakness status post cerebrovascular accident 07/07/2021 Impaired functional mobility, balance, gait, and endurance 05/03/2021 07/07/2021 documented as of this encounter (statuses as of 05/31/2022) [facility] of Past illness Narrative* Problem Noted Date Resolved Date Acute stroke due to ischemia 05/03/2021 Weakness status post cerebrovascular accident 07/07/2021 Impaired functional mobility, balance, gait, and endurance 05/03/2021 07/07/2021 documented as of this encounter (statuses as of 06/13/2022) [address]14-2021 History of Past illness Narrative* Problem Noted Date Resolved Date Acute stroke due to ischemia 05/03/2021 Weakness status post cerebrovascular accident 07/07/2021 Impaired functional mobility, balance, gait, and endurance 05/03/2021 07/07/2021 documented as of this encounter (statuses as of 06/20/2022) [address]14-2021 History of Past illness Narrative* Problem Noted Date Resolved Date Acute stroke due to ischemia 05/03/2021 Weakness status post cerebrovascular accident 07/07/2021 Impaired functional mobility, balance, gait, and endurance 05/03/2021 07/07/2021 documented as of this encounter (statuses as of 06/26/2022) [address]14-2021 History of Past illness Narrative* Problem Noted Date Resolved Date Acute stroke due to ischemia 05/03/2021 Weakness status post cerebrovascular accident 07/07/2021 Impaired functional mobility, balance, gait, and endurance 05/03/2021 07/07/2021 documented as of this encounter (statuses as of 06/27/2022) [address]14-2021 History of Past illness Narrative* Problem Noted Date Resolved Date Acute stroke due to ischemia 05/03/2021 Weakness status post cerebrovascular accident 07/07/2021 Impaired functional mobility, balance, gait, and endurance 05/03/2021 07/07/2021 documented as of this encounter (statuses as of 06/27/2022) [facility] Narrative* Problem Noted Date Resolved Date Acute stroke due to ischemia 05/03/2021 Weakness status post cerebrovascular accident 07/07/2021 Impaired functional mobility, balance, gait, and endurance 05/03/2021 07/07/2021 documented as of this encounter (statuses as of 07/02/2022) [address]14-2021 History of Past illness Narrative* Problem Noted Date Resolved Date Acute stroke due to ischemia 05/03/2021 Weakness status post cerebrovascular accident 07/07/2021 Impaired functional mobility, balance, gait, and endurance 05/03/2021 07/07/2021 documented as of this encounter (statuses as of 07/13/2022) [address]14-2021 History of Past illness Narrative* Problem Noted Date Resolved Date Acute stroke due to ischemia 05/03/2021 Weakness status post cerebrovascular accident 07/07/2021 Impaired functional mobility, balance, gait, and endurance 05/03/2021 07/07/2021 documented as of this encounter (statuses as of 07/27/2022) [facility] Past [facility] Narrative* Problem Noted Date Resolved Date Acute stroke due to ischemia 05/03/2021 Weakness status post cerebrovascular accident 07/07/2021 Impaired functional mobility, balance, gait, and endurance 05/03/2021 07/07/2021 documented as of this encounter (statuses as of 07/27/2022) [facility] Narrative* Problem Noted Date Resolved Date Acute stroke due to ischemia 05/03/2021 Weakness status post cerebrovascular accident 07/07/2021 Impaired functional mobility, balance, gait, and endurance 05/03/2021 07/07/2021 documented as of this encounter (statuses as of 08/29/2022) [facility] Past [facility] Narrative* Problem Noted Date Resolved Date Acute stroke due to ischemia 05/03/2021 Weakness status post cerebrovascular accident 07/07/2021 Impaired functional mobility, balance, gait, and endurance 05/03/2021 07/07/2021 documented as of this encounter (statuses as of 08/30/2022) [facility] Narrative* Problem Noted Date Resolved Date Acute stroke due to ischemia 05/03/2021 Weakness status post cerebrovascular accident 07/07/2021 Impaired functional mobility, balance, gait, and endurance 05/03/2021 07/07/2021 documented as of this encounter (statuses as of 09/12/2022) [facility] Past [facility] Narrative* Problem Noted Date Resolved Date Acute stroke due to ischemia 05/03/2021 Weakness status post cerebrovascular accident 07/07/2021 Impaired functional mobility, balance, gait, and endurance 05/03/2021 07/07/2021 documented as of this encounter (statuses as of 09/12/2022) [facility] Narrative* Problem Noted Date Resolved Date Acute stroke due to ischemia 05/03/2021 Weakness status post cerebrovascular accident 07/07/2021 Impaired functional mobility, balance, gait, and endurance 05/03/2021 07/07/2021 documented as of this encounter (statuses as of 09/25/2022) [facility] Past [facility] Narrative* Problem Noted Date Resolved Date Acute stroke due to ischemia 05/03/2021 Weakness status post cerebrovascular accident 07/07/2021 Impaired functional mobility, balance, gait, and endurance 05/03/2021 07/07/2021 documented as of this encounter (statuses as of 09/26/2022) [facility] Past [facility] Narrative* Problem Noted Date Resolved Date Acute stroke due to ischemia 05/03/2021 Weakness status post cerebrovascular accident 07/07/2021 Impaired functional mobility, balance, gait, and endurance 05/03/2021 07/07/2021 documented as of this encounter (statuses as of 10/25/2022) [facility] Past [facility] Narrative* Problem Noted Date Resolved Date Acute stroke due to ischemia 05/03/2021 Weakness status post cerebrovascular accident 07/07/2021 Impaired functional mobility, balance, gait, and endurance 05/03/2021 07/07/2021 documented as of this encounter (statuses as of 10/30/2022) [facility] Narrative* Problem Noted Date Resolved Date Acute stroke due to ischemia 05/03/2021 Weakness status post cerebrovascular accident 07/07/2021 Impaired functional mobility, balance, gait, and endurance 05/03/2021 07/07/2021 documented as of this encounter (statuses as of 11/08/2022) [facility] Diagnosis Abnormality of gait- Primary S/P total knee arthroplasty, right Weakness of right leg Other musculoskeletal symptoms referable to limbs Difficulty walking Difficulty in walking Primary osteoarthritis of right knee Primary localized osteoarthrosis, lower leg [facility] Abnormality of gait- Primary S/P total knee arthroplasty, right Weakness of right leg Other musculoskeletal symptoms referable to limbs Difficulty walking Difficulty in walking [facility] Diagnosis S/P total knee arthroplasty, right- Primary Weakness of right leg Other musculoskeletal symptoms referable to limbs Difficulty walking Difficulty in walking Abnormality of gait [facility] Diagnosis Encounter for screening mammogram for malignant neoplasm of breast Other screening mammogram [facility] Diagnosis S/P total knee arthroplasty, right- Primary Weakness of right leg Other musculoskeletal symptoms referable to limbs Difficulty walking Difficulty in walking Abnormality of gait [facility] Diagnosis S/P total knee arthroplasty, right- Primary Weakness of right leg Other musculoskeletal symptoms referable to limbs Difficulty walking Difficulty in walking Abnormality of gait [facility] Diagnosis Persistent atrial fibrillation (HCC) Atrial fibrillation [facility] Diagnosis Essential hypertension Unspecified essential hypertension [facility] Diagnosis Ischemic stroke (HCC) [facility] Diagnosis S/P total knee arthroplasty, right- Primary Weakness of right leg Other musculoskeletal symptoms referable to limbs Difficulty walking Difficulty in walking Abnormality of gait [facility] Diagnosis Persistent atrial fibrillation (HCC) Atrial fibrillation [facility] Diagnosis S/P total knee arthroplasty, right- Primary Abnormality of gait Weakness of right leg Other musculoskeletal symptoms referable to limbs Difficulty walking Difficulty in walking [facility] Diagnosis Weakness of right leg- Primary Other musculoskeletal symptoms referable to limbs Difficulty walking Difficulty in walking Abnormality of gait S/P total knee arthroplasty, right [facility] Persistent atrial fibrillation (HCC) Atrial fibrillation [facility] Diagnosis Lacunar infarction (HCC)- Primary Unspecified cerebral artery occlusion with cerebral infarction Atrial fibrillation with RVR (HCC) Atrial fibrillation [facility] Persistent atrial fibrillation (HCC) Atrial fibrillation Ischemic stroke (HCC) Essential hypertension Unspecified essential hypertension [facility] Diagnosis Impaired functional mobility, balance, and endurance- Primary Weakness of right leg Other musculoskeletal symptoms referable to limbs Difficulty walking Difficulty in walking Abnormality of gait [facility] Diagnosis Weakness of right leg- Primary Other musculoskeletal symptoms referable to limbs Difficulty walking Difficulty in walking Abnormality of gait [facility] Weakness of right leg- Primary Other musculoskeletal symptoms referable to limbs Difficulty walking Difficulty in walking Abnormality of gait Impaired functional mobility, balance, and endurance S/P total knee arthroplasty, right [facility] Diagnosis Persistent atrial fibrillation (HCC) Atrial fibrillation [facility] Diagnosis Essential hypertension Unspecified essential hypertension [facility] Diagnosis Diet-controlled type 2 diabetes mellitus (HCC)- Primary Type II or unspecified type diabetes mellitus without mention of complication, not stated as uncontrolled Hypertension, unspecified type Left ventricular hypertrophy Cardiomegaly Ischemic stroke (HCC) Atrial fibrillation with RVR (HCC) Atrial fibrillation Mild episode of recurrent major depressive disorder (HCC) Verruca vulgaris Viral warts, unspecified Lesion of face [facility] Diagnosis Ischemic stroke (HCC)- Primary Ischemic cerebrovascular accident (CVA) (HCC) Hypertension, unspecified type Diet-controlled type 2 diabetes mellitus (HCC) Type II or unspecified type diabetes mellitus without mention of complication, not stated as uncontrolled Abnormal electrocardiogram (ECG) (EKG) [facility] Diagnosis Ischemic stroke (HCC) Ischemic cerebrovascular accident (CVA) (HCC) Hypertension, unspecified type Abnormal electrocardiogram (ECG) (EKG) [facility] Diagnosis Diet-controlled type 2 diabetes mellitus (HCC)- Primary Type II or unspecified type diabetes mellitus without mention of complication, not stated as uncontrolled Obesity, Class II, BMI 35-39.9 Obesity, unspecified Hypertension, unspecified type Mild episode of recurrent major depressive disorder (HCC) documented in this encounter [facility] note* Diagnosis Persistent atrial fibrillation (HCC) Atrial fibrillation Ischemic stroke (HCC) documented in this encounter [facility] note* Diagnosis Persistent atrial fibrillation (HCC) Atrial fibrillation documented in this encounter [facility] note* Diagnosis Class 3 obesity (HCC)- Primary Diet-controlled type 2 diabetes mellitus (HCC) Type II or unspecified type diabetes mellitus without mention of complication, not stated as uncontrolled Morbid obesity with BMI of 40.0-44.9, adult (HCC) Morbid obesity documented in this encounter [facility] note* Diagnosis Dietary counseling- Primary Dietary surveillance and counseling Diet-controlled type 2 diabetes mellitus (HCC) Type II or unspecified type diabetes mellitus without mention of complication, not stated as uncontrolled Class 3 obesity (HCC) documented in this encounter [facility] note* Diagnosis Diet-controlled type 2 diabetes mellitus (HCC)- Primary Type II or unspecified type diabetes mellitus without mention of complication, not stated as uncontrolled Hypertension, unspecified type Mild episode of recurrent major depressive disorder (HCC) Obesity, Class III, BMI 40-49.9 (morbid obesity) (HCC) Morbid obesity Atrial fibrillation with RVR (HCC) Atrial fibrillation documented in this encounter [facility] note* Diagnosis Diet-controlled type 2 diabetes mellitus (HCC) Type II or unspecified type diabetes mellitus without mention of complication, not stated as uncontrolled Class 3 obesity (HCC) documented in this encounter [facility] note* Diagnosis Breast cancer screening by mammogram- Primary documented in this encounter [facility] note* Diagnosis Breast cancer screening by mammogram documented in this encounter [facility] note* Diagnosis Diet-controlled type 2 diabetes mellitus (HCC) Type II or unspecified type diabetes mellitus without mention of complication, not stated as uncontrolled Class 3 obesity (HCC) documented in this encounter [facility] note* Diagnosis Diet-controlled type 2 diabetes mellitus (HCC) Type II or unspecified type diabetes mellitus without mention of complication, not stated as uncontrolled Class 3 obesity (HCC) documented in this encounter [facility] note* Diagnosis Diet-controlled type 2 diabetes mellitus (HCC) Type II or unspecified type diabetes mellitus without mention of complication, not stated as uncontrolled Class 3 obesity (HCC) documented in this encounter [facility] note* Diagnosis Diet-controlled type 2 diabetes mellitus (HCC) Type II or unspecified type diabetes mellitus without mention of complication, not stated as uncontrolled Class 3 obesity (HCC) [facility] Diagnosis Diet-controlled type 2 diabetes mellitus (HCC) Type II or unspecified type diabetes mellitus without mention of complication, not stated as uncontrolled Class 3 obesity (HCC) documented in this encounter [facility] note* Diagnosis Type 2 diabetes mellitus without complication, without long-term current use of insulin (HCC)- Primary Obesity, Class II, BMI 35-39.9 Obesity, unspecified documented in this encounter [facility] note* Diagnosis Diet-controlled type 2 diabetes mellitus (HCC) Type II or unspecified type diabetes mellitus without mention of complication, not stated as uncontrolled Class 3 obesity (HCC) documented in this encounter [facility] note* Diagnosis Ischemic stroke (HCC) documented in this encounter [facility] for referral (narrative)* Diagnostic Procedure Only (Routine) - Closed Specialty Diagnoses / Procedures Referred By Brown herrera Referred To Contact [facility] Diagnoses Encounter for screening mammogram for malignant neoplasm of breast Procedures KRISTYN SCREENING SCREENING MAMMOGRAPHY BI 2-VIEW BREAST INC CAD Yamila Rutherford MD [address] [place] [id number] [facility] [address] [place] [phone] Referral ID Status Reason Start Date Expiration Date V isits Requested Visits Authorized [id number] Closed Auto-Generate d Referral 12/20/2021 01/19/2023 1 1 [facility] for referral (narrative)* Outpatient Procedure (Routine) - Pending Review Specialty Diagnoses / Procedures Referred By Contac t Referred To [facility] Diagnoses Ischemic stroke (HCC) Ischemic cerebrovascular accident (CVA) (HCC) Hypertension, unspecified type Abnormal electrocardiogram (ECG) (EKG) Procedures ECHO ECHO TTHRC R-T 2D W/WOM-MODE COMPL SPEC&COLR D Yair Moore MD [address] [place] [address] [place] [phone] [facility] [place] [address] [place] [address] Referral ID Status Reason Start Date Expiration Date Visits Requested Visits Authorized [id number] Pending Review Auto-Generat ed Referral 08/30/2023 1 1 [facility] for referral (narrative)* Outpatient Procedure (Routine) - Closed Specialty Diagnoses / Procedures Referred By Contac t Referred To Contact [facility] Diagnoses Ischemic stroke (HCC) Ischemic cerebrovascular accident (CVA) (HCC) Hypertension, unspecified type Abnormal electrocardiogram (ECG) (EKG) Procedures ECHO ECHO TTHRC R-T 2D W/WOM-MODE COMPL SPEC&COLR D Yair Moore MD [address] [phone] [facility] [address] [place] [address] Referral ID Status Reason Start Date Expiration Date V isits Requested Visits Authorized [id number] Closed Auto-Generate d Referral 08/30/2022 08/30/2023 1 1 [facility] for referral (narrative)* Diagnostic Procedure Only (Routine) - Pending Review Specialty Diagnoses / Procedures Referred By Brown t Referred To Contact [facility] Diagnoses Breast cancer screening by mammogram Procedures KRISTYN SCREENING W ANA SCREENING DIGITAL BREAST TOMOSYNTHESIS BI SCREENING MAMMOGRAPHY BI 2-VIEW BREAST INC CAD Ethel Berg, DIGITAL MARKETING ASSISTANT.[employer] [address] [place] [address] [facility] [address] [place] [address] Referral ID Status Reason Start Date Expiration Date Visits Requested Visits Authorized [id number] Pending Review Auto-Generat ed Referral 02/12/2023 03/13/2024 1 1 [facility] for referral (narrative)* Diagnostic Procedure Only (Routine) - Pending Review Specialty Diagnoses / Procedures Referred By Contac t Referred To Contact [facility] Diagnoses Breast cancer screening by mammogram Procedures KRISTYN SCREENING W ANA SCREENING DIGITAL BREAST TOMOSYNTHESIS BI SCREENING MAMMOGRAPHY BI 2-VIEW BREAST INC Ethel Rodriguez APRN.CNP [address] [place] [address] [facility] [address] [place] [phone] Referral ID Status Reason Start Date Expiration Date Visits Requested Visits Authorized [id number] Pending Review Auto-Generat ed Referral 02/12/2023 03/13/2024 1 1 [facility] for visit Narrative* Diagnostic Procedure Only (Routine) - Closed Specialty Diagnoses / Procedures Referred By Brown herrera Referred To Contact [facility] Diagnoses Encounter for screening mammogram for malignant neoplasm of breast Procedures KRISTYN SCREENING SCREENING MAMMOGRAPHY BI 2-VIEW BREAST INC Yamila Walsh MD [address] [place] [address] [facility] [address] [place] [address] Referral ID Status Reason Start Date Expiration Date V isits Requested Visits Authorized [id number] Closed Auto-Generate d Referral 12/20/2021 01/19/2023 1 1 [facility] for visit Narrative* Outpatient Procedure (Routine) - Closed Specialty Diagnoses / Procedures Referred By Brown herrera Referred To [facility] Diagnoses Ischemic stroke (HCC) Ischemic cerebrovascular accident (CVA) (HCC) Hypertension, unspecified type Abnormal electrocardiogram (ECG) (EKG) Procedures ECHO ECHO TTHRC R-T 2D W/WOM-MODE COMPL SPEC&COLR D Yair Moore MD [address] [place] [phone] [facility] [place] [address] [place] [id number] Referral ID Status Reason Start Date Expiration Date V isits Requested Visits Authorized [id number] Closed Auto-Generate d Referral 08/30/2022 08/30/2023 1 1 [facility] for visit Narrative* Diagnostic Procedure Only (Routine) - Pending Review Specialty Diagnoses / Procedures Referred By Contac t Referred To Contact [facility] Diagnoses Breast cancer screening by mammogram Procedures KRISTYN SCREENING W ANA SCREENING DIGITAL BREAST TOMOSYNTHESIS BI SCREENING MAMMOGRAPHY BI 2-VIEW BREAST INC CAD Ethel Berg, DIGITAL MARKETING ASSISTANT.[employer] [address] [place] [address] [facility] [address] [place] [address] Referral ID Status Reason Start Date Expiration Date Visits Requested Visits Authorized [id number] Pending Review Auto-Generat ed Referral 02/12/2023 03/13/2024 1 1 [facility] Summary Purpose Family History No Family History Records FoundNo Family History Records FoundNo Family History Records FoundNo Family History Records Found Advance Directives No Advanced Directives Records FoundDocuments on File Type Date 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 Advance Directive(s) 09/11/2021 10:33 AM Advance Directive(s) 09/10/2021 2:05 PM Advance Directive(s) 03/31/2021 10:17 AM Advance Directive(s) 03/29/2021 5:21 PM Advance Directive(s) 10/29/2019 12:26 PM Documents on File Type Date 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 Advance Directive(s) 09/11/2021 10:33 AM Advance Directive(s) 09/10/2021 2:05 PM Advance Directive(s) 03/31/2021 10:17 AM Advance Directive(s) 03/29/2021 5:21 PM Advance Directive(s) 10/29/2019 12:26 PM Reason for Referral Specialty Diagnoses / Procedures Referred By Contact Referred To Contact Endocrinology / [facility] Department Diagnoses Diet-controlled type 2 diabetes mellitus (HCC) Obesity, Class II, BMI 35-39.9 Procedures CONSULT TO ENDOCRINOLOGY OFFICE/OUTPATIENT NEW HIGH MDM 60-74 MINUTES Ethel Berg, DIGITAL MARKETING ASSISTANT.[employer] [address] [place] [address] Francie Chaparro MD [address] [facility], [address] [place] [address] Referral ID Status Reason Start Date Expiration Date Visits Requested Visits Authorized [id number] Authorized PCP Requested Referral 09/25/2022 09/25/2023 1 1 Specialty Diagnoses / Procedures Referred By Contac t Referred To Contact Nutrition Diagnoses Diet-controlled type 2 diabetes mellitus (HCC) Class 3 obesity (HCC) Procedures CONSULT TO NUTRITION THERAPY OFFICE/OUTPATIENT [facility] MDM 60-74 MINUTES Francie Chaparro MD [address] [facility], [address] [place] [address] Referral ID Status Reason Start Date Expiration Date Visits Requested Visits Authorized [id number] Authorized PCP Requested Referral 10/30/2022 01/28/2023 1 1 Additional Source Comments INFORMATION SOURCE (unrecogn ized section and content) DATE CREATED AUTHOR AUTHOR'S ORGANIZ ATION 11/13/2023 [facility] DATE CREATED AUTHOR AUTHOR'S ORGANIZ ATION 11/21/2023 [facility] [place] DATE CREATED AUTHOR AUTHOR'S ORGANIZ ATION 11/21/2023 [facility] Source Comments (unrecognize d section and content) In the event this informatio n is protected by the Federal Confidentiality of Alcohol and Drug Abuse Patient Records regulations: The Federal rules restrict any use of the information to criminally investigate or prosecute any alcohol or drug abuse patient.[facility] the event this information is protected by the Federal Confidentiality of Alcohol and Drug Abuse Patient Records regulations: The Federal rules restrict any use of the information to criminally investigate or prosecute any alcohol or drug abuse patient.[facility] the event this information is protected by the Federal Confidentiality of Alcohol and Drug Abuse Patient Records regulations: The Federal rules restrict any use of the information to criminally investigate or prosecute any alcohol or drug abuse patient.[facility] the event this information is protected by the Federal Confidentiality of Alcohol and Drug Abuse Patient Records regulations: The Federal rules restrict any use of the information to criminally investigate or prosecute any alcohol or drug abuse patient.[facility] the event this information is protected by the Federal Confidentiality of Alcohol and Drug Abuse Patient Records regulations: The Federal rules restrict any use of the information to criminally investigate or prosecute any alcohol or drug abuse patient.[facility] the event this information is protected by the Federal Confidentiality of Alcohol and Drug Abuse Patient Records regulations: The Federal rules restrict any use of the information to criminally investigate or prosecute any alcohol or drug abuse patient.[facility] the event this information is protected by the Federal Confidentiality of Alcohol and Drug Abuse Patient Records regulations: The Federal rules restrict any use of the information to criminally investigate or prosecute any alcohol or drug abuse patient.[facility] the event this information is protected by the Federal Confidentiality of Alcohol and Drug Abuse Patient Records regulations: The Federal rules restrict any use of the information to criminally investigate or prosecute any alcohol or drug abuse patient.[facility] the event this information is protected by the Federal Confidentiality of Alcohol and Drug Abuse Patient Records regulations: The Federal rules restrict any use of the information to criminally investigate or prosecute any alcohol or drug abuse patient.[facility] the event this information is protected by the Federal Confidentiality of Alcohol and Drug Abuse Patient Records regulations: The Federal rules restrict any use of the information to criminally investigate or prosecute any alcohol or drug abuse patient.[facility] the event this information is protected by the Federal Confidentiality of Alcohol and Drug Abuse Patient Records regulations: The Federal rules restrict any use of the information to criminally investigate or prosecute any alcohol or drug abuse patient.[facility] the event this information is protected by the Federal Confidentiality of Alcohol and Drug Abuse Patient Records regulations: The Federal rules restrict any use of the information to criminally investigate or prosecute any alcohol or drug abuse patient.[facility] the event this information is protected by the Federal Confidentiality of Alcohol and Drug Abuse Patient Records regulations: The Federal rules restrict any use of the information to criminally investigate or prosecute any alcohol or drug abuse patient.[facility] the event this information is protected by the Federal Confidentiality of Alcohol and Drug Abuse Patient Records regulations: The Federal rules restrict any use of the information to criminally investigate or prosecute any alcohol or drug abuse patient.[facility]In the event this information is protected by the Federal Confidentiality of Alcohol and Drug Abuse Patient Records regulations: The Federal rules restrict any use of the information to criminally investigate or prosecute any alcohol or drug abuse patient.[facility] the event this information is protected by the Federal Confidentiality of Alcohol and Drug Abuse Patient Records regulations: The Federal rules restrict any use of the information to criminally investigate or prosecute any alcohol or drug abuse patient.[facility] the event this information is protected by the Federal Confidentiality of Alcohol and Drug Abuse Patient Records regulations: The Federal rules restrict any use of the information to criminally investigate or prosecute any alcohol or drug abuse patient.[facility]In the event this information is protected by the Federal Confidentiality of Alcohol and Drug Abuse Patient Records regulations: The Federal rules restrict any use of the information to criminally investigate or prosecute any alcohol or drug abuse patient.[facility]In the event this information is protected by the Federal Confidentiality of Alcohol and Drug Abuse Patient Records regulations: The Federal rules restrict any use of the information to criminally investigate or prosecute any alcohol or drug abuse patient.[facility]In the event this information is protected by the Federal Confidentiality of Alcohol and Drug Abuse Patient Records regulations: The Federal rules restrict any use of the information to criminally investigate or prosecute any alcohol or drug abuse patient.[facility]In the event this information is protected by the Federal Confidentiality of Alcohol and Drug Abuse Patient Records regulations: The Federal rules restrict any use of the information to criminally investigate or prosecute any alcohol or drug abuse patient.[facility]In the event this information is protected by the Federal Confidentiality of Alcohol and Drug Abuse Patient Records regulations: The Federal rules restrict any use of the information to criminally investigate or prosecute any alcohol or drug abuse patient.[facility]In the event this information is protected by the Federal Confidentiality of Alcohol and Drug Abuse Patient Records regulations: The Federal rules restrict any use of the information to criminally investigate or prosecute any alcohol or drug abuse patient.[facility]In the event this information is protected by the Federal Confidentiality of Alcohol and Drug Abuse Patient Records regulations: The Federal rules restrict any use of the information to criminally investigate or prosecute any alcohol or drug abuse patient.[facility]In the event this information is protected by the Federal Confidentiality of Alcohol and Drug Abuse Patient Records regulations: The Federal rules restrict any use of the information to criminally investigate or prosecute any alcohol or drug abuse patient.[facility]In the event this information is protected by the Federal Confidentiality of Alcohol and Drug Abuse Patient Records regulations: The Federal rules restrict any use of the information to criminally investigate or prosecute any alcohol or drug abuse patient.[facility]In the event this information is protected by the Federal Confidentiality of Alcohol and Drug Abuse Patient Records regulations: The Federal rules restrict any use of the information to criminally investigate or prosecute any alcohol or drug abuse patient.[facility]In the event this information is protected by the Federal Confidentiality of Alcohol and Drug Abuse Patient Records regulations: The Federal rules restrict any use of the information to criminally investigate or prosecute any alcohol or drug abuse patient.[facility]In the event this information is protected by the Federal Confidentiality of Alcohol and Drug Abuse Patient Records regulations: The Federal rules restrict any use of the information to criminally investigate or prosecute any alcohol or drug abuse patient.[facility] the event this information is protected by the Federal Confidentiality of Alcohol and Drug Abuse Patient Records regulations: The Federal rules restrict any use of the information to criminally investigate or prosecute any alcohol or drug abuse patient.[facility]In the event this information is protected by the Federal Confidentiality of Alcohol and Drug Abuse Patient Records regulations: The Federal rules restrict any use of the information to criminally investigate or prosecute any alcohol or drug abuse patient.[facility]In the event this information is protected by the Federal Confidentiality of Alcohol and Drug Abuse Patient Records regulations: The Federal rules restrict any use of the information to criminally investigate or prosecute any alcohol or drug abuse patient.[facility]In the event this information is protected by the Federal Confidentiality of Alcohol and Drug Abuse Patient Records regulations: The Federal rules restrict any use of the information to criminally investigate or prosecute any alcohol or drug abuse patient.[facility]In the event this information is protected by the Federal Confidentiality of Alcohol and Drug Abuse Patient Records regulations: The Federal rules restrict any use of the information to criminally investigate or prosecute any alcohol or drug abuse patient.[facility]In the event this information is protected by the Federal Confidentiality of Alcohol and Drug Abuse Patient Records regulations: The Federal rules restrict any use of the information to criminally investigate or prosecute any alcohol or drug abuse patient.[facility]In the event this information is protected by the Federal Confidentiality of Alcohol and Drug Abuse Patient Records regulations: The Federal rules restrict any use of the information to criminally investigate or prosecute any alcohol or drug abuse patient.[facility]In the event this information is protected by the Federal Confidentiality of Alcohol and Drug Abuse Patient Records regulations: The Federal rules restrict any use of the information to criminally investigate or prosecute any alcohol or drug abuse patient.[facility]In the event this information is protected by the Federal Confidentiality of Alcohol and Drug Abuse Patient Records regulations: The Federal rules restrict any use of the information to criminally investigate or prosecute any alcohol or drug abuse patient.[facility]In the event this information is protected by the Federal Confidentiality of Alcohol and Drug Abuse Patient Records regulations: The Federal rules restrict any use of the information to criminally investigate or prosecute any alcohol or drug abuse patient.[facility]In the event this information is protected by the Federal Confidentiality of Alcohol and Drug Abuse Patient Records regulations: The Federal rules restrict any use of the information to criminally investigate or prosecute any alcohol or drug abuse patient.[facility]In the event this information is protected by the Federal Confidentiality of Alcohol and Drug Abuse Patient Records regulations: The Federal rules restrict any use of the information to criminally investigate or prosecute any alcohol or drug abuse patient.[facility]In the event this information is protected by the Federal Confidentiality of Alcohol and Drug Abuse Patient Records regulations: The Federal rules restrict any use of the information to criminally investigate or prosecute any alcohol or drug abuse patient.[facility]In the event this information is protected by the Federal Confidentiality of Alcohol and Drug Abuse Patient Records regulations: The Federal rules restrict any use of the information to criminally investigate or prosecute any alcohol or drug abuse patient.[facility]In the event this information is protected by the Federal Confidentiality of Alcohol and Drug Abuse Patient Records regulations: The Federal rules restrict any use of the information to criminally investigate or prosecute any alcohol or drug abuse patient.[facility]In the event this information is protected by the Federal Confidentiality of Alcohol and Drug Abuse Patient Records regulations: The Federal rules restrict any use of the information to criminally investigate or prosecute any alcohol or drug abuse patient.[facility]In the event this information is protected by the Federal Confidentiality of Alcohol and Drug Abuse Patient Records regulations: The Federal rules restrict any use of the information to criminally investigate or prosecute any alcohol or drug abuse patient.[facility]In the event this information is protected by the Federal Confidentiality of Alcohol and Drug Abuse Patient Records regulations: The Federal rules restrict any use of the information to criminally investigate or prosecute any alcohol or drug abuse patient.[facility] HospitalIn the event this information is protected by the Federal Confidentiality of Alcohol and Drug Abuse Patient Records regulations: The Federal rules restrict any use of the information to criminally investigate or prosecute any alcohol or drug abuse patient.[facility]In the event this information is protected by the Federal Confidentiality of Alcohol and Drug Abuse Patient Records regulations: The Federal rules restrict any use of the information to criminally investigate or prosecute any alcohol or drug abuse patient.[facility]In the event this information is protected by the Federal Confidentiality of Alcohol and Drug Abuse Patient Records regulations: The Federal rules restrict any use of the information to criminally investigate or prosecute any alcohol or drug abuse patient.[facility] HospitalIn the event this information is protected by the Federal Confidentiality of Alcohol and Drug Abuse Patient Records regulations: The Federal rules restrict any use of the information to criminally investigate or prosecute any alcohol or drug abuse patient.[facility]In the event this information is protected by the Federal Confidentiality of Alcohol and Drug Abuse Patient Records regulations: The Federal rules restrict any use of the information to criminally investigate or prosecute any alcohol or drug abuse patient.[facility]In the event this information is protected by the Federal Confidentiality of Alcohol and Drug Abuse Patient Records regulations: The Federal rules restrict any use of the information to criminally investigate or prosecute any alcohol or drug abuse patient.[facility] HospitalIn the event this information is protected by the Federal Confidentiality of Alcohol and Drug Abuse Patient Records regulations: The Federal rules restrict any use of the information to criminally investigate or prosecute any alcohol or drug abuse patient.[facility]In the event this information is protected by the Federal Confidentiality of Alcohol and Drug Abuse Patient Records regulations: The Federal rules restrict any use of the information to criminally investigate or prosecute any alcohol or drug abuse patient.[facility] HospitalIn the event this information is protected by the Federal Confidentiality of Alcohol and Drug Abuse Patient Records regulations: The Federal rules restrict any use of the information to criminally investigate or prosecute any alcohol or drug abuse patient.[facility] the event this information is protected by the Federal Confidentiality of Alcohol and Drug Abuse Patient Records regulations: The Federal rules restrict any use of the information to criminally investigate or prosecute any alcohol or drug abuse patient.[facility] Reason for Visit (unrecogniz ed section and content) Specialty Diagnoses / Procedures Referred By Contac t Referred To Contact Physical Therapy / PHYSICAL THERAPY Diagnoses rt [phone] [phone] Procedures EST RS PT ORTH Sixto Nieto Jr., DO [address] [facility] [address] [place] [address] Nancy Cancino, PT [address] [place] [address] Referral ID Status Reason Start Date Expiration Date V isits Requested Visits Authorized [id number] Authorized 10/30/2021 10/20/2022 99 99 Reason Comments PT Progress Note Reason Comments Refill Request Reason Onset Date Comments Refill Request 02/26/2022 Reason Onset Date Comments Refill Request 02/28/2022 Reason Comments Established NI Patient Following up Stro ke Reason Onset Date Comments Refill Request 05/02/2022 Reason Comments PT Eval Specialty Diagnoses / Procedures Referred By Contac t Referred To Contact Physical Therapy / PHYSICAL THERAPY Diagnoses balance/gait Procedures NEW RS PT ORTH Sixto Nieto Jr., DO [address] [facility] [address] [place] [address] Nancy Cancino, PT [address] [place] [address] Referral ID Status Reason Start Date Expiration Date V isits Requested Visits Authorized [id number] Authorized 05/31/2022 10/20/2022 5 5 Reason Comments Feeling off balance Blood pressure medication Reason Comments Opened In Error Referral ID Status Reason Start Date Expiration Date Visits Re quested Visits Authorized [id number] Closed 05/31/2022 10/20/2022 5 5 Reason Comments Patient Update FYI-No Action Needed Reason Comments Results Reason Comments Hypertension Reason Comments Follow Up 9 month f/u. No issu es Reason Comments Hypertension Reason Comments Diabetes New Patient Specialty Diagnoses / Procedures Referred By Contact Referred To Contact Endocrinology / [facility] Department Diagnoses Diet-controlled type 2 diabetes mellitus (HCC) Obesity, Class II, BMI 35-39.9 Procedures CONSULT TO ENDOCRINOLOGY OFFICE/OUTPATIENT [facility] 60-74 MINUTES Ethel Berg, VISHNU.[employer] [address] [place] [address] Francie Chaparro MD [address] [facility], [address] [address] Referral ID Status Reason Start Date Expiration Date V isits Requested Visits Authorized [id number] Closed PCP Requested Referral 09/25/2022 09/25/2023 1 1 Reason Comments Assessment Patient Education Specialty Diagnoses / Procedures Referred By Contac t Referred To Contact Nutrition Diagnoses Diet-controlled type 2 diabetes mellitus (HCC) Class 3 obesity (HCC) Procedures CONSULT TO NUTRITION THERAPY OFFICE/OUTPATIENT [facility] 60-74 MINUTES Francie Chaparro MD 0 [facility], [address] [place] [address] Referral ID Status Reason Start Date Expiration Date V isits Requested Visits Authorized [id number] Closed PCP Requested Referral 10/30/2022 01/28/2023 1 1 Reason Comments Orders Reason Comments Patient Update Reason Comments Diabetes Care Teams (unrecognized sec tion and content) Lens Molding Equipment Operator Relationship Specialty Start Date End Date Ethel Berg APRN.[employer] [address] [place], [place] [id number] PCP - General Family Practice 12/20/21 Lens Molding Equipment Operator Relationship Specialty Start Date End Date Ethel Berg APRN.[employer] [address] [place], [place] [id number] PCP - General Family Practice 12/20/21 Lens Molding Equipment Operator Relationship Specialty Start Date End Date Ethel Berg, DIGITAL MARKETING ASSISTANT.[employer] [address] [place] [place] [address] PCP - General Family Practice 12/20/21 Lens Molding Equipment Operator Relationship Specialty Start Date End Date Ethel Berg, DIGITAL MARKETING ASSISTANT.[employer] [address] [place] [place] [address] PCP - General Family Practice 12/20/21 Lens Molding Equipment Operator Relationship Specialty Start Date End Date Ethel Berg DIGITAL MARKETING ASSISTANT.[employer] [address] [place] [place] [address] PCP - General Family Practice 12/20/21 Lens Molding Equipment Operator Relationship Specialty Start Date End Date Ethel Berg, DIGITAL MARKETING ASSISTANT.[employer] [address] [place] [place] [address] PCP - General Family Practice 12/20/21 Lens Molding Equipment Operator Relationship Specialty Start Date End Date Ethel Berg DIGITAL MARKETING ASSISTANT.[employer] [address] [place] [place] [address] PCP - General Family Practice 12/20/21 Lens Molding Equipment Operator Relationship Specialty Start Date End Date Ethel Berg, DIGITAL MARKETING ASSISTANT.[employer] [address] [place] [place] [address] PCP - General Family Practice 12/20/21 Lens Molding Equipment Operator Relationship Specialty Start Date End Date Ethel Berg, DIGITAL MARKETING ASSISTANT.[employer] [address] [place] [place] [address] PCP - General Family Practice 12/20/21 Lens Molding Equipment Operator Relationship Specialty Start Date End Date Ethel Berg, DIGITAL MARKETING ASSISTANT.[employer] [address] [place] [place] [address] PCP - General Family Practice 12/20/21 Lens Molding Equipment Operator Relationship Specialty Start Date End Date Ethel Berg, DIGITAL MARKETING ASSISTANT.[employer] [address] [place] [place] [address] PCP - General Family Practice 12/20/21 Lens Molding Equipment Operator Relationship Specialty Start Date End Date Ethel Berg, DIGITAL MARKETING ASSISTANT.[employer] [address] [place] [place] [address] PCP - General Family Practice 12/20/21 Lens Molding Equipment Operator Relationship Specialty Start Date End Date Ethel Berg, DIGITAL MARKETING ASSISTANT.[employer] [address] [place] [place] [address] PCP - General Family Medicine 12/20/21 Lens Molding Equipment Operator Relationship Specialty Start Date End Date Ethel Berg, DIGITAL MARKETING ASSISTANT.[employer] [address] [place] [place] [address] PCP - General Family Medicine 12/20/21 Lens Molding Equipment Operator Relationship Specialty Start Date End Date Ethel Berg, DIGITAL MARKETING ASSISTANT.[employer] [address] [place] [place] [address] PCP - General Family Medicine 12/20/21 Lens Molding Equipment Operator Relationship Specialty Start Date End Date Ethel Berg, DIGITAL MARKETING ASSISTANT.[employer] [address] [place] [place] [address] PCP - General Family Medicine 12/20/21 Lens Molding Equipment Operator Relationship Specialty Start Date End Date Ethel Berg, DIGITAL MARKETING ASSISTANT.[employer] [address] [place] [place] [address] PCP - General Family Medicine 12/20/21 Lens Molding Equipment Operator Relationship Specialty Start Date End Date Ethel Berg, DIGITAL MARKETING ASSISTANT.[employer] [address] [place] [place] [address] PCP - General Family Medicine 12/20/21 Lens Molding Equipment Operator Relationship Specialty Start Date End Date Ethel Berg, DIGITAL MARKETING ASSISTANT.[employer] [address] [place] [address] PCP - General Family Medicine 12/20/21 Lens Molding Equipment Operator Relationship Specialty Start Date End Date Ethel Berg, DIGITAL MARKETING ASSISTANT.[employer] [address] [place] [place] [address] PCP - General Family Medicine 12/20/21 Lens Molding Equipment Operator Relationship Specialty Start Date End Date Ethel Berg, DIGITAL MARKETING ASSISTANT.[employer] [address] [place] [address] PCP - General Family Medicine 12/20/21 Lens Molding Equipment Operator Relationship Specialty Start Date End Date Ethel Berg, DIGITAL MARKETING ASSISTANT.[employer] [address] [place] [place] [address] PCP - General Family Medicine 12/20/21 Lens Molding Equipment Operator Relationship Specialty Start Date End Date Ethel Berg, DIGITAL MARKETING ASSISTANT.[employer]SEM[employer] [address] [place] [address] PCP - General Family Medicine 12/20/21 Lens Molding Equipment Operator Relationship Specialty Start Date End Date Ethel Berg, DIGITAL MARKETING ASSISTANT.[employer] [address] [place] [address] PCP - General Family Medicine 12/20/21 Lens Molding Equipment Operator Relationship Specialty Start Date End Date Ethel Berg, DIGITAL MARKETING ASSISTANT.[employer] [address] [place] [place] [address] PCP - General Family Medicine 12/20/21 Lens Molding Equipment Operator Relationship Specialty Start Date End Date Ethel Berg, DIGITAL MARKETING ASSISTANT.[employer] [address] [place] [place] [address] PCP - General Family Medicine 12/20/21 Lens Molding Equipment Operator Relationship Specialty Start Date End Date Ethel Berg, DIGITAL MARKETING ASSISTANT.[employer] [address] [place] [address] PCP - General Family Medicine 12/20/21 Lens Molding Equipment Operator Relationship Specialty Start Date End Date Ethel Berg DIGITAL MARKETING ASSISTANT.[employer] [address] [place] [address] PCP - General Family Medicine 12/20/21 Lens Molding Equipment Operator Relationship Specialty Start Date End Date Ethel Berg, DIGITAL MARKETING ASSISTANT.[employer] [address] [place] [address] PCP - General Family Medicine 12/20/21 Lens Molding Equipment Operator Relationship Specialty Start Date End Date Ethel Berg, DIGITAL MARKETING ASSISTANT.[employer] [address] [place] [address] PCP - General Family Medicine 12/20/21 Lens Molding Equipment Operator Relationship Specialty Start Date End Date Ethel Berg DIGITAL MARKETING ASSISTANT.[employer] AS[employer] [address] [place] [address] PCP - General Family Medicine 12/20/21 Lens Molding Equipment Operator Relationship Specialty Start Date End Date Ethel Berg DIGITAL MARKETING ASSISTANT.[employer] [address] [place] [address] PCP - General Family Medicine 12/20/21 Lens Molding Equipment Operator Relationship Specialty Start Date End Date Ethel Berg DIGITAL MARKETING ASSISTANT.[employer] [address] [place] [address] PCP - General Family Medicine 12/20/21 Lens Molding Equipment Operator Relationship Specialty Start Date End Date Ethel Berg, DIGITAL MARKETING ASSISTANT.[employer] [address] [place] [address] PCP - General Family Medicine 12/20/21 Lens Molding Equipment Operator Relationship Specialty Start Date End Date Ethel Berg APRN.ANDRES [address] [place], [place] [id number] PCP - General Family Medicine 12/20/21 FOR RECORDS PERTAINING TO PATIENTS WHO ARE OR HAVE BEEN ENROLLED IN A CHEMICAL DEPENDENCY/SUBSTANCEABUSE PROGRAM, SOME INFORMATION MAY BE OMITTED. This clinical summary was aggregated from multiple sources. Caution should be exercised in using it in the provision of clinical care. This summary normalizes information from multiple sources, and as a consequence, information in this document may materially change the coding, format and clinical context of patient data. In addition, data may be omitted in some cases. CLINICAL DECISIONS SHOULD BE BASED ON THE PRIMARY CLINICAL RECORDS. [employer] [facility]. provides no warranty or guarantee of the accuracy or completeness of information in this document.
== END | disposition home or self-care (01) ==
LOC: CT 14:08
PROVIDERS: PCP Internal Medicine; Referring Provider Orthopaedic Surgery; Visit Provider Orthopaedic Surgery
DX: M17.12 Unilateral primary osteoarthritis, left knee (principal)
CPT/HCPCS: 73700

== ENCOUNTER 2024-01-28 08:56 | Inpatient (IN) | payer MEDICARE, BC, SELFPAY ==
--- NOTE | 2024-01-07 13:34 | EKG12_ITS ---
Test Reason : PREOP Blood Pressure : / mmHG Vent. Rate : 104 BPM Atrial Rate : 105 BPM P-R Int : 000 ms QRS Dur : 074 ms QT Int : 352 ms P-R-T Axes : 000 043 064 degrees QTc Int : 462 ms Atrial fibrillation Low voltage QRS Abnormal ECG Confirmed by LIZBET FRANCO, CHUYITA ([id number]), online content editor MELISSA BROWN ([id number]) on 01/08/2024 8:26:54 AM Referred By: Sixto Membreno Confirmed By:CHUYITA SOMERS MD
[2024-01-07 15:04] LABS: Basophil# 0.07 X10^3/uL; Basophil% 0.9 % (0-1); Eosinophil# 0.14 X10^3/uL; Eosinophils% 1.8 % (0-5); Hematocrit 41.7 % (37-47); Lymphocyte % 37.9 % (19-41); Mean Corp Hgb Conc 31.2 g/dL (32-36); Mean Corpuscular Hgb 28.4 pg (27.0-32.0); Mean Corpuscular Volume 91.2 fL (81-99); Mean Platelet Vol. 12.7 fl (6.2-12.0); Monocyte% 6.5 % (0-10); NRBC Flagged by Analyzer 0 % (0-5); Neutrophil # 4.03 X10^3/uL (2.7-7.7); Neutrophil % 52.8 % (47-70); Platelet Count 182 K/mm3 (150-450); RBC Distribution Width CV 13.3 % (11.6-14.6); RBC Distribution Width SD 44.1 fl (35.1-43.9); Red Blood Count 4.57 M/mm3 (4.2-5.4); White Blood Count 7.7 K/mm3 (4.4-11.0)
[2024-01-07 15:20] LABS: Magnesium 2.2 mg/dL (1.6-2.6)
[2024-01-07 15:26] LABS: Anion Gap 6 (5-15); BUN 13 mg/dL (7-18); BUN/Creat Ratio 13.5 RATIO (10-20); Calcium,Total 9.7 mg/dL (8.5-10.1); Chloride 106 mmol/L (98-107); Creatinine, Serum 0.96 mg/dL (0.55-1.02); EST Glomerular Filtration Rate 61 mL/min (>60); Est Glom Filt Rate - Afr Amer 73 mL/min (>60); Glucose 120 mg/dL (74-106); Potassium 4.6 mmol/L (3.5-5.1); Sodium Level 138 mmol/L (136-145)
[2024-01-07 15:33] LABS: Hemoglobin A1c 6.3 % (3.8-5.6)
[2024-01-07 15:36] LABS: International Normalized Ratio 1.5
[2024-01-07 15:37] LABS: Partial Thromboplast Time 32.9 Seconds (24.1-36.2)
[2024-01-09 05:07] LABS: Fructosamine 261 umol/L (0-285)
[2024-01-28] VITALS (15 sets, daily range): BP systolic 90–137; BP diastolic 59–101; PULSE 61–115; RESP 14–18; TEMP 35.9–36.7; O2SAT 89–99; BMI 39.7
[2024-01-28] MEDS: Lactated Ringers 1,000 ML 125 ML IV ×3 (09:55→13:50)
[2024-01-28] MEDS: Scopolamine 1mg/72hr Patch 1 PATCH TD (09:56)
[2024-01-28] MEDS: Magnesium 1 GM over 15 mins IV (09:56)
[2024-01-28] MEDS: Acetaminophen 500 MG Tablet 1000 MG PO ×3 (09:58→20:18)
[2024-01-28] MEDS: Celecoxib 200 MG Capsule 400 MG PO (09:59)
[2024-01-28] MEDS: Gabapentin 600 MG Tablet PO (10:00)
[2024-01-28 10:02] LABS: Bedside Glucose 113 mg/dL (74-106)
--- NOTE | 2024-01-28 10:39 | PCM.HP.BLA ---
History and Physical Date of Admission: 01/28/24 [facility] [facility] [address] [place] [address] OFFICE VISIT Date of Service: 11/27/23 MR#: [id number] Acct: [id number] Name: JOSE VELAZQUEZ Rep #: [id number] : 1950 Provider: Dr. Sixto Membreno DO Age/Sex: 73/F Location: [facility] [place] Status: Signed Intake Vital Signs 06/17/2314:09 11/27/2412:02 Height 5 ft 7 in 5 ft 7 in Weight: 247 lb BMI 38.7 Intake Visit Reasons: LEFT KNEE Chief Complaint: left knee pain Is patient in pain?: Yes (left knee) Allergies No Known Allergies Allergy (Verified 05/16/22 13:04) Medications calcium carb-ergocalciferol (vit D2) 600 mg calcium-200 unit tablet 1 tab PO DAILY vit 04/02/21 [History Confirmed 11/27/23] cyanocobalamin (vitamin B-12) 500 mcg tablet,extended release 500 mcg PO DAILY vit 04/02/21 [History Confirmed 11/27/23] spnhxctjwhtd-votsuerx-bqdiit tablet (Multivitamin 50 Plus tablet) 1 tab PO DAILY vit 04/02/21 [History Confirmed 11/27/23] zinc 15 mg tablet 15 mg PO DAILY vit 04/02/21 [History Confirmed 11/27/23] acetaminophen 500 mg tablet 1,000 mg (2 x 500 mg) PO Q8H PRN PRN pain #0 tabs 04/25/21 [Rx Confirmed 11/27/23] atorvastatin 40 mg tablet 40 mg PO QHS cholesterol #30 tabs 04/25/21 [Rx Confirmed 11/27/23] ascorbate calcium (vitamin C) 500 mg tablet 500 mg PO DAILY VIT 06/21/21 [History Confirmed 11/27/23] aspirin 81 mg capsule 81 mg PO DAILY HEART HEALTH 06/29/21 [History Confirmed 11/27/23] lisinopril 10 mg tablet 10 mg PO QHS BP 07/18/21 [History Confirmed 11/27/23] carvedilol 6.25 mg tablet 6.25 mg PO BID #60 tabs 08/03/21 [Rx Confirmed 11/27/23] diltiazem HCl 360 mg tablet,extended release 24 hr (Cardizem LA) 360 mg PO DAILY 09/20/21 [History Confirmed 11/27/23] rivaroxaban 20 mg tablet (Xarelto) 20 mg PO DAILY 05/16/22 [History Confirmed 11/27/23] [facility] Medical History (Updated 11/27/23 @ 13:35 by Mamta Maldonado) Abnormality of gait Acute stroke due to ischemia Afib Anxiety Arthritis Bladder disease Bone infarct of distal femur Cardiology follow-up encounter Depression Diabetes Dietary restriction Dyslipidemia Glucose intolerance (impaired glucose tolerance) High cholesterol History of atrial fibrillation History of colon polyps History of diverticulitis History of echocardiogram History of pain when walking History of stress test HTN (hypertension) Impaired functional mobility, balance, gait, and endurance LVH (left ventricular hypertrophy) Migraine headache MVP (mitral valve prolapse) Non-smoker Obesity (BMI 30-39.9) Osteoarthritis Postoperative delirium Stroke/cerebrovascular accident Weakness status post cerebrovascular accident Wears glasses Surgical History H/O colonoscopy with polypectomy S/P total knee arthroplasty Status post left breast lumpectomy (~1991) Family History Mother Hyperlipidemia HypertensionFather DiabetesFather HypertensionFather CancerMother DementiaBrother Muscular dystrophyOther Arthritis Social History adopted: No household members: spouse housing: house number of children: 0 current occupational status: previously employed and retired 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 Sixto Membreno, DO 11/27/23 0909. Part of today?s visit was documented by Kimi ESCOBEDO, acting as scribe. JOSE VELAZQUEZ is a 73 year old F here today to discuss surgical options for her left knee issues and pain. She states continues to experience left knee pain. She does have have some issues with not feeling stable but she thinks that is from her stroke that resulted in right-sided hemiparesis. She is happy with the right knee replacement. She is on Xarelto as she has a history of atrial fibrillation. She is having trouble getting out of a chair and doing stairs secondary to this knee issue she has tried extensive conservative treatment Ortho Exam General General: Yes no acute distress Neurologic: Yes alert and Yes oriented x3 Psychologic: Yes reasonable and appropriate Right Knee Patella Translation: 1 Left Knee Skin/Wound: No ecchymosis, No erythema and Yes swelling Homans Sign: No Knee ROM: Yes ROM-Extension -20 to 0 (-6) and Yes ROM-Flexion 0-140 (95) Examination: No med jt line tenderness, No Lat jt line tenderness, No Piero's Test, Yes TTP Tibial tubercle and No Illiotibial band tenderness Stability: NML: Anterior Drawer, NML: Posterior Drawer and NML: Valgus 30 and 1+: Varus 0 (3 mm of lateral gapping) Apprehension with Lateral Translation: No Patella Translation: 1 Patella Grind: No KNEE: swelling in her legs to tibial tuberical valgus deformity 3mm lateral gapping with stress Head: Normocephalic Atraumatic Chest: symmetrical rise, non-labored breathing, no audible wheeze Abdomen: no guarding, non-rigid Supplemental Info 11/27/2023 x-ray left knee: Advanced knee arthrosis worse lateral compartment with valgus deformity 05/16/2022 x-ray left knee: Advanced knee arthrosis with valgus deformity [id number]-jpah lateral compartment 05/16/2022 x-ray right knee: Status post press-fit total knee arthroplasty with good interfaces and positioning 08/10/2021: Right total knee arthroplasty Dr. Membreno Coding Level of Care Code Off vis,est,level 4 Diagnoses Primary osteoarthritis of left knee M17.12 Osteoarthritis type: primary Assessment and Plan Assessment and Plan (1) Left knee DJD: Status: Acute Qualifiers: Osteoarthritis type: primary Qualified Code(s): M17.12 - Unilateral primary osteoarthritis, left knee Orders: Orders Knee 4 or More Views Today M17.12 - Unilateral primary osteoarthritis, left knee Plan X-rays were reviewed. There is no obvious fracture, dislocation, or lucency noted. Patient does significant arthritis in her knee. Treatment options are do nothing or injections or physical therapy or bracing or weightloss or a TKA. Patient wishes to proceed with the TKA. Risks, benefits and alternatives of surgery reviewed including but not limited to bleeding, infection, nerve, artery and/or tissue damage, fracture, VTE, mechanical feel of the knee, continued pain, stiffness and expected post-operative course. We did discuss iovera treatment and she would like to proceed with this She will need to be an admission secondary to her right-sided hemiparesis history of atrial fibrillation glucose intolerance hypertension history of stroke left ventricular hypertrophy We will need to have her stop her Xarelto for 3 days prior to surgery if okayed by her PCP. Will need CT scan for MAKOplasty Follow up for iovera procedure or sooner if pain, swelling, numbness or associated symptoms, or concerns develop. All questions answered. Patient in agreement of plan. 11/27/23 0915 <Electronically signed by Sixto Membreno DO> Date Sixto Membreno DO I have examined the patient and the H&P has been reviewed. There are no clinical changes since date of exam.
--- NOTE | 2024-01-28 11:15 | KNEE_PTH ---
PATIENT: JOSE VELAZQUEZ LOC: MS3 U#:[id number] AGE/SX: 73/F ROOM: [facility] [place] RE01/28/[address]: Dr. Sixto Membreno DO : 1950 BED: 1 DIS: 01/29/2024 SPEC #: [id number] RECD: 01/28/24 13:56 STATUS: JEANINE HERNANDEZ #: [id number] NHAN: 01/28/24 11:[address]: Sixto Membreno DEPT: SURGICAL PATHOLOGY RECD BY: Ros Gamino ENTERED: 01/28/24 14:20 SP TYPE: TOTAL KNEE OTHR DR: Ashley Montiel, ASSISTANT FINANCE MANAGER-C Tissues: Knee, NOS Procedures: Decalcification bone/plaque Surgery Specimen Level IV HEADER OPERATION: ERAS left total knee replacement robotic arm assist PRE-OP DIAGNOSIS: Osteoarthritis left knee TISSUE SUBMITTED: Bone and tissue left knee MICROSCOPIC DIAGNOSIS Bone and soft tissue, left knee, total knee replacement/resection: Pieces of bone with degenerative osteoarthritic changes. Fibroadipose tissue, fibroconnective tissue and reactive synovial tissue. STEVE: 01/31/24 MICROSCOPIC DESCRIPTION Slides are reviewed. GROSS DESCRIPTION Received is one container designated bone and soft tissue left knee. The specimen consists of multiple fragments of garcia-yellow bone measuring in aggregate 8.0 x 9.0 x 4.0 cm. Also in the specimen container are multiple fragments of yellow-white soft tissue prodomently consists of fibrocartilaginous tissue measuring in aggregate 7.0 x 3.0 x 1.0 cm. A number of bony fragments contain articular surfaces consistent with tibial plateau and femoral condyle and displaying prominent osteophyte formation, eburnation and bone erosion. Theoretical Physicist sections are submitted in two cassettes as follows: 1 - soft tissue, 2 - bone after decalcification. / STEVE/ 01/28/24 TC:5 CPT: 76803, 73353
[2024-01-28] MEDS: Cefazolin 2 GM in 0.9% Normal Saline (100mL Bag) 100 ML IV ×2 (11:26→17:27)
[2024-01-28] MEDS: dexAMETHasone 10 MG/ML Vial IV (11:40)
[2024-01-28] MEDS: TXA 1000mg in NS100 100ml (IVPB at Incision) 660 MG IV (11:40)
[2024-01-28] MEDS: TXA 1000mg in NS100 100ml (IVPB at Closure) 660 MG IV (12:04)
[2024-01-28] MEDS: dexAMETHasone 4 MG/ML Vial (13:00)
[2024-01-28] MEDS: Epinephrine (1 mg/ml) 1 MG/ML VIAL (13:00)
[2024-01-28] MEDS: Bupivacaine 0.5% PF 10 ML VIAL (13:00)
[2024-01-28] MEDS: 0.9% Normal Saline (Pres. free 10 ML Vial (13:00)
--- NOTE | 2024-01-28 13:46 | OP.PCM_ITS ---
Operative Report Date of Procedure: 01/28/24 Preoperative diagnosis: Left knee DJD Postoperative diagnosis: Same Procedure: Left total knee arthroplasty CT guided Robotic Assisted Implant: [place] triathlon press fit, femoral component size 4, tibial baseplate size 5, asymmetric patella size 32, polyethylene X3 size 9 CS Anesthesia: General with adductor canal block Tourniquet time: 12 minutes at 300 mmHg Complications: None Condition: Stable to PACU Estimated blood loss: 175 cc Asbestos Abatement Technician Evan Mendosa. My physician cafe assistant was a vital part of this case. He was important in appropriate retraction during the case, and protection of soft tissues during procedure. His intimate knowledge of the case and my steps aided in safe and expedient completion of the procedure as well as appropriate position of the extremity during the case. He was also vital in assisting with closure under my direct supervision. Indication for procedure: This is a 73-year-old female with long standing degenerative joint disease of the knee who has failed conservative treatment and wished to proceed with elective total knee arthroplasty. Risk benefits and alternatives were reviewed including; risk of bleeding, infection, nerve artery and tissue damage, continued pain, postoperative stiffness, venous thromboembolism, need for postoperative rehabilitation, mechanical feel to the knee, and expected postoperative course. The pre- operative CT and templating was performed with component sizing. Procedure: The patient was met in the preoperative holding area. The operative extremity was identified by both patient and physician and was marked. Patient was met by anesthesia. An adductor canal block was placed by anesthesia post operatively the patient was brought back to the operating room on a wheeled cart and transferred to the operating table in the supine position. Anesthesia was started. A well-padded tourniquet was placed on the operative extremity. The patient was prepped and draped in the usual sterile fashion. A timeout was called to ensure the proper patient procedure and extremity were being contemplated. An esmarch was used to exsanguinate the extremity. The tourniquet was inflated. A 10 blade scalpel was used to make a midline incision down through the skin and subcutaneous tissue. Skin retractors placed. Bovie and Aquamantis were used to perform meticulous hemostasis. full-thickness flaps were elevated medial and lateral along the joint capsule. A deep blade scalpel was used to perform a medial parapatellar arthrotomy. The knee was brought to full extension. A bovie was used to release the soft tissues off the most proximal aspect of the medial tibial plateau, a three-quarter inch curved osteotome was also used in this process. The infrapatellar fat pad was excised. The suprapatellar fat pad was excised partially anteriorolateraly and portion the anterioromedial pad was elevated from the femur. At this point our intra- articular femoral array was placed at a 45 degree angle proximal and posterior to the medial epicondyle. femoral checkpoint was placed at this time. Our ti bial array was placed greater than 1 hands breath below the incision at a 20 degree angle stab incisions were made with a 15 blade scalpel and pins were placed and attached to the tibial array , tibial checkpoint was placed in the proximal tibial metaphysis. Tourniquet was let down. At this point registration agosto were taken throughout the knee . Once the knee was registered we then tensioned the medial and lateral ligaments in extension and 90 degrees of flexion. We then used these numbers to adjust our components within parameters to balance the knee in both flexion and extension once this was done on our monitor we then proceeded with using the robotic arm to make our tibial plateau cut, anterior and posterior chamfer and distal femur cuts. we removed the cut fragments with the use of a bovie and Issa, we did use a lamina health professional to insure we visualized and removed all posterior osteophytes and at this time also used the Aquamantis on the posterior joint capsule. we then trialed and achieved the desired plan with a well-balanced knee. we used the green probe to peña the corresponding tibial rotation based on our CT template. Lug holes were drilled in the femur the tibia preparation was completed with the appropriate sized base plate pinned based on previous rotation peña. An appropriate sized fin punch was used on the tibia and 4 corner drill was used for the press fit component and the patella was prepared by first using a caliper to ensure sufficient bone stock and a patellar reamer to remove the desired amount of bone. lug holes drilled for an asymmetric poly. We then brought the knee through range of motion with excellent patellar tracking. We thoroughly irrigated the knee. Trial components were removed a posterior capsular injection was preformed with our standard cocktail. In addition the aqua Mantis was also used to aid in hemostasis. Betadine rinse was allowed to sit and washed out completely. Components were press-fit into place. Aricept rinse was then used followed by several more liters of irrigation after it was allowed to sit. The joint capsule was closed with #1 Ethibond [id number] in the upper part of the arthrotomy and #1 Vicryl in the lower part of the arthrotomy. , Followed by 2-0 Vicryl in the subcutaneous tissues with karen in the skin. Arrays and checkpoints were removed prior to closure all counts were correct stab incisions were closed with a staple standard dressing in the form of Mepilex AG for the main incision and a small Mepilex over the pin holes. Thigh-high SUE hose applied over top of dressing. Patient tolerated the procedure well and was directed to PACU in stable condition . There were no intraoperative complications.
--- NOTE | 2024-01-28 13:55 | RAD_ITS ---
STUDY: X-RAY - LEFT KNEE REASON FOR EXAM: Female, 73 years old. Post op -- AP and Lateral xray of operative knee in PACU TECHNIQUE: 2 view(s) of the knee. COMPARISON: Comparison is made with prior study November 27, 2023. FINDINGS: Normal visualized distal femur. Normal visualized proximal tibia and fibula. Normal proximal tibiofibular articulation. The patient is status post left total knee replacement. There is good alignment. Postoperative soft tissue changes. RAD/Knee 1 or 2 Views IMPRESSION: The patient is status post left total knee replacement. There is good alignment. Postoperative soft tissue changes. Electronically Signed: Cem Dickinson MD at 14:10 EDT ,
[2024-01-28] MEDS: Atorvastatin Calcium 40 MG Tablet PO (20:18)
[2024-01-28] MEDS: Senna/Docusate Sodium 1 Tablet 2 TABLET PO (20:19)
[2024-01-28] MEDS: oxyCODONE 5 MG Tablet PO (20:19)
[2024-01-28] MEDS: 0.9% Normal Saline (1000mL) 1,000 ML 125 ML IV (20:24)
[2024-01-29] MEDS: Cefazolin 2 GM in 0.9% Normal Saline (100mL Bag) 100 ML IV ×2 (00:46→10:05)
[2024-01-29] MEDS: oxyCODONE 5 MG Tablet PO (04:54)
[2024-01-29] MEDS: 0.9% Normal Saline (1000mL) 1,000 ML 125 ML IV (04:54)
[2024-01-29] MEDS: Acetaminophen 500 MG Tablet 1000 MG PO ×2 (04:54→13:57)
[2024-01-29 06:51] VITALS: BP 107/73; PULSE 79; RESP 18; TEMP 36.7; O2SAT 97
[2024-01-29 07:12] LABS: Hematocrit 34.4 % (37-47); Hemoglobin 10.7 g/dL (12.0-15.0); Mean Corp Hgb Conc 31.1 g/dL (32-36); Mean Corpuscular Hgb 28.9 pg (27.0-32.0); Platelet Count 171 K/mm3 (150-450); RBC Distribution Width CV 13.9 % (11.6-14.6); RBC Distribution Width SD 46.9 fl (35.1-43.9); White Blood Count 12.3 K/mm3 (4.4-11.0)
[2024-01-29 08:01] LABS: Anion Gap 5 (5-15); BUN 18 mg/dL (7-18); BUN/Creat Ratio 17.6 RATIO (10-20); Calcium,Total 8.9 mg/dL (8.5-10.1); Chloride 108 mmol/L (98-107); Creatinine, Serum 1.02 mg/dL (0.55-1.02); EST Glomerular Filtration Rate 57 mL/min (>60); Est Glom Filt Rate - Afr Amer 68 mL/min (>60); Estimated Creatinine Clearance 65.36 ml/min; Glucose 171 mg/dL (74-106); Potassium 5.2 mmol/L (3.5-5.1); Sodium Level 135 mmol/L (136-145)
[2024-01-29 08:15] VITALS: BP 99/66; PULSE 90; RESP 14; TEMP 36.6; O2SAT 95
[2024-01-29 08:36] VITALS: BP 105/77; PULSE 75; RESP 16; TEMP 36.3; O2SAT 94
[2024-01-29] MEDS: Cholecalciferol (Vit D3) 125 MCG CAPSULE (5,000 UNITS) PO (09:19)
[2024-01-29] MEDS: Ascorbic Acid 500 MG Tablet PO (09:19)
[2024-01-29] MEDS: Magnesium Chloride 64 MG Delay Rel.Tablet 128 MG PO (09:20)
[2024-01-29] MEDS: Senna/Docusate Sodium 1 Tablet 2 TABLET PO (09:21)
[2024-01-29] MEDS: dilTIAZem CD 240 MG Capsule PO (09:21)
--- NOTE | 2024-01-29 09:28 | CASEMGMT ---
DHARA MCCURDY Assessment: Face to Face with pt for initial transition planning/care coordination assessment. DHARA MCCURDY introduced self and role at [facility], pt voices understanding and consents to assessment. Pt is A&O x4 and answers all questions appropriately at this time. Pt sitting up in chair eating breakfast in no distress. Care providers, pharmacy, and demographics verified/updated. Admitting Dx: L TKR PCP:Ashley Montiel [employer] Specialists:Haseeb, ortho; Rosa, cardio [facility]erred [facility]: [facility] [place] [facility] Pres[facility] Benefit: yes LNOK: Hung Milligan, Living Arrangements: Pt lives with in a tri level home with 3 steps to enter with a grab bar. Pt states once in the home she has 6 steps to go up to another level or 7 steps to go down. Pt reports she is typically I in ADL's and denies concerns at home. Transportation: Pt drives self and denies concerns with transportation. Pt states her will transport her. DME:shower chair, [facility] HHC/SNF: Pt has had HHC in the past but is unsure of the name of the agency. Pt denies SNF stays. Pt states no concerns with going home at time of dc. Pt has outpt therapy set up for Saturday at [facility]. Pt states no further concerns/needs. CM to follow. Advised pt to ask CM if any further question/concerns/needs arise, voices understanding. Pt Goal: Home with outpt therapy already set up Plan: Home with outpt therapy already set up Yasmine JULES CM
[2024-01-29 12:52] VITALS: O2SAT 94
--- NOTE | 2024-01-29 13:02 | PCM.PN.ORT ---
Subjective Subjective Seen and examined doing well does have some pain but does not want her pain medication increased she is eating drinking going to the bathroom denies any chest pain shortness of breath fevers chills nausea vomiting she is able to ambulate well with physical therapy and on her own no complaints or concerns wishes to go home Objective Data Objective Data Vital Signs: Vital Signs Temp Pulse Resp BP Pulse Ox O2 Del Method O2 Flow Rate 97.4 F L 75 16 105/77 94 Room Air 2 01/29/24 08:36 01/29/24 08:36 01/29/24 08:36 01/29/24 08:36 01/29/24 08:36 01/29/24 08:36 01/28/24 23:22 Oxygen Flow Rate (L/min) 2 Oxygen Delivery Method Room Air Weight: 254 lb Body Mass Index (BMI) 39.7 Intake & Output: Intake and Output for Last 24 Hours 01/27/24 01/28/24 01/29/24 23:59 23:59 23:59 Intake Total 3402.41 / 3402.41 2451.25 / 2451.25 Balance 3402.41 / 3402.41 2451.25 / 2451.25 Lab / Micro Data 01/29/24 06:35 01/29/24 06:35 Labs: Laboratory Results - last 24 hr 01/29/24 06:35: WBC 12.3 H, RBC 3.70 L, Hgb 10.7 L, Hct 34.4 L, MCV 93.0, MCH 28.9, MCHC 31.1 L, RDW Std Deviation 46.9 H, RDW Coeff of Adan 13.9, Plt Count 171, MPV 13.0 H, Sodium 135 L, Potassium 5.2 H, Chloride 108 H, Carbon Dioxide 22.0, Anion Gap 5, BUN 18, Creatinine 1.02, Estim Creat Clear Calc 65.36, Est GFR (MDRD) Af Amer 68, Est GFR (MDRD) Non-Af 57 L, BUN/Creatinine Ratio 17.6, Glucose 171 H, Calcium 8.9 Micro: Microbiology 01/07/24 14:05 Swab (Method) Nasal Screen MRSA/MSSA - Final Radiography Diagnostic Testing: Radiology Impression Knee X-Ray 01/28/24 13:55 IMPRESSION: The patient is status post left total knee replacement. There is good alignment. Postoperative soft tissue changes. Electronically Signed: Cem Dickinson MD at 14:10 EDT , Physical Exam Const alert, oriented x3 and no apparent distress General Appearance: cooperative Extremity Extremity Narrative: Dressing clean dry intact compartments soft neurovascular intact left lower extremity Assessment & Plan Assessment/Plan (1) S/P total knee arthroplasty: QUALIFIERS: Laterality: left Qualified Code(s): Z96.652 - Presence of left artificial knee joint PLAN: Plan pod #1 left total total knee arthroplasty PT OT weightbearing as tolerated pain control Tylenol oxycodone DVT prophylaxis SCDs SUE hose Eliquis 2.5 mg twice daily for 2 weeks patient wishes to be discharged home she is doing well we will go ahead and discharge home follow-up in the office 2-week start outpatient physical therapy
--- NOTE | 2024-01-29 13:06 | DCINST_ITS ---
Discharge Instructions Diet Discharge Diet: No restrictions Activity Weight Bearing Status: Full weight bearing Dressing / Incision Call your doctor if you observe: Shortness of breath and Chest pain Additional Dressing/Incision Instructions:: Ice and elevate lower extremities 2 weeks while not ambulating. Ambulation is encouraged. Weight bearing as tolerated. Use assistive devise for stability. Encourage FULL knee extension and flexion 1 time EVERY time you get up and down and MULTIPLE times per day. No showering until 72 hours after surgery. Begin showering postop day #3. Remove the dressing prior to shower and gently wash with warm water and antibacterial soap then pat dry and place abdominal pad (or plain gauze) and SUE hose over top. This is to be done daily. Do not submerge for 3 weeks. If not showering daily after the initial 72 hours then you must clean incision and change dressing daily. Do not allow animals near the incision area. Keep clean. Follow anti-coagulation recommendations as prescribed. Do not take any NSAIDs while on blood thinner. Do not take any additional narcotic pain medication other than what was prescribed on your surgery day without discussing with physician. Narcotic medication can be addictive. Do not drink alcohol while taking narcotics. Supplement narcotic prescription with acetaminophen 1000 mg 4 times a day. Start physical therapy. If you are not currently scheduled for physical therapy or you are unsure of appointment time please call office [facility] to arrange. Call Dr. Membreno with any concerns. Follow Up Care Please Follow Up With: Sixto Membreno DO When: 2 weeks Test Results: Test results from this visit will be discussed in further detail at your follow- up appointment, if applicable. Discharge Plan Admission Admit Date/Time: 01/28/24 08:56 Primary Reason for Your Visit: Left total knee arthroplasty Attending Provider: Sixto Membreno Primary Care Provider: Ashley Montiel NP Discharge Orders/Prescriptions Prescriptions: New oxycodone 5 mg tablet 5 - 10 mg PO Q4H PRN (Reason: pain) 7 Days Qty: 60 0RF Continued ascorbate calcium (vitamin C) 500 mg tablet 500 mg PO DAILY diltiazem HCl [Cardizem LA] 360 mg tablet extended release 24 hr 240 mg PO DAILY Xarelto 20 mg tablet 20 mg PO QHS zinc 15 mg Tablet 50 mg PO DAILY calcium carbonate-vitamin D2 600 mg calcium- 200 unit Tablet 1 tab PO DAILY Multivitamin 50 Plus Tablet 1 tab PO DAILY acetaminophen 500 mg Tablet 1,000 mg PO Q8H PRN PRN (Reason: pain) Qty: 0 0RF atorvastatin 40 mg Tablet 40 mg PO QHS Qty: 30 0RF lisinopril 10 mg tablet 10 mg PO DAILY cholecalciferol (vitamin D3) [Vitamin D3] 125 mcg (5,000 unit) tablet 125 mcg PO DAILY magnesium 250 mg tablet 250 mg PO DAILY Held aspirin 81 mg capsule 81 mg PO DAILY Hold Instructions: Resume on 02/12/24. Other Ambulatory Orders: 12 Lead EKG (Routine) Timeframe: 20240107 Location: None Selected Ordered By: Dr. Sixto Membreno Referrals / Follow Up: Yamila Rutherford MD [Med Staff - Active Staff] - Disposition Disposition (needs filled in before D/C Order can be placed): Home, Self Care
--- NOTE | 2024-01-29 13:10 | PCM.DC.SUM ---
Providers Date of Admission: 01/28/24 Primary Care Physician: PERFECTO VictorC Reason For Visit: ERAS Left Total Knee Replacement Ro Diagnosis Discharge Diagnosis (1) S/P total knee arthroplasty: Status: Acute Code(s): Z96.659 - Presence of unspecified artificial knee joint Qualifiers: Laterality: left Qualified Code(s): Z96.652 - Presence of left artificial knee joint Plan pod #1 left total total knee arthroplasty PT OT weightbearing as tolerated pain control Tylenol oxycodone DVT prophylaxis SCDs SUE hose Eliquis 2.5 mg twice daily for 2 weeks patient wishes to be discharged home she is doing well we will go ahead and discharge home follow-up in the office 2-week start outpatient physical therapy Medications at Discharge Home Medications calcium carb-ergocalciferol (vit D2) 600 mg calcium-200 unit tablet 1 tab PO DAILY vit 04/02/21 uzzfxfyhgeyq-umqxpczw-czdayv tablet (Multivitamin 50 Plus tablet) 1 tab PO DAILY vit 04/02/21 zinc 15 mg tablet 50 mg PO DAILY vit 04/02/21 acetaminophen 500 mg tablet 1,000 mg (2 x 500 mg) PO Q8H PRN PRN pain #0 tabs 04/25/21 atorvastatin 40 mg tablet 40 mg PO QHS cholesterol #30 tabs 04/25/21 ascorbate calcium (vitamin C) 500 mg tablet 500 mg PO DAILY VIT 06/21/21 aspirin 81 mg capsule 81 mg PO DAILY HEART HEALTH 06/29/21 lisinopril 10 mg tablet 10 mg PO DAILY BP 07/18/21 diltiazem HCl 360 mg tablet,extended release 24 hr (Cardizem LA) 240 mg PO DAILY HEART 09/20/21 rivaroxaban 20 mg tablet (Xarelto) 20 mg PO QHS BLOOD THINN 05/16/22 cholecalciferol (vitamin D3) 125 mcg (5,000 unit) tablet (Vitamin D3) 125 mcg PO DAILY SUPPLEMENT 01/02/24 magnesium 250 mg tablet 250 mg PO DAILY SUPPLEMENT 01/02/24 oxycodone 5 mg tablet 5 - 10 mg (1 - 2 x 5 mg) PO Q4H PRN pain 7 days #60 tabs 01/29/24 Hospital Course Operations total knee replacement Summary of Care Provided Hospital Course: Who has long history of degenerative joint disease to the knee who has failed conservative treatment and wished to undergo elective total knee arthroplasty. Patient underwent the aformentioned procedure on the admission date without any intraoperative complications. Patient did receive pre-and postoperative antibiotics which were discontinued within 23 hours postoperatively. Patient did receive general anesthesia and adductor canal block postoperatively. pain was controlled with IV and transition to p.o. pain medication Patient will be discharged home with oxycodone and will continue Tylenol as well. Patient had minimal intraoperative blood loss and 2gm tranexamic acid was administered there was no need for postoperative blood transfusion Patients vital signs remained stable. Patient was started on both mechanical and chemical DVT per prophylaxis postoperatively in the form of SCDs SUE hose and she was resumed on her 20 mg of Xarelto daily immediately postop and will continue this as she did preoperatively. thigh high sue hose placed over top of the meplix silver dressing. This should be removed 72 hrs post operatively and showering begun daily at that time with warm water and antibacterial soap. not to submerge for 3 weeks. To change dressing daily after first dressing change. Patient will follow-up in the office in 2 weeks. No intrahospital complications. Weight / BMI Weight Weight: 254 lb Body Mass Index (BMI) 39.7 ABG / Lab / Microbiology Data 01/29/24 06:35 01/29/24 06:35 Laboratory: Laboratory Results - last 24 hr 01/29/24 06:35: WBC 12.3 H, RBC 3.70 L, Hgb 10.7 L, Hct 34.4 L, MCV 93.0, MCH 28.9, MCHC 31.1 L, RDW Std Deviation 46.9 H, RDW Coeff of Adan 13.9, Plt Count 171, MPV 13.0 H, Sodium 135 L, Potassium 5.2 H, Chloride 108 H, Carbon Dioxide 22.0, Anion Gap 5, BUN 18, Creatinine 1.02, Estim Creat Clear Calc 65.36, Est GFR (MDRD) Af Amer 68, Est GFR (MDRD) Non-Af 57 L, BUN/Creatinine Ratio 17.6, Glucose 171 H, Calcium 8.9 Microbiology: Microbiology 01/07/24 14:05 Swab (Method) Nasal Screen MRSA/MSSA - Final Radiography Diagnostic Testing: Radiology Impression Knee X-Ray 01/28/24 13:55 IMPRESSION: The patient is status post left total knee replacement. There is good alignment. Postoperative soft tissue changes. Electronically Signed: Cem Dickinson MD at 14:10 EDT , D/C Instructions Discharge Diet: No restrictions Weight Bearing Status: Full weight bearing Call your doctor if you observe: Shortness of breath and Chest pain Additional Dressing/Incision Instructions: Ice and elevate lower extremities 2 weeks while not ambulating. Ambulation is encouraged. Weight bearing as tolerated. Use assistive devise for stability. Encourage FULL knee extension and flexion 1 time EVERY time you get up and down and MULTIPLE times per day. No showering until 72 hours after surgery. Begin showering postop day #3. Remove the dressing prior to shower and gently wash with warm water and antibacterial soap then pat dry and place abdominal pad (or plain gauze) and SUE hose over top. This is to be done daily. Do not submerge for 3 weeks. If not showering daily after the initial 72 hours then you must clean incision and change dressing daily. Do not allow animals near the incision area. Keep clean. Follow anti-coagulation recommendations as prescribed. Do not take any NSAIDs while on blood thinner. Do not take any additional narcotic pain medication other than what was prescribed on your surgery day without discussing with physician. Narcotic medication can be addictive. Do not drink alcohol while taking narcotics. Supplement narcotic prescription with acetaminophen 1000 mg 4 times a day. Start physical therapy. If you are not currently scheduled for physical therapy or you are unsure of appointment time please call office [facility] to arrange. Call Dr. Membreno with any concerns. Please Follow Up With: Sixto Membreno DO When: 2 weeks Meaningful Use Info Meaningful Use Diagnoses (Choose all that apply): None applicable Discharge Plan Admission Admit Date/Time: 01/28/24 08:56 Primary Reason for Your Visit: Left total knee arthroplasty Attending Provider: Sixto Membreno Primary Care Provider: Ashley Montiel NP Discharge Orders/Prescriptions Prescriptions: New oxycodone 5 mg tablet 5 - 10 mg PO Q4H PRN (Reason: pain) 7 Days Qty: 60 0RF Continued ascorbate calcium (vitamin C) 500 mg tablet 500 mg PO DAILY diltiazem HCl [Cardizem LA] 360 mg tablet extended release 24 hr 240 mg PO DAILY Xarelto 20 mg tablet 20 mg PO QHS zinc 15 mg Tablet 50 mg PO DAILY calcium carbonate-vitamin D2 600 mg calcium- 200 unit Tablet 1 tab PO DAILY Multivitamin 50 Plus Tablet 1 tab PO DAILY acetaminophen 500 mg Tablet 1,000 mg PO Q8H PRN PRN (Reason: pain) Qty: 0 0RF atorvastatin 40 mg Tablet 40 mg PO QHS Qty: 30 0RF lisinopril 10 mg tablet 10 mg PO DAILY cholecalciferol (vitamin D3) [Vitamin D3] 125 mcg (5,000 unit) tablet 125 mcg PO DAILY magnesium 250 mg tablet 250 mg PO DAILY Held aspirin 81 mg capsule 81 mg PO DAILY Hold Instructions: Resume on 02/12/24. Other Ambulatory Orders: 12 Lead EKG (Routine) Timeframe: 20240107 Location: None Selected Ordered By: Dr. Sixto Membreno Referrals / Follow Up: Yamila Rutherford MD [Med Staff - Active Staff] - Disposition Disposition (needs filled in before D/C Order can be placed): Home, Self Care
--- NOTE | 2024-01-29 14:26 | PHA.DC_ITS ---
Pharmacy [facility] Pharmacy Service has performed discharge medication reconciliation and counseling for this patient. 1. OXYCODONE 5-10MG PO Q4H PRN PAIN The patient's discharge medication list was reviewed for discrepancies and discrepancies were resolved. The patient was counseled on the following discharge medications and changes in medications for homegoing were reviewed. The Reason for Use, instructions for use, and potential side effects were reviewed for all new medications. The patient's questions regarding all of their medications were answered. The patient was able to verbally demonstrate an understanding of their discharge medications. Medications at Discharge Home Medications calcium carb-ergocalciferol (vit D2) 600 mg calcium-200 unit tablet 1 tab PO DAILY vit 04/02/21 qyvlxkkpwsak-jtwxojcv-gjcvne tablet (Multivitamin 50 Plus tablet) 1 tab PO DAILY vit 04/02/21 zinc 15 mg tablet 50 mg PO DAILY vit 04/02/21 acetaminophen 500 mg tablet 1,000 mg (2 x 500 mg) PO Q8H PRN PRN pain #0 tabs 04/25/21 atorvastatin 40 mg tablet 40 mg PO QHS cholesterol #30 tabs 04/25/21 ascorbate calcium (vitamin C) 500 mg tablet 500 mg PO DAILY VIT 06/21/21 aspirin 81 mg capsule 81 mg PO DAILY HEART HEALTH 06/29/21 lisinopril 10 mg tablet 10 mg PO DAILY BP 07/18/21 diltiazem HCl 360 mg tablet,extended release 24 hr (Cardizem LA) 240 mg PO DAILY HEART 09/20/21 rivaroxaban 20 mg tablet (Xarelto) 20 mg PO QHS BLOOD THINN 05/16/22 cholecalciferol (vitamin D3) 125 mcg (5,000 unit) tablet (Vitamin D3) 125 mcg PO DAILY SUPPLEMENT 01/02/24 magnesium 250 mg tablet 250 mg PO DAILY SUPPLEMENT 01/02/24 oxycodone 5 mg tablet 5 - 10 mg (1 - 2 x 5 mg) PO Q4H PRN pain 7 days #60 tabs 01/29/24
--- NOTE | 2024-01-29 16:16 | NURSING ---
All documentation by nursing project coordinator, Cydnie Mosqueda, reviewed by nursing resident, Liliya AYALAN, RN.
== END 2024-01-29 15:05 | disposition home or self-care (01) | DRG 470 ==
LOC: ACINP 08:59 → MS3 14:02
PROVIDERS: Anesthesiology; Admitting Provider Orthopaedic Surgery; PCP Nurse Practitioner Family; Referring Provider Orthopaedic Surgery; Visit Provider Orthopaedic Surgery
PROC: 0SRD0JZ Replacement of Left Knee Joint with Synthetic Substitute, Open Approach (ICD-10-PCS; CPT 27447; principal; 2024-01-28 10:45)
DX: M17.12 Unilateral primary osteoarthritis, left knee (principal); I69.351 Hemiplegia and hemiparesis following cerebral infarction affecting right dominant side; E11.9 Type 2 diabetes mellitus without complications; I48.91 Unspecified atrial fibrillation; I10 Essential (primary) hypertension; E78.00 Pure hypercholesterolemia, unspecified; E66.9 Obesity, unspecified; Z68.39 Body mass index [BMI] 39.0-39.9, adult; Z96.651 Presence of right artificial knee joint; Z79.82 Long term (current) use of aspirin; Z79.84 Long term (current) use of oral hypoglycemic drugs; Z79.899 Other long term (current) drug therapy
CPT/HCPCS: 36415; 73560; 80048; 82962; 82985; 83036; 83735; 85025; 85027; 85610; 85730; 86850; 86900; 86901; 87081; 88305; 88311; 93005; 94668; 97162; 97166; 97530; C1776; J7030; J7120; J2405; J3475; J3490

== ENCOUNTER 2024-04-15 08:00 | Day surgery (SDC) | payer MEDICARE, BC, SELFPAY ==
[2024-04-08 18:32] LABS: Anion Gap 6 (5-15); BUN 16 mg/dL (7-18); BUN/Creat Ratio 15.7 RATIO (10-20); Calcium,Total 9.4 mg/dL (8.5-10.1); Chloride 108 mmol/L (98-107); Creatinine, Serum 1.02 mg/dL (0.55-1.02); EST Glomerular Filtration Rate 57 mL/min (>60); Est Glom Filt Rate - Afr Amer 68 mL/min (>60); Glucose 114 mg/dL (74-106); Potassium 4.5 mmol/L (3.5-5.1); Sodium Level 138 mmol/L (136-145)
[2024-04-15] VITALS (11 sets, daily range): BP systolic 91–144; BP diastolic 58–95; PULSE 57–113; RESP 14–16; TEMP 36.1–37.2; O2SAT 89–97; BMI 39.3
[2024-04-15] MEDS: Lactated Ringers 1,000 ML 15 ML IV (08:19)
--- NOTE | 2024-04-15 08:32 | HP.PCM_ITS ---
HPI - General HPI Narrative JOSE VELAZQUEZ, is a 73 F who presents right radius open reduction internal fixation possible pinning of the distal radial ulnar joint. xarelto held. RAB post op instructions and narcotic counselling. Marked right wrist. OK to proceed. no changes to h and p. MR#: [id number] Acct: [id number] Name: JOSE VELAZQUEZ Rep #: [id number] : 1950 Provider: Dr. Deepak Dunlap MD Age/Sex: 73/F Location: [facility] [email or web address] Status: Signed Intake Vital Signs 01/27/2410:01 Height 5 ft 7 in Intake Visit Reasons: RIGHT ARM Accompanied by: Is patient in pain?: Yes Allergies No Known Allergies Allergy (Verified 04/06/24 13:56) Medications ?Medication ?Instructions ?Recorded ?Confirmed ?Type calcium carb-ergocalciferol (vit 1 tab PO DAILY vit 04/02/21 04/06/24 History D2) 600 mg calcium-200 unit tablet xhdausrnwzje-xjqkxsgk-bpaauu 1 tab PO DAILY vit 04/02/21 04/06/24 History tablet (Multivitamin 50 Plus tablet) zinc 15 mg tablet 50 mg PO DAILY vit 04/02/21 04/06/24 History acetaminophen 500 mg tablet 1,000 mg (2 x 500 mg) PO Q8H PRN 04/25/21 04/06/24 Rx PRN pain #0 tabs atorvastatin 40 mg tablet 40 mg PO QHS cholesterol #30 tabs 04/25/21 04/06/24 Rx ascorbate calcium (vitamin C) 500 500 mg PO DAILY VIT 06/21/21 04/06/24 History mg tablet aspirin 81 mg capsule 81 mg PO DAILY HEART HEALTH 06/29/21 04/06/24 History lisinopril 10 mg tablet 10 mg PO DAILY BP 07/18/21 04/06/24 History diltiazem HCl 360 mg 240 mg PO DAILY HEART 09/20/21 04/06/24 History tablet,extended release 24 hr (Cardizem LA) rivaroxaban 20 mg tablet (Xarelto) 20 mg PO QHS BLOOD THINN 05/16/22 04/06/24 History cholecalciferol (vitamin D3) 125 125 mcg PO DAILY SUPPLEMENT 01/02/24 04/06/24 History mcg (5,000 unit) tablet (Vitamin D3) magnesium 250 mg tablet 250 mg PO DAILY SUPPLEMENT 01/02/24 04/06/24 History PFSH Medical History (Updated 04/06/24 @ 14:21 by Deepak Dunlap MD) Fracture of shaft of right radius Post-menopausal History of diverticulosis History of edema Leg cramps Afib Postoperative delirium Wears glasses Depression Anxiety Diabetes Bladder disease Arthritis High cholesterol Migraine headache Stroke/cerebrovascular accident Dietary restriction History of diverticulitis Non-smoker History of pain when walking History of echocardiogram History of stress test Cardiology follow-up encounter History of atrial fibrillation Abnormality of gait Acute stroke due to ischemia Weakness status post cerebrovascular accident Impaired functional mobility, balance, gait, and endurance Bone infarct of distal femur Osteoarthritis History of colon polyps Obesity (BMI 30-39.9) Glucose intolerance (impaired glucose tolerance) LVH (left ventricular hypertrophy) Dyslipidemia HTN (hypertension) MVP (mitral valve prolapse) Surgical History History of colonoscopy S/P total knee arthroplasty H/O colonoscopy with polypectomy Status post left breast lumpectomy (~1991) Family History Mother Hyperlipidemia HypertensionFather DiabetesFather HypertensionFather CancerMother DementiaBrother Muscular dystrophyOther Arthritis Social History adopted: No household members: spouse housing: house number of children: 0 current occupational status: previously employed and retired 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 Deepak Dunlap MD 04/06/24 7622. Part of today?s visit was documented by [ ], acting as scribe. JOSE VELAZQUEZ is a 73 year old F here today for R radius fracture. saturday 3 days ago log fell onto the right side. RHD. no prior issues. here with Hung her . Was seen in [place] - got the disc. Ortho Exam General General: Yes no acute distress Neurologic: Yes alert and Yes oriented x3 Psychologic: Yes reasonable and appropriate Right Wrist/Hand Skin/Wound: Yes CDI, Yes Swelling, Yes Ecchymosis, Yes nail intact and Yes capillary refill normal Right Wrist: Yes ROM-Extension 0-60, ROM-Flexion 0-80 and TTP Fracture site Motor: EPL: 4, FDP-2: 4, 1st Dorsal Interosseous: 4 and APB: 4 Sensation: Radial: I, Ulnar: I and Median: I WRIST: There is some mild superficial abrasions to the distal dorsal aspect of the forearm. This closed injury normal sensation motor function of the hand strong radial pulse no pain at the elbow or in the hand. Forearm compartments are soft. There is some moderate bruising. Left Wrist/Hand Skin/Wound: Yes Swelling and Yes Ecchymosis Supplemental Info X-rays were reviewed from an outside source [facility] CD disc today. AP lateral of the right forearm demonstrates a transverse distal radius shaft fracture. I am unable to measure the distance to the joint surface but it looks about 7 cm away. There is no obvious dorsal displacement of the distal ulna or obvious widening at the distal radial ulnar joint. Coding Level of Care Code Off vis,est,level 3 Diagnoses Fracture of shaft of right radius S52.301A Assessment and Plan Assessment and Plan (1) Fracture of shaft of right radius: Status: Acute Plan: 73-year-old female with a radius shaft fracture transverse at the right side distal third. This is somewhat close to the distal aspect of the radius could involve the distal radial ulnar joint as well. Generally for radius shaft fracture this is recommended for operative treatment in an adult especially given the proximity to the DRUJ. We discussed the diagnosis prognosis different treatment options available to the patient including doing nothing rest ice anti-inflammatories cast treatment as well as surgical treatment in the form of right radius open reduction internal fixation possible pinning of the distal radial ulnar joint. The patient understands wished to go ahead with surgery. They have seen a neurologist in the past there anticoagulation was stopped for 5 days prior to her total knee arthroplasty. I think would be reasonable to stop this for 2 to 3 days before this type of operation given a less risk of blood loss than a total knee arthroplasty but regardless I will send a message to Yadira in our office to try to get this set up as soon as possible the clearance from their neurologist holding the Xarelto and adding on the case as soon as possible after that. The patient understands signed the consent form for surgery as well as possible need for blood products. Placed the patient to a splint for now for comfort and will see the patient the day of surgery they understood and had a few questions about postoperative recovery and answered for the patient and her . Pros and cons risks and benefits were discussed with the patient including but not limited to infection, pain, stiffness, bleeding, damage to surrounding structures, neurovascular injury, recurrence or retear, failure or wear of hardware or fixation, instability, fracture, deep vein thrombosis and pulmonary embolism, anesthetic risks, , patient dissatisfaction, need for further surgery and other risks. Patient understood and wished to proceed with surgery, and signed the informed consent documentation. [facility] Medical History (Updated 04/08/24 @ 15:07 by Lashae Rocha) Fracture of shaft of right radius Post-menopausal History of diverticulosis History of edema Leg cramps Afib Postoperative delirium Wears glasses Depression Anxiety Diabetes Bladder disease Arthritis High cholesterol Migraine headache Stroke/cerebrovascular accident Dietary restriction History of diverticulitis Non-smoker History of pain when walking History of echocardiogram History of stress test Cardiology follow-up encounter History of atrial fibrillation Abnormality of gait Acute stroke due to ischemia Weakness status post cerebrovascular accident Impaired functional mobility, balance, gait, and endurance Bone infarct of distal femur Osteoarthritis History of colon polyps Obesity (BMI 30-39.9) Glucose intolerance (impaired glucose tolerance) LVH (left ventricular hypertrophy) Dyslipidemia HTN (hypertension) MVP (mitral valve prolapse) Home Medications ?Medication ?Instructions ?Recorded ?Last Taken ?Type calcium carb-ergocalciferol (vit 1 tab PO DAILY vit 04/02/21 01/27/24 History D2) 600 mg calcium-200 unit tablet oybjgnayfcip-qslaczjs-xzaozn 1 tab PO DAILY vit 04/02/21 01/27/24 History tablet (Multivitamin 50 Plus tablet) zinc 15 mg tablet 50 mg PO DAILY vit 04/02/21 01/27/24 History acetaminophen 500 mg tablet 1,000 mg (2 x 500 mg) PO Q8H PRN 04/25/21 01/27/24 Rx PRN pain #0 tabs atorvastatin 40 mg tablet 40 mg PO QHS cholesterol #30 tabs 04/25/21 01/27/24 Rx ascorbate calcium (vitamin C) 500 500 mg PO DAILY VIT 06/21/21 01/27/24 History mg tablet aspirin 81 mg capsule 81 mg PO DAILY HEART HEALTH 06/29/21 04/12/24 History lisinopril 10 mg tablet 10 mg PO DAILY BP 07/18/21 04/12/24 History diltiazem HCl 360 mg 240 mg PO DAILY HEART 09/20/21 01/28/24 04:45 History tablet,extended release 24 hr (Cardizem LA) rivaroxaban 20 mg tablet (Xarelto) 20 mg PO QHS BLOOD THINN 05/16/22 04/12/24 History cholecalciferol (vitamin D3) 125 125 mcg PO DAILY SUPPLEMENT 01/02/24 01/27/24 History mcg (5,000 unit) tablet (Vitamin D3) magnesium 250 mg tablet 250 mg PO DAILY SUPPLEMENT 01/02/24 01/27/24 History vitamin E 268 mg (400 unit) capsule 268 mg PO DAILY 04/08/24 Unknown History Allergy/AdvReac Type Severity Reaction Status Date / Time No Known Allergies Allergy Verified 04/15/24 08:11 Family History Mother Hyperlipidemia Hypertension Father Diabetes Father Hypertension Father Cancer Mother Dementia Brother Muscular dystrophy Other Arthritis Surgical History History of colonoscopy S/P total knee arthroplasty H/O colonoscopy with polypectomy Status post left breast lumpectomy (~1991) Social History adopted: No household members: spouse housing: house number of children: 0 current occupational status: previously employed and retired 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 pets and animals: Yes (3 tropical birds) leisure activities: art Smoking Status: Never smoker alcohol intake: never substance use type: does not use what type of physical activity do you participate in: none do you feel safe at home: Yes Vital Signs Vital Signs Vital Signs: 04/15/24 08:12 04/15/24 08:12 Temperature 98.1 F Temperature Source Temporal Pulse Rate 57 L Respiratory Rate 16 Respiratory Pattern Normal Blood Pressure 144/95 H Blood Pressure Mean 111 Blood Pressure Source Monitor Blood Pressure Position Semi-Fowlers Blood Pressure Location Left Arm Pulse Ox 97 Oxygen Delivery Method Room Air Weight Weight: 251 lb Body Mass Index (BMI) 39.3 Results Lab / Micro Data 04/08/24 17:00
--- NOTE | 2024-04-15 08:37 | PCM.PRE.AN2 ---
ASA Classification* ASA Classification ASA Classification: 3 Assessment & Plan Anesthesia* Anesthesia Assessment Anesthesia Assessment: Discussed sedation and/or anesthesia options, risks, benefits, and alternatives with patient/parents/legal guardian/POA. Questions invited. The patient/parents/legal guardian/POA seems to understand and agrees to proceed with anesthesia plan. Reviewed the physical assessment, medical history, allergy history and patient home medications list prior to surgery/procedure/anesthetic and documented any changes. Performed airway and anesthesia risk assessments. Procedural Plan Procedural Plan:: Proceed w/ Anesthesia plan Anesthesia Type Anesthesia Type: General History Source History Obtained from:: Patient and Chart Anesthesia Focused Assessment* Temperature: 98.1 F Pulse Rate: 57 Blood Pressure: 144/95 Respiratory Rate: 16 Pulse Ox: 97 Oxygen Delivery Method: Room Air Airway Assessment Mouth opens: >3 cm Mallampati Score: I Teeth Condition: Intact Neck Range of motion (ROM): Limited ROM (Slight decrease in extension) Pertinent Findings EKG Pertinent Findings:: January 07, 2024 atrial fibrillation. No change from July 19, 2021 Stress Test Pertinent Findings:: June 07, 2021 negative SPECT ECHO Pertinent Findings:: March 31, 2021 ejection fraction 63%. Focused Labs Anesthesia Preop lab: CBC WBC 12.3 K/mm3 (4.4-11.0) H 01/29/24 06:35 RBC 3.70 M/mm3 (4.2-5.4) L 01/29/24 06:35 Hgb 10.7 g/dL (12.0-15.0) L 01/29/24 06:35 Hct 34.4 % (37-47) L 01/29/24 06:35 Plt Count 171 K/mm3 (150-450) 01/29/24 06:35 CHEMISTRY Potassium 4.5 mmol/L (3.5-5.1) 04/08/24 17:00 Sodium 138 mmol/L (136-145) 04/08/24 17:00 Magnesium 2.2 mg/dL (1.6-2.6) 01/07/24 14:01 Phosphorus 3.7 mg/dL (2.5-4.9) 04/03/21 05:06 BUN 16 mg/dL (7-18) 04/08/24 17:00 Creatinine 1.02 mg/dL (0.55-1.02) 04/08/24 17:00 Glucose 114 mg/dL (74-106) H 04/08/24 17:00 POC Glucose 113 mg/dL (74-106) H 01/28/24 09:24 COAG PT 18.0 SECONDS (11.7-14.9) H 01/07/24 14:05 Pre-Assessment Diagnosis/Proposed Procedure Planned Operative Procedure(s): RIGHT RADIUS ORIF, POSSIBLE PINNING IF DISTAL RADIO-ULNAR JOINT Anesthesia History Anesthesia History - human resources project coordinator: Anesthesia History - human resources project coordinator Hx Hospitalization No 04/08/24 14:22 Any Problems With Anesthesia No 04/08/24 14:22 Cholinesterase deficiency No 04/08/24 14:22 You/Your Family Experience No 04/08/24 14:22 fever (hyperthermia) with Relationship Recent Exposure to Contagious No 04/15/24 08:12 Disease Does patient have nerve No 04/08/24 14:22 stimulator Patient instructed to have device shut off --Does patient have Pacemaker No 04/15/24 08:12 or ICD? When Was Last Pacemaker Check QUESTION #4 FULL TEXT: You/Your Family Experience fever (hyperthermia) with Anesthesia Last Oral Intake Last Oral intake: Last Oral Intake NPO since 00:00 04/15/24 08:12 Meds taken in AM with sips of water? Meds patient instructed to take am of surgery PONV PONV - human resources project coordinator: PONV - human resources project coordinator Female Yes 04/08/24 14:22 HX of Motion Sickness No 04/08/24 14:22 HX of N/V After Surgery No 04/08/24 14:22 Non-Smoker Yes 04/08/24 14:22 Duration of Surgery greater Yes 04/08/24 14:22 than 60 minutes Number of Risk Factors 3 04/08/24 14:22 PONV Score Moderate Risk 04/08/24 14:22 Height & Weight Height & Weight: Anesthesia: Height & Weight Height 5 ft 7 in 04/15/24 08:12 Weight: 113.852 kg 04/15/24 08:12 Body Mass Index (BMI) 39.3 04/15/24 08:12 Respiratory Assessment Respiratory Assessment - human resources project coordinator: Respiratory Tract Infection Hx - human resources project coordinator Hx Respiratory Tract Infection No 04/08/24 14:22 STOP Sleep Apnea STOP Sleep Apnea - human resources project coordinator: STOP Sleep Apnea - human resources project coordinator Hx Hypertension Yes: CONTROLLED WITH BP 04/08/24 14:22 Hx Sleep Apnea No 04/08/24 14:22 CPAP BIPAP Do you snore loudly (louder No 04/08/24 14:22 than talking or can be heard Do you often feel tired/ No 04/08/24 14:22 fatigued/ sleepy during daytime? Has anyone observed you stop No 04/08/24 14:22 breathing during sleep? STOP Results Negative 04/08/24 14:22 QUESTION #5 FULL TEXT : Do you snore loudly (louder than talking or can be heard through closed doors)? Tobacco Use History Tobacco Use History - human resources project coordinator: Tobacco Use History - human resources project coordinator Tobacco Use Smoking Status Never smoker 04/08/24 14:22 Hx Tobacco Use No 04/08/24 14:22 Years Smoking Packs Smoked per Day Smoking Cessation Date was within the last 15 years Hx Smoking Cessation Date Hx Smoking Cessation Counseling Hematologic Medial History Hematologic Hx - human resources project coordinator: Hematologic Medical Hx - comic illustrator Hx of Blood Transfusion No 04/08/24 14:22 Hx of Transfusion in last 3 No 04/08/24 14:22 Months Date of Last Transfusion (if within last 3 months) Ever experience any problems No 04/08/24 14:22 with transfusion(s)? Specify any problems Hx of Preganancy in last 3 N/A 04/08/24 14:22 Months Nurse Filling Out Transfusion NBUCHER 04/08/24 14:22 & Questions: Date: 04/08/24 04/08/24 14:22 Time: 14:27 04/08/24 14:22 Patient unable to answer at this time (ie. confused, unrespo /Reproduction History /Reproductive History - human resources project coordinator: /Reproductive Hx- human resources project coordinator Hx Now Gestational Age (in weeks): EDC: Hx Hx Para Hx Section SAB No 04/08/24 14:22 Active Medications Active Medications: Current Medications Generic Name Dose Route Start Last Admin Trade Name Freq PRN Reason Stop Dose Admin Cefazolin Sodium 2 gm/ Sodium 110 mls @ 150 mls/hr 04/15/24 09:30 Chloride IV 04/15/24 10:13 PREOP ONE Lactated Ringer's 1,000 mls @ 15 mls/hr 04/15/24 08:15 04/15/24 08:19 IV 15 mls/hr .Q48H GELACIO Administration PFSH Medical History (Updated 04/08/24 @ 15:07 by Lashae Rocha) Fracture of shaft of right radius Post-menopausal History of diverticulosis History of edema Leg cramps Afib Postoperative delirium Wears glasses Depression Anxiety Diabetes Bladder disease Arthritis High cholesterol Migraine headache Stroke/cerebrovascular accident Dietary restriction History of diverticulitis Non-smoker History of pain when walking History of echocardiogram History of stress test Cardiology follow-up encounter History of atrial fibrillation Abnormality of gait Acute stroke due to ischemia Weakness status post cerebrovascular accident Impaired functional mobility, balance, gait, and endurance Bone infarct of distal femur Osteoarthritis History of colon polyps Obesity (BMI 30-39.9) Glucose intolerance (impaired glucose tolerance) LVH (left ventricular hypertrophy) Dyslipidemia HTN (hypertension) MVP (mitral valve prolapse) Home Medications ?Medication ?Instructions ?Recorded ?Last Taken ?Type calcium carb-ergocalciferol (vit 1 tab PO DAILY vit 04/02/21 01/27/24 History D2) 600 mg calcium-200 unit tablet chdxfcjdcojh-ngawsmwx-mjvyax 1 tab PO DAILY vit 04/02/21 01/27/24 History tablet (Multivitamin 50 Plus tablet) zinc 15 mg tablet 50 mg PO DAILY vit 04/02/21 01/27/24 History acetaminophen 500 mg tablet 1,000 mg (2 x 500 mg) PO Q8H PRN 04/25/21 01/27/24 Rx PRN pain #0 tabs atorvastatin 40 mg tablet 40 mg PO QHS cholesterol #30 tabs 04/25/21 04/14/24 Rx ascorbate calcium (vitamin C) 500 500 mg PO DAILY VIT 06/21/21 01/27/24 History mg tablet aspirin 81 mg capsule 81 mg PO DAILY HEART HEALTH 06/29/21 04/12/24 History lisinopril 10 mg tablet 10 mg PO DAILY BP 07/18/21 04/14/24 History diltiazem HCl 360 mg 240 mg PO DAILY HEART 09/20/21 04/14/24 History tablet,extended release 24 hr (Cardizem LA) rivaroxaban 20 mg tablet (Xarelto) 20 mg PO QHS BLOOD THINN 05/16/22 04/12/24 History cholecalciferol (vitamin D3) 125 125 mcg PO DAILY SUPPLEMENT 01/02/24 01/27/24 History mcg (5,000 unit) tablet (Vitamin D3) magnesium 250 mg tablet 250 mg PO DAILY SUPPLEMENT 01/02/24 01/27/24 History vitamin E 268 mg (400 unit) capsule 268 mg PO DAILY 04/08/24 Unknown History Allergy/AdvReac Type Severity Reaction Status Date / Time No Known Allergies Allergy Verified 04/15/24 08:11 Family History Mother Hyperlipidemia Hypertension Father Diabetes Father Hypertension Father Cancer Mother Dementia Brother Muscular dystrophy Other Arthritis Surgical History History of colonoscopy S/P total knee arthroplasty H/O colonoscopy with polypectomy Status post left breast lumpectomy (~1991) Social History adopted: No household members: spouse housing: house number of children: 0 current occupational status: previously employed and retired 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
[2024-04-15] MEDS: Cefazolin 2 GM in 0.9% Normal Saline (100mL Bag) 100 ML IV (09:05)
--- NOTE | 2024-04-15 09:10 | RAD_ITS ---
STUDY: X-RAY - RIGHT WRIST REASON FOR EXAM: Female, 73 years old. Fracture. TECHNIQUE: 4 fluoroscopic spot films of the right wrist were obtained. COMPARISON: Right forearm radiographs dated 04/03/2024. FINDINGS: There is a new metallic sideplate with multiple fixation screws in the distal radius, bridging a previous distal radial shaft fracture. There is good anatomic alignment. Normal visualized distal ulna. Normal radiocarpal articulation. Normal distal radioulnar articulation. Normal carpal bones. Normal carpal articulations. Normal carpometacarpal articulation of the thumb. Normal second through fifth carpometacarpal articulations. Normal visualized metacarpal bones. RAD/Wrist 2 Views IMPRESSION: New metallic sideplate with multiple fixation screws in the distal radius, bridging a previous distal radial shaft fracture. Good anatomic alignment. Electronically Signed: Lance Matos MD at 16:11 EDT ,
[2024-04-15] MEDS: Bupivacaine 0.25% 30 ML Vial (10:15)
--- NOTE | 2024-04-15 10:25 | PCM.OPRPT ---
Problems Associated Problem List Diagnoses (1) Fracture of shaft of right radius: Report of Operation Date of Procedure: 04/15/24 Pre-Operative Diagnosis: R radius fracture Post-Operative Diagnosis: same Surgery/Procedure Performed:: Right radius ORIF Surgeon: Deepak Dunlap Type of Anesthesia: General and Local Anesthesiologist: Kevon Castro Estimated Blood Loss (mL): 20 Description of Procedure: Patient brought to the operating room theater. Placed supine on the table. General anesthesia induced. 2 g IV Ancef administered prior to the start of the procedure. Hand table to the patient's right side. Upper extremity tourniquet applied appropriately padded. All bony prominences padded. SCDs on the legs. Bed turned 90 degrees. Upper extremity prepped and draped in the usual sterile fashion with chlorhexidine-based prep solution allowing over 3 minutes drying time prior to draping. Preoperative timeout performed confirm the site the patient and the surgery. Began by exsanguinating the limb with a sterile Esmarch elevating the limb and inflating the tourniquet to 250 mmHg. Identified the fracture site. I made a volar longitudinal incision over the fracture site proximally between the FCR and brachial radialis. Carried dissection down through skin and subcutaneous tissue achieved meticulous hemostasis. I developed the interval between the FCR and BR. Identified the radial artery protected that dissected on either side ligated any communicating branches. Identified the fracture site slightly elevated FPL. I irrigated the fracture site removed any interposed callus or hematoma at the fracture site. I achieved preliminary reduction. I used a Synthes LCDC plate precontoured this to the standard radial bow. I used a 7 hole plate. I placed this on bone I clamped the fracture site to prevent any motion. I slightly pronated the distal fragment to match the pronation of the proximal fragment. I inserted 3 fully threaded cortical screws at the proximal segment all 3.5 millimeters screws and 14 mm in length. I then drilled eccentrically at the screw hole distal to the fracture site. I inserted a 14 mm screw there in compression fashion to compress across the fracture site. I then inserted 2 more 16 mm long screws these were all fully threaded cortical screws which achieved good purchase and compression at the fracture site with an anatomic appearing reduction. I took AP and lateral radiographs throughout the case as well as a final pictures and saved these onto the system to confirm appropriate reduction and alignment of the fracture and compression at the fracture site. I also checked full range of motion supination pronation full range of motion of the forearm wrist and elbow no instability of the distal radial ulnar joint in any position. Therefore I did not pin this. Tourniquet let down meticulous hemostasis achieved. Wound thoroughly irrigated with normal saline. Subcutaneous tissue closed with 2-0 Vicryl suture and skin with 3-0 Monocryl. Skin cleaned with wet and dry dressing. Used 10 cc of quarter percent bupivacaine for local anesthetic. Steri-Strips Adaptic gauze and then sterile cast padding with a volar prefabricated fiberglass splint wrapped with loosely wrapped Griffin bandage. Patient woken up from a general anesthetic transferred off the operating room table taken to postanesthetic care unit in stable condition. All sponge needle instrument counts were correct no complications. Plan to the patient follow-up in 2 days time and discharged home according to day surgery procedure. CPT 12932? Complications none Admit VTE Documentation VTE Present on Admission: No VTE Mechan Device Prophylaxis: SCD's VTE Pharm Prophylaxis ordered?: No Reason prophylaxis not ordered:: Treatment Not Indicated Procedures Musculoskeletal [id number]: Other Procedure See Report
--- NOTE | 2024-04-15 10:31 | PCM.POST.ANE ---
Anesthesia: Postop Eval I Current Vital Signs Temperature: 97.4 F Pulse Rate: 112 Blood Pressure: 97/59 Respiratory Rate: 16 Pulse Ox: 93 Oxygen Delivery Method: Nasal Cannula Oxygen Flow Rate (L/min): 3 CO2 Monitorin Assessment Airway patent: Yes Spontaneous unlabored respirations: Yes Mental status: Awake (easily arousable) and Calm nausea: No Vomiting: No Anesthesia Complication: No Fluid Hydration Crystalloid volume administer (ml): 1,000 Total IV fluid infused: 1,000 Progress Note Post-operative progress note: Increased HOB 30 degrees; C&DB enc'd Anesthesia document: Postop Eval 1 completed: Yes
--- NOTE | 2024-04-15 10:32 | EX.PCM.DISCH ---
Discharge Instructions Diet Discharge Diet: No restrictions Activity Discharge Activity: Return to Normal Activity Ice area for (Minutes): 10 Weight Bearing Status: No weight bearing Lifting Restrictions: no lifting over one pound Keep extremity elevated above heart level: Operative Extremity Dressing / Incision Call your doctor if your incision/area has: Continuous Slow Oozing, Sudden Increased Bleeding, Increased Pain/ Swelling, Increased Redness, Foul Smelling Discharge and Swelling at the incision site Cleanse incision/area with: Do not get Incision Wet Follow Up Care Please Follow Up With: Deepak Dunlap MD When: 2 days Test Results: Test results from this visit will be discussed in further detail at your follow-up appointment, if applicable. Discharge Plan Admission Attending Provider: Deepak Dunlap Primary Care Provider: Ashley Montiel NP Instructions Print Language: [place] Discharge Orders/Prescriptions Prescriptions: New oxycodone-acetaminophen [Endocet] 5-325 mg tablet 1 tab PO Q6H MDD 6 PRN (Reason: pain) 5 Days Qty: 20 0RF No Action ascorbate calcium (vitamin C) 500 mg tablet 500 mg PO DAILY aspirin 81 mg capsule 81 mg PO DAILY diltiazem HCl [Cardizem LA] 360 mg tablet extended release 24 hr 240 mg PO DAILY Xarelto 20 mg tablet 20 mg PO QHS zinc 15 mg Tablet 50 mg PO DAILY calcium carbonate-vitamin D2 600 mg calcium- 200 unit Tablet 1 tab PO DAILY Multivitamin 50 Plus Tablet 1 tab PO DAILY acetaminophen 500 mg Tablet 1,000 mg PO Q8H PRN PRN (Reason: pain) Qty: 0 0RF atorvastatin 40 mg Tablet 40 mg PO QHS Qty: 30 0RF lisinopril 10 mg tablet 10 mg PO DAILY cholecalciferol (vitamin D3) [Vitamin D3] 125 mcg (5,000 unit) tablet 125 mcg PO DAILY magnesium 250 mg tablet 250 mg PO DAILY vitamin E 268 mg (400 unit) capsule 268 mg PO DAILY Referrals / Follow Up: Ashley Montiel NP, [facility] [Primary Care Provider] - Deepak Dunlap MD [Med Staff - Active Staff] - Disposition Disposition (needs filled in before D/C Order can be placed): Home, Self Care
[2024-04-15] MEDS: Acetaminophen 500 MG Tablet 1000 MG PO (11:40)
--- NOTE | 2024-04-15 15:13 | POSTOPAN2_ITS ---
Anesthesia Postop Eval I Sum Postop Eval Completion status Anesthesia document: Postop Eval 1 completed: Yes Anesthesia Postop Eval I Summary Anesthesia Postop Eval I Summary: Anesthesia Postop Eval I: Assessment Summary Airway patent Yes 04/15/24 10:33 [email or web address] Spontaneous unlabored Yes 04/15/24 10:33 [email or web address] respirations Mental status Awake - easily 04/15/24 10:33 [email or web address] arousable,Calm nausea No 04/15/24 10:33 [email or web address] Vomiting No 04/15/24 10:33 [email or web address] Anesthesia Postop Eval I: Fluid Summary Crystalloid volume administer 1,000 04/15/24 10:33 [email or web address] (ml) Colloids volume administered ( ml) Blood Product volume administered (ml) Total IV fluid infused 1,000 04/15/24 10:33 [email or web address] Anesthesia Postop Eval I: Summary Notes Anesthesia Complication No 04/15/24 10:33 [email or web address] Anesthesia Complication Comment: Post-operative progress note Increased HOB 30 04/15/24 10:33 [email or web address] degrees; C&DB enc' d Anesthesia: Postop Eval II Evaluation Mental status: Awake and Calm Pain Level: 2 nausea: No Vomiting: No Progress Note Post-operative progress note: Patient did well postoperatively. She once again declines the axillary block for pain control. Complications Anesthesia Complication: No
--- NOTE | 2024-04-15 15:13 | PCM.POSTANE2 ---
Anesthesia Postop Eval I Sum Postop Eval Completion status Anesthesia document: Postop Eval 1 completed: Yes Anesthesia Postop Eval I Summary Anesthesia Postop Eval I Summary: Anesthesia Postop Eval I: Assessment Summary Airway patent Yes 04/15/24 10:33 [employer] [email or web address] Spontaneous unlabored Yes 04/15/24 10:33 [employer] HE[employer] [email or web address] respirations Mental status Awake - easily 04/15/24 10:33 [employer] HEALTH [email or web address] arousable,Calm nausea No 04/15/24 10:33 [employer] HEALTH [email or web address] Vomiting No 04/15/24 10:33 [employer] HEALTH [email or web address] Anesthesia Postop Eval I: Fluid Summary Crystalloid volume administer 1,000 04/15/24 10:33 [employer] HEALTH [email or web address] (ml) Colloids volume administered ( ml) Blood Product volume administered (ml) Total IV fluid infused 1,000 04/15/24 10:33 [employer] HE[employer] [email or web address] Anesthesia Postop Eval I: Summary Notes Anesthesia Complication No 04/15/24 10:33 [employer] HEALTH [email or web address] Anesthesia Complication Comment: Post-operative progress note Increased HOB 30 04/15/24 10:33 [employer] HEALTH [email or web address] degrees; C&DB enc' d Anesthesia: Postop Eval II Evaluation Mental status: Awake and Calm Pain Level: 2 nausea: No Vomiting: No Progress Note Post-operative progress note: Patient did well postoperatively. She once again declines the axillary block for pain control. Complications Anesthesia Complication: No
== END 2024-04-15 12:38 | disposition home or self-care (01) ==
LOC: SDC 08:01 → AC 08:01
PROVIDERS: Anesthesiology; PCP Nurse Practitioner Family; Referring Provider Orthopaedic Surgery Sports Medicine; Visit Provider Orthopaedic Surgery Sports Medicine
PROC: (CPT 25515; principal; 2024-04-15 09:15)
DX: S52.301A Unspecified fracture of shaft of right radius, initial encounter for closed fracture (principal); E11.9 Type 2 diabetes mellitus without complications; I10 Essential (primary) hypertension; E78.00 Pure hypercholesterolemia, unspecified; E66.9 Obesity, unspecified; Z79.01 Long term (current) use of anticoagulants; Z79.899 Other long term (current) drug therapy; Z79.82 Long term (current) use of aspirin; Z86.73 Personal history of transient ischemic attack (TIA), and cerebral infarction without residual deficits; X58.XXXA Exposure to other specified factors, initial encounter; Z68.39 Body mass index [BMI] 39.0-39.9, adult
CPT/HCPCS: 25515; 01830; 36415; 73100; 76000; 80048; C1713; J7120; J2405